=== PATIENT | male | born 1945 | race Caucasian/White ===

== ENCOUNTER 2016-07-05 01:11 | Emergency (ER) | payer MEDICARE, BC ==
[2016-07-05] MEDS ORDERED: SODIUM CHLORIDE 0.9% 1,000 ML IV STA (01:34)
[2016-07-05] MEDS ORDERED: KETOROLAC 30 MG/ML 1 ML VIAL IVP STA (01:35)
[2016-07-05] MEDS ORDERED: ORPHENADRINE 30 MG/ML 2 ML VIAL IVP STA (01:35)
[2016-07-05 02:21] LABS: Aty Lym Flag Slight; CH 31.8; CHCM 33.4; HCT 37.9 % (39.0-53.0); HDW 2.16; HGB 12.7 gm/dL (13.0-17.5); MCH 32.1 pg (25.0-35.0); MCHC 33.6 g/dL (31.0-37.0); MCV 95.5 fL (80.0-100.0); Mean Platelet Volume 6.7; RBC 3.96 m/uL (4.30-5.90); WBC 9.1 k/uL (3.8-10.6); WBC (Perox) 8.87
[2016-07-05 02:35] LABS: ALT 26 U/L (21-72); AST 32 U/L (17-59); Alkaline Phosphatase 79 U/L (38-126); Anion Gap 11 mmol/L; Blood Urea Nitrogen 12 mg/dL (9-20); Calcium 9.2 mg/dL (8.4-10.2); Carbon Dioxide 26 mmol/L (22-30); Chloride 104 mmol/L (98-107); Glucose 85 mg/dL (74-99); Non-African American GFR(MDRD) >60 (>60 ml/min/1.73 sqM); Sodium 141 mmol/L (137-145); Total Bilirubin 0.9 mg/dL (0.2-1.3); Total Protein 9.2 g/dL (6.3-8.2)
[2016-07-05 02:42] LABS: Add Differential Manual Differential
[2016-07-05 02:44] LABS: Manual Review Performed; Nucleated Red Blood Cells 0 /100 WBC (0-0); Reactive Lymphocytes Present; Total Cells Counted 100
--- NOTE | 2016-07-05 03:06 | XR ---
EXAM: XR Lumbar Spine, 3 Views. CLINICAL HISTORY: Reason: Pain TECHNIQUE: Frontal and lateral views of the lumbar spine. COMPARISON: No relevant prior studies available. FINDINGS: Vertebrae: Anterior wedging deformities of T12 and L1 which appear chronic. Mild height loss is also seen at L3. Endplate Schmorl's nodes seen at T11, T12, and L1. Flowing anterior marginal osteophytes may suggest diffuse idiopathic skeletal hyperostosis. Normal alignment. Disc spaces: Disc space narrowing is seen at T12/L1, L1/L2, L2/L3 and L5/S1. There are bulky marginal osteophytes. Degenerative facet disease is seen at all levels. Soft tissues: Unremarkable. IMPRESSION: No acute findings. Chronic height loss of T12, L1 and L3. Schmorl's nodes seen at T11, T12, and L1. Degenerative changes as described.
--- NOTE | 2016-07-05 03:10 | XR ---
EXAM: XR Chest, 2 Views. CLINICAL HISTORY: Reason: Pain TECHNIQUE: Frontal and lateral views of the chest. COMPARISON: CXR 09/19/15. FINDINGS: Lungs: Unremarkable. No consolidation. Pleural space: Unremarkable. No pneumothorax. Heart: Unremarkable. No cardiomegaly. Mediastinum: Unremarkable. Bones/joints: Old right humeral fracture deformity seen. Multilevel degenerative changes of the spine. IMPRESSION: No acute findings.
[2016-07-05 03:13] LABS: Appearance,Urine Clear (Clear); Bilirubin,Urine Negative (Negative); Glucose,Urine (UA) Negative (Negative); Ketones,Urine Negative (Negative); Leukocyte Esterase,Urine Negative (Negative); Mucus,Urine Rare /hpf; Nitrite,Urine Negative (Negative); PH, Urine 6.5 (5.0-8.0); Particle Count 792; Protein,Urine Negative (Negative); RBC,Urine >182 /hpf (0-5); Specific Gravity,Urine 1.009 (1.001-1.035); UA Billing (MACRO vs. MICRO) MICRO; Urobilinogen,Urine <2.0 mg/dL (<2.0); WBC,Urine 1 /hpf (0-5)
--- NOTE | 2016-07-05 03:13 | ED ---
General Adult HPI - General Chief complaint: Back Pain/Injury Stated complaint: Flank Pain Time Seen by Provider: 07/05/16 01:17 Source: EMS, RN notes reviewed, old records reviewed Mode of arrival: EMS Limitations: no limitations - History of Present Illness Initial comments: This is a 70 year old male with four days of right sided lower back pain, patient reports that this does not change with position. Patient reports that hte pain will radiate toward his groin, into his testicle. PAtient states he has had no trouble with urination, denies any changes with bowel movements. Denies history of kidney stones. Patient states his pain rafael 5/10. Denies fevers , chills, chest pain, shortness of breath, nausea, vomiting, abdominal pain. - Related Data Home Medications Medication Instructions Recorded Confirmed Citalopram Hydrobromide [CeleXA] 20 mg PO DAILY 06/08/14 09/19/15 Diltiazem Oral [Cardizem*] 60 mg PO AC-BID 07/23/14 09/19/15 Phenytoin Sodium Extended 200 mg PO BID 09/23/14 09/19/15 [Dilantin] Atenolol [Tenormin] 50 mg PO BID 08/16/15 09/19/15 Gabapentin [Neurontin] 300 mg PO BID 08/16/15 09/19/15 Previous Rx's Medication Instructions Recorded Aspirin EC [Ecotrin] 325 mg PO DAILY #30 tablet. 08/05/13 Ondansetron [Zofran ODT] 8 mg PO Q8HR PRN #12 tab 08/16/15 HYDROcodone/APAP 10-325MG [[place] 1 tab PO Q6H PRN #20 tab 07/05/16 10-325] Ketorolac [Toradol] 10 mg PO Q6HR #12 tab 07/05/16 Ondansetron Odt [Zofran Odt] 4 mg PO Q8HR PRN #12 tab 07/05/16 Allergies Allergy/AdvReac Type Severity Reaction Status Date / Time loratadine Allergy Unknown Verified 07/05/16 01:26 antihistamines Allergy Unknown Uncoded 07/05/16 01:26 Review of Systems ROS Statement: Those systems with pertinent positive or pertinent negative responses have been documented in the HPI. ROS Other: All systems not noted in ROS Statement are negative. Past Medical History Past Medical History: CVA/TIA, Hypertension, Seizure Disorder Additional Past Medical History / Comment(s): alcohol intoxication, alcohol withdrawal seizures, hypokalemia, hyponatremia, dehyration, metabolic encephalopathy History of Any Multi-Drug Resistant Organisms: Unobtainable Past Surgical History: No Surgical Hx Reported Past Anesthesia/Blood Transfusion Reactions: No Reported Reaction Past Psychological History: Anxiety, Depression Additional Psychological History / Comment(s): due to his depression he drinks whisky Smoking Status: Never smoker Past Alcohol Use History: Occasional Past Drug Use History: None Reported - Past Family History Father Family Medical History: No Reported History Mother Family Medical History: Coronary Artery Disease (CAD), Hypertension General Exam - General Exam Comments Initial Comments: Pleasant 70 year old male, no distress. Limitations: no limitations General appearance: alert, in no apparent distress Head exam: Present: atraumatic, normocephalic, normal inspection Eye exam: Present: normal appearance, PERRL, EOMI. Absent: scleral icterus, conjunctival injection, periorbital swelling ENT exam: Present: normal exam, mucous membranes moist Neck exam: Present: normal inspection. Absent: tenderness, meningismus, lymphadenopathy Respiratory exam: Present: normal lung sounds bilaterally. Absent: respiratory distress, wheezes, rales, rhonchi, stridor Cardiovascular Exam: Present: regular rate, normal rhythm, normal heart sounds. Absent: systolic murmur, diastolic murmur, rubs, gallop, clicks GI/Abdominal exam: Present: soft, normal bowel sounds. Absent: distended, tenderness, guarding, rebound, rigid Extremities exam: Present: normal inspection, full ROM, normal capillary refill. Absent: tenderness, pedal edema, joint swelling, calf tenderness Back exam: Present: normal inspection, CVA tenderness (R) Neurological exam: Present: alert, oriented X3, CN II-XII intact Psychiatric exam: Present: normal affect, normal mood Skin exam: Present: warm, dry, intact, normal color. Absent: rash Course Vital Signs 07/05/16 07/05/16 07/05/16 01:21 03:17 04:36 Temperature 99.7 F H 97.8 F 97.5 F L Pulse Rate 70 65 88 Respiratory 18 18 16 Rate Blood Pressure 151/93 151/72 133/75 O2 Sat by Pulse 97 96 97 Oximetry Medical Decision Making - Medical Decision Making Pleasant 70 year old male with right flank pain for four days. Patient has hematuria, kidney function is stable. Patient has 1.5cm Right renal stone. Discussed findings with patient, and patient understands he needs to see urology. Discussed we can complete pain management and that he needs to schedule a possbile lithotripsy or surgery. Patient agrees with treatment plan and will comply. Patient states that he is pain free at this time. Patient given referral for Dr. Thorpe. - Lab Data Result diagrams: 07/05/16 02:10 07/05/16 02:10 Lab Results 07/05/16 07/05/16 07/05/16 Range/Units 02:10 02:10 03:05 WBC 9.1 (3.8-10.6) k/uL RBC 3.96 L (4.30-5.90) m/uL Hgb 12.7 L (13.0-17.5) gm/dL Hct 37.9 L (39.0-53.0) % MCV 95.5 (80.0-100.0) fL MCH 32.1 (25.0-35.0) pg MCHC 33.6 (31.0-37.0) g/dL RDW 13.0 (11.5-15.5) % Plt Count 139 L (150-450) k/uL Neutrophils % (Manual) 44.0 % Lymphocytes % (Manual) 45.0 % Monocytes % (Manual) 9.0 % Eosinophils % (Manual) 2.0 % Neutrophils # (Manual) 4.0 (1.3-7.7) k/uL Lymphocytes # (Manual) 4.1 (1.0-4.8) k/uL Monocytes # (Manual) 0.8 (0-1.0) k/uL Eosinophils # (Manual) 0.2 (0-0.7) k/uL Nucleated RBCs 0 (0-0) /100 WBC Manual Slide Review Performed Reactive Lymphocytes Present Sodium 141 (137-145) mmol/L Potassium 5.0 (3.5-5.1) mmol/L Chloride 104 (98-107) mmol/L Carbon Dioxide 26 (22-30) mmol/L Anion Gap 11 mmol/L BUN 12 (9-20) mg/dL Creatinine 0.90 (0.66-1.25) mg/dL Est GFR (MDRD) Af Amer >60 (>60 ml/min/1.73 sqM) Est GFR (MDRD) Non-Af >60 (>60 ml/min/1.73 sqM) Glucose 85 (74-99) mg/dL Calcium 9.2 (8.4-10.2) mg/dL Total Bilirubin 0.9 (0.2-1.3) mg/dL AST 32 (17-59) U/L ALT 26 (21-72) U/L Alkaline Phosphatase 79 (38-126) U/L Total Protein 9.2 H (6.3-8.2) g/dL Albumin 4.0 (3.5-5.0) g/dL Urine Color Light Yellow Urine Appearance Clear (Clear) Urine pH 6.5 (5.0-8.0) Ur Specific [place] 1.009 (1.001-1.035) Urine Protein Negative (Negative) Urine Glucose (UA) Negative (Negative) Urine Ketones Negative (Negative) Urine Blood Moderate H (Negative) Urine Nitrite Negative (Negative) Urine Bilirubin Negative (Negative) Urine Urobilinogen <2.0 (<2.0) mg/dL Ur Leukocyte Esterase Negative (Negative) Urine RBC >182 H (0-5) /hpf Urine WBC 1 (0-5) /hpf Urine Mucus Rare H (None) /hpf - Radiology Data Radiology results: report reviewed Patient has a 15mm renal pelvis stone via CT report. Disposition Clinical Impression: Renal calculus, right Disposition: HOME SELF-CARE Condition: Good Instructions: Kidney Stones (ED) Additional Instructions: Patient needs to call Dr. Piedra on Wednesday for an appointment about a 15 mm right renal stone. Take pain medication and nausea medication as prescribed. Return to the emergency department if there are any alarming signs or symptoms. Prescriptions: HYDROcodone/APAP 10-325MG [[place] 10-325] 1 tab PO Q6H PRN #20 tab PRN Reason: Pain Ketorolac [Toradol] 10 mg PO Q6HR #12 tab Ondansetron Odt [Zofran Odt] 4 mg PO Q8HR PRN #12 tab PRN Reason: Nausea Referrals: Husam Wright MD [Primary Care Provider] - 1-2 days Luis A Thorpe MD [STAFF PHYSICIAN] - 1-2 days Time of Disposition: 04:19
--- NOTE | 2016-07-05 03:53 | CT ---
EXAM: CT Abdomen and Pelvis Without Intravenous Contrast. CLINICAL HISTORY: Reason: Pain TECHNIQUE: Axial computed tomography images of the abdomen and pelvis without intravenous contrast. CTDI is 19.3 mGy and DLP is 904 mGy-cm This CT exam was performed using one or more of the following dose reduction techniques: automated exposure control, adjustment of the mA and/or kV according to patient size, and/or use of iterative reconstruction technique. Coronal and sagittal reformatted images were created and reviewed. COMPARISON: Lumbar spine radiographs dated 09/19/15 and 07/05/16 FINDINGS: Lower thorax: Extensive mitral annulus calcifications. ABDOMEN: Liver: Unremarkable. Gallbladder and bile ducts: Cholelithiasis. No ductal dilation. Pancreas: Unremarkable. No ductal dilation. Spleen: Unremarkable. No splenomegaly. Adrenals: Unremarkable. No mass. Kidneys and ureters: 15 mm calculus within the right renal pelvis. Left adrenal 4.8 cm fat containing lesion which may represent a myolipoma vs. an angiomyolipoma arising from the kidney. Stomach and bowel: Unremarkable. No obstruction. No mucosal thickening. Appendix: No findings to suggest acute appendicitis. PELVIS: Bladder: Bladder wall thickening which may suggest cystitis vs. chronic outlet obstruction. Reproductive: Unremarkable as visualized. ABDOMEN and PELVIS: Intraperitoneal space: No free air. No significant fluid collection. Bones/joints: Schmorl's nodes seen at T9, T10, T11, T12, L1, and L2. The L2 Schmorl's node may possibly be acute. Diffuse osteopenia. Multilevel degenerative changes of the spine. Mild height loss is seen at L3 which appears chronic. Flowing contiguous marginal osteophytes may reflect diffuse idiopathic skeletal hyperostosis. Soft tissues: Right fat containing inguinal hernia. Vasculature: Extensive atherosclerosis. No abdominal aortic aneurysm. Lymph nodes: Unremarkable. No enlarged lymph nodes. IMPRESSION: 1. 15 mm calculus within the right renal pelvis. 2. Cholelithiasis. 3. Bladder wall thickening which may suggest cystitis vs. chronic outlet obstruction. 4. Schmorl's nodes seen at T9, T10, T11, T12, L1, and L2. The L2 Schmorl's node may possibly be acute. 5. Left adrenal 4.8 cm fat containing lesion which may represent a myolipoma vs. an angiomyolipoma arising from the kidney.
[2016-07-05 04:38] VITALS: BP 133/75; PULSE 88; RESP 16; TEMP 97.5
== END 2016-07-05 04:38 | disposition home or self-care (01) ==
LOC: EC 01:11
DX: N20.0 Calculus of kidney (principal); I10 Essential (primary) hypertension; G40.909 Epilepsy, unspecified, not intractable, without status epilepticus; F32.9 Major depressive disorder, single episode, unspecified; F41.9 Anxiety disorder, unspecified; Z79.899 Other long term (current) drug therapy; Z88.8 Allergy status to other drugs, medicaments and biological substances
CPT/HCPCS: 36415; 80053; 85025; 81001; 71020; 72100; 74176; 99285; 96374; 96375; 96361 ×3; J2360; J1885

== ENCOUNTER 2016-11-05 13:17 | Emergency (ER) | payer MEDICARE, BC ==
[2016-11-05 13:27] VITALS: RESP 18
[2016-11-05] MEDS ORDERED: LORazepam 2 MG/ML SYRINGE IV STA (13:34)
[2016-11-05] MEDS ORDERED: SODIUM CHLORIDE 0.9% 500 ML IV STA (13:34)
--- NOTE | 2016-11-05 13:40 | ED ---
General Adult HPI - General Chief complaint: Seizure Stated complaint: seizure Time Seen by Provider: 11/05/16 13:21 Source: patient, EMS, RN notes reviewed Mode of arrival: EMS Limitations: no limitations - History of Present Illness Initial comments: 71-year-old male presents to the emergency Department chief complaint of seizure. Patient has a long history of seizures. Patient had a seizure today. Patient states the patient for nausea and he feels a little foggy. Patient states that he has no other complaints. Per report there was no injury from the seizure. They state they were informed that his Dilantin level was low there concerned that he has not been taking his Dilantin swimming antiseizure they sent him here. Patient denies a loss by bladder function or biting of the tongue. Patient states that this time he has no pain he just has some mild nausea.Patient denies any recent fever, chills, shortness of breath, chest pain , back pain, abdominal pain, vomiting, numbness or tingling, dysuria or hematuria, constipation or diarrhea, headaches or visual changes, or any other current symptoms. - Related Data Home Medications Medication Instructions Recorded Confirmed Citalopram Hydrobromide [CeleXA] 20 mg PO DAILY@199906/08/14 11/05/16 Phenytoin Sodium Extended 200 mg PO BID@0809/23/14 11/05/16 [Dilantin] Atenolol [Tenormin] 50 mg PO DAILY 08/16/15 11/05/16 Cholecalciferol (Vitamin D3) 2,000 unit PO DAILY 11/05/16 11/05/16 [Vitamin D3] Diltiazem HCl [Diltiazem 24Hr ER] 120 mg PO DAILY@199911/05/16 11/05/16 HYDROcodone/APAP 10-325MG [[place] 1 tab PO Q8H PRN 11/05/16 11/05/16 10-325] Ibuprofen [Motrin] 400 - 800 mg PO Q6HR PRN 11/05/16 11/05/16 Ipratropium Line [place] 0.06%Nasal 2 spray EA NOSTRIL TID PRN 11/05/16 11/05/16 [Atrovent Nasal 0.06%] Multivitamins, Thera [Multivitamin 1 tab PO DAILY 11/05/16 11/05/16 (formulary)] [place]-3 Fatty Acids/Fish Oil [Fish 1 cap PO DAILY 11/05/16 11/05/16 Oil 1,000 mg Softgel] Ondansetron [Zofran ODT] 4 mg PO Q8HR PRN 11/05/16 11/05/16 Sennosides [Senna] 8.6 mg PO DAILY PRN 11/05/16 11/05/16 Previous Rx's Medication Instructions Recorded Aspirin EC [Ecotrin] 325 mg PO DAILY #30 tablet. 08/05/13 Allergies Allergy/AdvReac Type Severity Reaction Status Date / Time loratadine Allergy Unknown Verified 11/05/16 14:03 antihistamines Allergy Unknown Uncoded 07/05/16 01:26 Review of Systems ROS Statement: Those systems with pertinent positive or pertinent negative responses have been documented in the HPI. ROS Other: All systems not noted in ROS Statement are negative. Past Medical History Past Medical History: CVA/TIA, Hypertension, Seizure Disorder Additional Past Medical History / Comment(s): alcohol intoxication, alcohol withdrawal seizures, hypokalemia, hyponatremia, dehyration, metabolic encephalopathy History of Any Multi-Drug Resistant Organisms: Unobtainable Past Surgical History: No Surgical Hx Reported Past Anesthesia/Blood Transfusion Reactions: No Reported Reaction Past Psychological History: Anxiety, Depression Smoking Status: Never smoker Past Alcohol Use History: Occasional Past Drug Use History: None Reported - Past Family History Father Family Medical History: No Reported History Mother Family Medical History: Coronary Artery Disease (CAD), Hypertension General Exam - General Exam Comments Initial Comments: General: The patient is awake and alert, in no distress, and does not appear acutely ill. Eye: Pupils are equal, round and reactive to light, extra-ocular movements are intact; there is normal conjunctiva bilaterally. No signs of icterus. Ears, nose, mouth and throat: There are moist mucous membranes and no oral lesions. Neck: The neck is supple, there is no tenderness. Cardiovascular: There is a regular rate and rhythm. No murmur, rub or gallop is appreciated. Respiratory: Lungs are clear to auscultation, respirations are non-labored, breath sounds are equal. No wheezes, stridor, rales, or rhonchi. Gastrointestinal: Soft, non-distended, non-tender abdomen without masses or organomegaly noted. There is no rebound or guarding present. No CVA tenderness. Bowel sounds are unremarkable. Back: There is no tenderness to palpation in the midline. There is no obvious deformity. No rashes noted. Musculoskeletal: Normal ROM, no tenderness, There is no pedal edema. There is no calf tenderness or swelling. Sensation intact. Pulses equal bilaterally 2+. Neurological: CN II-XII intact, There are no obvious motor or sensory deficits. Coordination appears grossly intact. Speech is normal. Skin: Skin is warm and dry and no rashes or lesions are noted. Psychiatric: Cooperative, appropriate mood & affect, normal judgment. Limitations: no limitations Course Vital Signs 11/05/16 11/05/16 11/05/16 13:20 15:30 16:05 Temperature 98.3 F 98.2 F Pulse Rate 95 98 87 Respiratory 18 18 18 Rate Blood Pressure 138/74 138/70 137/87 O2 Sat by Pulse 96 99 98 Oximetry EKG Findings - EKG Comments: EKG Findings:: normal sinus rhythm 97 bpm, normal axis, no atopy, no S-T depressions or elevations, prolonged QT Medical Decision Making - Medical Decision Making 71-year-old male presents to the emergency Department chief complaint of seizures. Patient has long history sutures this was much like his normal seizure. There concerned that his seizure medication level may be low.at this time we will re-placed patient's Dilantin. We discussed continuing Lopressor home and close follow-up with her doctor for reevaluation. We did discuss taking his medications the patient states that he has been missing some doses. We did discuss follow-up return parameters. Patient is in agreement with plan all questions have been answered. He will be discharged home at this time. - Lab Data Result diagrams: 11/05/16 14:10 11/05/16 14:10 Lab Results 11/05/16 11/05/16 Range/Units 14:10 14:10 WBC 9.2 (3.8-10.6) k/uL RBC 4.35 (4.30-5.90) m/uL Hgb 13.8 (13.0-17.5) gm/dL Hct 40.5 (39.0-53.0) % MCV 93.0 (80.0-100.0) fL MCH 31.8 (25.0-35.0) pg MCHC 34.2 (31.0-37.0) g/dL RDW 12.6 (11.5-15.5) % Plt Count 150 (150-450) k/uL Neutrophils % 76 % Lymphocytes % 15 % Monocytes % 5 % Eosinophils % 1 % Basophils % 0 % Neutrophils # 6.9 (1.3-7.7) k/uL Lymphocytes # 1.3 (1.0-4.8) k/uL Monocytes # 0.4 (0-1.0) k/uL Eosinophils # 0.1 (0-0.7) k/uL Basophils # 0.0 (0-0.2) k/uL Sodium 145 (137-145) mmol/L Potassium 4.0 (3.5-5.1) mmol/L Chloride 109 H (98-107) mmol/L Carbon Dioxide 22 (22-30) mmol/L Anion Gap 14 mmol/L BUN 18 (9-20) mg/dL Creatinine 0.90 (0.66-1.25) mg/dL Est GFR (MDRD) Af Amer >60 (>60 ml/min/1.73 sqM) Est GFR (MDRD) Non-Af >60 (>60 ml/min/1.73 sqM) Glucose 126 H (74-99) mg/dL Calcium 9.4 (8.4-10.2) mg/dL Total Bilirubin 0.6 (0.2-1.3) mg/dL AST 31 (17-59) U/L ALT 16 L (21-72) U/L Alkaline Phosphatase 104 (38-126) U/L Total Protein 8.7 H (6.3-8.2) g/dL Albumin 4.0 (3.5-5.0) g/dL Phenytoin 3.3 ug/mL Disposition Clinical Impression: Generalized seizure, Dilantin level too low Disposition: HOME SELF-CARE Condition: Stable Instructions: Recurrent Seizures in Adults (ED) Additional Instructions: Please use medication as discussed. Please follow up with family doctor if symptoms have not improved over the next two days. Please return to the emergency room if your symptoms increase or worsen or for any other concerns. Referrals: Husam Wright MD [Primary Care Provider] - 1-2 days Time of Disposition: 16:12
[2016-11-05 14:16] LABS: Basophils % (A) 0 %; CH 31.2; CHCM 33.7; Eosinophils # (A) 0.1 k/uL (0-0.7); Eosinophils % (A) 1 %; HCT 40.5 % (39.0-53.0); HDW 2.04; HGB 13.8 gm/dL (13.0-17.5); Luc # (Auto) 0.31; Luc % (Auto) 3; Lymphocytes # (A) 1.3 k/uL (1.0-4.8); Lymphocytes % (A) 15 %; MCH 31.8 pg (25.0-35.0); MCHC 34.2 g/dL (31.0-37.0); Mean Platelet Volume 6.6; Monocytes # (A) 0.4 k/uL (0-1.0); Monocytes % (A) 5 %; Neutrophils # (A) 6.9 k/uL (1.3-7.7); Neutrophils % (A) 76 %; RBC 4.35 m/uL (4.30-5.90); RDW 12.6 % (11.5-15.5); WBC 9.2 k/uL (3.8-10.6); WBC (Perox) 9.01
[2016-11-05 14:49] LABS: ALT 16 U/L (21-72); AST 31 U/L (17-59); Alkaline Phosphatase 104 U/L (38-126); Anion Gap 14 mmol/L; Blood Urea Nitrogen 18 mg/dL (9-20); Calcium 9.4 mg/dL (8.4-10.2); Carbon Dioxide 22 mmol/L (22-30); Chloride 109 mmol/L (98-107); Glucose 126 mg/dL (74-99); Non-African American GFR(MDRD) >60 (>60 ml/min/1.73 sqM); Sodium 145 mmol/L (137-145); Total Bilirubin 0.6 mg/dL (0.2-1.3); Total Protein 8.7 g/dL (6.3-8.2)
[2016-11-05] MEDS ORDERED: PHENYTOIN SODIUM INJ 1,000 MG in SODIUM CHLORIDE 0.9% 100 ML IVPB STA (15:00)
[2016-11-05 16:06] VITALS: BP 137/87; PULSE 87; TEMP 98.2
== END 2016-11-05 16:11 | disposition home or self-care (01) ==
LOC: EC 13:17
DX: G40.409 Other generalized epilepsy and epileptic syndromes, not intractable, without status epilepticus (principal); R11.0 Nausea; F32.9 Major depressive disorder, single episode, unspecified; I10 Essential (primary) hypertension; Z79.899 Other long term (current) drug therapy; Z88.8 Allergy status to other drugs, medicaments and biological substances
CPT/HCPCS: 99284; 96365; 96375; 96361 ×2; 36415; 93005; 80053; 80185; 85025; J2060; J1165

== ENCOUNTER 2017-02-05 20:02 | Inpatient (IN) | payer MEDICARE, BC ==
[2017-02-05] MEDS ORDERED: LORazepam 2 MG/ML INJ IV STA ×2 (20:18→22:13)
--- NOTE | 2017-02-05 20:24 | ED ---
General Adult HPI - General Chief complaint: Seizure Stated complaint: post seizure check up Time Seen by Provider: 02/05/17 20:08 Source: patient, EMS, RN notes reviewed Mode of arrival: EMS Limitations: no limitations - History of Present Illness Initial comments: 71 yo male presents to the emergency department with a chief complaint of concern he may have a seizure. 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 Patient states that he does drink on occasion and he drink yesterday and then he had a seizure last night. He states it was a grand mal seizure. He states that he knows this. He states that he has scratches on his left elbow and he believes he hit his head. Patient states that now he just feels off like he may have another seizure he denies drinking today. He states he wanted his Dilantin level checked. He states that he sees the physicians that come to his home. He states that he just feels like he may have another seizure so he thought that he should be seen.Patient denies any recent fever, chills, shortness of breath, chest pain, back pain, abdominal pain , nausea vomiting, numbness or tingling, dysuria or hematuria, constipation or diarrhea, headaches or visual changes, or any other current symptoms. - Related Data Home Medications Medication Instructions Recorded Confirmed Phenytoin Sodium Extended 200 mg PO BID@0800,199909/23/14 02/05/17 [Dilantin] Cholecalciferol (Vitamin D3) 2,000 unit PO DAILY 11/05/16 02/05/17 [Vitamin D3] [place]-3 Fatty Acids/Fish Oil [Fish 1 cap PO DAILY 11/05/16 02/05/17 Oil 1,000 mg Softgel] Aspirin [Children's Aspirin] 81 mg PO DAILY 02/05/17 02/05/17 Unk. Blood Pressure Medication 1 tab PO DAILY 02/05/17 02/05/17 Allergies Allergy/AdvReac Type Severity Reaction Status Date / Time loratadine Allergy Unknown Verified 11/05/16 14:03 antihistamines Allergy Unknown Uncoded 07/05/16 01:26 Review of Systems ROS Statement: Those systems with pertinent positive or pertinent negative responses have been documented in the HPI. ROS Other: All systems not noted in ROS Statement are negative. Past Medical History Past Medical History: CVA/TIA, Hypertension, Seizure Disorder Additional Past Medical History / Comment(s): alcohol intoxication, alcohol withdrawal seizures, hypokalemia, hyponatremia, dehyration, metabolic encephalopathy History of Any Multi-Drug Resistant Organisms: Unobtainable Past Surgical History: No Surgical Hx Reported Past Anesthesia/Blood Transfusion Reactions: No Reported Reaction Past Psychological History: Anxiety, Depression Smoking Status: Never smoker Past Alcohol Use History: Occasional Past Drug Use History: None Reported - Past Family History Father Family Medical History: No Reported History Mother Family Medical History: Coronary Artery Disease (CAD), Hypertension General Exam Limitations: no limitations General appearance: alert, in no apparent distress Eye exam: Present: normal appearance, PERRL, EOMI. Absent: scleral icterus, conjunctival injection, periorbital swelling Neck exam: Present: normal inspection. Absent: tenderness, meningismus, lymphadenopathy Respiratory exam: Present: normal lung sounds bilaterally. Absent: respiratory distress, wheezes, rales, rhonchi, stridor Cardiovascular Exam: Present: regular rate, normal rhythm, normal heart sounds. Absent: systolic murmur, diastolic murmur, rubs, gallop, clicks GI/Abdominal exam: Present: soft, normal bowel sounds. Absent: distended, tenderness, guarding, rebound, rigid Extremities exam: Present: normal inspection, full ROM, normal capillary refill. Absent: tenderness, pedal edema, joint swelling, calf tenderness Back exam: Present: normal inspection Neurological exam: Present: alert, oriented X3, CN II-XII intact, normal gait, reflexes normal. Absent: motor sensory deficit Psychiatric exam: Present: normal affect, normal mood Skin exam: Present: warm, dry, intact, normal color. Absent: rash Course Vital Signs 02/05/17 20:03 Temperature 101.1 F H Pulse Rate 81 Respiratory 18 Rate Blood Pressure 182/92 O2 Sat by Pulse 97 Oximetry Medical Decision Making - Medical Decision Making 71 yo male presents emergency Department chief complaint of concern for seizure. Patient has a seizure disorder did have a seizure yesterday. At this time there is concern this could be alcohol withdrawal seizure versus his seizure disorder. At this time the fever there does not appear to be a known source associated seizure. We did give him a loading dose of Dilantin. We will admit the patient for continued observation due to alcohol withdrawal seizures. This was discussed with the patient who is in agreement this plan. All questions have been answered. - Lab Data Result diagrams: 02/05/17 20:41 02/05/17 20:41 Lab Results 02/05/17 02/05/17 02/05/17 Range/Units 20:41 20:41 20:41 WBC 12.1 H (3.8-10.6) k/uL RBC 3.95 L (4.30-5.90) m/uL Hgb 12.4 L (13.0-17.5) gm/dL Hct 37.6 L (39.0-53.0) % MCV 95.2 (80.0-100.0) fL MCH 31.5 (25.0-35.0) pg MCHC 33.1 (31.0-37.0) g/dL RDW 13.9 (11.5-15.5) % Plt Count 165 (150-450) k/uL Neutrophils % 56 % Lymphocytes % 33 % Monocytes % 6 % Eosinophils % 1 % Basophils % 0 % Neutrophils # 6.7 (1.3-7.7) k/uL Lymphocytes # 4.0 (1.0-4.8) k/uL Monocytes # 0.8 (0-1.0) k/uL Eosinophils # 0.1 (0-0.7) k/uL Basophils # 0.0 (0-0.2) k/uL PT (9.0-12.0) sec INR (<1.2) APTT (22.0-30.0) sec Sodium 139 (137-145) mmol/L Potassium 3.8 (3.5-5.1) mmol/L Chloride 105 (98-107) mmol/L Carbon Dioxide 25 (22-30) mmol/L Anion Gap 9 mmol/L BUN 16 (9-20) mg/dL Creatinine 1.10 (0.66-1.25) mg/dL Est GFR (MDRD) Af Amer >60 (>60 ml/min/1.73 sqM) Est GFR (MDRD) Non-Af >60 (>60 ml/min/1.73 sqM) Glucose 110 H (74-99) mg/dL Plasma Lactic Acid Rivera (0.7-2.0) mmol/L Calcium 9.3 (8.4-10.2) mg/dL Phosphorus 2.9 (2.5-4.5) mg/dL Magnesium 1.9 (1.6-2.3) mg/dL Total Bilirubin 0.6 (0.2-1.3) mg/dL AST 35 (17-59) U/L ALT 44 (21-72) U/L Alkaline Phosphatase 108 (38-126) U/L Total Protein 9.1 H (6.3-8.2) g/dL Albumin 3.9 (3.5-5.0) g/dL Phenytoin 8.7 ug/mL Serum Alcohol <10 mg/dL Influenza Type A RNA (Not Detectd) Influenza Type B (PCR) (Not Detectd) 02/05/17 02/05/17 02/05/17 Range/Units 20:41 20:41 20:50 WBC (3.8-10.6) k/uL RBC (4.30-5.90) m/uL Hgb (13.0-17.5) gm/dL Hct (39.0-53.0) % MCV (80.0-100.0) fL MCH (25.0-35.0) pg MCHC (31.0-37.0) g/dL RDW (11.5-15.5) % Plt Count (150-450) k/uL Neutrophils % % Lymphocytes % % Monocytes % % Eosinophils % % Basophils % % Neutrophils # (1.3-7.7) k/uL Lymphocytes # (1.0-4.8) k/uL Monocytes # (0-1.0) k/uL Eosinophils # (0-0.7) k/uL Basophils # (0-0.2) k/uL PT 11.5 (9.0-12.0) sec INR 1.1 (<1.2) APTT 25.6 (22.0-30.0) sec Sodium (137-145) mmol/L Potassium (3.5-5.1) mmol/L Chloride (98-107) mmol/L Carbon Dioxide (22-30) mmol/L Anion Gap mmol/L BUN (9-20) mg/dL Creatinine (0.66-1.25) mg/dL Est GFR (MDRD) Af Amer (>60 ml/min/1.73 sqM) Est GFR (MDRD) Non-Af (>60 ml/min/1.73 sqM) Glucose (74-99) mg/dL Plasma Lactic Acid Rivera 1.0 (0.7-2.0) mmol/L Calcium (8.4-10.2) mg/dL Phosphorus (2.5-4.5) mg/dL Magnesium (1.6-2.3) mg/dL Total Bilirubin (0.2-1.3) mg/dL AST (17-59) U/L ALT (21-72) U/L Alkaline Phosphatase (38-126) U/L Total Protein (6.3-8.2) g/dL Albumin (3.5-5.0) g/dL Phenytoin ug/mL Serum Alcohol mg/dL Influenza Type A RNA Not Detected (Not Detectd) Influenza Type B (PCR) Not Detected (Not Detectd) - Radiology Data Radiology results: report reviewed, image reviewed Disposition Clinical Impression: Alcohol withdrawal seizure, Fever Disposition: ADMITTED IP TO THIS [facility] Condition: Stable Referrals: Nonstaff,Physician [Primary Care Provider] - 1-2 days Decision Date: 02/05/17 Decision Time: 22:14
[2017-02-05] MEDS ORDERED: ONDANSETRON 4 MG/2 ML VIAL IVP STA (20:47)
[2017-02-05 20:59] LABS: Basophils % (A) 0 %; CH 30.9; CHCM 32.6; Eosinophils # (A) 0.1 k/uL (0-0.7); Eosinophils % (A) 1 %; HCT 37.6 % (39.0-53.0); HDW 1.88; HGB 12.4 gm/dL (13.0-17.5); Luc # (Auto) 0.38; Luc % (Auto) 3; Lymphocytes % (A) 33 %; MCH 31.5 pg (25.0-35.0); MCHC 33.1 g/dL (31.0-37.0); MCV 95.2 fL (80.0-100.0); Mean Platelet Volume 7.5; Monocytes # (A) 0.8 k/uL (0-1.0); Monocytes % (A) 6 %; Neutrophils # (A) 6.7 k/uL (1.3-7.7); Neutrophils % (A) 56 %; RBC 3.95 m/uL (4.30-5.90); RDW 13.9 % (11.5-15.5); WBC 12.1 k/uL (3.8-10.6); WBC (Perox) 12.09
[2017-02-05 21:11] LABS: ALT 44 U/L (21-72); AST 35 U/L (17-59); Alcohol <10 mg/dL; Alkaline Phosphatase 108 U/L (38-126); Anion Gap 9 mmol/L; Blood Urea Nitrogen 16 mg/dL (9-20); Calcium 9.3 mg/dL (8.4-10.2); Carbon Dioxide 25 mmol/L (22-30); Chloride 105 mmol/L (98-107); Glucose 110 mg/dL (74-99); INR 1.1 (<1.2); Non-African American GFR(MDRD) >60 (>60 ml/min/1.73 sqM); Partial Thromboplastin Time 25.6 sec (22.0-30.0); Potassium 3.8 mmol/L (3.5-5.1); Prothrombin Time 11.5 sec (9.0-12.0); Sodium 139 mmol/L (137-145); Total Bilirubin 0.6 mg/dL (0.2-1.3); Total Protein 9.1 g/dL (6.3-8.2)
[2017-02-05 21:12] LABS: Magnesium 1.9 mg/dL (1.6-2.3); Phosphorous 2.9 mg/dL (2.5-4.5)
--- NOTE | 2017-02-05 21:32 | CT ---
EXAMINATION TYPE: CT brain wo con DATE OF EXAM: 02/05/2017 COMPARISON: 08/16/2015 HISTORY: Seizure activity. CT DLP: 977.5 mGycm Automated exposure control for dose reduction was used. FINDINGS: There is cerebral cortical atrophy. There is an approximate 3 cm area of increased density with calci fication in the left parietal lobe convexity. There is ray-white matter involvement. There is no mas s effect. There is no evidence of adjacent cerebral edema. There is no sign of acute intracranial hem orrhage. 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 NO ACUTE INTRACRANIAL ABNORMALITY. STABL E 5 MM LACUNAR INFARCT IN THE ANTERIOR RIGHT INTERNAL CAPSULE.
[2017-02-05] MEDS ORDERED: PHENYTOIN SODIUM INJ 500 MG in SODIUM CHLORIDE 0.9% 100 ML IVPB STA (22:13)
[2017-02-05] MEDS ORDERED: ACETAMINOPHEN TAB 325 MG TAB PO PRN (22:38)
[2017-02-05 22:50] LABS: Appearance,Urine Clear (Clear); Bilirubin,Urine Negative (Negative); Glucose,Urine (UA) Negative (Negative); Ketones,Urine Negative (Negative); Leukocyte Esterase,Urine Negative (Negative); Nitrite,Urine Negative (Negative); Protein,Urine Negative (Negative); Specific Gravity,Urine 1.012 (1.001-1.035); UA Billing (MACRO vs. MICRO) CHEM; Urobilinogen,Urine <2.0 mg/dL (<2.0)
[2017-02-05] MEDS ORDERED: LISINOPRIL 20 MG TAB PO STA (22:55)
[2017-02-05] MEDS ORDERED: CITALOPRAM HYDROBROMIDE 20 MG TAB PO STA (22:58)
--- NOTE | 2017-02-05 22:58 | P.HPIM ---
History of Present Illness H&P Date: 02/05/17 Chief Complaint: Seizure 71 yo male presents to the emergency department with a chief complaint of a seizure. Patient states that he takes Dilantin for 30 years long seizures history. The seizures are frequently induced by alcohol withdrawal. He stated that if he has enough Dilantin in his system he will not have a seizure after he drinks. He drinks alcohol infrequently according to him every 2-3 months. He generally tries to stay active to avoid drinking but sometimes he cannot. 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 He had a drink yesterday and today at around 3 AM in the morning he had grand mal seizure. The seizure lasted for about 5-10 minutes. He denied tongue biting or urinary incontinence during the seizure. Throughout the day today in the evening he had another seizure although the second one wasn't as bad as the first one. He has a prodrome consisting off right facial and right arm numbness with some palpitations that alerts him that a seizure might be coming. Sometimes a seizure actually comes and sometimes it doesn't. He has otherwise denied having any recent illness, fevers, chills, cough, chest pain, nausea or vomiting , abdominal pain or shortness of breath. He does not follow with a neurologist as an outpatient with his primary care physician was going to start him on antidepressant to help with the drinking problem. Review of Systems 12 point review of system was performed, negative except for HPI Past Medical History Past Medical History: CVA/TIA, Hypertension, Seizure Disorder Additional Past Medical History / Comment(s): alcohol intoxication, alcohol withdrawal seizures, hypokalemia, hyponatremia, dehyration, metabolic encephalopathy History of Any Multi-Drug Resistant Organisms: Unobtainable Past Surgical History: No Surgical Hx Reported Past Anesthesia/Blood Transfusion Reactions: No Reported Reaction Past Psychological History: Anxiety, Depression Smoking Status: Never smoker Past Alcohol Use History: Occasional Past Drug Use History: None Reported - Past Family History Father Family Medical History: No Reported History Mother Family Medical History: Coronary Artery Disease (CAD), Hypertension Medications and Allergies Home Medications Medication Instructions Recorded Confirmed Type Phenytoin Sodium Extended 200 mg PO BID@0800,199909/23/1402/05/17 History [Dilantin] Cholecalciferol (Vitamin D3) 2,000 unit PO DAILY 11/05/16 02/05/17 History [Vitamin D3] [place]-3 Fatty Acids/Fish Oil [Fish 1 cap PO DAILY 11/05/16 02/05/17 History Oil 1,000 mg Softgel] Aspirin [Children's Aspirin] 81 mg PO DAILY 02/05/17 02/05/17 History Unk. Blood Pressure Medication 1 tab PO DAILY 02/05/17 02/05/17 History Allergies Allergy/AdvReac Type Severity Reaction Status Date / Time loratadine Allergy Unknown Verified 11/05/16 14:03 antihistamines Allergy Unknown Uncoded 07/05/16 01:26 Physical Exam Vitals: Vital Signs Temp Pulse Resp BP Pulse Ox 02/05/17 20:03 101.1 F H 81 18 182/92 97 Intake and Output 02/05/17 02/05/17 02/05/17 06:59 14:59 22:59 Other: Weight 90.265 kg Patient Weight 02/06/17 06:59 Weight 90.265 kg Constitutional: No acute distress, conversant, pleasant Eyes:Anicteric sclerae, moist conjunctiva, no lid-lag, PERRLA, ENMT: Oropharynx clear, no erythema, exudates Neck: Supple, FROM, no masses, or JVD, No carotid bruits, No thyromegaly Lungs: Clear to auscultation, Clear to percussion, Normal respiratory effort, no accessory muscle use Cardiovascular: Heart regular in rate and rhythm, No murmurs, gallops, or rubs, No peripheral edema Abdominal: Soft, Nontender, no guarding, rebound or rigidity, Normoactive bowel sounds, No hepatomegaly, No splenomegaly, No palpable mass Skin: Normal temperature, tone, texture, turgor, no induration, No subcutaneous nodules, No rash, lesions, No ulcers Extremities: No digital cyanosis, No clubbing, Pedal pulses intact and symmetrical, Radial pulses intact and symmetrical, No calf tenderness Psychiatric: Alert and oriented to person, place and time, appropriate affect, intact judgement Neuro: Muscles Strength 5/5 in all 4 extremities, Sensation to light touch grossly present throughout, Cranial nerves II-XII grossly intact, no focal sensory deficits Results CBC & Chem 7: 02/05/17 20:41 02/05/17 20:41 Labs: Abnormal Lab Results - Last 24 Hours (Table) 02/05/17 02/05/17 Range/Units 20:41 20:41 WBC 12.1 H (3.8-10.6) k/uL RBC 3.95 L (4.30-5.90) m/uL Hgb 12.4 L (13.0-17.5) gm/dL Hct 37.6 L (39.0-53.0) % Glucose 110 H (74-99) mg/dL Total Protein 9.1 H (6.3-8.2) g/dL Assessment and Plan Plan: #1 Grand mal seizure: Likely induced by alcohol withdrawal Consult neurology Dilantin level was subtherapeutic in the emergency department so he was loaded with 500 mg IV Dilantin Check Dilantin level in the morning. Check labs including electrolytes in the morning #2 Benign hypertension Blood pressure is stable Patient does not recall the name of the blood pressure medicine he takes Will given him a single dose of lisinopril 20 mg 1 until his blood pressure medicine is verified #3 Alcoholism: Induced by depression according to the patient No signs of ETOH withdrawal at this point [facility] protocol Start Celexa 20 mg daily 4# DVT prophylaxis Ambulatory
[2017-02-05] MEDS ORDERED: LORazepam 2 MG/ML INJ IV PRN (23:00)
[2017-02-05] MEDS ORDERED: LABETALOL 5 MG/ML VIAL MDV IVP PRN (23:01)
[2017-02-06 00:37] VITALS: BMI 25.0
[2017-02-06 07:59] LABS: Basophils % (A) 1 %; CH 30.8; CHCM 31.6; Eosinophils # (A) 0.1 k/uL (0-0.7); Eosinophils % (A) 1 %; HCT 36.7 % (39.0-53.0); HDW 1.88; HGB 11.5 gm/dL (13.0-17.5); Luc # (Auto) 0.35; Luc % (Auto) 4; Lymphocytes # (A) 3.6 k/uL (1.0-4.8); Lymphocytes % (A) 43 %; MCH 30.7 pg (25.0-35.0); MCHC 31.3 g/dL (31.0-37.0); MCV 98.2 fL (80.0-100.0); Mean Platelet Volume 7.4; Monocytes # (A) 0.5 k/uL (0-1.0); Monocytes % (A) 6 %; Neutrophils # (A) 3.9 k/uL (1.3-7.7); Neutrophils % (A) 46 %; RBC 3.74 m/uL (4.30-5.90); RDW 13.9 % (11.5-15.5); WBC 8.5 k/uL (3.8-10.6); WBC (Perox) 8.74
[2017-02-06] MEDS: NON-FORMULARY DRUG (Omega-3 Fatty Acids/Fish Oil [Fish Oil 1,000 Mg Softgel] 1 CAP) PO SCH (08:12)
[2017-02-06] MEDS: CHOLECALCIFEROL 1,000 UNIT TAB PO SCH (08:13)
[2017-02-06] MEDS: PHENYTOIN SODIUM EXTENDED 100 MG CAP PO SCH ×2 (08:13→20:29)
[2017-02-06] MEDS: ASPIRIN 81 MG PO SCH (08:13)
[2017-02-06 08:16] LABS: Anion Gap 6 mmol/L; Blood Urea Nitrogen 14 mg/dL (9-20); Carbon Dioxide 28 mmol/L (22-30); Chloride 103 mmol/L (98-107); Glucose 98 mg/dL (74-99); Magnesium 2.1 mg/dL (1.6-2.3); Non-African American GFR(MDRD) >60 (>60 ml/min/1.73 sqM); Phosphorous 3.4 mg/dL (2.5-4.5); Potassium 4.5 mmol/L (3.5-5.1); Sodium 137 mmol/L (137-145)
--- NOTE | 2017-02-06 13:06 | P.PN ---
Subjective Progress Note Date: 02/06/17 Principal diagnosis: Patient seen and examined in follow-up for breakthrough seizure 71-year-old male with past medical history of seizure disorder for the past 30 years. Presented due to breakthrough seizure. Patient reports that she rarely drinks alcohol probably once a month, but he has noticed that every time he drinks alcohol to have a seizure. Patient reports that this time he had an 2 half pints of whiskey the night before and then before the seizure he had an aura he felt some right-sided facial and arm numbness after which she got a seizure. He reports that he always gets aura for seizure he he denies any tongue biting loss of bowel or bladder control. Claims compliance with his home medications Dilantin however his Dilantin level in the ED was subtherapeutic patient was loaded with Dilantin in the 80 and resumed his home dosing. Await neurology input for further recommendations. Computed tomography scan of the head showed no acute process Patient seen and examined today reports no further events overnight, denies any chest pain or trouble breathing denies any focal neurologic deficits he was counseled to quit alcohol. Patient is eager to go home. He expressed depressed healing and emotions however denies any suicidal or homicidal ideations Objective - Vital Signs Vital signs: Vital Signs Temp 97.3 F L 02/06/17 07:00 Pulse 68 02/06/17 07:00 Resp 18 02/06/17 07:00 BP 127/75 02/06/17 07:00 Pulse Ox 97 02/06/17 07:00 Intake & Output 02/05/17 02/06/17 02/06/17 18:59 06:59 18:59 Intake Total 0 Balance 0 Weight 81.5 kg 81.5 kg Intake: Oral 0 Other: # Voids 0 - Exam Constitutional: vital signs stable, Not in acute distress, pleasant, conversant Lungs: Clear to auscultation bilaterally, clear to percussion, normal respiratory effort Cardiovascular: Regular rate and rhythm, no murmurs, no gallops, no rubs, no peripheral edema Gastrointestinal: Soft, no tenderness to palpation, no palpable hepatosplenomegally, bowel sounds positive, no abdominal wall hernias Extremities: No digital cyanosis or ischemia, peripheral pulses palpable and equal over bilateral radial arteries and dorsalis pedis artery, no calf muscle tenderness Psych: Alert, oriented to place, person and time Neuro: Cranial nerves II-XII grossly intact, no focal sensory deficits to touch - Labs CBC & Chem 7: 02/06/17 07:13 02/06/17 07:13 Labs: Abnormal Lab Results - Last 24 Hours (Table) 02/05/17 02/05/17 02/06/17 Range/Units 20:41 20:41 07:13 WBC 12.1 H (3.8-10.6) k/uL RBC 3.95 L 3.74 L (4.30-5.90) m/uL Hgb 12.4 L 11.5 L (13.0-17.5) gm/dL Hct 37.6 L 36.7 L (39.0-53.0) % Glucose 110 H (74-99) mg/dL Total Protein 9.1 H (6.3-8.2) g/dL Assessment and Plan Assessment: 71-year-old male with past medical history grand mal seizure disorder for the past 30 years hypertension. Presented due to breakthrough seizure. This is thought to be due to alcohol use she lowers seizure threshold. Patient was low loaded with Dilantin and resumed his home medications await further neurology input (1) Breakthrough seizure Narrative/Plan: 2/2 alcohol use which lowers seizure threshold loaded with dilantin at the ED continue with home dose seizure precautions counseled to abstain from alcohol avoid driving for 6 months await further neuro input Current Visit: Yes Status: Acute Code(s): G40.919 - EPILEPSY, UNSP, INTRACTABLE, WITHOUT STATUS EPILEPTICUS SNOMED Code(s): 992425084 (2) Hypertension Narrative/Plan: blood pressure currently controlled resume home medications with hold parameters atenolol and cardizem Current Visit: Yes Status: Acute Code(s): I10 - ESSENTIAL (PRIMARY) HYPERTENSION SNOMED Code(s): 84432570 (3) Depression Narrative/Plan: resume home dose of celexa patient denies suicidal ideation or homicidal ideation Current Visit: Yes Status: Acute Code(s): F32.9 - MAJOR DEPRESSIVE DISORDER , SINGLE EPISODE, UNSPECIFIED SNOMED Code(s): 06866899 (4) DVT prophylaxis Narrative/Plan: heparin sc Current Visit: Yes Status: Acute Code(s): ADZ6987 - SNOMED Code(s): 038144828 Plan: await neuro input possible DC in AM
[2017-02-06] MEDS: HEPARIN SODIUM,PORCINE 5,000 UNIT/ML 1 ML VIAL SQ SCH (15:28)
[2017-02-06] MEDS: DILTIAZEM CD 120 MG CAP.ER.24H PO SCH (15:28)
[2017-02-06] MEDS: ATENOLOL 50 MG TAB PO SCH (15:28)
[2017-02-06] MEDS: CITALOPRAM HYDROBROMIDE 20 MG TAB PO SCH (15:28)
[2017-02-06] MEDS ORDERED: GABAPENTIN 300 MG CAP PO SCH (21:00)
--- NOTE | 2017-02-06 23:24 | P.CNNES ---
History of Present Illness Consult date: 02/06/17 Reason for Consult: Patient with alcohol related seizures. History of Present Illness: This patient is a 71-year-old right-handed white male who was omitted to hospital with possible breakthrough seizure. Patient has a long-standing history of seizure disorder dating back about 30 years. 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 He was advised that due to the location of the AVM he was not a surgical candidate. He had multiple second opinions from several renowned institutions including [facility]. He was advised to continue with Dilantin and to monitor the AVM closely. The patient has been on Dilantin monotherapy for the past 30 years. Apparently when he drinks E does occasionally run into a question of a seizure. He had a drink yesterday and today around 3 AM had a grand mal seizure. It lasted about 5 minutes in duration. He did not have any urinary incontinence and did not bite his tongue. Patient also mentions that he has been feeling depressed due to the holiday season. This also can trigger his seizures. The patient is now resting comfortably. His Dilantin level was checked in the ER and it was therapeutic at 13.3. He is currently taking Dilantin 200 mg by mouth twice a day. The patient otherwise states that he is feeling much better today. He is wishing to go home tomorrow. We will check his Dilantin level tomorrow morning prior to any discharge. The patient's last admission to hospital was almost a year ago. Usually his admissions are always related to the use of alcohol. Patient denies any recent head trauma or head injury. He is trying to get 8 hours of sleep daily. Neurology is now been consulted for further evaluation and recommendations. Review of Systems Constitutional: Denies chills, Denies fever Eyes: denies blurred vision, denies pain Ears, nose, mouth and throat: Denies headache, Denies sore throat Cardiovascular: Denies chest pain, Denies shortness of breath Respiratory: Denies cough Gastrointestinal: Denies abdominal pain, Denies diarrhea, Denies nausea, Denies vomiting Musculoskeletal: Denies myalgias Integumentary: Denies pruritus, Denies rash Neurological: Reports change in mentation, Reports confusion, Reports convulsions, Reports headaches, Denies numbness, Denies weakness Psychiatric: Reports confusion, Reports disorientation, Denies anxiety, Denies depression Endocrine: Denies fatigue, Denies weight change Past Medical History Past Medical History: CVA/TIA, Hypertension, Seizure Disorder Additional Past Medical History / Comment(s): alcohol intoxication, alcohol withdrawal seizures, hypokalemia, hyponatremia, dehyration, metabolic encephalopathy History of Any Multi-Drug Resistant Organisms: Unobtainable Past Surgical History: No Surgical Hx Reported Past Anesthesia/Blood Transfusion Reactions: No Reported Reaction Past Psychological History: Anxiety, Depression Additional Psychological History / Comment(s): due to his depression he drinks whisky Smoking Status: Never smoker Past Alcohol Use History: Occasional Past Drug Use History: None Reported - Past Family History Father Family Medical History: No Reported History Mother Family Medical History: Coronary Artery Disease (CAD), Hypertension Medications and Allergies Home Medications Medication Instructions Recorded Confirmed Type Phenytoin Sodium Extended 200 mg PO BID@0800,199909/23/14 02/05/17 History [Dilantin] Cholecalciferol (Vitamin D3) 2,000 unit PO DAILY 11/05/16 02/05/17 History [Vitamin D3] [place]-3 Fatty Acids/Fish Oil [Fish 1 cap PO DAILY 11/05/16 02/05/17 History Oil 1,000 mg Softgel] Aspirin EC [Ecotrin] 325 mg PO DAILY 02/06/17 02/06/17 History Atenolol [Tenormin] 50 mg PO DAILY 02/06/17 02/06/17 History Citalopram Hydrobromide [CeleXA] 40 mg PO DAILY 02/06/17 02/06/17 History Diltiazem HCl [Cartia Xt] 120 mg PO DAILY 02/06/17 02/06/17 History Gabapentin [Neurontin] 300 mg PO HS 02/06/17 02/06/17 History Allergies Allergy/AdvReac Type Severity Reaction Status Date / Time loratadine Allergy Unknown Verified 11/05/16 14:03 antihistamines Allergy Unknown Uncoded 07/05/16 01:26 Physical Examination - Vital Signs Vital Signs: Vital Signs Temp Pulse Pulse Resp BP BP BP 02/06/17 07:00 97.3 F L 68 18 127/75 02/06/17 00:00 97.9 F 67 18 125/66 02/05/17 22:55 100.3 F H 88 18 115/62 02/05/17 20:03 101.1 F H 81 18 182/92 Pulse Ox 02/06/17 07:00 97 02/06/17 00:00 95 02/05/17 22:55 98 02/05/17 20:03 97 Intake and Output 02/05/17 02/06/17 02/06/17 22:59 06:59 14:59 Intake Total 0 Balance 0 Intake: Oral 0 Other: # Voids 0 Weight 90.265 kg 81.5 kg 81.5 kg Patient Weight 02/07/17 06:59 Weight 81.5 kg - Constitutional General appearance: average body habitus, cooperative - EENT EENT: PERRL, mucous membranes moist - Respiratory Respiratory: lungs clear, normal breath sounds - Cardiovascular Cardiovascular: regular rate, normal S1, normal S2 Extremities: no peripheral edema bilaterally - Gastrointestinal Gastrointestinal: normoactive bowel sounds - Integumentary Integumentary: normal - Neurologic Cranial nerve examination: PERRL, EOMI, VFF, V1/V2/V3 grossly intact, face symmetric, intact gag reflex, intact corneal reflex, normal palatal elevation Speech examination: intact Sensorimotor examination: intact Motor examination - right side: 4/5: biceps, triceps, wrist flexion, wrist extension, spring fitter helper, hip flexors, knee extensors, dorsiflexion, toe extension (EHL) , plantarflexion Motor examination - left side: 4/5: biceps, triceps, wrist flexion, wrist extension, spring fitter helper, hip flexors, knee extensors, dorsiflexion, toe extension (EHL) , plantarflexion Detailed sensory examination: intact Reflex and gait examination: intact Reflexes: 1+: ankle, bicep, knee, tricep - Musculoskeletal Musculoskeletal: no pain - Psychiatric Psychiatric: mood/affect appropriate, cooperative Results - Laboratory Findings CBC and BMP: 02/06/17 07:13 02/06/17 07:13 Abnormal Lab Findings: Abnormal Labs 02/05/17 02/05/17 02/06/17 20:41 20:41 07:13 WBC 12.1 H RBC 3.95 L 3.74 L Hgb 12.4 L 11.5 L Hct 37.6 L 36.7 L Glucose 110 H Total Protein 9.1 H Assessment and Plan (1) Alcohol withdrawal seizure Current Visit: Yes Status: Acute SNOMED Code(s): 433869147 (2) Breakthrough seizure Current Visit: Yes Status: Acute SNOMED Code(s): 573977942 (3) Acute encephalopathy Current Visit: Yes Status: Acute SNOMED Code(s): 1480118 (4) Depression Current Visit: Yes Status: Acute SNOMED Code(s): 62954420 Plan: This patient is a 71-year-old male was admitted to hospital for breakthrough seizure. 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 He has been on Dilantin monotherapy for over 30 years. Patient has infrequent admissions to the hospital but always is admitted for alcohol withdrawal seizure. Patient had some alcohol yesterday and apparently today at 3 AM had a generalized tonic- clonic seizure. This is his very common response to alcohol use. We have recommended that he may maintain on his current dose of Dilantin. His Dilantin level in the ER on admission was 13.3. This is in the therapeutic range. We have recommended that he continue on his current dose of Dilantin. We will check his Dilantin level tomorrow morning and if it is therapeutic he may be considered for discharge home. We will continue close neurological follow-up of this patient during this admission. His overall prognosis at this time remains very guarded. Patient was advised of the [place] driving law which states he cannot drive in the state of [place] for appeared to 6 months following his last seizure. Patient acknowledges this restriction. Patient otherwise seems to be doing quite well. We will await further recommendations from internal medicine tomorrow morning. So overall prognosis at this time remains guarded. Time with Patient: Greater than 30
[2017-02-07] MEDS: HEPARIN SODIUM,PORCINE 5,000 UNIT/ML 1 ML VIAL SQ SCH ×2 (00:28→08:14)
[2017-02-07] MEDS: NON-FORMULARY DRUG (Omega-3 Fatty Acids/Fish Oil [Fish Oil 1,000 Mg Softgel] 1 CAP) PO SCH (08:12)
[2017-02-07 08:13] VITALS: BP 148/74; PULSE 78; RESP 18; TEMP 98.5
[2017-02-07] MEDS: PHENYTOIN SODIUM EXTENDED 100 MG CAP PO SCH (08:13)
[2017-02-07] MEDS: CITALOPRAM HYDROBROMIDE 20 MG TAB PO SCH (08:13)
[2017-02-07] MEDS: DILTIAZEM CD 120 MG CAP.ER.24H PO SCH (08:13)
[2017-02-07] MEDS: ASPIRIN 81 MG PO SCH (08:13)
[2017-02-07] MEDS: ATENOLOL 50 MG TAB PO SCH (08:13)
[2017-02-07] MEDS: CHOLECALCIFEROL 1,000 UNIT TAB PO SCH (08:14)
--- NOTE | 2017-02-07 12:53 | P.DS ---
Providers Date of admission: 02/05/17 22:10 Expected date of discharge: 02/07/17 Attending physician: Khalida Hernandez MD Consults: 02/05/17 22:40 Consult Physician Routine Consulting Provider: Liane Robertson Consult Reason/Comments: seizure Do you want consulting provider notified?: Yes Primary care physician: Physician Nonstaff - Discharge Diagnosis(es) (1) Breakthrough seizure Current Visit: Yes Status: Acute (2) Hypertension Current Visit: Yes Status: Chronic (3) Depression Current Visit: Yes Status: Chronic (4) DVT prophylaxis Current Visit: Yes Status: Acute Hospital Course: 71-year-old male with past medical history of seizure disorder (due to brain AVM ) for the past 30 years. Presented due to breakthrough seizure. Patient reports that she rarely drinks alcohol probably once a month, but he has noticed that every time he drinks alcohol to have a seizure. Patient reports that this time he had an 2 half pints of whiskey the night before and then before the seizure he had an aura he felt some right-sided facial and arm numbness after which she got a seizure. He reports that he always gets aura for seizure he he denies any tongue biting loss of bowel or bladder control. Claims compliance with his home medications Dilantin however his Dilantin level in the ED was subtherapeutic patient was loaded with Dilantin in the ED and resumed his home dosing of dilantin. Neurology evaluted the patient , and agrees that alcohol has lowered his seizure threshold and resulting in a brakthrough seizure. Neuro recommended to continue his current dose of Dilantin. Patient seen and examined today prior to discharge, doing well, no new complaints, no further events of seizures. denies any headache, fever, chills, chest pain , or trouble brathing. Constitutional: vital signs stable, Not in acute distress, pleasant, conversant Lungs: Clear to auscultation bilaterally, clear to percussion, normal respiratory effort Cardiovascular: Regular rate and rhythm, no murmurs, no gallops, no rubs, no peripheral edema Gastrointestinal: Soft, no tenderness to palpation, no palpable hepatosplenomegally, bowel sounds positive, no abdominal wall hernias Extremities: No digital cyanosis or ischemia, peripheral pulses palpable and equal over bilateral radial arteries and dorsalis pedis artery, no calf muscle tenderness Psych: Alert, oriented to place, person and time Neuro: Cranial nerves II-XII grossly intact, no focal sensory deficits counseled to avoid driving for at least 6 months of being seizure free. this is per [facility] law. follow up OP with neurology abtain from alcohol as it lowers seizure threshold compliance with his current medications patient discharged in stable clinical condition Patient Condition at Discharge: Stable Plan - Discharge Summary New Discharge Prescriptions: Continue Phenytoin Sodium Extended [Dilantin] 200 mg PO BID@799,1999 Cholecalciferol (Vitamin D3) [Vitamin D3] 2,000 unit PO DAILY [place]-3 Fatty Acids/Fish Oil [Fish Oil 1,000 mg Softgel] 1 cap PO DAILY Gabapentin [Neurontin] 300 mg PO HS Aspirin EC [Ecotrin] 325 mg PO DAILY Diltiazem HCl [Cartia Xt] 120 mg PO DAILY Citalopram Hydrobromide [CeleXA] 40 mg PO DAILY Atenolol [Tenormin] 50 mg PO DAILY Discharge Medication List Phenytoin Sodium Extended [Dilantin] 200 mg PO BID@799,199909/23/14 [History] Cholecalciferol (Vitamin D3) [Vitamin D3] 2,000 unit PO DAILY 11/05/16 [History] [place]-3 Fatty Acids/Fish Oil [Fish Oil 1,000 mg Softgel] 1 cap PO DAILY [History] Aspirin EC [Ecotrin] 325 mg PO DAILY 02/06/17 [History] Atenolol [Tenormin] 50 mg PO DAILY 02/06/17 [History] Citalopram Hydrobromide [CeleXA] 40 mg PO DAILY 02/06/17 [History] Diltiazem HCl [Cartia Xt] 120 mg PO DAILY 02/06/17 [History] Gabapentin [Neurontin] 300 mg PO HS 02/06/17 [History] Follow up Appointment(s)/Referral(s): Nonstaff,Physician [Primary Care Provider] - 1-2 days Alvin Robertson MD [STAFF PHYSICIAN] - 1 Week Patient Instructions/Handouts: Epilepsy (GEN) Activity/Diet/Wound Care/Special Instructions: diet as tolerated activity as tolerated Per [facility] law, no driving, and do not operate any motorized machinery for at least 6 months of being seizure free since your last attack. Discharge Disposition: HOME SELF-CARE
== END 2017-02-07 13:33 | disposition home or self-care (01) | DRG 896 ==
LOC: EC 20:02 → 4MS4W 22:10 → OBSVTOIN 02-07 12:46
PROVIDERS: ADMIT Internal Medicine; ATTEND Internal Medicine
DX: F10.239 Alcohol dependence with withdrawal, unspecified (principal); G93.40 Encephalopathy, unspecified; Q28.2 Arteriovenous malformation of cerebral vessels; G40.89 Other seizures; G40.802 Other epilepsy, not intractable, without status epilepticus; D64.9 Anemia, unspecified; D72.829 Elevated white blood cell count, unspecified; F32.9 Major depressive disorder, single episode, unspecified; I10 Essential (primary) hypertension; F41.9 Anxiety disorder, unspecified; R50.9 Fever, unspecified; Z79.82 Long term (current) use of aspirin; Z79.899 Other long term (current) drug therapy; Z88.8 Allergy status to other drugs, medicaments and biological substances; Z86.73 Personal history of transient ischemic attack (TIA), and cerebral infarction without residual deficits; Z82.49 Family history of ischemic heart disease and other diseases of the circulatory system
CPT/HCPCS: 36415; 70450; 80048; 80053; 80185; 80186; 80320; 81003; 83605; 83735; 84100; 85025; 85610; 85730; 87040; 87502; 96365; 96375; 96376; 99285

== ENCOUNTER 2017-04-03 13:19 | Emergency (ER) | payer MEDICARE, BC ==
[2017-04-03 13:27] VITALS: TEMP 99.4
[2017-04-03] MEDS ORDERED: SODIUM CHLORIDE 0.9% 1,000 ML IV ONE (14:04)
--- NOTE | 2017-04-03 14:09 | ED ---
General Adult HPI - General Chief complaint: Seizure Stated complaint: Seizure Time Seen by Provider: 04/03/17 13:20 Source: patient, RN notes reviewed Mode of arrival: ambulatory Limitations: no limitations - History of Present Illness Initial comments: This is a 71-year-old male who presents emergency department with past medical history significant for depression and seizures. Patient states he has had episodes where he does some binge drinking and one of those episodes occurred last night where he drank a pint of whiskey. Patient states today he started having the right arm shaking and shook for about 10 minutes and he claims that to be a typical seizure for him. Patient states he never lost consciousness and since then he has had no more shaking. Patient states he takes Dilantin and he took it as he is supposed to today and every other day. Patient denies any headache patient denies any focal numbness or weakness. Patient denies any recent illness she denies any fever chills or cough. Patient denies any chest pain or abdominal pain. - Related Data Home Medications Medication Instructions Recorded Confirmed Cholecalciferol (Vitamin D3) 2,000 unit PO DAILY 11/05/16 04/03/17 [Vitamin D3] [place]-3 Fatty Acids/Fish Oil [Fish 1 cap PO DAILY 11/05/16 04/03/17 Oil 1,000 mg Softgel] Aspirin EC [Ecotrin] 325 mg PO DAILY 02/06/17 04/03/17 Atenolol [Tenormin] 50 mg PO DAILY 02/06/17 04/03/17 Citalopram Hydrobromide [CeleXA] 40 mg PO HS 02/06/17 04/03/17 Diltiazem HCl [Cartia Xt] 120 mg PO DAILY 02/06/17 04/03/17 Gabapentin [Neurontin] 300 mg PO HS 02/06/17 04/03/17 Phenytoin Sodium Extended 200 mg PO BID 04/03/17 04/03/17 Allergies Allergy/AdvReac Type Severity Reaction Status Date / Time loratadine Allergy Unknown Verified 04/03/17 13:20 antihistamines Allergy Unknown Uncoded 04/03/17 13:20 Review of Systems ROS Statement: Those systems with pertinent positive or pertinent negative responses have been documented in the HPI. ROS Other: All systems not noted in ROS Statement are negative. Past Medical History Past Medical History: CVA/TIA, Hypertension, Seizure Disorder Additional Past Medical History / Comment(s): alcohol intoxication, alcohol withdrawal seizures, hypokalemia, hyponatremia, dehyration, metabolic encephalopathy History of Any Multi-Drug Resistant Organisms: Unobtainable Past Surgical History: No Surgical Hx Reported Past Anesthesia/Blood Transfusion Reactions: No Reported Reaction Past Psychological History: Anxiety, Depression Smoking Status: Never smoker Past Alcohol Use History: Occasional Past Drug Use History: None Reported - Past Family History Father Family Medical History: No Reported History Mother Family Medical History: Coronary Artery Disease (CAD), Hypertension General Exam - General Exam Comments Initial Comments: GENERAL: Patient is well-developed and well-nourished. Patient is nontoxic and well- hydrated and is in no acute distress. ENT: Neck is soft and supple. No significant lymphadenopathy is noted. Oropharynx is clear. Moist mucous membranes. Neck has full range of motion without eliciting any pain. There is no thyroid enlargement and no masses were felt. EYES: The sclera were anicteric and conjunctiva were pink and moist. Extraocular movements were intact and pupils were equal round and reactive to light. Eyelids were unremarkable. PULMONARY: Unlabored respirations. Good breath sounds bilaterally. No audible rales rhonchi or wheezing was noted. CARDIOVASCULAR: There is a regular rate and rhythm without any murmurs gallops or rubs. ABDOMEN: Soft and nontender with normal bowel sounds. No palpable organomegaly was noted. There is no palpable pulsatile mass. SKIN: Skin is clear with no lesions or rashes and otherwise unremarkable. NEUROLOGIC: Patient is alert and oriented x3. Cranial nerves II through XII are grossly intact. Motor and sensory are also intact. Normal speech, volume and content. Symmetrical smile. MUSCULOSKELETAL: Normal extremities with adequate strength and full range of motion. LYMPHATICS: No significant lymphadenopathy is noted PSYCHIATRIC: Normal psychiatric evaluation. Normal interpersonal interactions appears functionally intact in deals appropriately with others. No signs of depression. No signs of anxiety. Limitations: no limitations Course Vital Signs 04/03/17 04/03/17 04/03/17 13:20 14:20 15:11 Temperature 99.4 F Pulse Rate 84 77 Respiratory 17 17 18 Rate Blood Pressure 169/88 164/82 169/79 O2 Sat by Pulse 83 L 98 98 Oximetry 04/03/17 15:58 Temperature Pulse Rate 84 Respiratory 17 Rate Blood Pressure 159/77 O2 Sat by Pulse 97 Oximetry Medical Decision Making - Medical Decision Making EKG shows normal sinus rhythm at 80 bpm CO interval is 160 QRS is 92 QT interval 426 QTC is 491 per patient's EKG shows no ST segment elevation or T wave abnormalities are noted. Patient's Dilantin level was low so I gave him a loading dose of 1000 mg of Dilantin IV. - Lab Data Result diagrams: 04/03/17 14:15 04/03/17 14:15 Lab Results 04/03/17 04/03/17 Range/Units 14:15 14:15 WBC 13.7 H (3.8-10.6) k/uL RBC 4.07 L (4.30-5.90) m/uL Hgb 12.6 L (13.0-17.5) gm/dL Hct 39.1 (39.0-53.0) % MCV 96.2 (80.0-100.0) fL MCH 31.0 (25.0-35.0) pg MCHC 32.3 (31.0-37.0) g/dL RDW 13.9 (11.5-15.5) % Plt Count 173 (150-450) k/uL Neutrophils % 61 % Lymphocytes % 30 % Monocytes % 5 % Eosinophils % 1 % Basophils % 0 % Neutrophils # 8.3 H (1.3-7.7) k/uL Lymphocytes # 4.1 (1.0-4.8) k/uL Monocytes # 0.7 (0-1.0) k/uL Eosinophils # 0.1 (0-0.7) k/uL Basophils # 0.1 (0-0.2) k/uL Sodium 142 (137-145) mmol/L Potassium 4.3 (3.5-5.1) mmol/L Chloride 104 (98-107) mmol/L Carbon Dioxide 27 (22-30) mmol/L Anion Gap 11 mmol/L BUN 18 (9-20) mg/dL Creatinine 0.90 (0.66-1.25) mg/dL Est GFR (MDRD) Af Amer >60 (>60 ml/min/1.73 sqM) Est GFR (MDRD) Non-Af >60 (>60 ml/min/1.73 sqM) Glucose 103 H (74-99) mg/dL Calcium 9.3 (8.4-10.2) mg/dL Magnesium 1.9 (1.6-2.3) mg/dL Total Bilirubin 0.4 (0.2-1.3) mg/dL AST 33 (17-59) U/L ALT 44 (21-72) U/L Alkaline Phosphatase 124 (38-126) U/L Total Protein 9.3 H (6.3-8.2) g/dL Albumin 3.9 (3.5-5.0) g/dL Phenytoin 17.2 ug/mL Serum Alcohol <10 mg/dL Disposition Clinical Impression: Noncompliance with medication regimen, Alcohol abuse Disposition: HOME SELF-CARE Condition: Good Instructions: Abuse of Alcohol (ED) Additional Instructions: Patient cannot drive until he is cleared by his neurologist. Patient stopped drinking alcohol. Patient should take his Dilantin as prescribed. Referrals: None,Stated [REFERRING] - 1-2 days Time of Disposition: 16:23
[2017-04-03 14:27] LABS: Basophils # (A) 0.1 k/uL (0-0.2); Basophils % (A) 0 %; Eosinophils # (A) 0.1 k/uL (0-0.7); Eosinophils % (A) 1 %; HCT 39.1 % (39.0-53.0); HGB 12.6 gm/dL (13.0-17.5); Lymphocytes # (A) 4.1 k/uL (1.0-4.8); Lymphocytes % (A) 30 %; MCHC 32.3 g/dL (31.0-37.0); MCV 96.2 fL (80.0-100.0); Mean Platelet Volume 6.9; Monocytes # (A) 0.7 k/uL (0-1.0); Monocytes % (A) 5 %; Neutrophils # (A) 8.3 k/uL (1.3-7.7); Neutrophils % (A) 61 %; Platelet Count 173 k/uL (150-450); RBC 4.07 m/uL (4.30-5.90); RDW 13.9 % (11.5-15.5); WBC 13.7 k/uL (3.8-10.6)
[2017-04-03 14:43] LABS: ALT 44 U/L (21-72); AST 33 U/L (17-59); Albumin 3.9 g/dL (3.5-5.0); Alcohol <10 mg/dL; Alkaline Phosphatase 124 U/L (38-126); Anion Gap 11 mmol/L; Blood Urea Nitrogen 18 mg/dL (9-20); Calcium 9.3 mg/dL (8.4-10.2); Carbon Dioxide 27 mmol/L (22-30); Chloride 104 mmol/L (98-107); Glucose 103 mg/dL (74-99); Magnesium 1.9 mg/dL (1.6-2.3); Phenytoin (Dilantin) 17.2 ug/mL; Potassium 4.3 mmol/L (3.5-5.1); Sodium 142 mmol/L (137-145); Total Bilirubin 0.4 mg/dL (0.2-1.3); Total Protein 9.3 g/dL (6.3-8.2)
--- NOTE | 2017-04-03 14:52 | XR ---
Examination: Right shoulder complete September 18, 2013 Comparison: September 03, 2011 FINDINGS: Heterotopic ossification is noted likely is sequela from previously identified fracture back in 2011. Glenohumeral joint appears relatively intact. There is extensive heterotopic ossification. No defini te acute fracture subluxation is identified. Visualized soft tissue structures are unremarkable. IMPRESSION: Sequelae of previous fracture from 2011 is noted. No definite acute abnormality is identified on this examination.
[2017-04-03] MEDS ORDERED: PHENYTOIN SODIUM INJ 1,000 MG in SODIUM CHLORIDE 0.9% 100 ML IVPB STA (15:15)
[2017-04-03 16:01] VITALS: BP 159/77; PULSE 84; RESP 17
== END 2017-04-03 16:39 | disposition home or self-care (01) ==
LOC: EEVIPCON 13:19 → EC 13:19
DX: F10.10 Alcohol abuse, uncomplicated (principal); Z91.14 Patient's other noncompliance with medication regimen; I10 Essential (primary) hypertension; G40.909 Epilepsy, unspecified, not intractable, without status epilepticus; F32.9 Major depressive disorder, single episode, unspecified; F41.9 Anxiety disorder, unspecified; Z88.8 Allergy status to other drugs, medicaments and biological substances; Z79.82 Long term (current) use of aspirin; Z79.899 Other long term (current) drug therapy
CPT/HCPCS: 36415; 93005; 80053; 80185; 83735; 85025; 80320; 73030; 99285; 96365; 96361 ×2; J1165

== ENCOUNTER 2017-06-01 12:17 | Emergency (ER) | payer MEDICARE, BC ==
[2017-06-01] MEDS ORDERED: SODIUM CHLORIDE 0.9% 1,000 ML IV STA ×2 (12:48)
--- NOTE | 2017-06-01 13:36 | ED ---
Seizure HPI - General Chief Complaint: Seizure Stated Complaint: seizure Time Seen by Provider: 06/01/17 12:19 Source: patient, EMS Mode of arrival: EMS Limitations: no limitations - History of Present Illness Initial Comments: This 71-year-old white male presents with a complaint of a seizure. He states that he felt as though he would have a seizure so he laid down on the ground. He then states that he started having some seizure like twitching activity of his right arm and his right face. He further relates that he is conscious through the entire event. He does have a long history of seizures. He currently takes Dilantin. He denies missing any doses of his Dilantin. He states that he drank a quarter pint of alcohol yesterday but states that he normally does not drink and that he is not an alcoholic. He was seen last month for similar symptoms. He apparently had a low Dilantin level at that time. This occurred after taking the alcohol for this incident as well. He is counseled regarding alcohol use versus abuse. He denies any actual injuries. He denies any headache, chest pain, shortness of breath, fevers, or chills. No other complaints or modifying factors. He is worried about his Dilantin level being low again. - Related Data Home Medications Medication Instructions Recorded Confirmed Cholecalciferol (Vitamin D3) 2,000 unit PO DAILY 11/05/16 06/01/17 [Vitamin D3] [place]-3 Fatty Acids/Fish Oil [Fish 1 cap PO DAILY 11/05/16 06/01/17 Oil 1,000 mg Softgel] Aspirin EC [Ecotrin] 325 mg PO DAILY 02/06/17 06/01/17 Atenolol [Tenormin] 50 mg PO DAILY 02/06/17 06/01/17 Citalopram Hydrobromide [CeleXA] 40 mg PO HS 02/06/17 06/01/17 Diltiazem HCl [Cartia Xt] 120 mg PO DAILY 02/06/17 06/01/17 Gabapentin [Neurontin] 300 mg PO HS 02/06/17 06/01/17 Phenytoin Sodium Extended 200 mg PO BID 04/03/17 06/01/17 Allergies Allergy/AdvReac Type Severity Reaction Status Date / Time loratadine Allergy Unknown Verified 06/01/17 14:06 antihistamines Allergy Unknown Uncoded 06/01/17 14:06 Review of Systems ROS Statement: Those systems with pertinent positive or pertinent negative responses have been documented in the HPI. ROS Other: All systems not noted in ROS Statement are negative. Past Medical History Past Medical History: CVA/TIA, Hypertension, Seizure Disorder Additional Past Medical History / Comment(s): alcohol intoxication, alcohol withdrawal seizures, hypokalemia, hyponatremia, dehyration, metabolic encephalopathy History of Any Multi-Drug Resistant Organisms: Unobtainable Past Surgical History: No Surgical Hx Reported Past Anesthesia/Blood Transfusion Reactions: No Reported Reaction Past Psychological History: Anxiety, Depression Smoking Status: Never smoker Past Alcohol Use History: Occasional Past Drug Use History: None Reported - Past Family History Father Family Medical History: No Reported History Mother Family Medical History: Coronary Artery Disease (CAD), Hypertension General Exam - General Exam Comments Initial Comments: GENERAL: The patient is well nourished and well hydrated. VITAL SIGNS: Heart rate, blood pressure, respiratory rate reviewed as recorded in nurse's notes. EYES: Pupils are round and reactive. Extraocular movements are intact. No conjunctival / lid redness or swelling. ENT: No external evidence of injury, swelling, or ecchymosis. Airway is patent. Throat is clear. NECK: Nontender. No swelling or evidence of injury. No subcutaneous emphysema. Trachea is midline. No thyroid mass. HEART: Regular rate and rhythm. Good peripheral pulses. LUNGS/CHEST: Breath sounds clear and equal bilaterally. No rales, rhonchi, or wheezes. No ecchymosis, subcutaneous emphysema, or tenderness. ABDOMEN: Abdomen soft without tenderness. No palpable masses or organomegaly. No peritoneal signs. No abdominal wall swelling or ecchymosis. EXTREMITIES: No extremity tenderness. Normal muscle tone and function. No thoracolumbar tenderness. NEUROLOGIC: Sensation is grossly intact. Cranial nerve exam reveals face is symmetrical, tongue is midline, speech is clear. SKIN: No abrasions or ecchymosis is noted. No induration or masses noted. PSYCHIATRIC: Alert and oriented. Appropriate behavior and judgment. Limitations: no limitations Course Vital Signs 06/01/17 06/01/17 12:20 14:26 Temperature 100 F H Pulse Rate 111 H 98 Respiratory 18 18 Rate Blood Pressure 142/65 132/70 O2 Sat by Pulse 98 98 Oximetry Medical Decision Making - Medical Decision Making The patient was seen and examined. All diagnostics were reviewed. He states that his mouth feels dry and he therefore is given some IV fluids. Old records are reviewed. The EKG is done and shows a sinus tachycardia at a rate of 107. There is no acute ST-T wave changes noted. The PA interval is 160, QRS duration is 92, and the QTC intervals 504. The laboratory came back all essentially within normal limits with mild anemia and mild leukocytosis. The Dilantin level was on the low end of normal at 10.9. He receives 300 mg of Dilantin orally. He states that he feels much improved at this time. It is felt as though he stable for discharge. He leaves in no distress. Return parameters are discussed. - Lab Data Result diagrams: 06/01/17 12:38 06/01/17 12:38 Lab Results 06/01/17 06/01/17 Range/Units 12:38 12:38 WBC 11.6 H (3.8-10.6) k/uL RBC 3.89 L (4.30-5.90) m/uL Hgb 12.1 L (13.0-17.5) gm/dL Hct 37.6 L (39.0-53.0) % MCV 96.6 (80.0-100.0) fL MCH 31.2 (25.0-35.0) pg MCHC 32.3 (31.0-37.0) g/dL RDW 12.9 (11.5-15.5) % Plt Count 190 (150-450) k/uL Neutrophils % 55 % Lymphocytes % 36 % Monocytes % 5 % Eosinophils % 1 % Basophils % 0 % Neutrophils # 6.4 (1.3-7.7) k/uL Lymphocytes # 4.1 (1.0-4.8) k/uL Monocytes # 0.5 (0-1.0) k/uL Eosinophils # 0.1 (0-0.7) k/uL Basophils # 0.0 (0-0.2) k/uL Sodium 144 (137-145) mmol/L Potassium 4.2 (3.5-5.1) mmol/L Chloride 105 (98-107) mmol/L Carbon Dioxide 17 L (22-30) mmol/L Anion Gap 22 mmol/L BUN 19 (9-20) mg/dL Creatinine 1.20 (0.66-1.25) mg/dL Est GFR (CKD-EPI)AfAm 71 (>60 ml/min/1.73 sqM) Est GFR (CKD-EPI)NonAf 62 (>60 ml/min/1.73 sqM) Glucose 99 (74-99) mg/dL Calcium 9.3 (8.4-10.2) mg/dL Phenytoin 10.9 ug/mL Serum Alcohol <10 mg/dL Disposition Clinical Impression: Seizure Disposition: HOME SELF-CARE Condition: Fair Instructions: Recurrent Seizures in Adults (ED) Additional Instructions: Please avoid any alcohol in the future. Referrals: Tony Mukherjee MD [Primary Care Provider] - 1-2 days Time of Disposition: 15:07
[2017-06-01 14:27] VITALS: PULSE 98
[2017-06-01 14:31] LABS: Basophils % (A) 0 %; Eosinophils # (A) 0.1 k/uL (0-0.7); Eosinophils % (A) 1 %; HCT 37.6 % (39.0-53.0); HGB 12.1 gm/dL (13.0-17.5); Lymphocytes # (A) 4.1 k/uL (1.0-4.8); Lymphocytes % (A) 36 %; MCH 31.2 pg (25.0-35.0); MCHC 32.3 g/dL (31.0-37.0); MCV 96.6 fL (80.0-100.0); Mean Platelet Volume 7.5; Monocytes # (A) 0.5 k/uL (0-1.0); Monocytes % (A) 5 %; Neutrophils # (A) 6.4 k/uL (1.3-7.7); Neutrophils % (A) 55 %; Platelet Count 190 k/uL (150-450); RBC 3.89 m/uL (4.30-5.90); RDW 12.9 % (11.5-15.5); WBC 11.6 k/uL (3.8-10.6)
[2017-06-01 14:43] LABS: Alcohol <10 mg/dL; Anion Gap 22 mmol/L; Blood Urea Nitrogen 19 mg/dL (9-20); Calcium 9.3 mg/dL (8.4-10.2); Carbon Dioxide 17 mmol/L (22-30); Chloride 105 mmol/L (98-107); Glucose 99 mg/dL (74-99); Phenytoin (Dilantin) 10.9 ug/mL; Potassium 4.2 mmol/L (3.5-5.1); Sodium 144 mmol/L (137-145)
[2017-06-01] MEDS ORDERED: PHENYTOIN SODIUM EXTENDED 100 MG CAP PO STA (14:59)
[2017-06-01 15:23] VITALS: BP 142/73; RESP 16; TEMP 99.7
== END 2017-06-01 15:30 | disposition home or self-care (01) ==
LOC: EC 12:17
DX: G40.909 Epilepsy, unspecified, not intractable, without status epilepticus (principal); R00.0 Tachycardia, unspecified; D64.9 Anemia, unspecified; D72.829 Elevated white blood cell count, unspecified; I10 Essential (primary) hypertension; F32.9 Major depressive disorder, single episode, unspecified; F41.9 Anxiety disorder, unspecified; Z86.73 Personal history of transient ischemic attack (TIA), and cerebral infarction without residual deficits; Z79.899 Other long term (current) drug therapy; Z79.82 Long term (current) use of aspirin; Z88.8 Allergy status to other drugs, medicaments and biological substances
CPT/HCPCS: 36415; 80048; 80185; 80320; 85025; 93005; 96360; 99284

== ENCOUNTER 2017-08-04 10:52 | Emergency (ER) | payer MEDICARE, BC ==
[2017-08-04 10:58] VITALS: RESP 18
[2017-08-04 11:01] LABS: Glucose,Whole Blood 95 mg/dL (75-99)
[2017-08-04] MEDS ORDERED: SODIUM CHLORIDE 0.9% 1,000 ML IV STA (11:01)
[2017-08-04] MEDS ORDERED: SODIUM CHLORIDE 0.9% 500 ML IV STA (11:01)
[2017-08-04] MEDS ORDERED: LORazepam 2 MG/ML INJ IV STA (11:01)
--- NOTE | 2017-08-04 11:13 | ED ---
General Adult HPI - General Chief complaint: Neuro Symptoms/Deficit Stated complaint: Poss Stroke Time Seen by Provider: 08/04/17 10:57 Source: patient, EMS, RN notes reviewed, old records reviewed Mode of arrival: EMS Limitations: altered mental status - History of Present Illness Initial comments: This is a 71-year-old male to the ER for evaluation. Said he presents for evaluation regards to altered mental state. Patient is unsure of events, patient was found down. Patient did have history of seizures states he did take his medication this morning. Patient is recent travel history no sick contacts. Denies any headache chest pain shortness with her bowel pain. Patient is diaphoretic admits to being diaphoretic he folic when he was walking her posterior he was given a passed out. Patient's brought in by EMS EMS states patient was found down, diaphoretic and unresponsive. He did never lose pulse. - Related Data Home Medications Medication Instructions Recorded Confirmed Cholecalciferol (Vitamin D3) 2,000 unit PO DAILY 11/05/16 08/04/17 [Vitamin D3] Atenolol [Tenormin] 50 mg PO DAILY 02/06/17 08/04/17 Aspirin EC [Ecotrin Low Dose] 81 mg PO DAILY 08/04/17 08/04/17 Ibuprofen [Motrin] 400 - 800 mg PO Q6H PRN 08/04/17 08/04/17 Ipratropium [place] 0.06%Nasal 2 spray EA NOSTRIL TID PRN 08/04/17 08/04/17 [Atrovent Nasal 0.06%] Lactulose 10 gm PO BID PRN 08/04/17 08/04/17 Naltrexone HCl [Revia] 50 mg PO BID 08/04/17 08/04/17 Ondansetron [Zofran] 4 mg PO Q12HR PRN 08/04/17 08/04/17 Sertraline [Zoloft] 100 mg PO HS 08/04/17 08/04/17 amLODIPine [Norvasc] 5 mg PO HS 08/04/17 08/04/17 levETIRAcetam [Keppra] 500 mg PO Q12HR 08/04/17 08/04/17 Allergies Allergy/AdvReac Type Severity Reaction Status Date / Time loratadine Allergy Unknown Verified 08/04/17 11:15 antihistamines Allergy Unknown Uncoded 07/11/17 15:01 Review of Systems ROS Statement: Those systems with pertinent positive or pertinent negative responses have been documented in the HPI. ROS Other: All systems not noted in ROS Statement are negative. Past Medical History Past Medical History: CVA/TIA, Hypertension, Seizure Disorder Additional Past Medical History / Comment(s): alcohol intoxication, alcohol withdrawal seizures, hypokalemia, hyponatremia, dehyration, metabolic encephalopathy History of Any Multi-Drug Resistant Organisms: Unobtainable Past Surgical History: No Surgical Hx Reported Past Anesthesia/Blood Transfusion Reactions: No Reported Reaction Past Psychological History: Anxiety, Depression Smoking Status: Never smoker Past Alcohol Use History: Occasional Past Drug Use History: None Reported - Past Family History Father Family Medical History: No Reported History Mother Family Medical History: Coronary Artery Disease (CAD), Hypertension General Exam Limitations: altered mental status General appearance: alert, in no apparent distress Head exam: Present: atraumatic, normocephalic, normal inspection Eye exam: Present: normal appearance, PERRL, EOMI. Absent: scleral icterus, conjunctival injection, periorbital swelling ENT exam: Present: normal exam, mucous membranes moist Neck exam: Present: normal inspection. Absent: tenderness, meningismus, lymphadenopathy Respiratory exam: Present: normal lung sounds bilaterally. Absent: respiratory distress, wheezes, rales, rhonchi, stridor Cardiovascular Exam: Present: regular rate, normal rhythm, normal heart sounds. Absent: systolic murmur, diastolic murmur, rubs, gallop, clicks GI/Abdominal exam: Present: soft, normal bowel sounds. Absent: distended, tenderness, guarding, rebound, rigid Extremities exam: Present: normal inspection, full ROM, normal capillary refill. Absent: tenderness, pedal edema, joint swelling, calf tenderness Back exam: Present: normal inspection Neurological exam: Present: alert, oriented X3, CN II-XII intact Psychiatric exam: Present: normal affect, normal mood Skin exam: Present: warm, dry, intact, normal color. Absent: rash Course Vital Signs 08/04/17 08/04/17 10:54 12:47 Temperature 98.7 F 98.9 F Pulse Rate 105 H 92 Respiratory 18 18 Rate Blood Pressure 198/92 157/74 O2 Sat by Pulse 98 96 Oximetry - Reevaluation(s) Reevaluation #1: 08/04/17 13:29 Patient remains asymptomatic, imperative of being discharged home. He has no complaints EKG Findings - EKG Comments: EKG Findings:: EKG shows sinus tachycardia rate of 106, DC 140, QRS 94, QTC 499 Medical Decision Making - Medical Decision Making 71 male the ER with syncopal event. Patient offered inpatient hospitalization, at this point patient refuses and patient states that he feels normal 5 wants to be discharged home. Patient is asymptomatic troponin is always at baseline, patient will be discharged home - Lab Data Result diagrams: 08/04/17 11:32 08/04/17 11:32 Lab Results 08/04/17 08/04/17 08/04/17 Range/Units 10:59 11:32 11:32 WBC (3.8-10.6) k/uL RBC (4.30-5.90) m/uL Hgb (13.0-17.5) gm/dL Hct (39.0-53.0) % MCV (80.0-100.0) fL MCH (25.0-35.0) pg MCHC (31.0-37.0) g/dL RDW (11.5-15.5) % Plt Count (150-450) k/uL Neutrophils % % Lymphocytes % % Monocytes % % Eosinophils % % Basophils % % Neutrophils # (1.3-7.7) k/uL Lymphocytes # (1.0-4.8) k/uL Monocytes # (0-1.0) k/uL Eosinophils # (0-0.7) k/uL Basophils # (0-0.2) k/uL PT (9.0-12.0) sec INR (<1.2) APTT (22.0-30.0) sec Sodium 143 (137-145) mmol/L Potassium 4.4 (3.5-5.1) mmol/L Chloride 105 (98-107) mmol/L Carbon Dioxide 24 (22-30) mmol/L Anion Gap 14 mmol/L BUN 10 (9-20) mg/dL Creatinine 0.90 (0.66-1.25) mg/dL Est GFR (CKD-EPI)AfAm >90 (>60 ml/min/1.73 sqM) Est GFR (CKD-EPI)NonAf 87 (>60 ml/min/1.73 sqM) Glucose 112 H (74-99) mg/dL POC Glucose (mg/dL) 95 (75-99) mg/dL POC Glu [employer] ID Sondra Jackson Plasma Lactic Acid Rivera (0.7-2.0) mmol/L Calcium 9.3 (8.4-10.2) mg/dL Phosphorus 3.0 (2.5-4.5) mg/dL Magnesium 1.9 (1.6-2.3) mg/dL Total Bilirubin 0.4 (0.2-1.3) mg/dL AST 22 (17-59) U/L ALT 15 L (21-72) U/L Alkaline Phosphatase 74 (38-126) U/L Total Creatine Kinase 87 (55-170) U/L CK-MB (CK-2) 1.3 (0.0-2.4) ng/mL CK-MB (CK-2) Rel Index 1.5 Troponin I 0.039 H* (0.000-0.034) ng/mL Total Protein 8.7 H (6.3-8.2) g/dL Albumin 3.9 (3.5-5.0) g/dL Phenytoin <3.0 ug/mL Serum Alcohol <10 mg/dL 08/04/17 08/04/17 08/04/17 Range/Units 11:32 11:32 11:32 WBC 9.4 (3.8-10.6) k/uL RBC 4.05 L (4.30-5.90) m/uL Hgb 12.6 L (13.0-17.5) gm/dL Hct 37.5 L (39.0-53.0) % MCV 92.8 (80.0-100.0) fL MCH 31.2 (25.0-35.0) pg MCHC 33.6 (31.0-37.0) g/dL RDW 12.7 (11.5-15.5) % Plt Count 169 (150-450) k/uL Neutrophils % 45 % Lymphocytes % 44 % Monocytes % 5 % Eosinophils % 1 % Basophils % 1 % Neutrophils # 4.2 (1.3-7.7) k/uL Lymphocytes # 4.2 (1.0-4.8) k/uL Monocytes # 0.4 (0-1.0) k/uL Eosinophils # 0.1 (0-0.7) k/uL Basophils # 0.1 (0-0.2) k/uL PT 10.5 (9.0-12.0) sec INR 1.1 (<1.2) APTT 24.6 (22.0-30.0) sec Sodium (137-145) mmol/L Potassium (3.5-5.1) mmol/L Chloride (98-107) mmol/L Carbon Dioxide (22-30) mmol/L Anion Gap mmol/L BUN (9-20) mg/dL Creatinine (0.66-1.25) mg/dL Est GFR (CKD-EPI)AfAm (>60 ml/min/1.73 sqM) Est GFR (CKD-EPI)NonAf (>60 ml/min/1.73 sqM) Glucose (74-99) mg/dL POC Glucose (mg/dL) (75-99) mg/dL POC Glu [employer] ID Plasma Lactic Acid [place] 1.3 (0.7-2.0) mmol/L Calcium (8.4-10.2) mg/dL Phosphorus (2.5-4.5) mg/dL Magnesium (1.6-2.3) mg/dL Total Bilirubin (0.2-1.3) mg/dL AST (17-59) U/L ALT (21-72) U/L Alkaline Phosphatase (38-126) U/L Total Creatine Kinase (55-170) U/L CK-MB (CK-2) (0.0-2.4) ng/mL CK-MB (CK-2) Rel Index Troponin I (0.000-0.034) ng/mL Total Protein (6.3-8.2) g/dL Albumin (3.5-5.0) g/dL Phenytoin ug/mL Serum Alcohol mg/dL - Radiology Data Radiology results: report reviewed (CT brain is negative for acute disease), image reviewed Disposition Clinical Impression: Altered mental status, Dehydration, Seizure, Syncope Disposition: HOME SELF-CARE Condition: Good Instructions: Syncope (ED) Is patient prescribed a controlled substance at d/c from ED?: No Referrals: Jose Walker MD [Primary Care Provider] - 1-2 days
[2017-08-04 11:46] LABS: Basophils # (A) 0.1 k/uL (0-0.2); Basophils % (A) 1 %; Eosinophils # (A) 0.1 k/uL (0-0.7); Eosinophils % (A) 1 %; HCT 37.5 % (39.0-53.0); HGB 12.6 gm/dL (13.0-17.5); Lymphocytes # (A) 4.2 k/uL (1.0-4.8); Lymphocytes % (A) 44 %; MCH 31.2 pg (25.0-35.0); MCHC 33.6 g/dL (31.0-37.0); MCV 92.8 fL (80.0-100.0); Mean Platelet Volume 6.7; Monocytes # (A) 0.4 k/uL (0-1.0); Monocytes % (A) 5 %; Neutrophils # (A) 4.2 k/uL (1.3-7.7); Neutrophils % (A) 45 %; Platelet Count 169 k/uL (150-450); RBC 4.05 m/uL (4.30-5.90); RDW 12.7 % (11.5-15.5); WBC 9.4 k/uL (3.8-10.6)
[2017-08-04 11:57] LABS: Albumin 3.9 g/dL (3.5-5.0); Alcohol <10 mg/dL; Anion Gap 14 mmol/L; Blood Urea Nitrogen 10 mg/dL (9-20); Calcium 9.3 mg/dL (8.4-10.2); Carbon Dioxide 24 mmol/L (22-30); Chloride 105 mmol/L (98-107); Glucose 112 mg/dL (74-99); Magnesium 1.9 mg/dL (1.6-2.3); Phenytoin (Dilantin) <3.0 ug/mL; Potassium 4.4 mmol/L (3.5-5.1); Sodium 143 mmol/L (137-145); Total Bilirubin 0.4 mg/dL (0.2-1.3); Total Protein 8.7 g/dL (6.3-8.2)
[2017-08-04 11:58] LABS: ALT 15 U/L (21-72); AST 22 U/L (17-59); Alkaline Phosphatase 74 U/L (38-126)
[2017-08-04 12:18] LABS: INR 1.1 (<1.2); Partial Thromboplastin Time 24.6 sec (22.0-30.0); Prothrombin Time 10.5 sec (9.0-12.0)
--- NOTE | 2017-08-04 12:21 | CT ---
EXAMINATION TYPE: CT brain wo con DATE OF EXAM: 08/04/2017 COMPARISON: 07/11/2017 and 08/16/2015 HISTORY: 71-year-old male Right sided head pain, weakness TECHNIQUE: Examination was done in axial plane without intravenous contrast. Coronal and sagittal r econstructions performed. CT DLP: 1098.80 mGycm Automated exposure control for dose reduction was used. FINDINGS: There is no evidence of acute intracranial hemorrhage, acute ischemic changes, mass effect, or extra -axial fluid collection. There is no effacement of cerebral sulci or basal subarachnoid cisterns. T here is no hydrocephalus. There is no midline shift. Burris-white matter distinction is preserved. Mild generalized supratentorial volume loss. Tiny old lacunar infarct right head of the caudate. Redemonstrated left anterior parietal lobe calcifications and enlarged cortical vein extending to the level of the superior sagittal sinus. There is some associated calcifications similar to 08/16/2015. Suggestion of a partially visualized right parotid mass measuring 3.5 x 3.0 cm. Further workup is adv ised. Small polyp or mucosal retention cyst floor of the left maxillary sinus. Orbits and globes are intact. IMPRESSION: 1. No acute intracranial abnormality seen. 2. Stable partially calcified vascular lesion along the anterior left parietal lobe. 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 If this has not been previously evaluated, recommend outpatient neurosurgery referral. 3. 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 Further evaluation recommended. Benign and malignant salivary gland neoplasms are in the differential.
[2017-08-04 12:29] LABS: Troponin I 0.039 ng/mL (0.000-0.034)
[2017-08-04 12:47] LABS: Creatine Kinase MB 1.3 ng/mL (0.0-2.4)
[2017-08-04 13:33] VITALS: BP 157/83; PULSE 97; TEMP 98.6
== END 2017-08-04 13:52 | disposition home or self-care (01) ==
LOC: EC 10:52
DX: E86.0 Dehydration (principal); G40.909 Epilepsy, unspecified, not intractable, without status epilepticus; R55 Syncope and collapse; R41.82 Altered mental status, unspecified; F41.9 Anxiety disorder, unspecified; I10 Essential (primary) hypertension; F32.9 Major depressive disorder, single episode, unspecified; G93.41 Metabolic encephalopathy; Z86.73 Personal history of transient ischemic attack (TIA), and cerebral infarction without residual deficits; Z79.82 Long term (current) use of aspirin; Z79.899 Other long term (current) drug therapy; Z88.8 Allergy status to other drugs, medicaments and biological substances
CPT/HCPCS: 36415; 93005; 80186; 80053; 82550; 82553; 80185; 83605; 83735; 84100; 84484; 85025; 85610; 85730; 80320; 70450; 99285; 96374; 96361; J2060

== ENCOUNTER → 2017-10-19 | Outpatient (CLI) | payer MEDICARE, BC ==
[2017-10-19 10:31] LABS: HCT 36.8 % (39.0-53.0); HGB 11.5 gm/dL (13.0-17.5); MCH 28.8 pg (25.0-35.0); MCHC 31.1 g/dL (31.0-37.0); MCV 92.4 fL (80.0-100.0); Platelet Count 139 k/uL (150-450); RBC 3.98 m/uL (4.30-5.90)
[2017-10-19 10:43] LABS: Potassium 4.2 mmol/L (3.5-5.1)
== END | disposition home or self-care (01) ==
LOC: LABWHC1 09:28
PROVIDERS: ATTEND Internal Medicine Interventional Cardiology
DX: Z01.812 Encounter for preprocedural laboratory examination (principal); I35.0 Nonrheumatic aortic (valve) stenosis; I35.1 Nonrheumatic aortic (valve) insufficiency; I10 Essential (primary) hypertension
CPT/HCPCS: 36415; 80051; 82565; 84520; 85027

== ENCOUNTER 2017-10-20 18:41 | Emergency (ER) | payer MEDICARE, BC ==
[2017-10-20 19:23] VITALS: RESP 18
[2017-10-20] MEDS ORDERED: SODIUM CHLORIDE 0.9% 1,000 ML IV STA (19:36)
[2017-10-20] MEDS ORDERED: ACETAMINOPHEN TAB 325 MG TAB PO STA (19:37)
--- NOTE | 2017-10-20 19:42 | ED ---
General Adult HPI - General Chief complaint: Recheck/Abnormal Lab/Rx Stated complaint: Nauseated, Poss Seizure Time Seen by Provider: 10/20/17 19:06 Source: patient, EMS Mode of arrival: EMS Limitations: no limitations - History of Present Illness Initial comments: 72-year-old male patient presented to the emergency department today for evaluation of what believes is a pre-seizure aura. Patient states he has been having this aura for the last 3 days. Patient states that today it seemed a little worse and he was concerned that he may go into a seizure so he called an ambulance. Patient states that he has had seizures for over 30 years and about 3-4 months ago was changed from Dilantin to a new seizure medication. Patient states that this morning he did have some diarrhea and has been feeling nauseated throughout the day. He denies any known fevers or chills. Patient denies any recent rash, shortness breath, chest pain, abdominal pain, back pain , numbness, tingling, dizziness, weakness, hematuria, dysuria, urinary urgency, urinary frequency, headache, visual changes, or any other complaints. - Related Data Home Medications Medication Instructions Recorded Confirmed Cholecalciferol (Vitamin D3) 2,000 unit PO DAILY 11/05/16 08/04/17 [Vitamin D3] Atenolol [Tenormin] 50 mg PO DAILY 02/06/17 08/04/17 Aspirin EC [Ecotrin Low Dose] 81 mg PO DAILY 08/04/17 08/04/17 Ibuprofen [Motrin] 400 - 800 mg PO Q6H PRN 08/04/17 08/04/17 Ipratropium [place] 0.06%Nasal 2 spray EA NOSTRIL TID PRN 08/04/17 08/04/17 [Atrovent Nasal 0.06%] Lactulose 10 gm PO BID PRN 08/04/17 08/04/17 Naltrexone HCl [Revia] 50 mg PO BID 08/04/17 08/04/17 Ondansetron [Zofran] 4 mg PO Q12HR PRN 08/04/17 08/04/17 Sertraline [Zoloft] 100 mg PO HS 08/04/17 08/04/17 amLODIPine [Norvasc] 5 mg PO HS 08/04/17 08/04/17 levETIRAcetam [Keppra] 500 mg PO Q12HR 08/04/17 08/04/17 Allergies Allergy/AdvReac Type Severity Reaction Status Date / Time loratadine Allergy Unknown Verified 10/20/17 19:47 antihistamines Allergy Unknown Uncoded 07/11/17 15:01 Review of Systems ROS Statement: Those systems with pertinent positive or pertinent negative responses have been documented in the HPI. ROS Other: All systems not noted in ROS Statement are negative. Past Medical History Past Medical History: CVA/TIA, Hypertension, Seizure Disorder Additional Past Medical History / Comment(s): alcohol intoxication, alcohol withdrawal seizures, hypokalemia, hyponatremia, dehyration, metabolic encephalopathy History of Any Multi-Drug Resistant Organisms: None Reported Past Surgical History: No Surgical Hx Reported Past Anesthesia/Blood Transfusion Reactions: No Reported Reaction Past Psychological History: Anxiety, Depression Smoking Status: Never smoker Past Alcohol Use History: Occasional Past Drug Use History: None Reported - Past Family History Father Family Medical History: No Reported History Mother Family Medical History: Coronary Artery Disease (CAD), Hypertension General Exam Limitations: no limitations General appearance: alert, in no apparent distress, other (This is a well- developed, well-nourished adult male patient in no acute distress. Vital signs upon presentation are temperature 100.3F, pulse 87, respirations 18, blood pressure 143/76, pulse ox 96% on room air.) Eye exam: Present: normal appearance, PERRL, EOMI. Absent: scleral icterus, conjunctival injection, periorbital swelling ENT exam: Present: normal exam, normal oropharynx, mucous membranes moist Respiratory exam: Present: normal lung sounds bilaterally. Absent: respiratory distress, wheezes, rales, rhonchi, stridor Cardiovascular Exam: Present: regular rate, normal rhythm, normal heart sounds. Absent: systolic murmur, diastolic murmur, rubs, gallop, clicks GI/Abdominal exam: Present: soft, normal bowel sounds. Absent: distended, tenderness, guarding, rebound, rigid Neurological exam: Present: alert, oriented X3, CN II-XII intact, other ( Strength in all 4 extremities are 5/5.) Psychiatric exam: Present: normal affect, normal mood Skin exam: Present: warm, dry, intact, normal color. Absent: rash Course Vital Signs 10/20/17 10/20/17 10/20/17 19:12 20:50 21:59 Temperature 100.3 F H 98.6 F Pulse Rate 87 83 75 Respiratory 18 18 18 Rate Blood Pressure 143/76 140/80 129/78 O2 Sat by Pulse 96 97 98 Oximetry 10/20/17 23:19 Temperature 98.2 F Pulse Rate 75 Respiratory 18 Rate Blood Pressure 126/82 O2 Sat by Pulse 97 Oximetry Medical Decision Making - Medical Decision Making 72-year-old male patient presented to the emergency department today for evaluation of nausea and pre-seizure aura. Patient labs reviewed and were unremarkable. Patient did have mild temperature but no findings to account for infectious process. White blood cell count is normal. Patient did receive Ativan here in the department, states he is feeling much better prior to discharge and the are ahead went away. He is instructed to follow-up with his primary care physician for recheck as well as his neurologist. Return parameters were discussed in detail. He verbalizes understanding and agreed with this plan. - Lab Data Result diagrams: 10/20/17 19:45 10/20/17 19:45 Lab Results 10/20/17 10/20/17 10/20/17 Range/Units 19:45 19:45 19:45 WBC 9.6 (3.8-10.6) k/uL RBC 4.00 L (4.30-5.90) m/uL Hgb 12.1 L (13.0-17.5) gm/dL Hct 36.9 L (39.0-53.0) % MCV 92.3 (80.0-100.0) fL MCH 30.3 (25.0-35.0) pg MCHC 32.9 (31.0-37.0) g/dL RDW 13.4 (11.5-15.5) % Plt Count 141 L (150-450) k/uL Neutrophils % 68 % Lymphocytes % 24 % Monocytes % 4 % Eosinophils % 1 % Basophils % 0 % Neutrophils # 6.5 (1.3-7.7) k/uL Lymphocytes # 2.3 (1.0-4.8) k/uL Monocytes # 0.4 (0-1.0) k/uL Eosinophils # 0.1 (0-0.7) k/uL Basophils # 0.0 (0-0.2) k/uL Sodium 139 (137-145) mmol/L Potassium 3.3 L (3.5-5.1) mmol/L Chloride 104 (98-107) mmol/L Carbon Dioxide 24 (22-30) mmol/L Anion Gap 11 mmol/L BUN 12 (9-20) mg/dL Creatinine 1.10 (0.66-1.25) mg/dL Est GFR (CKD-EPI)AfAm 78 (>60 ml/min/1.73 sqM) Est GFR (CKD-EPI)NonAf 68 (>60 ml/min/1.73 sqM) Glucose 120 H (74-99) mg/dL Plasma Lactic Acid [place] 1.3 (0.7-2.0) mmol/L Calcium 9.2 (8.4-10.2) mg/dL Total Bilirubin 0.6 (0.2-1.3) mg/dL AST 36 (17-59) U/L ALT 29 (21-72) U/L Alkaline Phosphatase 86 (38-126) U/L Total Protein 9.3 H (6.3-8.2) g/dL Albumin 4.1 (3.5-5.0) g/dL Urine Color Urine Appearance (Clear) Urine pH (5.0-8.0) Ur Specific [place] (1.001-1.035) Urine Protein (Negative) Urine Glucose (UA) (Negative) Urine Ketones (Negative) Urine Blood (Negative) Urine Nitrite (Negative) Urine Bilirubin (Negative) Urine Urobilinogen (<2.0) mg/dL Ur Leukocyte Esterase (Negative) 10/20/17 Range/Units 21:50 WBC (3.8-10.6) k/uL RBC (4.30-5.90) m/uL Hgb (13.0-17.5) gm/dL Hct (39.0-53.0) % MCV (80.0-100.0) fL MCH (25.0-35.0) pg MCHC (31.0-37.0) g/dL RDW (11.5-15.5) % Plt Count (150-450) k/uL Neutrophils % % Lymphocytes % % Monocytes % % Eosinophils % % Basophils % % Neutrophils # (1.3-7.7) k/uL Lymphocytes # (1.0-4.8) k/uL Monocytes # (0-1.0) k/uL Eosinophils # (0-0.7) k/uL Basophils # (0-0.2) k/uL Sodium (137-145) mmol/L Potassium (3.5-5.1) mmol/L Chloride (98-107) mmol/L Carbon Dioxide (22-30) mmol/L Anion Gap mmol/L BUN (9-20) mg/dL Creatinine (0.66-1.25) mg/dL Est GFR (CKD-EPI)AfAm (>60 ml/min/1.73 sqM) Est GFR (CKD-EPI)NonAf (>60 ml/min/1.73 sqM) Glucose (74-99) mg/dL Plasma Lactic Acid Rivera (0.7-2.0) mmol/L Calcium (8.4-10.2) mg/dL Total Bilirubin (0.2-1.3) mg/dL AST (17-59) U/L ALT (21-72) U/L Alkaline Phosphatase (38-126) U/L Total Protein (6.3-8.2) g/dL Albumin (3.5-5.0) g/dL Urine Color Light Yellow Urine Appearance Clear (Clear) Urine pH 6.0 (5.0-8.0) Ur Specific [place] 1.003 (1.001-1.035) Urine Protein Negative (Negative) Urine Glucose (UA) Negative (Negative) Urine Ketones Negative (Negative) Urine Blood Negative (Negative) Urine Nitrite Negative (Negative) Urine Bilirubin Negative (Negative) Urine Urobilinogen <2.0 (<2.0) mg/dL Ur Leukocyte Esterase Negative (Negative) - EKG Data -: EKG Interpreted by Me EKG Comments: EKG obtained in 1916 shows sinus rhythm with PACs, right axis deviation, some ST and T-wave abnormalities. Ventricular rate is 87, KS interval 168, QRS duration is 88, QT 410, QTC 493. I did review EKG from 08/04/2017, ST and T- wave changes appear to be consistent with previous EKGs. Disposition Clinical Impression: Seizure, Gastroenteritis Disposition: HOME SELF-CARE Condition: Good Instructions: Gastroenteritis (ED), Recurrent Seizures in Adults (ED) Additional Instructions: Increase fluids. Take medications as instructed. Follow-up with your primary care physician as well as her neurologist for further evaluation as soon as possible. Return here immediately for any new, worsening, or concerning symptoms. Is patient prescribed a controlled substance at d/c from ED?: No Referrals: Tony Mukherjee MD [Primary Care Provider] - 1-2 days Time of Disposition: 22:14
[2017-10-20 20:03] LABS: Basophils % (A) 0 %; Eosinophils # (A) 0.1 k/uL (0-0.7); Eosinophils % (A) 1 %; HCT 36.9 % (39.0-53.0); HGB 12.1 gm/dL (13.0-17.5); Lymphocytes # (A) 2.3 k/uL (1.0-4.8); Lymphocytes % (A) 24 %; MCH 30.3 pg (25.0-35.0); MCHC 32.9 g/dL (31.0-37.0); MCV 92.3 fL (80.0-100.0); Mean Platelet Volume 6.9; Monocytes # (A) 0.4 k/uL (0-1.0); Monocytes % (A) 4 %; Neutrophils # (A) 6.5 k/uL (1.3-7.7); Neutrophils % (A) 68 %; Platelet Count 141 k/uL (150-450); RDW 13.4 % (11.5-15.5); WBC 9.6 k/uL (3.8-10.6)
[2017-10-20 20:13] LABS: Albumin 4.1 g/dL (3.5-5.0); Calcium 9.2 mg/dL (8.4-10.2); Potassium 3.3 mmol/L (3.5-5.1); Total Bilirubin 0.6 mg/dL (0.2-1.3); Total Protein 9.3 g/dL (6.3-8.2)
[2017-10-20] MEDS ORDERED: LORazepam 2 MG/ML INJ IV STA (20:43)
[2017-10-20] MEDS ORDERED: POTASSIUM CHLORIDE ER 20 MEQ TAB.ER PO STA (21:31)
[2017-10-20 21:54] LABS: Appearance,Urine Clear (Clear); Bilirubin,Urine Negative (Negative); Blood,Urine Negative (Negative); Color,Urine Light Yellow; Glucose,Urine (UA) Negative (Negative); Ketones,Urine Negative (Negative); Leukocyte Esterase,Urine Negative (Negative); Nitrite,Urine Negative (Negative); Protein,Urine Negative (Negative); Specific Gravity,Urine 1.003 (1.001-1.035); Urobilinogen,Urine <2.0 mg/dL (<2.0)
[2017-10-20 22:02] VITALS: PULSE 75
[2017-10-20 23:31] VITALS: BP 126/82; TEMP 98.2
== END 2017-10-20 23:31 | disposition home or self-care (01) ==
LOC: EC 18:41
DX: R56.9 Unspecified convulsions (principal); K52.9 Noninfective gastroenteritis and colitis, unspecified; I10 Essential (primary) hypertension; F41.9 Anxiety disorder, unspecified; F32.9 Major depressive disorder, single episode, unspecified; Z86.73 Personal history of transient ischemic attack (TIA), and cerebral infarction without residual deficits; Z79.82 Long term (current) use of aspirin; Z79.899 Other long term (current) drug therapy; Z88.8 Allergy status to other drugs, medicaments and biological substances
CPT/HCPCS: 36415; 93005; 80053; 80177; 83605; 85025; 81003; 87040; 99284; 96374; 96361; J2060

== ENCOUNTER 2017-10-25 17:28 | Inpatient (IN) | payer MEDICARE, BC ==
[2017-10-25] MEDS ORDERED: levETIRAcetam IV 1,000 MG in SALINE 1 100ML.BAG IVPB STA (18:02)
[2017-10-25] MEDS ORDERED: SODIUM CHLORIDE 0.9% 1,000 ML IV STA (18:02)
--- NOTE | 2017-10-25 18:07 | ED ---
General Adult HPI - General Source: patient, EMS, RN notes reviewed Mode of arrival: EMS Limitations: no limitations <Fran Phan - Last Filed: 10/25/17 20:33> <Cristo Kovacs - Last Filed: 10/25/17 21:19> - General Chief complaint: Seizure Stated complaint: Seizures Time Seen by Provider: 10/25/17 17:42 - History of Present Illness Initial comments: 72-year-old male presents to the emergency department for a chief complaint of seizures. Patient states he was at home when he felt his aura of numbness in the right side of the body and states he had a seizure at home. Patient then came to the emergency department. While in the emergency department patient presented at a normal cognitive baseline and was talking and communicative. However patient then had altered mental status for a few minutes before being able to communicate again and returning to baseline. 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 Patient states his seizures have been controlled over the past 20 years with Dilantin. However, he states his doctors changed it to Keppra in the past few months because he was on Dilantin for too long. Patient denies any lacerations of the tongue today. Patient denies any loss of bowel or bladder function today. Patient denies any injuries from the seizure. Patient has no other complaints at this time including shortness of breath, chest pain, abdominal pain, nausea or vomiting, headache, or visual changes. (Fran Phan) - Related Data Home Medications Medication Instructions Recorded Confirmed Atenolol [Tenormin] 50 mg PO DAILY 02/06/17 10/25/17 Aspirin EC [Ecotrin Low Dose] 81 mg PO DAILY 08/04/17 10/25/17 Naltrexone HCl [Revia] 50 mg PO BID 08/04/17 10/25/17 Sertraline [Zoloft] 100 mg PO HS 08/04/17 10/25/17 amLODIPine [Norvasc] 5 mg PO HS 08/04/17 10/25/17 Furosemide [Lasix] 20 mg PO DAILY 10/25/17 10/25/17 Gabapentin [Neurontin] 400 mg PO TID 10/25/17 10/25/17 levETIRAcetam [Keppra] 250 mg PO Q12HR 10/25/17 10/25/17 Allergies Allergy/AdvReac Type Severity Reaction Status Date / Time loratadine Allergy Unknown Verified 10/25/17 17:44 antihistamines Allergy Unknown Uncoded 07/11/17 15:01 Review of Systems ROS Other: All systems not noted in ROS Statement are negative. <SylvesterFran Onofre - Last Filed: 10/25/17 20:33> ROS Other: All systems not noted in ROS Statement are negative. <Cristo Kovacs - Last Filed: 10/25/17 21:19> ROS Statement: Those systems with pertinent positive or pertinent negative responses have been documented in the HPI. Past Medical History Past Medical History: CVA/TIA, Hypertension, Seizure Disorder Additional Past Medical History / Comment(s): alcohol intoxication, alcohol withdrawal seizures, hypokalemia, hyponatremia, dehyration, metabolic encephalopathy History of Any Multi-Drug Resistant Organisms: None Reported Past Surgical History: No Surgical Hx Reported Past Anesthesia/Blood Transfusion Reactions: No Reported Reaction Past Psychological History: Anxiety, Depression Smoking Status: Never smoker Past Alcohol Use History: Occasional Past Drug Use History: None Reported - Past Family History Father Family Medical History: No Reported History Mother Family Medical History: Coronary Artery Disease (CAD), Hypertension <Fran Phan - Last Filed: 10/25/17 20:33> General Exam Limitations: no limitations General appearance: alert, in no apparent distress Head exam: Present: atraumatic, normocephalic, normal inspection Eye exam: Present: normal appearance, PERRL, EOMI. Absent: scleral icterus, conjunctival injection, nystagmus ENT exam: Present: normal exam, normal oropharynx, mucous membranes moist, TM's normal bilaterally, normal external ear exam Neck exam: Present: normal inspection, full ROM. Absent: tenderness, meningismus, lymphadenopathy Respiratory exam: Present: normal lung sounds bilaterally. Absent: respiratory distress, wheezes, rales, rhonchi, stridor Cardiovascular Exam: Present: regular rate, normal rhythm, normal heart sounds. Absent: systolic murmur, diastolic murmur, rubs, gallop, clicks Neurological exam: Present: alert, oriented X3, CN II-XII intact, other (GCS 15 , strength 5 out of 5 in upper and lower extremities bilaterally. Negative arm drift.). Absent: motor sensory deficit Psychiatric exam: Present: normal affect, normal mood <Fran Phan - Last Filed: 10/25/17 20:33> Course <Fran Phan - Last Filed: 10/25/17 20:33> <Cristo Kovacs - Last Filed: 10/25/17 21:19> Vital Signs 10/25/17 17:37 Temperature 98.6 F Pulse Rate 102 H Respiratory 18 Rate Blood Pressure 157/111 O2 Sat by Pulse 98 Oximetry - Reevaluation(s) Reevaluation #1: 10/25/17 21:19 I was asked to provide a placement in order and this patient's chart (Cristo Kovacs) Medical Decision Making - Lab Data Result diagrams: 10/25/17 17:47 10/25/17 17:47 <Fran Phan - Last Filed: 10/25/17 20:33> - Lab Data Result diagrams: 10/25/17 17:47 10/25/17 17:47 <Cristo Kovacs - Last Filed: 10/25/17 21:19> - Medical Decision Making 72-year-old male presents to the emergency determine for a chief complaint of seizure earlier today. Patient does appear to have had another seizure in the emergency department because he did have some altered mental status and was unable to answer questions. However, patient is completely responsive and back to his baseline at this time. Patient was given 1 g of Keppra. Patient states he was recently changed from Dilantin to Keppra in the past few months. On exam no focal neuro deficits. Patient alert and oriented x3. Patient's brain CT from 3 months ago shows no acute intracranial abnormality. 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 Patient also has a stable partially calcified vascular lesion along the anterior left parietal lobe. CBC/CMP unremarkable today. Hemoglobin 12.9, glucose 108. EKG normal sinus rhythm with a ventricular rate of 99. Alcohol and Keppra levels were ordered as patient does have a past history of alcohol abuse. Discussed with patient admitting him to control his seizures which he agrees with. Patient will be admitted to Dr Renee. (Fran Phan) - Lab Data Lab Results 10/25/17 10/25/17 10/25/17 Range/Units 17:47 17:47 20:22 WBC 5.7 (3.8-10.6) k/uL RBC 4.26 L (4.30-5.90) m/uL Hgb 12.9 L (13.0-17.5) gm/dL Hct 38.6 L (39.0-53.0) % MCV 90.7 (80.0-100.0) fL MCH 30.2 (25.0-35.0) pg MCHC 33.3 (31.0-37.0) g/dL RDW 13.6 (11.5-15.5) % Plt Count 131 L (150-450) k/uL Neutrophils % 61 % Lymphocytes % 28 % Monocytes % 7 % Eosinophils % 0 % Basophils % 0 % Neutrophils # 3.5 (1.3-7.7) k/uL Lymphocytes # 1.6 (1.0-4.8) k/uL Monocytes # 0.4 (0-1.0) k/uL Eosinophils # 0.0 (0-0.7) k/uL Basophils # 0.0 (0-0.2) k/uL Sodium 139 (137-145) mmol/L Potassium 3.7 (3.5-5.1) mmol/L Chloride 105 (98-107) mmol/L Carbon Dioxide 23 (22-30) mmol/L Anion Gap 11 mmol/L BUN 6 L (9-20) mg/dL Creatinine 0.80 (0.66-1.25) mg/dL Est GFR (CKD-EPI)AfAm >90 (>60 ml/min/1.73 sqM) Est GFR (CKD-EPI)NonAf >90 (>60 ml/min/1.73 sqM) Glucose 108 H (74-99) mg/dL Calcium 9.8 (8.4-10.2) mg/dL Total Bilirubin 0.7 (0.2-1.3) mg/dL AST 23 (17-59) U/L ALT 17 L (21-72) U/L Alkaline Phosphatase 87 (38-126) U/L Total Protein 9.4 H (6.3-8.2) g/dL Albumin 4.0 (3.5-5.0) g/dL Urine Color Yellow Urine Appearance Clear (Clear) Urine pH 5.5 (5.0-8.0) Ur Specific [place] 1.017 (1.001-1.035) Urine Protein Trace H (Negative) Urine Glucose (UA) Negative (Negative) Urine Ketones 1+ H (Negative) Urine Blood Moderate H (Negative) Urine Nitrite Negative (Negative) Urine Bilirubin Negative (Negative) Urine Urobilinogen <2.0 (<2.0) mg/dL Ur Leukocyte Esterase Negative (Negative) Urine RBC 5 (0-5) /hpf Ur Squamous Epith Cells <1 (0-4) /hpf Hyaline Casts 1 (0-2) /lpf Urine Mucus Many H (None) /hpf Urine Opiates Screen Not Detected (NotDetected) Ur Oxycodone Screen Not Detected (NotDetected) Urine Methadone Screen Not Detected (NotDetected) Ur Propoxyphene Screen Not Detected (NotDetected) Ur Barbiturates Screen Detected H (NotDetected) Phenytoin <3.0 ug/mL U Tricyclic Antidepress Not Detected (NotDetected) Ur Phencyclidine Scrn Not Detected (NotDetected) Ur Amphetamines Screen Not Detected (NotDetected) U Methamphetamines Scrn Not Detected (NotDetected) U Benzodiazepines Scrn Not Detected (NotDetected) Urine Cocaine Screen Not Detected (NotDetected) U Marijuana (THC) Screen Not Detected (NotDetected) Disposition Is patient prescribed a controlled substance at d/c from ED?: No Time of Disposition: 20:24 <Fran Phan - Last Filed: 10/25/17 20:33> <Cristo Kovacs - Last Filed: 10/25/17 21:19> Clinical Impression: Seizure, Thrombocytopenia Disposition: ADMITTED IP TO THIS HOSP Condition: Good
[2017-10-25 18:29] LABS: ALT 17 U/L (21-72); AST 23 U/L (17-59); Alkaline Phosphatase 87 U/L (38-126); Anion Gap 11 mmol/L; Blood Urea Nitrogen 6 mg/dL (9-20); Calcium 9.8 mg/dL (8.4-10.2); Carbon Dioxide 23 mmol/L (22-30); Chloride 105 mmol/L (98-107); Glucose 108 mg/dL (74-99); Phenytoin (Dilantin) <3.0 ug/mL; Potassium 3.7 mmol/L (3.5-5.1); Sodium 139 mmol/L (137-145); Total Bilirubin 0.7 mg/dL (0.2-1.3); Total Protein 9.4 g/dL (6.3-8.2)
[2017-10-25 18:32] LABS: Basophils % (A) 0 %; Eosinophils % (A) 0 %; HCT 38.6 % (39.0-53.0); HGB 12.9 gm/dL (13.0-17.5); Lymphocytes # (A) 1.6 k/uL (1.0-4.8); Lymphocytes % (A) 28 %; MCH 30.2 pg (25.0-35.0); MCHC 33.3 g/dL (31.0-37.0); MCV 90.7 fL (80.0-100.0); Mean Platelet Volume 6.8; Monocytes # (A) 0.4 k/uL (0-1.0); Monocytes % (A) 7 %; Neutrophils # (A) 3.5 k/uL (1.3-7.7); Neutrophils % (A) 61 %; Platelet Count 131 k/uL (150-450); RBC 4.26 m/uL (4.30-5.90); RDW 13.6 % (11.5-15.5); WBC 5.7 k/uL (3.8-10.6)
[2017-10-25] MEDS ORDERED: NALOXONE 0.4 MG/ML 1 ML VIAL IV PRN (20:24)
[2017-10-25 20:55] LABS: Amphetamine Screen,Urine Not Detected (NotDetected); Barbiturate Screen,Urine Detected (NotDetected); Benzodiazepines Screen,Urine Not Detected (NotDetected); Cocaine Screen,Urine Not Detected (NotDetected); Methadone Screen, Urine Not Detected (NotDetected); Opiate Screen,Urine Not Detected (NotDetected); Oxycodone Screen, Urine Not Detected (NotDetected); Phencyclidine Screen,Urine Not Detected (NotDetected); Tricyclic Antidepressant,Urine Not Detected (NotDetected); Urn Cannabinoid Scrn Not Detected (NotDetected)
[2017-10-25 21:00] LABS: Appearance,Urine Clear (Clear); Bilirubin,Urine Negative (Negative); Blood,Urine Moderate (Negative); Color,Urine Yellow; Glucose,Urine (UA) Negative (Negative); Hyaline Casts,Urine 1 /lpf (0-2); Ketones,Urine 1+ (Negative); Leukocyte Esterase,Urine Negative (Negative); Mucus,Urine Many /hpf; Nitrite,Urine Negative (Negative); PH, Urine 5.5 (5.0-8.0); Protein,Urine Trace (Negative); RBC,Urine 5 /hpf (0-5); Specific Gravity,Urine 1.017 (1.001-1.035); Squamous Epithelial Cell,Urine <1 /hpf (0-4); Urobilinogen,Urine <2.0 mg/dL (<2.0)
[2017-10-25] MEDS: SODIUM CHLORIDE 0.9% 1,000 ML IV SCH (22:35)
[2017-10-25] MEDS: amLODIPine 5 MG TAB PO SCH (22:36)
[2017-10-25] MEDS: GABAPENTIN 400 MG CAP PO SCH (22:36)
[2017-10-25] MEDS: SERTRALINE 100 MG TAB PO SCH (22:36)
[2017-10-26] MEDS ORDERED: LORazepam 1 MG TAB PO PRN (00:14)
[2017-10-26 00:28] LABS: Glucose,Whole Blood 88 mg/dL (75-99)
--- NOTE | 2017-10-26 01:47 | HP ---
HISTORY AND PHYSICAL DATE OF SERVICE: 10/25/2017. CHIEF COMPLAINTS: Seizures. HISTORY OF PRESENT ILLNESS: This 72-year-old gentleman the past CVA, TIA, hypertension, seizure disorder, alcohol intake and intoxication, withdrawal symptoms, hyponatremia, anxiety, depression , being followed by Dr. Mukherjee in the outpatient setting, was admitted with complaints of witnessed seizures at home, in the ER also there was another episode of seizures. The patient was admitted for further evaluation and treatment. The patient was previously admitted here and Dilantin level was adjusted. There is no history of fever, rigors. No history of headache at this time. PAST MEDICAL HISTORY: History of CVA, TIA, hypertension, seizure disorder, history of alcohol and history of anxiety. MEDICATIONS: 1. Keppra 250 mg p.o. b.i.d. 2. Norvasc 5 mg at bedtime. 3. Zoloft 100 mg at bedtime. 5. Neurontin mg p.o. t.i.d. 6. Lasix 20 mg p.o. daily. 7. Tenormin 50 mg p.o. 8. Ecotrin 81 mg daily. ALLERGIES: LORATADINE ANTIHISTAMINE. FAMILY HISTORY: No history of heart disease or strokes in the family. SOCIAL HISTORY: No history of smoking. Occasional alcohol intake. REVIEW OF SYSTEMS: ENT: No diminished hearing or vision. CARDIOVASCULAR: No angina. GI: No nausea. : No dysuria. NERVOUS SYSTEM: As mentioned. A ALLERGIES: No asthma or hayfever. MUSCULOSKELETAL As mentioned earlier. HEMATOLOGY/ONCOLOGY: No history of diabetes or hypothyroidism. CONSTITUTIONAL: As mentioned earlier. PSYCHIATRY: As mentioned earlier. PHYSICAL EXAMINATION: Alert, oriented x3. Pulse is 81, blood pressure 125/70, respirations 16, temperature 98.2, pulse ox 98% on room air. HEENT: Conjunctivae normal. Oral mucosa moist. NECK: No jugular venous distention. No lymph node enlargement. CARDIOVASCULAR: S1 and S2. No S3 or S4. LUNGS: Breath sounds diminished at the bases. No rhonchi. No crackles. ABDOMEN: Soft, nontender. No mass palpable. LEGS: No edema, no swelling. NERVOUS SYSTEM: Higher functions as mentioned, moves all 4 limbs. Mild diffuse weakness. No focal deficits. LYMPHATICS: No lymph nodes palpable in the neck or axillae. SKIN: No ulcer, rash or bleeding. LAB STUDIES: White 5.7, hemoglobin 12.9, platelets 131,000. Urinalysis noted. ASSESSMENT: 1. Seizure disorder and breakthrough seizures. 2. Hypertension. 3. History of seizure disorder. 4. History of cerebrovascular accident, transient ischemic attack. 5. History of alcohol intake, intoxication, withdrawal symptoms. 6. Hypokalemia. 7. Hyponatremia history. 8. History of metabolic encephalopathy. 9. Anxiety, depression. RECOMMENDATIONS: In this 72-year-old gentleman who presented with multiple complex medical issues , we will monitor the patient closely, continue the current medications and management. Keppra dose is increased. Neurology consultation. Neurovascular work up. Basic labs including CT scan of the brain also will be obtained. EEG also will be obtained. Prognosis guarded because of multiple complex medical issues. Further recommendations to follow. Seizure precautions. See orders for details. Keppra levels. COPY TO: Dr. Lonny CRUZ / JEMIMAN: [id number] / MTDD
--- NOTE | 2017-10-26 08:40 | CT ---
EXAMINATION TYPE: CT brain wo con DATE OF EXAM: 10/26/2017 COMPARISON: 08/04/2017 HISTORY: 72-year-old male Seizures TECHNIQUE: Examination was done in axial plane without intravenous contrast. Coronal and sagittal r econstructions performed. CT DLP: 1043.8 mGycm Automated exposure control for dose reduction was used. FINDINGS: There is no evidence of acute intracranial hemorrhage, acute ischemic changes, mass effect, or extra -axial fluid collection. There is no effacement of cerebral sulci or basal subarachnoid cisterns. T here is no hydrocephalus. There is no midline shift. Burris-white matter distinction is preserved. Stable tangle of vessels and large draining vein and associated calcifications in the left anterior p arietal lobe and Old lacunar infarct in the right caudate head. Partially empty sella and mild generalized cortical atrophy. The previously seen right parotid mass is only partially included on the current exam. Paranasal sinu ses and mastoid air cells well pneumatized. Orbits and globes are intact. IMPRESSION: 1. No acute intracranial abnormality seen. 2. Stable partially calcified vascular lesion anterior left parietal lobe, suspected cerebral AVM. 3. Remote lacunar infarct right caudate head and similar mild generalized atrophy.
[2017-10-26] MEDS ORDERED: VALPROATE SODIUM 1,000 MG in SODIUM CHLORIDE 0.9% 50 ML IVPB STA (08:46)
--- NOTE | 2017-10-26 09:01 | P.CNNES ---
History of Present Illness Consult date: 10/26/17 Reason for Consult: Patient admitted with seizure disorder. History of Present Illness: Liam Saini is a pleasant 72-year-old right-handed white male who was brought into the emergency room yesterday for evaluation of seizure disorder. Patient has a long-standing history of epilepsy dating back over 30 years. He had initially been treated for his seizure disorder with Dilantin monotherapy. He was then transitioned to the [facility] where he resided for several years. Apparently recently the [facility] closed and he was shifted to a independent apartment. He was being visited there by the visiting physician Association and was seeing Dr. Mukherjee. According to the patient he was told by the visiting physician that he had been on Dilantin for too many years and it was decided to switch him to Keppra monotherapy. He has been on Keppra since March of this year and apparently was taking 250 mg by mouth twice a day. The patient had several breakthrough seizures at his apartment and EMS was called to the home yesterday. He was brought into the emergency room at [facility] for further evaluation. He was seen in the emergency room by Dr. Kovacs. While in the ER he had another breakthrough seizure. He did quickly recover from that seizure and was admitted to hospital for further evaluation. The patient states that since starting on Keppra he has not been feeling 100% his normal self. He feels that the Keppra has not been very effective for him and causes him to be quite confused and fatigued. As mentioned he had been on Dilantin monotherapy for many years prior to the switch of his anticonvulsant Keppra. The patient also has been on low-dose Keppra with a dose of 250 mg twice a day. Keppra level was ordered in the emergency room but is still pending in the laboratory. We have recommended the patient consider alternative anticonvulsant therapy with Depakote. This would be helpful for both seizure disorder and mood stabilization. He has no previous history of any liver damage and is not been drinking alcohol in any regular basis. Running to the patient is flaccid metabolic profile revealed normal liver enzymes. We have mentioned that Depakote is only concern would be to monitor his levels and to check his liver enzymes once a year. Patient states he would like to try alternative medication to Keppra as he feels the Keppra just is not agreeing with him currently. We have recommended to load the patient with IV Depacon thousand milligrams and we'll then place him on Depakote ER 500 mg by mouth twice a day. We will obtain a Depakote level tomorrow morning for further follow-up. He is scheduled to undergo CAT scan of the brain as well as a routine EEG today which will be reviewed. Patient was advised of the [place] driving law which states he cannot drive in the [facility] for her. To 6 months following his last seizure. He is well aware of this restriction. Patient states he is looking forward to alternative treatment for his seizure disorder other than Keppra. As noted he did have breakthrough seizures on Keppra but this may be due to was subtherapeutic Keppra blood level. We have discussed all of these points in detail today with the patient. He is very much willing to try Depakote and we will make the switch for him while he is in the hospital during this admission. So overall prognosis at this time remains guarded. Review of Systems Constitutional: Denies chills, Denies fever Eyes: denies blurred vision, denies pain Ears, nose, mouth and throat: Denies headache, Denies sore throat Cardiovascular: Denies chest pain, Denies shortness of breath Respiratory: Denies cough Gastrointestinal: Denies abdominal pain, Denies diarrhea, Denies nausea, Denies vomiting Musculoskeletal: Denies myalgias Integumentary: Denies pruritus, Denies rash Neurological: Reports change in mentation, Reports confusion, Reports convulsions, Reports seizures, Denies numbness, Denies weakness Psychiatric: Denies anxiety, Denies depression Endocrine: Denies fatigue, Denies weight change Past Medical History Past Medical History: CVA/TIA, Hypertension, Seizure Disorder Additional Past Medical History / Comment(s): alcohol intoxication, alcohol withdrawal seizures, hypokalemia, hyponatremia, dehyration, metabolic encephalopathy History of Any Multi-Drug Resistant Organisms: None Reported Past Surgical History: No Surgical Hx Reported Past Anesthesia/Blood Transfusion Reactions: No Reported Reaction Past Psychological History: Anxiety, Depression Additional Psychological History / Comment(s): due to his depression he drinks whisky Smoking Status: Never smoker Past Alcohol Use History: Occasional Past Drug Use History: None Reported - Past Family History Father Family Medical History: No Reported History Mother Family Medical History: Coronary Artery Disease (CAD), Hypertension Medications and Allergies Home Medications Medication Instructions Recorded Confirmed Type Atenolol [Tenormin] 50 mg PO DAILY 02/06/17 10/25/17 History Aspirin EC [Ecotrin Low Dose] 81 mg PO DAILY 08/04/17 10/25/17 History Naltrexone HCl [Revia] 50 mg PO BID 08/04/17 10/25/17 History Sertraline [Zoloft] 100 mg PO HS 08/04/17 10/25/17 History amLODIPine [Norvasc] 5 mg PO HS 08/04/17 10/25/17 History Furosemide [Lasix] 20 mg PO DAILY 10/25/17 10/25/17 History Gabapentin [Neurontin] 400 mg PO TID 10/25/17 10/25/17 History levETIRAcetam [Keppra] 250 mg PO Q12HR 10/25/17 10/25/17 History Allergies Allergy/AdvReac Type Severity Reaction Status Date / Time loratadine Allergy Unknown Verified 10/25/17 17:44 antihistamines Allergy Unknown Uncoded 07/11/17 15:01 Physical Examination - Vital Signs Vital Signs: Vital Signs Temp Pulse Pulse Resp BP BP Pulse Ox 10/26/17 00:50 16 10/25/17 21:55 99.1 F 81 16 129/72 97 10/25/17 21:35 98.2 F 81 16 124/78 99 10/25/17 20:00 86 16 128/80 98 10/25/17 17:37 98.6 F 102 H 18 157/111 98 Intake and Output 10/25/17 10/26/17 10/26/17 22:59 06:59 14:59 Intake Total 850 1320 Output Total 100 Balance 850 1220 Intake: Intake, IV Titration 600 840 Amount Sodium Chloride 0.9% 1, 600 840 000 ml @ 120 mls/hr IV . Q8H20M [facility] Rx#:[id number] Oral 250 480 Output: Urine 100 Other: Voiding Method Urinal # Voids 2 Weight 89.811 kg - Constitutional General appearance: average body habitus, cooperative - EENT EENT: PERRL, mucous membranes moist - Respiratory Respiratory: lungs clear, normal breath sounds - Cardiovascular Cardiovascular: regular rate, normal S1, normal S2 Extremities: no peripheral edema bilaterally - Gastrointestinal Gastrointestinal: normoactive bowel sounds - Integumentary Integumentary: normal - Neurologic Cranial nerve examination: PERRL, EOMI, VFF, face symmetric, intact shoulder shrug, intact gag reflex, intact corneal reflex, normal palatal elevation Speech examination: intact Sensorimotor examination: intact Motor examination - right side: 4/5: biceps, triceps, wrist flexion, wrist extension, vender, hip flexors, knee extensors, dorsiflexion, toe extension (EHL) , plantarflexion Motor examination - left side: 4/5: biceps, triceps, wrist flexion, wrist extension, vender, hip flexors, knee extensors, dorsiflexion, toe extension (EHL) , plantarflexion Detailed sensory examination: intact Reflex and gait examination: intact Reflexes: 1+: ankle, bicep, knee, tricep - Musculoskeletal Musculoskeletal: no pain - Psychiatric Psychiatric: mood/affect appropriate, cooperative Results - Laboratory Findings CBC and BMP: 10/25/17 17:47 10/25/17 17:47 Abnormal Lab Findings: Abnormal Labs 10/25/17 10/25/17 10/25/17 17:47 17:47 20:22 RBC 4.26 L Hgb 12.9 L Hct 38.6 L Plt Count 131 L BUN 6 L Glucose 108 H ALT 17 L Total Protein 9.4 H Urine Protein Trace H Urine Ketones 1+ H Urine Blood Moderate H Urine Mucus Many H Ur Barbiturates Screen Detected H Assessment and Plan (1) Complex partial epilepsy with generalization Current Visit: Yes Status: Acute Code(s): G40.209 - LOCAL-REL SYMPTC EPI W CMPLX PRT SEIZ,NOT NTRCT,W/O STAT EPI SNOMED Code(s): 049459624 (2) Acute encephalopathy Current Visit: No Status: Acute Code(s): G93.40 - ENCEPHALOPATHY, UNSPECIFIED SNOMED Code(s): 50107529 (3) Breakthrough seizure Current Visit: No Status: Acute Code(s): G40.919 - EPILEPSY, UNSP, INTRACTABLE, WITHOUT STATUS EPILEPTICUS SNOMED Code(s): 803204573 (4) Depression Current Visit: No Status: Chronic Code(s): F32.9 - MAJOR DEPRESSIVE DISORDER , SINGLE EPISODE, UNSPECIFIED SNOMED Code(s): 33197537 Plan: This patient is a pleasant 72-year-old right-handed white male who was admitted to hospital with breakthrough seizures. Patient has a long-standing history of underlying complex partial epilepsy. He was treated for many years on Dilantin monotherapy. He has been admitted on several occasions to the hospital for alcohol related seizure disorder as well as more recently breakthrough seizures. His primary care physician Dr. Mukherjee who is a visiting physician that is seeing him in the outpatient setting recently discontinued Dilantin and placed him on Keppra. He was on subtherapeutic dosing of Keppra with a dose of 250 mg twice a day. He had some breakthrough seizures and was brought into the emergency room. He had another breakthrough seizure in the ER and was admitted to Hospital. We had a long discussion today with the patient. He feels that Keppra is just not working for him and causes many side effects. We are suggesting he be switched over to Depakote monotherapy which would not only be helpful for seizure disorder but also mood stabilization. Does have a history of depression in the past. We will load him with IV Depacon and place him on Depakote ER 500 mg by mouth twice a day. We will obtain a computed tomography scan of the brain and routine EEG today for further evaluation. Patient was advised of the [employer] driving long which states he cannot drive in the [facility] for her. To 6 months following his last seizure. He is well aware of this restriction. We will continue close neurological follow-up with the patient during this admission. Once he is therapeutic on his Depakote we will wean him off of his Keppra at that time. His overall prognosis at this time remains guarded. Time with Patient: Greater than 30
[2017-10-26] MEDS: FUROSEMIDE 20 MG TAB PO SCH (09:34)
[2017-10-26] MEDS: PANTOPRAZOLE 40 MG TABLET PO SCH (09:34)
[2017-10-26] MEDS: ASPIRIN 81 MG PO SCH (09:34)
[2017-10-26] MEDS: GABAPENTIN 400 MG CAP PO SCH ×3 (09:34→21:46)
[2017-10-26] MEDS: ATENOLOL 50 MG TAB PO SCH (09:34)
[2017-10-26] MEDS: DIVALPROEX ER 500 MG TAB.ER.24H PO SCH ×2 (09:35→21:47)
[2017-10-26] MEDS: HEPARIN SODIUM,PORCINE 5,000 UNIT/ML 1 ML VIAL SQ SCH ×2 (09:35→21:47)
[2017-10-26] MEDS: NALTREXONE HCL 50 MG TAB PO SCH ×2 (09:40→21:47)
[2017-10-26] MEDS: levETIRAcetam IV 500 MG in SODIUM CHLORIDE 0.9% 100 ML IVPB SCH ×2 (11:23→21:47)
[2017-10-26] MEDS: SODIUM CHLORIDE 0.9% 1,000 ML IV SCH ×2 (11:29→14:15)
--- NOTE | 2017-10-26 12:51 | PN ---
PROGRESS NOTE DATE OF SERVICE: 10/26/2017 This is a 72-year-old gentleman who was admitted with recurrent seizures and breakthrough seizures being closely monitored by Dr. herbert in the hospital exam alert seen the patient and recommended Depakote at this time. EEG is being underway. No chest pain. No palpitation. CT scan of the brain did not show any acute. PHYSICAL EXAM: Alert and oriented x3. Pulse blood pressure 140/27 respiration 16, temperature 98.5, pulse ox 98% on room air. HEENT is conjunctivae are normal. Oral mucosa is moist. Neck is no jugular venous distention. No lymph node enlargement. CARDIOVASCULAR SYSTEM: S1, S2, RESPIRATION: Breath sounds diminished at the bases, a few rhonchi, no crackles. ABDOMEN: Soft, nontender. LEGS: No edema, no swelling. NERVOUS SYSTEM: No focal deficits. LABS: WBC is 5, hemoglobin is 12.9. BMP noted. ASSESSMENT: 1. Seizure disorder with breakthrough seizures. 2. Hypertension. 3. History of seizure disorder. 4. History of cerebrovascular accident, transient ischemic attack. 5. History of alcohol intake, intoxication withdrawal symptoms. 6. Hypokalemia. 7. Hyponatremia, history. 8. History of metabolic encephalopathy. 9. Anxiety, depression. RECOMMENDATION: Recommend to continue current medications and monitor symptomatic treatment. Otherwise at this time, I would recommend continue with current medications. Continue with Depakote. Closely follow with Dr. Aron Robertson. Guarded prognosis, further recommendations to follow. MMODL / IJN: [id number] /
[2017-10-26] MEDS: SERTRALINE 100 MG TAB PO SCH (21:46)
[2017-10-26] MEDS: amLODIPine 5 MG TAB PO SCH (21:47)
[2017-10-27 07:43] LABS: Basophils % (A) 1 %; Eosinophils # (A) 0.1 k/uL (0-0.7); Eosinophils % (A) 1 %; HCT 33.7 % (39.0-53.0); HGB 11.1 gm/dL (13.0-17.5); Lymphocytes # (A) 3.2 k/uL (1.0-4.8); Lymphocytes % (A) 46 %; MCH 30.1 pg (25.0-35.0); MCHC 32.8 g/dL (31.0-37.0); MCV 91.9 fL (80.0-100.0); Mean Platelet Volume 6.5; Monocytes # (A) 0.5 k/uL (0-1.0); Monocytes % (A) 7 %; Neutrophils # (A) 2.8 k/uL (1.3-7.7); Neutrophils % (A) 40 %; Platelet Count 113 k/uL (150-450); RBC 3.67 m/uL (4.30-5.90); RDW 13.7 % (11.5-15.5); WBC 6.8 k/uL (3.8-10.6)
[2017-10-27 07:46] LABS: Anion Gap 8 mmol/L; Blood Urea Nitrogen 9 mg/dL (9-20); Calcium 8.5 mg/dL (8.4-10.2); Carbon Dioxide 23 mmol/L (22-30); Chloride 109 mmol/L (98-107); Glucose 82 mg/dL (74-99); Magnesium 1.7 mg/dL (1.6-2.3); Potassium 3.5 mmol/L (3.5-5.1); Sodium 140 mmol/L (137-145)
[2017-10-27 08:12] LABS: Anisocytosis (M) Present; Poikilocytosis (M) Present
--- NOTE | 2017-10-27 09:41 | P.PN ---
Subjective Progress Note Date: 10/27/17 This patient is a pleasant 72-year-old right-handed white male who was admitted to hospital with breakthrough seizure disorder. Patient has a long-standing history of seizures over the past 20 years. He has been on various anticonvulsant medications and had been taking Dilantin for many years. He was recently evaluated by his visiting physician and started on Keppra at low dose. He had breakthrough seizures and was brought into the hospital was subsequently admitted to Hospital. We did discuss his findings yesterday with the patient in detail. We've recommended that he be switched from Keppra to Depakote monotherapy for further seizure management. He had adverse response to the Keppra producing increase in fatigue and confusion. For this reason we did recommend doing change in his anticonvulsant to Depakote. He has been started on Depakote yesterday. His Depakote level is pending this morning. He was sent for a computed tomography scan of the brain yesterday which was reviewed. CAT scan revealed no acute intracranial abnormality. There was stable findings of a vascular lesion anterior left parietal lobe consistent with cerebral AVM which is been noted previously in his studies. There was also evidence of a remote lacunar infarct in the right caudate nucleus. There was some generalized atrophy. We reviewed the results of the CAT scan today with the patient. Patient will be weaned off of his Keppra once his Depakote level is therapeutic. We recommend he continue on Depakote monotherapy and may have a follow-up anticonvulsant blood level done in a week. We would be happy to follow up with him in the outpatient neurology clinic once he is discharged. Overall prognosis at this time remains guarded. Objective - Vital Signs Vital signs: Vital Signs Temp 98.3 F 10/27/17 07:36 Pulse 66 10/27/17 07:36 Resp 16 10/27/17 07:36 BP 120/74 10/27/17 07:36 Pulse Ox 96 10/27/17 07:36 Intake & Output 10/26/17 10/27/17 10/27/17 18:59 06:59 18:59 Intake Total 2920 Output Total 350 200 Balance -350 2720 Intake: Intake, IV Titration 2020 Amount Sodium Chloride 0.9% 1, 1920 000 ml @ 120 mls/hr IV . Q8H20M [facility] Rx#:[id number] levETIRAcetam IV 500 mg 100 In Sodium Chloride 0.9% 100 ml @ 400 mls/hr IVPB BID [facility] Rx#:[id number] Oral 900 Output: Urine 350 200 Other: Voiding Method Urinal # Voids 1 3 - Exam Physical examination: PHYSICAL EXAMINATION: Patient is resting comfortably in bed. VITAL SIGNS: Blood pressure is [120/74]. Heart rate is [67]. Respiration is [16] . Temperature is [98.3]. HEENT: Head is atraumatic, neck is supple, there were no carotid bruits. CHEST: Lungs are clear to auscultation and percussion. CARDIAC: S1, S2 normal rate and rhythm. There is no murmur. ABDOMEN: Soft and nontender. Bowel sounds are present. EXTREMITIES: There is no pedal edema. Peripheral pulses are present. Neurological examination: Patient has a nonfocal neurological examination today. Patient is resting comfortably in bed. He denies any new symptoms. Neurological examination remains nonfocal today. - Labs CBC & Chem 7: 10/27/17 06:26 10/27/17 06:26 Labs: Abnormal Lab Results - Last 24 Hours (Table) 10/27/17 10/27/17 Range/Units 06:26 06:26 RBC 3.67 L (4.30-5.90) m/uL Hgb 11.1 L (13.0-17.5) gm/dL Hct 33.7 L (39.0-53.0) % Plt Count 113 L (150-450) k/uL Chloride 109 H (98-107) mmol/L Assessment and Plan (1) Complex partial epilepsy with generalization Current Visit: Yes Status: Acute Code(s): G40.209 - LOCAL-REL SYMPTC EPI W CMPLX PRT SEIZ,NOT NTRCT,W/O STAT EPI SNOMED Code(s): 837567273 (2) Acute encephalopathy Current Visit: No Status: Acute Code(s): G93.40 - ENCEPHALOPATHY, UNSPECIFIED SNOMED Code(s): 65520746 (3) Breakthrough seizure Current Visit: No Status: Acute Code(s): G40.919 - EPILEPSY, UNSP, INTRACTABLE, WITHOUT STATUS EPILEPTICUS SNOMED Code(s): 328258489 (4) Depression Current Visit: No Status: Chronic Code(s): F32.9 - MAJOR DEPRESSIVE DISORDER , SINGLE EPISODE, UNSPECIFIED SNOMED Code(s): 55900434 Plan: This patient is a 72-year-old male with known history of seizure disorder. He was brought into the emergency room on 10/25/2017 with symptoms of seizures and breakthrough findings. He had recently been switched from Dilantin monotherapy for seizure management to Keppra. His Keppra dose was subtherapeutic on admission. Patient was also experiencing extreme side effects to the Keppra and for this reason we have recommended that he be switched to Depakote monotherapy for ongoing seizure prophylaxis. He was loaded with IV Depacon yesterday and will continue on oral Depakote today for long-term management of his seizure disorder. He underwent a computed tomography scan of the brain yesterday the results which are noted above. He underwent routine EEG which will be reviewed later today. We're waiting his Depakote level to return from the laboratory this morning at which time his Depakote will be adjusted as needed. Once he is therapeutic on Depakote he'll be weaned off of his Keppra. We've explained to the patient this may take another day of hospitalization but we will wait to see the results of his laboratory testing. His overall prognosis at this time remains guarded. We will continue close neurological follow-up with the patient during this admission.
[2017-10-27] MEDS: FUROSEMIDE 20 MG TAB PO SCH (10:13)
[2017-10-27] MEDS: ASPIRIN 81 MG PO SCH (10:13)
[2017-10-27] MEDS: ATENOLOL 50 MG TAB PO SCH (10:13)
[2017-10-27] MEDS: NALTREXONE HCL 50 MG TAB PO SCH ×2 (10:14→21:35)
[2017-10-27] MEDS: DIVALPROEX ER 500 MG TAB.ER.24H PO SCH ×2 (10:14→21:36)
[2017-10-27] MEDS: HEPARIN SODIUM,PORCINE 5,000 UNIT/ML 1 ML VIAL SQ SCH ×2 (10:15→21:35)
[2017-10-27] MEDS: levETIRAcetam IV 500 MG in SODIUM CHLORIDE 0.9% 100 ML IVPB SCH (10:15)
[2017-10-27] MEDS: SODIUM CHLORIDE 0.9% 1,000 ML IV SCH ×4 (10:16→21:35)
[2017-10-27] MEDS: GABAPENTIN 400 MG CAP PO SCH ×3 (10:23→21:35)
[2017-10-27] MEDS: PANTOPRAZOLE 40 MG TABLET PO SCH (10:23)
[2017-10-27 10:51] LABS: Valproic Acid (Depakene) 31.1 ug/mL
[2017-10-27] MEDS ORDERED: VALPROATE SODIUM 700 MG in SODIUM CHLORIDE 0.9% 50 ML IVPB ONE (11:43)
--- NOTE | 2017-10-27 13:01 | PN ---
PROGRESS NOTE DATE OF SERVICE: 10/27/2017 This 72-year-old gentleman who was admitted with seizure disorder also had breakthrough seizures. The patient being closely monitored. No chest pain or palpitation. No fever. The Depakote dose has been adjusted by Dr. Robertson. PHYSICAL EXAM: On exam, alert and oriented x3. Pulse 66, blood pressure 120/74, respiration 16, temp 98.2, pulse ox 98% on room air. HEENT: Conjunctivae normal. NECK: No jugular venous distention. CARDIOVASCULAR: S1 and S2 muffled. RESPIRATORY: Breath sounds diminished in the bases. No rhonchi. No crackles. ABDOMEN: Soft, nontender. LEGS: No edema, no swelling. NERVOUS SYSTEM: No focal deficits. LABS: WBC 6.8, hemoglobin 11.1. UA noted. ASSESSMENT: 1. Seizure disorder with breakthrough seizures. 2. Hypertension. 3. History of seizure disorder. 4. History of cerebrovascular accident, transient ischemic attack. 5. History of alcohol intoxication withdrawal symptoms previously. 6. Hypokalemia. 7. Hyponatremia. 8. History of metabolic encephalopathy. 9. Anxiety, depression. RECOMMENDATIONS AND DISCUSSION: Recommend to continue current medications and symptomatic treatment. Adjust the Depakote dosage. The patient has been counseled to stop alcohol intake in the outpatient setting. MMODL / IJN: [id number] /
[2017-10-27] MEDS: amLODIPine 5 MG TAB PO SCH (21:35)
[2017-10-27] MEDS: SERTRALINE 100 MG TAB PO SCH (21:35)
[2017-10-28 07:53] VITALS: BP 118/73; PULSE 67; RESP 14; TEMP 98.6
[2017-10-28] MEDS: ATENOLOL 50 MG TAB PO SCH (07:59)
[2017-10-28] MEDS: GABAPENTIN 400 MG CAP PO SCH (07:59)
[2017-10-28] MEDS: ASPIRIN 81 MG PO SCH (07:59)
[2017-10-28] MEDS: FUROSEMIDE 20 MG TAB PO SCH (07:59)
[2017-10-28] MEDS: NALTREXONE HCL 50 MG TAB PO SCH (08:00)
[2017-10-28] MEDS: DIVALPROEX ER 500 MG TAB.ER.24H PO SCH (08:00)
[2017-10-28] MEDS: HEPARIN SODIUM,PORCINE 5,000 UNIT/ML 1 ML VIAL SQ SCH (08:01)
[2017-10-28] MEDS: SODIUM CHLORIDE 0.9% 1,000 ML IV SCH (08:03)
[2017-10-28] MEDS: PANTOPRAZOLE 40 MG TABLET PO SCH (08:07)
[2017-10-28] MEDS ORDERED: levETIRAcetam IV 500 MG in SODIUM CHLORIDE 0.9% 100 ML IVPB SCH (09:00)
[2017-10-28] MEDS ORDERED: Potassium Replacement Protocol 1 EACH MISC MISCELLANE PRN ×2 (11:12→11:36)
[2017-10-28] MEDS ORDERED: Magnesium Replacement Protocol 1 EACH MISC MISCELLANE PRN ×2 (11:13→11:35)
[2017-10-28 11:26] LABS: Magnesium 1.7 mg/dL (1.6-2.3); Potassium 3.6 mmol/L (3.5-5.1)
[2017-10-28] MEDS ORDERED: POTASSIUM CHLORIDE ER 20 MEQ TAB.ER PO SCH (12:00)
[2017-10-28] MEDS: MAGNESIUM SULFATE-D5W PMX 1 GM in DEXTROSE/WATER 1 100ML.BAG IVPB SCH ×2 (12:45→13:50)
--- NOTE | 2017-10-28 14:54 | P.PN ---
Subjective Progress Note Date: 10/28/17 This patient is a pleasant 72-year-old right-handed white male who was admitted to hospital with breakthrough seizure disorder. Patient has a long-standing history of seizures over the past 20 years. He has been on various anticonvulsant medications and had been taking Dilantin for many years. He was recently evaluated by his visiting physician and started on Keppra at low dose. He had breakthrough seizures and was brought into the hospital was subsequently admitted to Hospital. We did discuss his findings yesterday with the patient in detail. We've recommended that he be switched from Keppra to Depakote monotherapy for further seizure management. He had adverse response to the Keppra producing increase in fatigue and confusion. For this reason we did recommend doing change in his anticonvulsant to Depakote. He has been started on Depakote yesterday. His Depakote level is pending this morning. He was sent for a computed tomography scan of the brain yesterday which was reviewed. CAT scan revealed no acute intracranial abnormality. There was stable findings of a vascular lesion anterior left parietal lobe consistent with cerebral AVM which is been noted previously in his studies. There was also evidence of a remote lacunar infarct in the right caudate nucleus. There was some generalized atrophy. We reviewed the results of the CAT scan today with the patient. Patient will be weaned off of his Keppra once his Depakote level is therapeutic. His Depakote level this morning came back therapeutic at 51.5. We now recommend the patient can be discontinued off of Keppra altogether starting today. He is to increase his dose of oral Depakote 2000 mg by mouth twice a day. We recommend he continue on Depakote monotherapy and may have a follow-up anticonvulsant blood level done in a week. We would be happy to follow up with him in the outpatient neurology clinic once he is discharged. Patient is being considered for discharge home today. He is to follow up in the outpatient neurology clinic in 2-3 weeks. Overall prognosis at this time remains guarded. Objective - Vital Signs Vital signs: Vital Signs Temp 98.6 F 10/28/17 07:00 Pulse 67 10/28/17 07:00 Resp 14 10/28/17 07:00 BP 118/73 10/28/17 07:00 Pulse Ox 97 10/28/17 07:00 Intake & Output 0810/28/17 10/28/17 18:59 06:59 18:59 Intake Total 960 400 Output Total 1000 Balance -40 400 Intake: Intake, IV Titration 960 Amount Sodium Chloride 0.9% 1, 960 000 ml @ 120 mls/hr IV . Q8H20M [facility] Rx#:[id number] Oral 400 Output: Urine 1000 Other: Voiding Method Urinal # Voids 2 - Exam Physical examination: PHYSICAL EXAMINATION: Patient is resting comfortably in bed. VITAL SIGNS: Blood pressure is [118/73]. Heart rate is [67]. Respiration is [14] . Temperature is [98.6]. HEENT: Head is atraumatic, neck is supple, there were no carotid bruits. CHEST: Lungs are clear to auscultation and percussion. CARDIAC: S1, S2 normal rate and rhythm. There is no murmur. ABDOMEN: Soft and nontender. Bowel sounds are present. EXTREMITIES: There is no pedal edema. Peripheral pulses are present. Neurological examination: Patient has a nonfocal neurological examination today. Patient is resting comfortably in bed. He denies any new symptoms. Neurological examination remains nonfocal today. - Labs CBC & Chem 7: 10/27/17 06:26 10/28/17 06:15 Labs: Abnormal Lab Results - Last 24 Hours (Table) 10/28/17 Range/Units 06:15 Chloride 108 H (98-107) mmol/L Assessment and Plan (1) Complex partial epilepsy with generalization Current Visit: Yes Status: Acute Code(s): G40.209 - LOCAL-REL SYMPTC EPI W CMPLX PRT SEIZ,NOT NTRCT,W/O STAT EPI SNOMED Code(s): 497670633 (2) Acute encephalopathy Current Visit: No Status: Acute Code(s): G93.40 - ENCEPHALOPATHY, UNSPECIFIED SNOMED Code(s): 01595923 (3) Breakthrough seizure Current Visit: No Status: Acute Code(s): G40.919 - EPILEPSY, UNSP, INTRACTABLE, WITHOUT STATUS EPILEPTICUS SNOMED Code(s): 138079844 (4) Depression Current Visit: No Status: Chronic Code(s): F32.9 - MAJOR DEPRESSIVE DISORDER , SINGLE EPISODE, UNSPECIFIED SNOMED Code(s): 95408366 Plan: This patient is a 72-year-old male with known history of seizure disorder. He was brought into the emergency room on 10/25/2017 with symptoms of seizures and breakthrough findings. He had recently been switched from Dilantin monotherapy for seizure management to Keppra. His Keppra dose was subtherapeutic on admission. Patient was also experiencing extreme side effects to the Keppra and for this reason we have recommended that he be switched to Depakote monotherapy for ongoing seizure prophylaxis. He was loaded with IV Depacon yesterday and will continue on oral Depakote today for long-term management of his seizure disorder. He underwent a computed tomography scan of the brain yesterday the results which are noted above. He underwent routine EEG which will be reviewed later today. We're waiting his Depakote level to return from the laboratory this morning at which time his Depakote will be adjusted as needed. Once he is therapeutic on Depakote he'll be weaned off of his Keppra. His Depakote level performed this morning came back therapeutic at 51.5. We are recommending that he continue on Depakote monotherapy at a dose of 1000 mg by mouth twice a day. He may be weaned off of Keppra today and will continue with Depakote monotherapy. His overall prognosis at this time remains guarded. We will continue close neurological follow-up with the patient during this admission. Patient is being considered for discharge home later today. He should follow-up in the outpatient neurology clinic in 2-3 weeks. We recommend he have a Depakote level done in 1 week and Center office for review. His overall prognosis at this time remains guarded.
--- NOTE | 2017-10-28 17:49 | DS ---
DISCHARGE SUMMARY DATE OF SERVICE: 10/28/2017 FINAL DIAGNOSES: 1. Seizure disorder with breakthrough seizures. 2. Hypertension. 3. History of seizure disorder. 4. History of cerebrovascular accident, transient ischemic attack. 5. History of alcohol intoxication with symptoms previously. 6. Hypokalemia. 7. Hyponatremia. 8. Metabolic encephalopathy. 9. Anxiety and depression. DISCHARGE DISPOSITION: The patient is being discharged in stable condition with guarded prognosis. HISTORY OF PRESENT ILLNESS: This 72-year-old gentleman with a past medical history of multiple medical problems was admitted with seizure disorder. The patient was treated symptomatically. Dr. Robertson saw the patient. Medication adjusted. Patient improved significantly. On exam, vitals are stable. Cardiovascular: S1, S2 Abdomen: Soft. Nervous System: No focal deficit. DISCHARGE ADVICE: 1. Diet is cardiac. 2. Activity limited until follow up. 3. Follow up with Dr. Mukherjee as mentioned earlier. 4. Follow with Dr. Aron Robertson as recommended. MEDICATIONS: 1. Norvasc 5 mg q.h.s. 2. Ecotrin 81 mg p.o. daily. 3. Tenormin 50 mg p.o. daily. 4. Lasix 20 mg p.o. daily. 5. Neurontin 400 mg p.o. t.i.d. 6. ReVia 50 mg p.o. b.i.d. 7. Zoloft 100 mg p.o. q.h.s. 8. Depakote 1000 mg p.o. b.i.d. 9. Prilosec 20 mg b.i.d. Once again, the patient will be discharged in stable condition with guarded prognosis. MMODL / IJN: [id number] / MTDD
--- NOTE | 2017-10-29 10:48 | EEG ---
ELECTROENCEPHALOGRAM REPORT DATE OF EE10/26/2017 ELECTROENCEPHALOGRAPHIC EXAMINATION REPORT: INDICATION FOR EXAMINATION: This patient is a 72-year-old male, admitted with breakthrough seizures. Patient has long-standing history of underlying seizure disorder. Patient with subtherapeutic Keppra level on admission. AGE: [age]. EEG FINDINGS: A routine 21 channel awake digital EEG recording was accomplished utilizing the 10-20 international system with bipolar and referential montages. The background activity in the most alert resting state consists of a low to medium amplitude, fairly well developed and well sustained 7-8 Hz activity over the posterior head regions. This posterior rhythm attenuates to eye opening. There is a small amount of low amplitude 18-20 Hz beta activity seen maximally over the anterior head regions. Muscle and movement artifact was observed on a few occasions during the tracing. Hyperventilation was not performed. Photic stimulation at flash frequencies of 2-30 Hz produced a good symmetrical occipital driving response. No epileptiform discharges were seen. IMPRESSION: This EEG is within normal limits for the patient's age. The EEG failed to reveal any focal, lateralized, or epileptiform abnormalities. Clinical correlation is recommended. MMODL / IJN: [id number] /
== END 2017-10-28 15:25 | disposition home health service (06) | DRG 101 ==
LOC: EC 17:28 → 3SUR 20:24
PROVIDERS: ADMIT Hospitalist; ATTEND Hospitalist
DX: G40.209 Localization-related (focal) (partial) symptomatic epilepsy and epileptic syndromes with complex partial seizures, not intractable, without status epilepticus (principal); E87.1 Hypo-osmolality and hyponatremia; D69.6 Thrombocytopenia, unspecified; E87.6 Hypokalemia; F32.9 Major depressive disorder, single episode, unspecified; F41.9 Anxiety disorder, unspecified; Z82.49 Family history of ischemic heart disease and other diseases of the circulatory system; Z86.73 Personal history of transient ischemic attack (TIA), and cerebral infarction without residual deficits; I10 Essential (primary) hypertension; Z79.899 Other long term (current) drug therapy; Z79.82 Long term (current) use of aspirin; Z88.8 Allergy status to other drugs, medicaments and biological substances
CPT/HCPCS: 36415; 70450; 80048; 80051; 80053; 80164; 80177; 80185; 80306; 81001; 83735; 85025; 93005; 95816; 96365; 99285

== ENCOUNTER 2017-11-03 16:29 | Emergency (ER) | payer MEDICARE, BC ==
[2017-11-03 16:41] VITALS: RESP 18
[2017-11-03] MEDS ORDERED: SODIUM CHLORIDE 0.9% 1,000 ML IV ONE (16:56)
[2017-11-03] MEDS ORDERED: ACETAMINOPHEN TAB 500 MG TAB PO STA (16:58)
[2017-11-03] MEDS ORDERED: SODIUM CHLORIDE 0.9% 1,000 ML IV SCH (17:00)
[2017-11-03 17:18] LABS: Basophils % (A) 0 %; Eosinophils % (A) 0 %; HCT 37.2 % (39.0-53.0); HGB 12.5 gm/dL (13.0-17.5); Lymphocytes # (A) 1.7 k/uL (1.0-4.8); Lymphocytes % (A) 34 %; MCH 30.4 pg (25.0-35.0); MCHC 33.6 g/dL (31.0-37.0); MCV 90.6 fL (80.0-100.0); Mean Platelet Volume 6.8; Monocytes # (A) 0.4 k/uL (0-1.0); Monocytes % (A) 8 %; Neutrophils # (A) 2.6 k/uL (1.3-7.7); Neutrophils % (A) 54 %; Platelet Count 119 k/uL (150-450); RBC 4.11 m/uL (4.30-5.90); RDW 13.7 % (11.5-15.5); WBC 4.8 k/uL (3.8-10.6)
[2017-11-03 17:35] LABS: ALT 11 U/L (21-72); AST 18 U/L (17-59); Albumin 3.9 g/dL (3.5-5.0); Alcohol <10 mg/dL; Alkaline Phosphatase 59 U/L (38-126); Anion Gap 11 mmol/L; Blood Urea Nitrogen 6 mg/dL (9-20); Calcium 9.4 mg/dL (8.4-10.2); Carbon Dioxide 25 mmol/L (22-30); Chloride 104 mmol/L (98-107); Glucose 116 mg/dL (74-99); Potassium 3.7 mmol/L (3.5-5.1); Sodium 140 mmol/L (137-145); Total Bilirubin 0.5 mg/dL (0.2-1.3); Total Protein 9.8 g/dL (6.3-8.2)
[2017-11-03 17:40] LABS: Valproic Acid (Depakene) 82.8 ug/mL
[2017-11-03 18:08] LABS: Amorphous Sediment,Urine Occasional /hpf; Appearance,Urine Clear (Clear); Bilirubin,Urine Negative (Negative); Blood,Urine Small (Negative); Color,Urine Yellow; Glucose,Urine (UA) Negative (Negative); Hyaline Casts,Urine 8 /lpf (0-2); Ketones,Urine Negative (Negative); Leukocyte Esterase,Urine Negative (Negative); Mucus,Urine Moderate /hpf; Nitrite,Urine Negative (Negative); PH, Urine 6.5 (5.0-8.0); Protein,Urine Trace (Negative); RBC,Urine 10 /hpf (0-5); Specific Gravity,Urine 1.016 (1.001-1.035); Squamous Epithelial Cell,Urine <1 /hpf (0-4); WBC,Urine 1 /hpf (0-5)
[2017-11-03 18:13] LABS: Amphetamine Screen,Urine Detected (NotDetected); Barbiturate Screen,Urine Not Detected (NotDetected); Benzodiazepines Screen,Urine Detected (NotDetected); Cocaine Screen,Urine Not Detected (NotDetected); Methadone Screen, Urine Not Detected (NotDetected); Opiate Screen,Urine Not Detected (NotDetected); Oxycodone Screen, Urine Not Detected (NotDetected); Phencyclidine Screen,Urine Not Detected (NotDetected); Tricyclic Antidepressant,Urine Not Detected (NotDetected); Urn Cannabinoid Scrn Not Detected (NotDetected)
[2017-11-03 18:22] VITALS: BP 120/63; PULSE 76; TEMP 98.8
[2017-11-03] MEDS ORDERED: ONDANSETRON 4 MG/2 ML VIAL IVP STA (18:23)
--- NOTE | 2017-11-03 18:24 | CT ---
EXAMINATION TYPE: CT brain wo con DATE OF EXAM: 11/03/2017 COMPARISON: 10/26/2017 HISTORY: Patient had a seizure. Patient has history of epilepsy with recent change of medication. CT DLP: 796 mGycm Automated exposure control for dose reduction was used. FINDINGS: There is cerebral cortical atrophy. There is no mass effect nor midline shift. There is no sign of in tracranial hemorrhage. There is 2.5 cm area of punctate parenchymal calcification in the left parieta l lobe. The calvarium is intact. IMPRESSION: PARENCHYMAL CALCIFICATION IN THE LEFT PARIETAL LOBE CONSISTENT WITH ARTERIAL VENOUS MALFORMATION IS U NCHANGED COMPARED TO OLD EXAM. NO ACUTE INTRACRANIAL ABNORMALITY. CEREBRAL ATROPHY.
--- NOTE | 2017-11-03 18:34 | ED ---
Seizure HPI - General Source: EMS, RN notes reviewed, old records reviewed Mode of arrival: EMS Limitations: no limitations <Carmelita Jarrett - Last Filed: 11/03/17 18:43> <Cortez Bass - Last Filed: 11/03/17 21:25> - General Chief Complaint: Seizure Stated Complaint: Seizure Time Seen by Provider: 11/03/17 16:42 - History of Present Illness Initial Comments: 9-year-old male presents emergency department today with chief complaint of seizure-like activity. He had a focal right-sided seizure lasting approximately 5 minutes. Patient reports that this happened while he was laying in his recliner. And are seizure. He is maintained on Depakote and Keppra. Patient states she's been taking his medication as prescribed. He is visited by a visiting physicians in his home. (Carmelita Jarrett) - Related Data Home Medications Medication Instructions Recorded Confirmed Aspirin EC [Ecotrin Low Dose] 81 mg PO DAILY 08/04/17 11/03/17 Sertraline [Zoloft] 100 mg PO HS 08/04/17 11/03/17 amLODIPine [Norvasc] 5 mg PO DAILY 08/04/17 11/03/17 Previous Rx's Medication Instructions Recorded Divalproex [Depakote] 1,000 mg PO BID #120 tablet. 10/28/17 Allergies Allergy/AdvReac Type Severity Reaction Status Date / Time loratadine Allergy Unknown Verified 11/03/17 17:06 antihistamines Allergy Unknown Uncoded 07/11/17 15:01 Review of Systems ROS Other: All systems not noted in ROS Statement are negative. <Carmelita Jarrett - Last Filed: 11/03/17 18:43> ROS Other: All systems not noted in ROS Statement are negative. <Cortez Bass - Last Filed: 11/03/17 21:25> ROS Statement: Those systems with pertinent positive or pertinent negative responses have been documented in the HPI. Past Medical History Past Medical History: CVA/TIA, Hypertension, Seizure Disorder Additional Past Medical History / Comment(s): alcohol intoxication, alcohol withdrawal seizures, hypokalemia, hyponatremia, dehyration, metabolic encephalopathy History of Any Multi-Drug Resistant Organisms: None Reported Past Surgical History: No Surgical Hx Reported Past Anesthesia/Blood Transfusion Reactions: No Reported Reaction Past Psychological History: Anxiety, Depression Smoking Status: Never smoker Past Alcohol Use History: Occasional Past Drug Use History: None Reported - Past Family History Father Family Medical History: No Reported History Mother Family Medical History: Coronary Artery Disease (CAD), Hypertension <Carmelita Jarrett - Last Filed: 11/03/17 18:43> General Exam Limitations: no limitations General appearance: alert, in no apparent distress Head exam: Present: atraumatic, normocephalic, normal inspection Eye exam: Present: normal appearance, PERRL, EOMI. Absent: scleral icterus, conjunctival injection, periorbital swelling ENT exam: Present: normal exam, mucous membranes moist Neck exam: Present: normal inspection. Absent: tenderness, meningismus, lymphadenopathy Respiratory exam: Present: normal lung sounds bilaterally. Absent: respiratory distress, wheezes, rales, rhonchi, stridor Cardiovascular Exam: Present: regular rate, normal rhythm, normal heart sounds. Absent: systolic murmur, diastolic murmur, rubs, gallop, clicks GI/Abdominal exam: Present: soft, normal bowel sounds. Absent: distended, tenderness, guarding, rebound, rigid Extremities exam: Present: normal inspection, full ROM, normal capillary refill. Absent: tenderness, pedal edema, joint swelling, calf tenderness Back exam: Present: normal inspection Neurological exam: Present: alert, oriented X3, CN II-XII intact Psychiatric exam: Present: normal affect, normal mood Skin exam: Present: warm, dry, intact, normal color. Absent: rash <Carmelita Jarrett - Last Filed: 11/03/17 18:43> <Cortez Bass - Last Filed: 11/03/17 21:25> - General Exam Comments Initial Comments: 72-year-old male. Alert and oriented. No acute distress. (Carmelita Jarrett) Course <Carmelita Jarrett - Last Filed: 11/03/17 18:43> <Cotrez Bass - Last Filed: 11/03/17 21:25> Vital Signs 11/03/17 11/03/17 16:37 18:21 Temperature 100.5 F H 98.8 F Pulse Rate 111 H 76 Respiratory 18 18 Rate Blood Pressure 138/84 120/63 O2 Sat by Pulse 97 98 Oximetry - Reevaluation(s) Reevaluation #1: 11/03/17 21:25 PA supervision: I personally saw the patient and examined him. I have reviewed and agree with the PAs findings including all diagnostic interpretations and treatment plans is written on as otherwise stated. (Cortez Bass) Medical Decision Making - Lab Data Result diagrams: 11/03/17 17:05 11/03/17 17:05 - Radiology Data Radiology results: report reviewed <Carmelita Jarrett - Last Filed: 11/03/17 18:43> - Lab Data Result diagrams: 11/03/17 17:05 11/03/17 17:05 <Cortez Bass - Last Filed: 11/03/17 21:25> - Medical Decision Making 72-year-old male presents after a seizure. Only on the right side. He is alert and oriented. Has no focal lateralizing neurological deficits. is maintained on Depakote and Keppra. Depakote levels within normal limits at this time. Patient was given IV fluids labwork obtained. CAT scan of his brain was negative for any acute process. At this time Patient will be discharged with close follow-up with PCP and is visiting Physician. (Carmelita Jarrett) - Lab Data Lab Results 11/03/17 11/03/17 11/03/17 Range/Units 17:05 17:05 17:50 WBC 4.8 (3.8-10.6) k/uL RBC 4.11 L (4.30-5.90) m/uL Hgb 12.5 L (13.0-17.5) gm/dL Hct 37.2 L (39.0-53.0) % MCV 90.6 (80.0-100.0) fL MCH 30.4 (25.0-35.0) pg MCHC 33.6 (31.0-37.0) g/dL RDW 13.7 (11.5-15.5) % Plt Count 119 L (150-450) k/uL Neutrophils % 54 % Lymphocytes % 34 % Monocytes % 8 % Eosinophils % 0 % Basophils % 0 % Neutrophils # 2.6 (1.3-7.7) k/uL Lymphocytes # 1.7 (1.0-4.8) k/uL Monocytes # 0.4 (0-1.0) k/uL Eosinophils # 0.0 (0-0.7) k/uL Basophils # 0.0 (0-0.2) k/uL Sodium 140 (137-145) mmol/L Potassium 3.7 (3.5-5.1) mmol/L Chloride 104 (98-107) mmol/L Carbon Dioxide 25 (22-30) mmol/L Anion Gap 11 mmol/L BUN 6 L (9-20) mg/dL Creatinine 0.80 (0.66-1.25) mg/dL Est GFR (CKD-EPI)AfAm >90 (>60 ml/min/1.73 sqM) Est GFR (CKD-EPI)NonAf >90 (>60 ml/min/1.73 sqM) Glucose 116 H (74-99) mg/dL Calcium 9.4 (8.4-10.2) mg/dL Total Bilirubin 0.5 (0.2-1.3) mg/dL AST 18 (17-59) U/L ALT 11 L (21-72) U/L Alkaline Phosphatase 59 (38-126) U/L Total Protein 9.8 H (6.3-8.2) g/dL Albumin 3.9 (3.5-5.0) g/dL Urine Color Yellow Urine Appearance Clear (Clear) Urine pH 6.5 (5.0-8.0) Ur Specific Rulo 1.016 (1.001-1.035) Urine Protein Trace H (Negative) Urine Glucose (UA) Negative (Negative) Urine Ketones Negative (Negative) Urine Blood Small H (Negative) Urine Nitrite Negative (Negative) Urine Bilirubin Negative (Negative) Urine Urobilinogen 3.0 (<2.0) mg/dL Ur Leukocyte Esterase Negative (Negative) Urine RBC 10 H (0-5) /hpf Urine WBC 1 (0-5) /hpf Ur Squamous Epith Cells <1 (0-4) /hpf Amorphous Sediment Occasional H (None) /hpf Hyaline Casts 8 H (0-2) /lpf Urine Mucus Moderate H (None) /hpf Urine Opiates Screen Not Detected (NotDetected) Ur Oxycodone Screen Not Detected (NotDetected) Urine Methadone Screen Not Detected (NotDetected) Ur Propoxyphene Screen Not Detected (NotDetected) Ur Barbiturates Screen Not Detected (NotDetected) Valproic Acid 82.8 ug/mL U Tricyclic Antidepress Not Detected (NotDetected) Ur Phencyclidine Scrn Not Detected (NotDetected) Ur Amphetamines Screen Detected H (NotDetected) U Methamphetamines Scrn Not Detected (NotDetected) U Benzodiazepines Scrn Detected H (NotDetected) Urine Cocaine Screen Not Detected (NotDetected) U Marijuana (THC) Screen Not Detected (NotDetected) Serum Alcohol <10 mg/dL 11/03/17 18:49 EKG shows sinus rhythm with PACs. Possible anterior infarct. Prolonged QT. Abnormal EKG. Ventricular rate 91 beats are minute. Intervals 144 ms. QRS duration 94 ms. QT QTc is 416/511 ms. No evidence of ST elevation or T-wave inversion. (Carmelita Jarrett) - Radiology Data Parenchymal calcification i in the left parietal lobe consistent with aAV malformation operation is unchanged. On exam. No acute intracranial normality. Cerebral atrophy noted. (Carmelita Jarrett) Disposition Is patient prescribed a controlled substance at d/c from ED?: No Time of Disposition: 18:47 <Carmelita Jarrett - Last Filed: 11/03/17 18:43> <Cortez Bass - Last Filed: 11/03/17 21:25> Clinical Impression: Focal seizure Disposition: HOME SELF-CARE Condition: Good Instructions: Recurrent Seizures in Adults (ED) Additional Instructions: Patient advised to continue the seizure medicines as prescribed. Patient is to follow-up with primary care physician. Return to the emergency department if any alarming signs or symptoms occur. Referrals: Tony Mukherjee MD [Primary Care Provider] - 1-2 days
== END 2017-11-03 19:36 | disposition home or self-care (01) ==
LOC: EC 16:29
DX: G40.909 Epilepsy, unspecified, not intractable, without status epilepticus (principal); I10 Essential (primary) hypertension; F41.9 Anxiety disorder, unspecified; F32.9 Major depressive disorder, single episode, unspecified; Z86.73 Personal history of transient ischemic attack (TIA), and cerebral infarction without residual deficits; Z79.82 Long term (current) use of aspirin; Z79.899 Other long term (current) drug therapy; Z88.8 Allergy status to other drugs, medicaments and biological substances
CPT/HCPCS: 36415; 70450; 80053; 80164; 80306; 80320; 81001; 85025; 87040; 93005; 96361; 96374; 99285

== ENCOUNTER 2017-11-22 22:09 | Emergency (ER) | payer MEDICARE, BC ==
[2017-11-22] MEDS ORDERED: ONDANSETRON 4 MG/2 ML VIAL IVP STA (22:14)
[2017-11-22] MEDS ORDERED: LORazepam 2 MG/ML INJ IV STA (22:14)
[2017-11-22] MEDS: SODIUM CHLORIDE 0.9% 1,000 ML IV STA ×2 (22:40→23:02)
[2017-11-22 22:43] LABS: Basophils % (A) 0 %; Eosinophils # (A) 0.1 k/uL (0-0.7); Eosinophils % (A) 1 %; HCT 37.7 % (39.0-53.0); HGB 12.3 gm/dL (13.0-17.5); Lymphocytes # (A) 2.6 k/uL (1.0-4.8); Lymphocytes % (A) 32 %; MCH 30.1 pg (25.0-35.0); MCHC 32.6 g/dL (31.0-37.0); MCV 92.4 fL (80.0-100.0); Monocytes # (A) 0.6 k/uL (0-1.0); Monocytes % (A) 7 %; Neutrophils # (A) 4.3 k/uL (1.3-7.7); Neutrophils % (A) 54 %; RBC 4.08 m/uL (4.30-5.90); RDW 13.9 % (11.5-15.5)
[2017-11-22 22:47] LABS: INR 1.2 (<1.2); Partial Thromboplastin Time 26.3 sec (22.0-30.0); Prothrombin Time 11.1 sec (9.0-12.0)
[2017-11-22 22:48] LABS: Appearance,Urine Clear (Clear); Bilirubin,Urine Negative (Negative); Blood,Urine Negative (Negative); Color,Urine Colorless; Glucose,Urine (UA) Negative (Negative); Ketones,Urine Negative (Negative); Leukocyte Esterase,Urine Negative (Negative); Nitrite,Urine Negative (Negative); PH, Urine 5.5 (5.0-8.0); Protein,Urine Negative (Negative); Specific Gravity,Urine 1.003 (1.001-1.035); Urobilinogen,Urine <2.0 mg/dL (<2.0)
[2017-11-22 22:49] LABS: ALT 11 U/L (21-72); AST 20 U/L (17-59); Alkaline Phosphatase 58 U/L (38-126); Anion Gap 12 mmol/L; Blood Urea Nitrogen 15 mg/dL (9-20); Calcium 9.5 mg/dL (8.4-10.2); Carbon Dioxide 23 mmol/L (22-30); Chloride 102 mmol/L (98-107); Glucose 103 mg/dL (74-99); Magnesium 1.8 mg/dL (1.6-2.3); Phenytoin (Dilantin) <3.0 ug/mL; Phosphorus 4.2 mg/dL (2.5-4.5); Potassium 4.1 mmol/L (3.5-5.1); Sodium 137 mmol/L (137-145); Total Bilirubin 0.5 mg/dL (0.2-1.3)
[2017-11-22] MEDS ORDERED: SODIUM CHLORIDE 0.9% 1,000 ML IV STA (22:50)
[2017-11-22 22:52] LABS: Valproic Acid (Depakene) <10.0 ug/mL
[2017-11-22] MEDS ORDERED: PHENYTOIN SODIUM INJ 1,000 MG in SODIUM CHLORIDE 0.9% 100 ML IVPB STA (22:53)
--- NOTE | 2017-11-22 22:55 | ED ---
General Adult HPI - General Chief complaint: Seizure Stated complaint: Seizure Time Seen by Provider: 11/22/17 22:14 Source: patient, EMS, RN notes reviewed, old records reviewed Mode of arrival: EMS Limitations: no limitations - History of Present Illness Initial comments: This is a 72-year-old male the ER for evaluation patient does say for evaluation regarding seizure. Patient has history of seizures. Current generalized seizures. Seizure secondary to call withdrawal. Patient has recently switched to Dilantin but is out of seizure medication. Patient currently denies any other complaints, denies recent drug or alcohol use - Related Data Home Medications Medication Instructions Recorded Confirmed Aspirin EC [Ecotrin Low Dose] 81 mg PO DAILY 08/04/17 11/03/17 Sertraline [Zoloft] 100 mg PO HS 08/04/17 11/03/17 amLODIPine [Norvasc] 5 mg PO DAILY 08/04/17 11/03/17 Previous Rx's Medication Instructions Recorded Divalproex [Depakote] 1,000 mg PO BID #120 tablet. 10/28/17 Phenytoin Sodium Extended 200 mg PO BID #60 capsule 11/22/17 [Dilantin] Allergies Allergy/AdvReac Type Severity Reaction Status Date / Time loratadine Allergy Unknown Verified 11/22/17 22:17 antihistamines Allergy Unknown Uncoded 11/22/17 22:17 Review of Systems ROS Statement: Those systems with pertinent positive or pertinent negative responses have been documented in the HPI. ROS Other: All systems not noted in ROS Statement are negative. Past Medical History Past Medical History: CVA/TIA, Hypertension, Seizure Disorder Additional Past Medical History / Comment(s): alcohol intoxication, alcohol withdrawal seizures, hypokalemia, hyponatremia, dehyration, metabolic encephalopathy History of Any Multi-Drug Resistant Organisms: None Reported Past Surgical History: No Surgical Hx Reported Past Anesthesia/Blood Transfusion Reactions: No Reported Reaction Past Psychological History: Anxiety, Depression Smoking Status: Never smoker Past Alcohol Use History: Occasional Past Drug Use History: None Reported - Past Family History Father Family Medical History: No Reported History Mother Family Medical History: Coronary Artery Disease (CAD), Hypertension General Exam Limitations: no limitations General appearance: alert, in no apparent distress Head exam: Present: atraumatic, normocephalic, normal inspection Eye exam: Present: normal appearance, PERRL, EOMI. Absent: scleral icterus, conjunctival injection, periorbital swelling ENT exam: Present: normal exam, mucous membranes moist Neck exam: Present: normal inspection. Absent: tenderness, meningismus, lymphadenopathy Respiratory exam: Present: normal lung sounds bilaterally. Absent: respiratory distress, wheezes, rales, rhonchi, stridor Cardiovascular Exam: Present: regular rate, normal rhythm, normal heart sounds. Absent: systolic murmur, diastolic murmur, rubs, gallop, clicks GI/Abdominal exam: Present: soft, normal bowel sounds. Absent: distended, tenderness, guarding, rebound, rigid Extremities exam: Present: normal inspection, full ROM, normal capillary refill. Absent: tenderness, pedal edema, joint swelling, calf tenderness Back exam: Present: normal inspection Neurological exam: Present: alert, oriented X3, CN II-XII intact Psychiatric exam: Present: normal affect, normal mood Skin exam: Present: warm, dry, intact, normal color. Absent: rash Course Vital Signs 11/22/17 11/22/17 22:12 23:04 Temperature 98.9 F Pulse Rate 109 H 100 Respiratory 20 20 Rate Blood Pressure 160/77 122/66 O2 Sat by Pulse 97 97 Oximetry - Reevaluation(s) Reevaluation #1: 11/22/17 23:11 Record is reviewed Reevaluation #2: 11/22/17 23:11 Patient is without seizure-like activity here in the ER EKG Findings - EKG Comments: EKG Findings:: EKG shows sinus rhythm rate of 98, VA 172, QRS 82, QTc 480 Medical Decision Making - Medical Decision Making 72 male the ER with history of seizures, coming with recurrent seizure patient given bolus of Dilantin. Patient can be discharged home - Lab Data Result diagrams: 11/22/17 22:28 11/22/17 22:28 Lab Results 11/22/17 11/22/17 11/22/17 Range/Units 22:20 22:28 22:28 WBC 8.0 (3.8-10.6) k/uL RBC 4.08 L (4.30-5.90) m/uL Hgb 12.3 L (13.0-17.5) gm/dL Hct 37.7 L (39.0-53.0) % MCV 92.4 (80.0-100.0) fL MCH 30.1 (25.0-35.0) pg MCHC 32.6 (31.0-37.0) g/dL RDW 13.9 (11.5-15.5) % Plt Count 79 L (150-450) k/uL Neutrophils % 54 % Lymphocytes % 32 % Monocytes % 7 % Eosinophils % 1 % Basophils % 0 % Neutrophils # 4.3 (1.3-7.7) k/uL Lymphocytes # 2.6 (1.0-4.8) k/uL Monocytes # 0.6 (0-1.0) k/uL Eosinophils # 0.1 (0-0.7) k/uL Basophils # 0.0 (0-0.2) k/uL Manual Slide Review Performed PT (9.0-12.0) sec INR (<1.2) APTT (22.0-30.0) sec Sodium (137-145) mmol/L Potassium (3.5-5.1) mmol/L Chloride (98-107) mmol/L Carbon Dioxide (22-30) mmol/L Anion Gap mmol/L BUN (9-20) mg/dL Creatinine (0.66-1.25) mg/dL Est GFR (CKD-EPI)AfAm (>60 ml/min/1.73 sqM) Est GFR (CKD-EPI)NonAf (>60 ml/min/1.73 sqM) Glucose (74-99) mg/dL Calcium (8.4-10.2) mg/dL Phosphorus (2.5-4.5) mg/dL Magnesium (1.6-2.3) mg/dL Total Bilirubin (0.2-1.3) mg/dL AST (17-59) U/L ALT (21-72) U/L Alkaline Phosphatase (38-126) U/L Total Creatine Kinase 57 (55-170) U/L Total Protein (6.3-8.2) g/dL Albumin (3.5-5.0) g/dL Urine Color Colorless Urine Appearance Clear (Clear) Urine pH 5.5 (5.0-8.0) Ur Specific Huggins 1.003 (1.001-1.035) Urine Protein Negative (Negative) Urine Glucose (UA) Negative (Negative) Urine Ketones Negative (Negative) Urine Blood Negative (Negative) Urine Nitrite Negative (Negative) Urine Bilirubin Negative (Negative) Urine Urobilinogen <2.0 (<2.0) mg/dL Ur Leukocyte Esterase Negative (Negative) Phenytoin ug/mL Valproic Acid ug/mL 11/22/17 11/22/17 Range/Units 22:28 22:28 WBC (3.8-10.6) k/uL RBC (4.30-5.90) m/uL Hgb (13.0-17.5) gm/dL Hct (39.0-53.0) % MCV (80.0-100.0) fL MCH (25.0-35.0) pg MCHC (31.0-37.0) g/dL RDW (11.5-15.5) % Plt Count (150-450) k/uL Neutrophils % % Lymphocytes % % Monocytes % % Eosinophils % % Basophils % % Neutrophils # (1.3-7.7) k/uL Lymphocytes # (1.0-4.8) k/uL Monocytes # (0-1.0) k/uL Eosinophils # (0-0.7) k/uL Basophils # (0-0.2) k/uL Manual Slide Review PT 11.1 (9.0-12.0) sec INR 1.2 H (<1.2) APTT 26.3 (22.0-30.0) sec Sodium 137 (137-145) mmol/L Potassium 4.1 (3.5-5.1) mmol/L Chloride 102 (98-107) mmol/L Carbon Dioxide 23 (22-30) mmol/L Anion Gap 12 mmol/L BUN 15 (9-20) mg/dL Creatinine 1.40 H (0.66-1.25) mg/dL Est GFR (CKD-EPI)AfAm 59 (>60 ml/min/1.73 sqM) Est GFR (CKD-EPI)NonAf 51 (>60 ml/min/1.73 sqM) Glucose 103 H (74-99) mg/dL Calcium 9.5 (8.4-10.2) mg/dL Phosphorus 4.2 (2.5-4.5) mg/dL Magnesium 1.8 (1.6-2.3) mg/dL Total Bilirubin 0.5 (0.2-1.3) mg/dL AST 20 (17-59) U/L ALT 11 L (21-72) U/L Alkaline Phosphatase 58 (38-126) U/L Total Creatine Kinase (55-170) U/L Total Protein 10.0 H (6.3-8.2) g/dL Albumin 4.0 (3.5-5.0) g/dL Urine Color Urine Appearance (Clear) Urine pH (5.0-8.0) Ur Specific Huggins (1.001-1.035) Urine Protein (Negative) Urine Glucose (UA) (Negative) Urine Ketones (Negative) Urine Blood (Negative) Urine Nitrite (Negative) Urine Bilirubin (Negative) Urine Urobilinogen (<2.0) mg/dL Ur Leukocyte Esterase (Negative) Phenytoin <3.0 ug/mL Valproic Acid <10.0 ug/mL Disposition Clinical Impression: Alcohol withdrawal seizure, Epileptic seizure, Generalized seizure Disposition: HOME SELF-CARE Condition: Good Instructions: Recurrent Seizures in Adults (ED) Prescriptions: Phenytoin Sodium Extended [Dilantin] 200 mg PO BID #60 capsule Is patient prescribed a controlled substance at d/c from ED?: No Referrals: Tony Mukherjee MD [Primary Care Provider] - 1-2 days
[2017-11-22 23:03] LABS: Platelet Count 79 k/uL (150-450)
[2017-11-22 23:23] LABS: Creatine Kinase MB 0.9 ng/mL (0.0-2.4)
[2017-11-22 23:33] LABS: Troponin I 0.045 ng/mL (0.000-0.034)
[2017-11-23 00:11] VITALS: BP 92/53; PULSE 77; RESP 16; TEMP 98.3
== END 2017-11-23 00:35 | disposition home or self-care (01) ==
LOC: EC 22:09
DX: G40.409 Other generalized epilepsy and epileptic syndromes, not intractable, without status epilepticus (principal); F10.239 Alcohol dependence with withdrawal, unspecified; I10 Essential (primary) hypertension; F41.9 Anxiety disorder, unspecified; F32.9 Major depressive disorder, single episode, unspecified; Z79.82 Long term (current) use of aspirin; Z79.899 Other long term (current) drug therapy; Z88.8 Allergy status to other drugs, medicaments and biological substances; Z86.73 Personal history of transient ischemic attack (TIA), and cerebral infarction without residual deficits
CPT/HCPCS: 36415; 93005; 80164; 80053; 82550; 82553; 80185; 83735; 84100; 84484; 85025; 85610; 85730; 81003; 87086; 99285; 96365; 96375; J2060; J1165

== ENCOUNTER 2017-12-28 23:31 | Inpatient (IN) | payer MEDICARE, BC ==
[2017-12-29] MEDS ORDERED: HEPARIN SODIUM,PORCINE 5,000 UNIT/ML 1 ML VIAL IV STA (00:06)
[2017-12-29] MEDS ORDERED: SODIUM CHLORIDE 0.9% 500 ML 500 ML IV STA (00:06)
[2017-12-29] MEDS ORDERED: DILTIAZEM DRIP BOLUS FROM BAG 1 MG SOLN IV ONE ×2 (00:07→06:50)
[2017-12-29] MEDS ORDERED: DILTIAZEM 50 MG in SODIUM CHLORIDE 0.9% 40 ML IV SCH (00:15)
[2017-12-29] MEDS ORDERED: HEPARIN SOD,PORK IN 0.45% NACL 25,000 UNIT in 0.45% NACL 1 500ML.BAG IV SCH (00:15)
[2017-12-29 00:19] LABS: Basophils % (A) 0 %; Eosinophils # (A) 0.1 k/uL (0-0.7); Eosinophils % (A) 1 %; HGB 9.4 gm/dL (13.0-17.5); Lymphocytes # (A) 2.5 k/uL (1.0-4.8); Lymphocytes % (A) 38 %; MCH 30.8 pg (25.0-35.0); MCHC 33.7 g/dL (31.0-37.0); MCV 91.3 fL (80.0-100.0); Mean Platelet Volume 6.9; Monocytes # (A) 0.3 k/uL (0-1.0); Monocytes % (A) 4 %; Neutrophils # (A) 3.5 k/uL (1.3-7.7); Neutrophils % (A) 53 %; Platelet Count 120 k/uL (150-450); RBC 3.07 m/uL (4.30-5.90); RDW 13.4 % (11.5-15.5); WBC 6.6 k/uL (3.8-10.6)
[2017-12-29 00:29] LABS: Albumin 3.8 g/dL (3.5-5.0); INR 1.7 (<1.2); Magnesium 1.8 mg/dL (1.6-2.3); Partial Thromboplastin Time 36.1 sec (22.0-30.0); Potassium 3.8 mmol/L (3.5-5.1); Prothrombin Time 15.9 sec (9.0-12.0); Total Bilirubin 0.5 mg/dL (0.2-1.3); Total Protein 10.5 g/dL (6.3-8.2)
[2017-12-29 00:45] LABS: Creatine Kinase MB 1.8 ng/mL (0.0-2.4)
[2017-12-29 00:52] LABS: Troponin I 0.088 ng/mL (0.000-0.034)
[2017-12-29] MEDS ORDERED: NALOXONE 0.4 MG/ML 1 ML VIAL IV PRN (00:59)
--- NOTE | 2017-12-29 01:06 | ED ---
General Adult HPI - General Chief complaint: Dizziness Stated complaint: DIZZINESS,PALPITATIONS Time Seen by Provider: 12/28/17 23:56 Source: patient, EMS Mode of arrival: EMS - History of Present Illness Initial comments: Liam is a 72-year-old gentleman with a past medical history of seizure disorder who presents to the emergency department today for evaluation of fatigue and lightheadedness. Patient reports that throughout the day he's been feeling very lightheaded and like he was given a pass out. He reports he's been trying to rest but this evening when he tried to get out of his chair he felt that he was passed out so he decided call 911. Patient reports that while at home he was experiencing some palpitations but feels that they have improved since earlier. He denies any history of atrial fibrillation, he states he is not on any cardiac medications or anticoagulation. Patient states that in the past few months he has changed primary care physicians and now has a home health care team. He reports he's been evaluated by multiple doctors, nurses and mid-level provider's. He reports that there is been multiple changes to his home medications and he seems somewhat confused about the medications. He reports that when they try to wean him off his long- term anticonvulsants he had seizures requiring hospitalization he is now back on his anticonvulsants. Patient also states that he was recently prescribed a new medication though he is not sure what for. He does have a medication with them, it is Compazine. He is uncertain why he was prescribed this medication. The patient also notes that over the past couple of weeks he's been very fatigued, had no appetite, doesn't feel that any food stays well. He reports he hasn't been eating or drinking well. He does report that he has normal bowel movement this morning. He hasn't noticed any black, tarry or bloody stools. He has been told that he appears pale and unwell by people living in the apartment complex with him. He denies any recent bleeding that he is aware of. The patient also admits to history of alcoholism, he reports that he's been sober for a long period of time but does occasionally drink. He reports that when he is feeling depressed he does drink whiskey. He reports revised the small bottles and drinks an entire bottle at once. He denies drinking today. - Related Data Home Medications Medication Instructions Recorded Confirmed Aspirin EC [Ecotrin Low Dose] 81 mg PO DAILY 08/04/17 11/03/17 Sertraline [Zoloft] 100 mg PO HS 08/04/17 11/03/17 amLODIPine [Norvasc] 5 mg PO DAILY 08/04/17 11/03/17 Previous Rx's Medication Instructions Recorded Divalproex [Depakote] 1,000 mg PO BID #120 tablet. 10/28/17 Phenytoin Sodium Extended 200 mg PO BID #60 capsule 11/22/17 [Dilantin] Allergies Allergy/AdvReac Type Severity Reaction Status Date / Time loratadine Allergy Unknown Verified 11/22/17 22:17 antihistamines Allergy Unknown Uncoded 11/22/17 22:17 Review of Systems ROS Statement: Those systems with pertinent positive or pertinent negative responses have been documented in the HPI. ROS Other: All systems not noted in ROS Statement are negative. Past Medical History Past Medical History: CVA/TIA, Hypertension, Seizure Disorder Additional Past Medical History / Comment(s): alcohol intoxication, alcohol withdrawal seizures, hypokalemia, hyponatremia, dehyration, metabolic encephalopathy History of Any Multi-Drug Resistant Organisms: None Reported Past Surgical History: No Surgical Hx Reported Past Anesthesia/Blood Transfusion Reactions: No Reported Reaction Past Psychological History: Anxiety, Depression Smoking Status: Never smoker Past Alcohol Use History: Occasional Past Drug Use History: None Reported - Past Family History Father Family Medical History: No Reported History Mother Family Medical History: Coronary Artery Disease (CAD), Hypertension General Exam - General Exam Comments Initial Comments: GENERAL: Chronically ill-appearing elderly gentleman HENT: Normocephalic, Atraumatic. Firm mass on the right side of the mandible, feels like soft tissue in nature patient reports that been there for a number of years since a traumatic injury when he was in college EYES: The sclera were anicteric and conjunctiva were pale pink and moist. Extraocular movements were intact and pupils were equal round and reactive to light. Eyelids were unremarkable. PULMONARY: Crackles bilaterally CARDIOVASCULAR: Profoundly tachycardic, irregularly irregular pulse ABDOMEN: Soft and nontender with normal bowel sounds. Rectal exam with guaiac-negative stool SKIN: Skin pale NEUROLOGIC: Patient is alert and oriented x3. Though he has a poor medical secretary. Cranial nerves II through XII are grossly intact. Motor and sensory are also intact. Normal speech, volume and content. Symmetrical smile. MUSCULOSKELETAL: Normal extremities with adequate strength and full range of motion. No lower extremity swelling or edema. No calf tenderness. LYMPHATICS: No significant lymphadenopathy is noted PSYCHIATRIC: Normal psychiatric evaluation. Limitations: no limitations Course Vital Signs 12/28/17 12/29/17 23:41 01:16 Temperature 98.0 F Pulse Rate 170 H 137 H Respiratory 16 15 Rate Blood Pressure 139/98 115/77 O2 Sat by Pulse 100 98 Oximetry EKG Findings - EKG Comments: EKG Findings:: EKG obtained upon arrival at 11:49 PM. Rate is 167 rhythm is atrial fibrillation with rapid ventricular response. There are ST depressions in the lateral leads. Medical Decision Making - Medical Decision Making The patient was seen and evaluated history was obtained from the patient and review of medical records. His is a patient complaining of palpitations and lightheadedness, he has no known history of atrial fibrillation and is on no cardiac meds and no anticoagulations. On arrival is noted to be in A. fib with RVR with heart rates ranging from the 160s to 180s. He denies any palpitations or chest pain at the time of arrival. Addition the patient appears quite pale, rectal exam reveals guaiac-negative stool. Full cardiac workup was ordered Cardizem and heparin were ordered Patient's heart rate improving with Cardizem Troponin mildly elevated but significantly less than previous. This is likely secondary to type II and STEMI due to supply demand mismatch, we'll continue to trend Hemoglobin decreased from 12-9.4. Uncertain etiology. Chronic kidney disease, baseline BNP significantly elevated Patient admitted to the selective unit for continued cardiac monitoring. New- onset A. fib with RVR. Elevated troponin. New anemia of unknown etiology. Home medications were ordered. - Lab Data Result diagrams: 12/29/17 00:05 12/29/17 00:05 Lab Results 12/29/17 12/29/17 12/29/17 Range/Units 00:05 00:05 00:05 WBC 6.6 (3.8-10.6) k/uL RBC 3.07 L (4.30-5.90) m/uL Hgb 9.4 L (13.0-17.5) gm/dL Hct 28.0 L (39.0-53.0) % MCV 91.3 (80.0-100.0) fL MCH 30.8 (25.0-35.0) pg MCHC 33.7 (31.0-37.0) g/dL RDW 13.4 (11.5-15.5) % Plt Count 120 L (150-450) k/uL Neutrophils % 53 % Lymphocytes % 38 % Monocytes % 4 % Eosinophils % 1 % Basophils % 0 % Neutrophils # 3.5 (1.3-7.7) k/uL Lymphocytes # 2.5 (1.0-4.8) k/uL Monocytes # 0.3 (0-1.0) k/uL Eosinophils # 0.1 (0-0.7) k/uL Basophils # 0.0 (0-0.2) k/uL PT (9.0-12.0) sec INR (<1.2) APTT (22.0-30.0) sec Sodium 138 (137-145) mmol/L Potassium 3.8 (3.5-5.1) mmol/L Chloride 107 (98-107) mmol/L Carbon Dioxide 16 L (22-30) mmol/L Anion Gap 15 mmol/L BUN 30 H (9-20) mg/dL Creatinine 3.20 H (0.66-1.25) mg/dL Est GFR (CKD-EPI)AfAm 22 (>60 ml/min/1.73 sqM) Est GFR (CKD-EPI)NonAf 19 (>60 ml/min/1.73 sqM) Glucose 123 H (74-99) mg/dL Calcium 10.0 (8.4-10.2) mg/dL Magnesium 1.8 (1.6-2.3) mg/dL Total Bilirubin 0.5 (0.2-1.3) mg/dL AST 15 L (17-59) U/L ALT 12 L (21-72) U/L Alkaline Phosphatase 72 (38-126) U/L Total Creatine Kinase 45 L (55-170) U/L CK-MB (CK-2) 1.8 (0.0-2.4) ng/mL CK-MB (CK-2) Rel Index 4.0 Troponin I 0.088 H* (0.000-0.034) ng/mL NT-Pro-B Natriuret Pep pg/mL Total Protein 10.5 H (6.3-8.2) g/dL Albumin 3.8 (3.5-5.0) g/dL 12/29/17 12/29/17 Range/Units 00:05 00:05 WBC (3.8-10.6) k/uL RBC (4.30-5.90) m/uL Hgb (13.0-17.5) gm/dL Hct (39.0-53.0) % MCV (80.0-100.0) fL MCH (25.0-35.0) pg MCHC (31.0-37.0) g/dL RDW (11.5-15.5) % Plt Count (150-450) k/uL Neutrophils % % Lymphocytes % % Monocytes % % Eosinophils % % Basophils % % Neutrophils # (1.3-7.7) k/uL Lymphocytes # (1.0-4.8) k/uL Monocytes # (0-1.0) k/uL Eosinophils # (0-0.7) k/uL Basophils # (0-0.2) k/uL PT 15.9 H (9.0-12.0) sec INR 1.7 H (<1.2) APTT 36.1 H (22.0-30.0) sec Sodium (137-145) mmol/L Potassium (3.5-5.1) mmol/L Chloride (98-107) mmol/L Carbon Dioxide (22-30) mmol/L Anion Gap mmol/L BUN (9-20) mg/dL Creatinine (0.66-1.25) mg/dL Est GFR (CKD-EPI)AfAm (>60 ml/min/1.73 sqM) Est GFR (CKD-EPI)NonAf (>60 ml/min/1.73 sqM) Glucose (74-99) mg/dL Calcium (8.4-10.2) mg/dL Magnesium (1.6-2.3) mg/dL Total Bilirubin (0.2-1.3) mg/dL AST (17-59) U/L ALT (21-72) U/L Alkaline Phosphatase (38-126) U/L Total Creatine Kinase (55-170) U/L CK-MB (CK-2) (0.0-2.4) ng/mL CK-MB (CK-2) Rel Index Troponin I (0.000-0.034) ng/mL NT-Pro-B Natriuret Pep 74905 pg/mL Total Protein (6.3-8.2) g/dL Albumin (3.5-5.0) g/dL Critical Care Time Critical Care Time: Yes Total Critical Care Time: 30 Critical Care Time: Critical Care Critical care time was exclusive of separately billable procedures and treating other patients and teaching time. Critical care was necessary to treat or prevent imminent or life-threatening deterioration. Critical care was time spent personally by me on the following activities: development of treatment plan with patient or surrogate, discussions with consultants, discussions with primary provider, evaluation of patient's response to treatment, examination of patient, obtaining history from patient or surrogate, ordering and performing treatments and interventions, ordering and review of laboratory studies, ordering and review of radiographic studies, pulse oximetry, re-evaluation of patient's condition and review of old charts. Disposition Clinical Impression: Atrial fibrillation with RVR, Anemia, CKD (chronic kidney disease), CHF ( congestive heart failure) Disposition: ADMITTED IP TO THIS HOSP
[2017-12-29 01:22] LABS: Appearance,Urine Clear (Clear); Bilirubin,Urine Negative (Negative); Blood,Urine Trace (Negative); Color,Urine Light Yellow; Glucose,Urine (UA) Negative (Negative); Ketones,Urine Negative (Negative); Leukocyte Esterase,Urine Negative (Negative); Mucus,Urine Rare /hpf; Nitrite,Urine Negative (Negative); Protein,Urine Trace (Negative); RBC,Urine 1 /hpf (0-5); Specific Gravity,Urine 1.007 (1.001-1.035); Squamous Epithelial Cell,Urine <1 /hpf (0-4); Urobilinogen,Urine <2.0 mg/dL (<2.0); WBC,Urine 2 /hpf (0-5)
--- NOTE | 2017-12-29 01:31 | XR ---
EXAMINATION TYPE: XR chest 2V DATE OF EXAM: 12/29/2017 COMPARISON: 07/05/2016 HISTORY: Dizziness TECHNIQUE: Frontal and lateral views of the chest are obtained. FINDINGS: There is some coarsening of lung markings in the left lower lobe. Lungs are clear of conso lidation. There is no pleural effusion. There is no heart failure. There is sclerosis in the right hu meral head could relate to old trauma. IMPRESSION: Coarse markings in left lower lobe could relate to fibrosis. No heart failure. No signif icant change compared to old exam.
[2017-12-29] MEDS: PANTOPRAZOLE 40 MG/10 ML VIAL IVP SCH ×2 (03:51→08:33)
[2017-12-29] MEDS: DILTIAZEM 50 MG in SODIUM CHLORIDE 0.9% 40 ML IV SCH ×3 (07:32→21:31)
[2017-12-29] MEDS: DIVALPROEX 500 MG TABLET.DR PO SCH ×2 (08:32→20:30)
[2017-12-29] MEDS: PHENYTOIN SODIUM EXTENDED 100 MG CAP PO SCH ×2 (08:33→20:30)
--- NOTE | 2017-12-29 10:34 | CONS ---
CONSULTATION CHIEF COMPLAINT: Dizziness and shortness of breath. Liam is a 72-year-old gentleman with history of hypertension and seizure disorder, who apparently has had significant changes is in his medications, currently lives at the [facility], is going through a divorce. He comes into hospital with symptoms of dizziness, shortness of breath, fatigue and tiredness. On his admission, he was found to be in atrial fibrillation with rapid ventricular rate that by history is new onset. He did not have any chest pain, but the troponins came back elevated. The first one was 0.8 and the second set of troponin came back at 1.8. EKG shows atrial fibrillation with rapid ventricular rate and ST-T wave changes suggestive of subendocardial ischemia. At the time of my evaluation this morning, patient appears comfortable at rest and is free of symptoms. His BUN and creatinine are elevated and he apparently has a positive stool guaiac. He is on intravenous Cardizem with somewhat of a better controlled heart rate this morning. Patient does not have any prior cardiac history. He had an echocardiogram in 2014 that showed normal LV function. There is no recent history of coronary artery disease, congestive heart failure or atrial fibrillation. PHYSICAL EXAMINATION: On exam, heart rate is 120 beats per minute, irregular. Blood pressure is 104/ 61. Respiratory rate is 18. Chest exam reveals good air entry bilaterally. Heart exam reveals first and second heart sounds, irregular rhythm and a ejection systolic murmur at the right upper sternal border Abdomen is soft. Examination of the extremities did not reveal any edema. Peripheral pulses are palpable. LABS: Labs show a hemoglobin of 9.4, platelet count is 120. Potassium is 3.8. BUN is 30, creatinine is 3.2. Troponins are elevated at 0.08 and 1.8. TSH is normal. Stool occult blood was apparently positive. ASSESSMENT: 1. Atrial fibrillation with rapid ventricular rate. 2. [id number]-[id number] elevation myocardial infarction. 3. Anemia. 4. Elevated BNP of unclear clinical significance. 5. New onset renal failure. PLAN: I will repeat a CBC. Recheck his electrolytes. Consult Nephrology for his renal failure. Continue with the IV heparin unless there is evidence of active blood loss. I will obtain a 2-D echo to assess LV function and to evaluate for aortic stenosis Use beta blockers and calcium channel blockers for rate control. If there is no evidence of active bleeding, once we know what is going on with the renal functions, we may consider angiography for evaluation of CAD. DIL / IJN: [id number] / MTDAron
[2017-12-29] MEDS ORDERED: FUROSEMIDE 10 MG/ML 4 ML VIAL ONE (14:06)
--- NOTE | 2017-12-29 14:38 | XR ---
EXAMINATION TYPE: XR chest 1V portable DATE OF EXAM: 12/29/2017 COMPARISON: 12/29/2017 HISTORY: Shortness of breath FINDINGS: There are bilateral pleural effusions with cardiomegaly and bibasilar infiltrate. There is a diffuse interstitial pattern. Arthropathy of the shoulders and diffuse osteopenia. No pneumothorax. Heart si ze stable. IMPRESSION: 1. Worsening of the chest x-ray with perihilar interstitial findings. Tiny bilateral effusions stenos is suspected. Correlate for CHF otherwise consider pneumonia.
[2017-12-29] MEDS ORDERED: HEPARIN SODIUM,PORCINE 5,000 UNIT/ML 1 ML VIAL IV ONE (14:39)
[2017-12-29] MEDS ORDERED: HEPARIN SODIUM,PORCINE 5,000 UNIT/ML 1 ML VIAL IV PRN (14:39)
[2017-12-29] MEDS ORDERED: NITROGLYCERIN OINT 1 INCH/GM PACKET TOPICAL ONE (14:40)
[2017-12-29] MEDS ORDERED: FUROSEMIDE 10 MG/ML 4 ML VIAL IV STA (14:42)
[2017-12-29] MEDS ORDERED: METOPROLOL TARTRATE 5 MG/5 ML VIAL IVP ONE (14:43)
--- NOTE | 2017-12-29 14:45 | P.HPIM ---
History of Present Illness Patient was a 72-year-old man came in to the emergency department with the complaints of fatigue lightheadedness diaphoresis without any chest pain. Patient is found to be in atrial fibrillation with rapid ventricular rate patient was subsequently admitted with Cardizem. Patient is later found to have elevated troponin of about 1 now going up to 4 patient had a chest pain earlier today which is pressure-like sensation nonradiating not associated diaphoresis not associated with the breathing not associated with eating. Patient denied any fever chills dysuria. Patient is being treated for non-ST elevation microinfarction patient was started on heparin. I'm unsure why stool occult blood the was done which was positive which doesn't mean much although patient denied any stools or blood in the stools. Patient few days ago had 1 episode of dark stools that's because of the constipation his face and he has not been eating well. Patient BNP is elevated chest x-rays now showing pulmonary edema one dose of Lasix was given. Patient baseline creatinine about couple months ago 0.8 now around 3. Ultrasound of the kidneys being obtained along with the urine random sodium urine random creatinine, urine eosinophils. Patient also does not have any elevated JVD no crackles on lung exam. Echocardiogram is being obtained. Review of Systems REVIEW OF SYSTEMS: CONSTITUTIONAL: As mentioned in HPI HEENT: No recent visual problems or hearing problems. Denied any sore throat. CARDIOVASCULAR: No orthopnea, PND, no palpitations, no syncope. PULMONARY: No shortness of breath, no cough, no hemoptysis. GASTROINTESTINAL: No diarrhea, no nausea, no vomiting, no abdominal pain. Normoactive bowel sounds. NEUROLOGICAL: No headaches, no weakness, no numbness. HEMATOLOGICAL: Denies any bleeding or petechiae. GENITOURINARY: Denies any burning micturition, frequency, or urgency. MUSCULOSKELETAL/RHEUMATOLOGICAL: Denies any joint pain, swelling, or any muscle pain. ENDOCRINE: Denies any polyuria or polydipsia. The rest of the 14-point review of systems is negative. Past Medical History Past Medical History: CVA/TIA, Hypertension, Seizure Disorder Additional Past Medical History / Comment(s): alcohol intoxication, alcohol withdrawal seizures, hypokalemia, hyponatremia, dehyration, metabolic encephalopathy History of Any Multi-Drug Resistant Organisms: None Reported Past Surgical History: No Surgical Hx Reported Past Anesthesia/Blood Transfusion Reactions: No Reported Reaction Past Psychological History: Anxiety, Depression Additional Psychological History / Comment(s): due to his depression he drinks whisky Smoking Status: Never smoker Past Alcohol Use History: Occasional Past Drug Use History: None Reported - Past Family History Father Family Medical History: No Reported History Mother Family Medical History: Coronary Artery Disease (CAD), Hypertension Medications and Allergies Home Medications Medication Instructions Recorded Confirmed Type Aspirin EC [Ecotrin Low Dose] 81 mg PO DAILY 08/04/17 12/29/17 History Sertraline [Zoloft] 100 mg PO HS 08/04/17 12/29/17 History amLODIPine [Norvasc] 5 mg PO DAILY 08/04/17 12/29/17 History Divalproex [Depakote] 1,000 mg PO BID #120 tablet. 10/28/17 12/29/17 Rx Phenytoin Sodium Extended 200 mg PO BID #60 capsule 11/22/17 12/29/17 Rx [Dilantin] Allergies Allergy/AdvReac Type Severity Reaction Status Date / Time loratadine Allergy Unknown Verified 11/22/17 22:17 antihistamines Allergy Unknown Uncoded 11/22/17 22:17 Physical Exam Vitals: Vital Signs Temp Pulse Pulse Resp BP BP Pulse Ox 12/29/17 06:43 123 H 104/61 12/29/17 04:00 100/61 12/29/17 03:00 97.1 F L 102 H 18 93/71 100 12/29/17 01:16 137 H 15 115/77 98 12/28/17 23:41 98.0 F 170 H 16 139/98 100 Intake and Output 12/28/17 12/29/17 12/29/17 22:59 06:59 14:59 Intake Total 50 Balance 50 Intake: Intake, IV Titration 50 Amount Diltiazem 50 mg In Sodium 50 Chloride 0.9% 40 ml @ 7. 5 MG/HR 7.5 mls/hr IV . Q6H40M [facility] Rx#:[id number] Other: Weight 81.9 kg 81.9 kg PHYSICAL EXAMINATION: GENERAL: The patient is alert and oriented x3, not in any acute distress. Well developed, well nourished. HEENT: Pupils are round and equally reacting to light. EOMI. No scleral icterus. No conjunctival pallor. Normocephalic, atraumatic. No pharyngeal erythema. No thyromegaly. CARDIOVASCULAR: S1 and S2 present. No murmurs, rubs, or gallops. PULMONARY: Chest is clear to auscultation, no wheezing or crackles. ABDOMEN: Soft, nontender, nondistended, normoactive bowel sounds. No palpable organomegaly. MUSCULOSKELETAL: No joint swelling or deformity. EXTREMITIES: No cyanosis, clubbing, or pedal edema. NEUROLOGICAL: Gross neurological examination did not reveal any focal deficits. SKIN: No rashes. Results CBC & Chem 7: 12/29/17 00:05 12/29/17 00:05 Labs: Abnormal Lab Results - Last 24 Hours (Table) 12/29/17 12/29/17 12/29/17 Range/Units 00:05 00:05 00:05 RBC 3.07 L (4.30-5.90) m/uL Hgb 9.4 L (13.0-17.5) gm/dL Hct 28.0 L (39.0-53.0) % Plt Count 120 L (150-450) k/uL PT (9.0-12.0) sec INR (<1.2) APTT (22.0-30.0) sec Carbon Dioxide 16 L (22-30) mmol/L BUN 30 H (9-20) mg/dL Creatinine 3.20 H (0.66-1.25) mg/dL Glucose 123 H (74-99) mg/dL AST 15 L (17-59) U/L ALT 12 L (21-72) U/L Total Creatine Kinase 45 L (55-170) U/L Troponin I 0.088 H* (0.000-0.034) ng/mL Total Protein 10.5 H (6.3-8.2) g/dL Urine Protein (Negative) Urine Blood (Negative) Urine Mucus (None) /hpf 12/29/17 12/29/17 12/29/17 Range/Units 00:05 01:00 06:59 RBC (4.30-5.90) m/uL Hgb (13.0-17.5) gm/dL Hct (39.0-53.0) % Plt Count (150-450) k/uL PT 15.9 H (9.0-12.0) sec INR 1.7 H (<1.2) APTT 36.1 H (22.0-30.0) sec Carbon Dioxide (22-30) mmol/L BUN (9-20) mg/dL Creatinine (0.66-1.25) mg/dL Glucose (74-99) mg/dL AST (17-59) U/L ALT (21-72) U/L Total Creatine Kinase (55-170) U/L Troponin I 1.880 H* (0.000-0.034) ng/mL Total Protein (6.3-8.2) g/dL Urine Protein Trace H (Negative) Urine Blood Trace H (Negative) Urine Mucus Rare H (None) /hpf 12/29/17 Range/Units 10:54 RBC (4.30-5.90) m/uL Hgb (13.0-17.5) gm/dL Hct (39.0-53.0) % Plt Count (150-450) k/uL PT (9.0-12.0) sec INR (<1.2) APTT (22.0-30.0) sec Carbon Dioxide (22-30) mmol/L BUN (9-20) mg/dL Creatinine (0.66-1.25) mg/dL Glucose (74-99) mg/dL AST (17-59) U/L ALT (21-72) U/L Total Creatine Kinase (55-170) U/L Troponin I 4.090 H* (0.000-0.034) ng/mL Total Protein (6.3-8.2) g/dL Urine Protein (Negative) Urine Blood (Negative) Urine Mucus (None) /hpf Thrombosis Risk Factor Assmnt - Choose All That Apply Other Risk Factors: Yes Each Risk Factor Represents 2 Points: Age 61-74 years Thrombosis Risk Factor Assessment Total Risk Factor Score: 2 Thrombosis Risk Factor Assessment Level: Low Risk Assessment and Plan Plan: -Non-ST elevation microinfarction patient will be resumed on heparin there is no evidence of acute GI bleed at this time. Patient may benefit from beta moody rather than diltiazem. -New-onset atrial fibrillation may be precipitated by my acute microinfarction cardiology evaluated the patient heparin is being continued and patient is presently in the has him. -Acute renal failure: Etiology is not clear further workup as mentioned above may have acute to blood necrosis from acute myocardial infarction and the may have had hypotension at home. -Seizure disorder continue his home medications no breakthrough seizures at this time -Depression patient has not been taking his antidepressants because of his generalized tiredness he is unsure if this medication is causing it.
[2017-12-29] MEDS ORDERED: ALPRAZolam 0.25 MG TAB PO PRN (15:01)
[2017-12-29] MEDS: HEPARIN SOD,PORK IN 0.45% NACL 25,000 UNIT in 0.45% NACL 1 500ML.BAG IV SCH (15:07)
[2017-12-29] MEDS: ONDANSETRON 4 MG/2 ML VIAL IVP PRN ×2 (15:57→22:25)
[2017-12-29 18:18] LABS: Calcium 9.5 mg/dL (8.4-10.2); Potassium 4.4 mmol/L (3.5-5.1)
--- NOTE | 2017-12-29 18:22 | CONS ---
CONSULTATION REASON FOR CONSULT: Renal failure. HISTORY OF PRESENT ILLNESS: The patient is a 72-year-old male who was admitted to the hospital last night with complaints of fatigue and tiredness. Patient stated that for the past 6 months his medications were changed and he has been feeling poorly. For the last couple of weeks he was weak and not able to do his usual activities. He denied any chest pains. He did have some shortness of breath. Patient denied any urinary symptoms. He denies any previous history of kidney disease. His serum creatinine was 3.2 mg/dL when he came in. Previous creatinine in November was 1.4 and in October of 2017 it was 0.8 mg/dL. Blood pressure has been low, with systolic in the 90s and 93 mmHg. At home patient was on Norvasc. He denied use of any nonsteroidal anti-inflammatory agents. Currently he has been voiding. Patient was found to be in atrial fibrillation with RVR, which is new onset. He is being seen by Cardiology. Troponin was also mildly elevated. There were ST changes noted on the EKG. PAST MEDICAL HISTORY: Significant for: 1. Hypertension. 2. CVA/TIA. 3. Patient has a brain AVM and has been asked to take Dilantin for it. He has not actually had seizures. However, upon review of the chart, it states patient previously has had alcohol withdrawal seizures. 4. Anxiety. 5. Depression. SOCIAL HISTORY: Negative for smoking, drug abuse or alcohol abuse. Patient lives with his significant other and has recently moved from [facility]. MEDICATIONS: Medications at home included: 1. Zoloft. 2. Aspirin. 3. Norvasc. 4. He had been on Depakote and Dilantin. ALLERGIES: ALLERGIES include LORATADINE AND OTHER ANTIHISTAMINICS. REVIEW OF SYSTEMS: As per HPI. Other systems negative. PHYSICAL EXAMINATION: Patient is comfortable, awake, alert and oriented x3, not in any acute distress. Blood pressure is 104/61, heart rate 123 per minute. He is afebrile. EXAMINATION OF THE HEART: S1, S2. EXAMINATION OF LUNGS: Bilateral breath sounds are heard. ABDOMEN: Soft, non-tender. Examination of lower extremities shows no significant edema. BOX STRAPPER exam is grossly intact. LABS: Sodium 138, potassium 3.8, CO2 16, BUN 30, serum creatinine 3.2, calcium 10.0, hemoglobin 9.4 g/dL. Troponin is up to 4.09. UA shows trace protein and trace blood. Stool for occult blood was positive. ASSESSMENT: 1. Acute kidney injury secondary to hypotension and hypoperfusion. Currently nonoliguric. His UA is benign, but patient has trace protein and trace blood. I will start him on gentle IV hydration. We will continue to hold off on the Norvasc and repeat labs in a.m. 2. Metabolic acidosis secondary to renal failure. Start sodium bicarb if the metabolic acidosis is not improved by tomorrow with IV hydration. 3. Anemia with positive stool for occult blood. Check iron studies as well. 4. Elevated troponin secondary to [id number] myocardial infarction, being followed by Cardiology. 5. History of hypertension. Blood pressure is currently low. 6. Atrial fibrillation with rapid ventricular response, maintained on Cardizem drip. PLAN: Start IV fluids. Discontinue Norvasc. Check ultrasound of the kidneys. Monitor urine output accurately. Repeat labs in a.m. continue to avoid nephrotoxic agents. Patient will need adjustment of his blood pressure medications prior to discharge. If his renal function is significantly improved, we may be able to proceed with cardiac catheterization this admission if indicated from cardiology standpoint. Thank you for this consultation. We will continue to follow the patient with you during his hospitalization. MMODL / IJN: [id number] /
--- NOTE | 2017-12-29 18:25 | PN ---
PROGRESS NOTE Liam is a 72-year-old gentleman who is admitted to hospital with atrial fibrillation with rapid ventricular rate and non ST-segment elevation [place]. He also had a low hemoglobin and guaiac-positive stool and new onset renal failure with a creatinine of 3.2. His renal failure is new compared to last that he had just last month. This afternoon, patient suddenly became short of breath, was in atrial fibrillation, converted to sinus rhythm but went into sudden onset pulmonary edema. He was in sinus rhythm for a short while and subsequently went back into atrial fibrillation with rapid ventricular rate. I was called by the nurse who was taking care of the patient. By the time I arrived, patient already received 40 mg of IV Lasix and had a chest x-ray. On my evaluation, the patient appeared in mild respiratory distress, but his respiratory distress was improving. His EKG in sinus rhythm showed sinus rhythm with inferolateral ST-T wave changes suggestive of ischemia. His 3rd set of troponin had come back elevated at 4. The first set was 0.08, 2nd one was 1.8. I reviewed his echocardiogram. It shows severe LV systolic dysfunction with severe aortic stenosis. The patient's INR is elevated at baseline and the exact etiology for this is unclear. AST, ALT are within normal limits. The patient states that he does not drink alcohol. EXAM: Heart rate is around 120s to 130s. Blood pressure is 110/70. Chest exam reveals bilateral crackles. Heart exam reveals first and second heart sounds and ejection systolic murmur in the aortic area. Abdomen is soft. Exam of extremities did not reveal any edema. Peripheral pulses are felt. ASSESSMENT: 1. Non ST-segment elevation myocardial infarction. 2. Atrial fibrillation with rapid ventricular rate. 3. Ischemic cardiomyopathy with severe LV dysfunction. 4. Aortic stenosis. PLAN: I am going to admit the patient to ICU. His heparin was on hold because of guaiac- positive stools. I am going to start him back on it and see if he will tolerate it without any further GI bleed. Nephrology is already on the case. We will put him on nitro paste, give him another dose of Lasix, we will give him intravenous beta blockers. Hold the IV Cardizem at this time. His prognosis is guarded. I will decide on further course of action based on how he evolves from here. MMODL / IJN: [id number] /
--- NOTE | 2017-12-29 19:37 | ECHOF ---
Referral Reason:afib MEASUREMENTS -------- HEIGHT: 180.3 cm WEIGHT: 81.6 kg BP: 104/61 RVIDd: 2.9 cm (< 3.3) IVSd: 2.0 cm (0.6 - 1.1) LVIDd: 4.1 cm (3.9 - 5.3) LVPWd: 1.9 cm (0.6 - 1.1) IVSs: 2.1 cm LVIDs: 3.6 cm LVPWs: 2.1 cm LA Diam: 4.8 cm (2.7 - 3.8) LAESV Index (A-L): 58.24 ml/m Ao Diam: 3.0 cm (2.0 - 3.7) MV EXCURSION: 13.666 mm (> 18.000) MV EF SLOPE: 67 mm/s (70 - 150) EPSS: 0.9 cm AV maxP.26 mmHg AV meanP.13 mmHg RAP: 5.00 mmHg RVSP: 57.06 mmHg FINDINGS -------- Atrial fibrillation. This was a technically adequate study. The left ventricular size is normal. There is severe concentric left ventricular hypertrophy. Ove rall left ventricular systolic function is severely impaired with, an EF between 25 - 30 %. The right ventricle is normal in size. LA is severely dilated >40 ml/m2 The right atrium is normal in size. There is severe aortic valve sclerosis. There is severe aortic stenosis present. Peak/mean gradie nt across the Aortic Valve is 83.26mmHg / 43.13mmHg. The mitral valve leaflets are moderately thickened. Severe mitral annular calcification present. Mild mitral regurgitation is present. Mild tricuspid regurgitation present. There is severe pulmonary hypertension. The right ventricul ar systolic pressure, as measured by Doppler, is 57.06mmHg. There is no pulmonic regurgitation present. The aortic root size is normal. IVC Not well visulized. There is no pericardial effusion. CONCLUSIONS -------- 1. Atrial fibrillation. 2. This was a technically adequate study. 3. The left ventricular size is normal. 4. There is severe concentric left ventricular hypertrophy. 5. Overall left ventricular systolic function is severely impaired with, an EF between 25 - 30 %. 6. The right ventricle is normal in size. 7. LA is severely dilated >40 ml/m2 8. The right atrium is normal in size. 9. There is severe aortic valve sclerosis. 10. There is severe aortic stenosis present. 11. Peak/mean gradient across the Aortic Valve is 83.26mmHg / 43.13mmHg. 12. The mitral valve leaflets are moderately thickened. 13. Severe mitral annular calcification present. 14. Mild mitral regurgitation is present. 15. Mild tricuspid regurgitation present. 16. There is severe pulmonary hypertension. 17. The right ventricular systolic pressure, as measured by Doppler, is 57.06mmHg. 18. There is no pulmonic regurgitation present. 19. The aortic root size is normal. 20. IVC Not well visulized. 21. There is no pericardial effusion. PASSENGER RELATIONS REPRESENTATIVE: Sandra Abebe RDCS
[2017-12-29] MEDS: FAMOTIDINE 20 MG TAB PO SCH (20:30)
[2017-12-29] MEDS ORDERED: SERTRALINE 100 MG TAB PO SCH (21:00)
--- NOTE | 2017-12-29 22:34 | PN ---
PROGRESS NOTE HISTORY: The patient was seen this morning at around 9:30 a.m. in consultation. At that time, he did not look volume overloaded and was considering starting IV fluids given his low blood pressure at the time of admission. It appears, however, that around 2:30 p.m. patient became significantly short of breath. He was his chest x-ray was done which showed significant CHF. The patient did receive 1 dose of Lasix and his respiratory status improved significantly. Repeat labs were ordered and the serum creatinine is still elevated at 3.2 mg/dL. The patient has been voiding though. At this time, I will hold off on IV fluids given his episode of CHF. This may very well be related to ongoing cardiac ischemia. If the patient's clinical condition deteriorates, we will have to proceed with cardiac catheterization even though he is at high risk for contrast nephropathy given his advanced acute kidney injury. Previous creatinine was 1.4 in November and 0.8 in October of 2017. At this time, I will continue to avoid any nephrotoxic agents given his low ejection fraction on the echocardiogram which was pending this morning. We might consider inotropic agents if he is stable from cardiology standpoint. MMODL / IJN: [id number] /
--- NOTE | 2017-12-30 00:35 | US ---
EXAMINATION TYPE: US kidneys/renal and bladder DATE OF EXAM: 12/29/2017 COMPARISON: NONE CLINICAL HISTORY: DANY. DANY EXAM MEASUREMENTS: Right Kidney: 10.5 x 4.6 x 5.1 cm Left Kidney: 10.0 x 5.2 x 4.6 cm Right Kidney: Cystic area upper pole 1.0 x .8 x .8cm. Left Kidney: Area seen on cat scan 06/25/2016 not seen on today's scan upper pole was limited due to ri b shadowing. Bladder: Cather in bladder There is no evidence for hydronephrosis at this point in time. No nephrolithiasis is seen. No errol s are identified. The urinary bladder is anechoic. Bilateral ureteral jets are seen. IMPRESSION: There is 10 mm cortical cyst upper pole right kidney. No hydronephrosis. No evidence of solid renal m ass. The upper pole left kidney was poorly visualized due to the ribs. 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
[2017-12-30] MEDS: DILTIAZEM 50 MG in SODIUM CHLORIDE 0.9% 40 ML IV SCH ×2 (03:43→09:14)
[2017-12-30 05:54] LABS: HCT 26.6 % (39.0-53.0); HGB 8.9 gm/dL (13.0-17.5); MCH 30.4 pg (25.0-35.0); MCHC 33.3 g/dL (31.0-37.0); MCV 91.3 fL (80.0-100.0); Mean Platelet Volume 6.9; Platelet Count 121 k/uL (150-450); RBC 2.91 m/uL (4.30-5.90); RDW 13.5 % (11.5-15.5)
[2017-12-30 06:08] LABS: Albumin 3.4 g/dL (3.5-5.0); Calcium 9.2 mg/dL (8.4-10.2); Potassium 4.4 mmol/L (3.5-5.1); Total Bilirubin 0.5 mg/dL (0.2-1.3); Total Protein 9.3 g/dL (6.3-8.2)
[2017-12-30 08:21] LABS: Neutrophils % (M) 59 %; Nucleated Red Blood Cells 0 /100 WBC (0-0); Total Cells Counted 100
[2017-12-30] MEDS: DIVALPROEX 500 MG TABLET.DR PO SCH (08:54)
[2017-12-30] MEDS: PHENYTOIN SODIUM EXTENDED 100 MG CAP PO SCH ×2 (08:55→19:42)
[2017-12-30] MEDS: FAMOTIDINE 20 MG TAB PO SCH (08:56)
--- NOTE | 2017-12-30 09:55 | XR ---
EXAMINATION TYPE: XR chest 1V DATE OF EXAM: 12/30/2017 COMPARISON: Prior chest x-ray 12/29/2017 HISTORY: Congestive heart failure TECHNIQUE: Single frontal view of the chest is obtained. FINDINGS: There is improvement in the bilateral airspace disease and interstitium. No evident pneumo thorax or pleural effusion. Heart size is stable. Marked arthropathy noted in the right shoulder, que stion posttraumatic changes. There are overlying cardiac leads. Patient is rotated. IMPRESSION: Improvement in patient's volume status, aeration within the lungs.
--- NOTE | 2017-12-30 10:12 | CDI ---
Last Revision, February 2017 Documentation Clarification Form Date: 12/30/2017 9:55:52 AM From: Carolyn Key RN, CCDS Admit Date: 12/29/2017 12:59:00 AM Patient Name: Liam Saini Visit Number: [id number] ATTENTION: The Clinical Documentation Specialists (CDI) and [facility] Coding Staff appreciate your assistance in clarifying documentation. Please respond to the clarification below the line at the bottom and electronically sign. The CDI & [facility] Coding staff will review the response and follow-up if needed. Please note: Queries are made part of the Legal Health Record. If you have any questions, please contact the author of this message via ITS. Nimco Munguia MD History/Risk Factors: CVA, HTN, Seizure disorder, metabolic encephalopathy, ETOH Clinical Indicators: VS/Pulse OX: Temp 98, HR 170, hr 16, B/P 139/98, spo2 100% 2l NC BNP: 26941 Echocardiogram Results: EF 25-30% Chest x ray: "Worsening of the chest x-ray with perihilar interstitial findings. Tiny bilateral effusions stenosis suspected. Correlate for CHF otherwise consider pneumonia." Treatment: Lasix 40 mg IVP OT IVF Bolus 500 bolus In your professional opinion, can you please clarify the acuity and type of CHF if known? Systolic Heart Failure: Acute Chronic Acute on Chronic Systolic & Diastolic Heart Failure: Acute Chronic Acute on Chronic Heart Failure Unable to Determine Other, please specify Please continue to document in your progress notes and discharge summary in order to capture severity of illness and risk of mortality. Include clinical findings that support your diagnosis. vegesna's MTDD
[2017-12-30] MEDS: METOPROLOL TARTRATE 25 MG TAB PO SCH ×2 (10:36→19:42)
[2017-12-30] MEDS: AMIODARONE 200 MG TAB PO SCH ×2 (10:37→19:41)
--- NOTE | 2017-12-30 10:47 | CDI ---
Last Revision, February 2017 Documentation Clarification Form Date: 12/30/2017 10:14:12 AM From: Carolyn Key RN, CCDS Admit Date: 12/29/2017 12:59:00 AM Patient Name: Liam Saini Visit Number: [id number] ATTENTION: The Clinical Documentation Specialists (CDI) and [facility] Coding Staff appreciate your assistance in clarifying documentation. Please respond to the clarification below the line at the bottom and electronically sign. The CDI & [facility] Coding staff will review the response and follow-up if needed. Please note: Queries are made part of the Legal Health Record. If you have any questions, please contact the author of this message via ITS. Dr. Antwon Alvarez Atrial fibrillation is documented in the H&P, Consults, and Progress Notes History/Risk Factors: CVA, HTN, Seizures, dehydration Clinical Indicators: 12/29 Cardiology: Ischemic cardiomyopathy w severe lv dysfunction EKG/telemetry: Atrial Fib Treatment: Consults: Nephrology, Cardiology Cordarone po BID 400 mg IV Cardizem bolus and drip Lopressor 5 mg IVP x 1 followed by 25 mg Po BID In your professional opinion, can you please clarify the type of atrial fibrillation, if known? Chronic/Permanent Paroxysmal Persistent Other, please specify Unable to determine Please continue to document in your progress notes and discharge summary in order to capture severity of illness and risk of mortality. Include clinical findings that support your diagnosis. __chronic MTDD
--- NOTE | 2017-12-30 15:15 | P.PN ---
Subjective Patient is admitted for non-ST elevation microinfarction, atrial fibrillation. Patient is found to be in heart failure yesterday patient had an episode of acute hypoxemia was given Lasix. Patient still has crackles on exam chest x- ray showed improvement in pulmonary edema but still hasn't gotten pulmonary edema, 60 mg of Lasix will be given if his blood pressure can tolerate right notes borderline and is in 80 systolic patient's echocardiogram showed ejection fraction of 20-25%. Patient is presently on metoprolol and amiodarone Patient is doing much better today. Constitutional: Denied any fatigue denied any fever. Cardio vascular: denied any chest pain, palpitations Gastrointestinal denied any nausea vomiting Pulmonary: Denied any shortness of breath cough Neurologic denied any new focal deficits Objective - Vital Signs Vital signs: Vital Signs Temp 98.3 F 12/30/17 11:05 Pulse 110 H 12/30/17 11:05 Resp 16 12/30/17 11:05 BP 86/57 12/30/17 11:05 Pulse Ox 96 12/30/17 11:05 Intake & Output 12/29/17 12/30/17 12/30/17 18:59 06:59 18:59 Intake Total 430 478.03 406.167 Output Total 550 875 Balance -120 -396.97 406.167 Weight 81.9 kg 80.9 kg Intake: Intake, IV Titration 50 248.03 64.167 Amount Diltiazem 50 mg In Sodium 50 100 64.167 Chloride 0.9% 40 ml @ 7. 5 MG/HR 7.5 mls/hr IV . Q6H40M [facility] Rx#:[id number] Heparin Sod,Pork in 0.45% 148.03 NaCl 25,000 unit In 0.45 % NaCl 1 500ml.bag @ 12 UNITS/KG/HR 19.65 mls/hr IV .Q24H [facility] Rx#: [id number] Oral 380 230 342 Output: Urine 550 875 Other: Voiding Method Urinal Indwelling Catheter Indwelling Catheter # Voids 0 # Bowel Movements 0 - Exam PHYSICAL EXAMINATION: GENERAL: The patient is alert and oriented x3, not in any acute distress. Well developed, well nourished. HEENT: Pupils are round and equally reacting to light. EOMI. No scleral icterus. No conjunctival pallor. Normocephalic, atraumatic. No pharyngeal erythema. No thyromegaly. CARDIOVASCULAR: S1 and S2 present. No murmurs, rubs, or gallops. PULMONARY: Crackles bibasilar on lung exam ABDOMEN: Soft, nontender, nondistended, normoactive bowel sounds. No palpable organomegaly. MUSCULOSKELETAL: No joint swelling or deformity. EXTREMITIES: No cyanosis, clubbing, or pedal edema. NEUROLOGICAL: Gross neurological examination did not reveal any focal deficits. SKIN: No rashes. - Labs CBC & Chem 7: 12/30/17 05:24 12/30/17 05:24 Labs: Abnormal Lab Results - Last 24 Hours (Table) 12/29/17 12/29/17 12/30/17 Range/Units 16:09 21:07 05:24 RBC 2.91 L (4.30-5.90) m/uL Hgb 8.9 L (13.0-17.5) gm/dL Hct 26.6 L (39.0-53.0) % Plt Count 121 L (150-450) k/uL APTT 38.5 H (22.0-30.0) sec Chloride 109 H (98-107) mmol/L Carbon Dioxide 18 L (22-30) mmol/L BUN 29 H (9-20) mg/dL Creatinine 3.22 H (0.66-1.25) mg/dL Glucose 137 H (74-99) mg/dL ALT (21-72) U/L Total Protein (6.3-8.2) g/dL Albumin (3.5-5.0) g/dL 12/30/17 12/30/17 Range/Units 05:24 05:24 RBC (4.30-5.90) m/uL Hgb (13.0-17.5) gm/dL Hct (39.0-53.0) % Plt Count (150-450) k/uL APTT 60.2 H (22.0-30.0) sec Chloride 110 H (98-107) mmol/L Carbon Dioxide 17 L (22-30) mmol/L BUN 30 H (9-20) mg/dL Creatinine 3.54 H (0.66-1.25) mg/dL Glucose (74-99) mg/dL ALT 7 L (21-72) U/L Total Protein 9.3 H (6.3-8.2) g/dL Albumin 3.4 L (3.5-5.0) g/dL Assessment and Plan Plan: -Non-ST elevation microinfarction patient will be resumed on heparin there is no evidence of acute GI bleed at this time. Patient was started on metoprolol and amiodarone -Congestive heart failure probably acute systolic dysfunction from acute myocardial infarction -New-onset atrial fibrillation may be precipitated by my acute myocardial infarction cardiology evaluated the patient heparin is being continued -Acute renal failure: Due to acute myocardial infarction and hypoperfusion. -Seizure disorder continue his home medications no breakthrough seizures at this time -Depression patient has not been taking his antidepressants because of his generalized tiredness he is unsure if this medication is causing it.
--- NOTE | 2017-12-30 15:59 | CDI ---
Last Revision, February 2017 Documentation Clarification Form Date: 12/30/2017 9:55:00 AM From: Carolyn Key RN, CCDS Admit Date: 12/29/2017 12:59:00 AM Patient Name: Liam Saini Visit Number: [id number] ATTENTION: The Clinical Documentation Specialists (CDI) and [facility] Coding Staff appreciate your assistance in clarifying documentation. Please respond to the clarification below the line at the bottom and electronically sign. The CDI & [facility] Coding staff will review the response and follow-up if needed. Please note: Queries are made part of the Legal Health Record. If you have any questions, please contact the author of this message via ITS. Dr. Flores History/Risk Factors: CVA, HTN, Seizure disorder, metabolic encephalopathy, ETOH Clinical Indicators: VS/Pulse OX: Temp 98, HR 170, hr 16, B/P 139/98, spo2 100% 2l NC BNP: 98287 Echocardiogram Results: EF 25-30% Chest X Ray: "Worsening of the chest x-ray with perihilar interstitial findings. Tiny bilateral effusions stenosis suspected. Correlate for CHF otherwise consider pneumonia." Treatment: Lasix 40 mg ivp OT IVF Bolus 500 bolus In your professional opinion, can you please clarify the acuity and type of CHF if known? Systolic Heart Failure: Acute Chronic Acute on Chronic Systolic & Diastolic Heart Failure: Acute Chronic Acute on Chronic Heart Failure Unable to Determine Other, please specify Please continue to document in your progress notes and discharge summary in order to capture severity of illness and risk of mortality. Include clinical findings that support your diagnosis. already dictated MTDD
--- NOTE | 2017-12-30 16:12 | P.PN ---
Subjective Progress Note Date: 12/30/17 This is a pleasant 9-year-old gentleman who was admitted to the hospital with atrial fibrillation with rapid ventricular response and non-ST segment elevation [place]. He had low hemoglobin and stool positive for occult blood as well as new onset renal failure. He did have an episode of sudden onset pulmonary edema yesterday at which time he received some IV Lasix. EKG did show inferolateral ST-T wave changes suggestive of ischemia. The patient's INR is elevated at baseline due to unclear etiology. Echocardiogram showed severe concentric left ventricular hypertrophy, severely impaired LV systolic function with an ejection fraction of 25-30%, severe aortic sclerosis with severe aortic stenosis and severe pulmonary hypertension. Upon examination this morning, patient is resting comfortably in bed. Denies current complaints of chest discomfort, palpitations or shortness of breath. Currently on Cardizem drip at 10 mg an hour with heart rate remaining poorly controlled. Objective - Vital Signs Vital signs: Vital Signs Temp 98.3 F 12/30/17 11:05 Pulse 110 H 12/30/17 11:05 Resp 16 12/30/17 11:05 BP 86/57 12/30/17 11:05 Pulse Ox 96 12/30/17 11:05 Intake & Output 12/29/17 12/30/17 12/30/17 18:59 06:59 18:59 Intake Total 430 478.03 406.167 Output Total 550 875 475 Balance -120 -396.97 -68.833 Weight 81.9 kg 80.9 kg Intake: Intake, IV Titration 50 248.03 64.167 Amount Diltiazem 50 mg In Sodium 50 100 64.167 Chloride 0.9% 40 ml @ 7. 5 MG/HR 7.5 mls/hr IV . Q6H40M [facility] Rx#:[id number] Heparin Sod,Pork in 0.45% 148.03 NaCl 25,000 unit In 0.45 % NaCl 1 500ml.bag @ 12 UNITS/KG/HR 19.65 mls/hr IV .Q24H [facility] Rx#: [id number] Oral 380 230 342 Output: Urine 550 875 475 Other: Voiding Method Urinal Indwelling Catheter Indwelling Catheter # Voids 0 # Bowel Movements 0 - Exam PHYSICAL EXAMINATION: HEENT: Head is atraumatic, normocephalic. Pupils equal, round. Neck is supple. There is no elevated jugular venous pressure. HEART EXAMINATION: Heart sounds irregularly irregular, S1 and S2 with a systolic ejection murmur and tachycardia. CHEST EXAMINATION: Lungs are clear to auscultation and precussion. No chest wall tenderness is noted on palpation or with deep breathing. ABDOMEN: Soft, nontender. Bowel sounds are heard. No organomegaly noted. EXTREMITIES: 2+ peripheral pulses with no evidence of peripheral edema and no calf tenderness noted. NEUROLOGIC patient is awake, alert and oriented x3. . - Labs CBC & Chem 7: 12/30/17 05:24 12/30/17 05:24 Labs: Abnormal Lab Results - Last 24 Hours (Table) 12/29/17 12/29/17 12/30/17 Range/Units 16:09 21:07 05:24 RBC 2.91 L (4.30-5.90) m/uL Hgb 8.9 L (13.0-17.5) gm/dL Hct 26.6 L (39.0-53.0) % Plt Count 121 L (150-450) k/uL APTT 38.5 H (22.0-30.0) sec Chloride 109 H (98-107) mmol/L Carbon Dioxide 18 L (22-30) mmol/L BUN 29 H (9-20) mg/dL Creatinine 3.22 H (0.66-1.25) mg/dL Glucose 137 H (74-99) mg/dL ALT (21-72) U/L Total Protein (6.3-8.2) g/dL Albumin (3.5-5.0) g/dL 12/30/17 12/30/17 Range/Units 05:24 05:24 RBC (4.30-5.90) m/uL Hgb (13.0-17.5) gm/dL Hct (39.0-53.0) % Plt Count (150-450) k/uL APTT 60.2 H (22.0-30.0) sec Chloride 110 H (98-107) mmol/L Carbon Dioxide 17 L (22-30) mmol/L BUN 30 H (9-20) mg/dL Creatinine 3.54 H (0.66-1.25) mg/dL Glucose (74-99) mg/dL ALT 7 L (21-72) U/L Total Protein 9.3 H (6.3-8.2) g/dL Albumin 3.4 L (3.5-5.0) g/dL Assessment and Plan Assessment: #1 non-ST elevation [place] #2 acute on chronic systolic congestive heart failure, ejection fraction of 25- 30% #3 persistent atrial fibrillation with rapid ventricular response #4 acute kidney failure Plan: From cardiology perspective, we will stop Cardizem drip and start the patient on amiodarone 400 mg by mouth twice a day. We'll also add metoprolol tartrate 25 mg by mouth twice a day. He to follow the patient for further recommendations accordingly. The above dictated assessment and findings were discussed with signing physician. The impression and plan of care have been directed as dictated. Callie Martinez, Nurse Practitioner, acting as scribe for signing physician.
[2017-12-30] MEDS: HEPARIN SOD,PORK IN 0.45% NACL 25,000 UNIT in 0.45% NACL 1 500ML.BAG IV SCH (16:47)
--- NOTE | 2017-12-30 20:14 | PN ---
PROGRESS NOTE Patient is seen for followup for acute kidney injury. He was admitted to the hospital with a serum creatinine of about 3.2 mg/dL. The patient's blood pressure has been running low with systolic in the 90s. Patient's previous creatinine was as low as 1.4 mg/dL on 11/22/2017 and 0.8 on November 03. Following admission yesterday afternoon, patient developed acute onset of pulmonary edema. He was given Lasix and he improved clinically. However, troponin was further elevated to 4.0. The patient is also maintained on Cardizem for atrial fibrillation with RVR. He has been voiding. However, serum creatinine remains elevated at 3.2 mg/dL. This morning, patient denies any chest pains. He denies shortness of breath, but he does feel extremely weak. EXAMINATION: This morning blood pressure was 81/56, heart rate 127 per minute. He is afebrile. Examination of the heart S1, S2. Examination of the lungs bilateral breath sounds are heard. Abdomen is soft, nontender. Examination of lower extremities shows no evidence of edema. TRA[employer]IC [employer]PERT exam is grossly intact. LABS: Revealed sodium 140, potassium 4.4, chloride 110, CO2 17, BUN 30, serum creatinine 3.54, hemoglobin 8.9 g/dL. ASSESSMENT: 1. Acute kidney injury secondary to hypotension hypoperfusion and cardiorenal syndrome. Serum creatinine is up to 3.5 mg/dL. Patient is nonoliguric. However, he remains hypotensive. I discussed inotropic agents with Cardiology. However, this may not be appropriate given his acute myocardial infarction. The patient may need to be started on Levophed if he remains hypotensive. I will check a chest x- ray. We will also hold off on IV fluids given his acute onset congestive heart failure yesterday. If there is no urgency, it would be better to wait for cardiac catheterization given his worsening renal function. 2. Status post acute non ST elevation myocardial infarction. 3. Atrial fibrillation with RVR. Currently maintained on IV Cardizem, which will be switched over to amiodarone per Cardiology. 4. Hypotension, mainly associated with cardiomyopathy and patient is also on IV Cardizem. This will be switched over to amiodarone and hopefully his blood pressure will improve. Otherwise, patient will need to be started on Levophed. He is not an ideal candidate for dobutamine given his recent acute myocardial infarction. MMODL / IJN: [id number] /
[2017-12-31] MEDS: METOPROLOL TARTRATE 25 MG TAB PO SCH ×2 (08:18→21:15)
[2017-12-31] MEDS: FAMOTIDINE 20 MG TAB PO SCH (08:18)
[2017-12-31] MEDS: PHENYTOIN SODIUM EXTENDED 100 MG CAP PO SCH ×2 (08:18→21:15)
[2017-12-31] MEDS: AMIODARONE 200 MG TAB PO SCH ×2 (08:21→21:15)
[2017-12-31 09:41] LABS: Calcium 9.2 mg/dL (8.4-10.2); Potassium 4.8 mmol/L (3.5-5.1)
--- NOTE | 2017-12-31 12:06 | PN ---
PROGRESS NOTE Patient is seen for followup for acute kidney injury. He was admitted to the hospital with weakness. He had been having low blood pressure at home. Serum creatinine was 3.2. Patient's troponin was positive. It did go up to around 4. He also had an episode of acute pulmonary edema which was treated with 1 dose of Lasix. He improved significantly. At this time, we are awaiting cardiac catheterization. However, this is on hold given his worsening renal function. The patient was also in atrial fibrillation with RVR and his systolic blood pressure was as low as 80s yesterday. The Cardizem was switched to amiodarone and his systolic blood pressure is better. Overall, patient states he is feeling better, although his serum creatinine has gone up to 3.69. He states he has good urine output with a significant increase in his urine output since yesterday. PHYSICAL EXAMINATION: Blood pressure was 102/61, heart rate 79 per minute. He is afebrile. Examination of the heart, S1, S2. Examination of the lungs, bilateral breath sounds are heard. Abdomen is soft, nontender. Exam of the lower extremities shows no evidence of edema. [employer]EM[employer]IPE exam is grossly intact. LABS: Sodium 138, potassium 4.8, chloride 107, CO2 is 16, BUN 40, serum creatinine 3.69, hemoglobin 8.9 g/dL. ASSESSMENT: 1. Acute kidney injury secondary to hypotension, hypoperfusion and cardiorenal syndrome. Currently, serum creatinine is slightly higher than yesterday; however, systolic blood pressure was significantly low yesterday with atrial fibrillation with RVR. Clinically, heart rate is better controlled. Systolic blood pressure is around 100 mmHg. Patient's urine output is improved. Therefore, I believe his serum creatinine will also come down over the next day or so. At this time, if there is no urgency to proceed with cardiac catheterization, we can wait over the weekend. 2. Acute non ST-elevation myocardial infarction. 3. Acute congestive heart failure secondary to cardiac ischemia, currently improved. 4. Cardiomyopathy. Ejection fraction on echocardiogram done 2 days ago was about 25%- 30%.. 5. Severely dilated left atrium. 6. Metabolic acidosis. Will start patient on oral sodium bicarb. PLAN: Start oral sodium bicarb. Will try to hold off on cardiac cath over the weekend and expect improvement in renal function. Patient is not a good candidate for dobutamine given his recent acute [place] and A. fib with RVR. ANTHONY / JEMIMAN: [id number] /
[2017-12-31] MEDS: HEPARIN SOD,PORK IN 0.45% NACL 25,000 UNIT in 0.45% NACL 1 500ML.BAG IV SCH (12:09)
[2017-12-31] MEDS: ONDANSETRON 4 MG/2 ML VIAL IVP PRN (14:13)
--- NOTE | 2017-12-31 14:55 | P.PN ---
Subjective Patient is admitted for non-ST elevation microinfarction, atrial fibrillation. Patient is found to be in heart failure yesterday patient had an episode of acute hypoxemia was given Lasix. Patient still has crackles on exam chest x- ray showed improvement in pulmonary edema but still hasn't gotten pulmonary edema, 60 mg of Lasix will be given if his blood pressure can tolerate right notes borderline and is in 80 systolic patient's echocardiogram showed ejection fraction of 20-25%. Patient is presently on metoprolol and amiodarone 12/31/2017 Patient is feeling better today denied any shortness of breath patient's creatinine is elevated but stable patient was switched to oral amiodarone. Patient can use to be on IV heparin at this time. We'll obtain a Dilantin level today. Constitutional: Denied any fatigue denied any fever. Cardio vascular: denied any chest pain, palpitations Gastrointestinal denied any nausea vomiting Pulmonary: Denied any shortness of breath cough Neurologic denied any new focal deficits Objective - Vital Signs Vital signs: Vital Signs Temp 98.2 F 12/31/17 00:00 Pulse 99 12/31/17 08:00 Resp 16 12/31/17 11:06 BP 97/63 12/31/17 08:00 Pulse Ox 93 L 12/31/17 08:00 Intake & Output 12/30/17 12/31/17 12/31/17 18:59 06:59 18:59 Intake Total 758.137 80 715.839 Output Total 575 100 400 Balance 183.137 -20 315.839 Weight 81.7 kg Intake: IV 80 .9 80 Intake, IV Titration 416.137 475.839 Amount Diltiazem 50 mg In Sodium 64.167 Chloride 0.9% 40 ml @ 7. 5 MG/HR 7.5 mls/hr IV . Q6H40M [facility] Rx#:[id number] Heparin Sod,Pork in 0.45% 351.97 475.839 NaCl 25,000 unit In 0.45 % NaCl 1 500ml.bag @ 12 UNITS/KG/HR 19.65 mls/hr IV .Q24H [facility] Rx#: [id number] Oral 342 240 Output: Urine 575 100 400 Uretheral (Carballo) 100 Other: Voiding Method Indwelling Catheter Toilet Toilet Urinal Urinal # Voids 0 # Bowel Movements 0 - Exam PHYSICAL EXAMINATION: GENERAL: The patient is alert and oriented x3, not in any acute distress. Well developed, well nourished. HEENT: Pupils are round and equally reacting to light. EOMI. No scleral icterus. No conjunctival pallor. Normocephalic, atraumatic. No pharyngeal erythema. No thyromegaly. CARDIOVASCULAR: S1 and S2 present. No murmurs, rubs, or gallops. PULMONARY: Good air entry into bilateral lung hoang no wheezing on exam no crackles on exam ABDOMEN: Soft, nontender, nondistended, normoactive bowel sounds. No palpable organomegaly. MUSCULOSKELETAL: No joint swelling or deformity. EXTREMITIES: No cyanosis, clubbing, or pedal edema. NEUROLOGICAL: Gross neurological examination did not reveal any focal deficits. SKIN: No rashes. - Labs CBC & Chem 7: 12/30/17 05:24 12/31/17 08:52 Labs: Abnormal Lab Results - Last 24 Hours (Table) 12/31/17 12/31/17 Range/Units 07:04 08:52 APTT 53.9 H (22.0-30.0) sec Carbon Dioxide 16 L (22-30) mmol/L BUN 40 H (9-20) mg/dL Creatinine 3.69 H (0.66-1.25) mg/dL Assessment and Plan Plan: -Non-ST elevation myocardial patient will be resumed on heparin there is no evidence of acute GI bleed at this time. Patient was started on metoprolol and amiodarone -Congestive heart failure probably acute systolic dysfunction from acute myocardial infarction -New-onset atrial fibrillation may be precipitated by my acute myocardial infarction cardiology evaluated the patient heparin is being continued -Acute renal failure: Due to acute myocardial infarction and hypoperfusion. -Seizure disorder continue his home medications no breakthrough seizures at this time -Depression patient has not been taking his antidepressants because of his generalized tiredness he is unsure if this medication is causing it.
--- NOTE | 2017-12-31 17:10 | P.PN ---
Subjective Progress Note Date: 12/31/17 This is a pleasant 72-year-old gentleman who was admitted to the hospital with atrial fibrillation with rapid ventricular response and non-ST segment elevation [place]. He had low hemoglobin and stool positive for occult blood as well as new onset renal failure. He did have an episode of sudden onset pulmonary edema yesterday at which time he received some IV Lasix. EKG did show inferolateral ST-T wave changes suggestive of ischemia. The patient's INR is elevated at baseline due to unclear etiology. Echocardiogram showed severe concentric left ventricular hypertrophy, severely impaired LV systolic function with an ejection fraction of 25-30%, severe aortic sclerosis with severe aortic stenosis and severe pulmonary hypertension. Patient is anemic with a hemoglobin of 8.9 and is currently in acute renal failure with BUNs of 40 and creatinine of 3.69. Cardizem drip was discontinued yesterday and patient was started on amiodarone and beta blockers. Upon examination today, patient is resting completely in bed. He appears to be feeling fairly well. He denies complaints of palpitations, chest discomfort, shortness of breath. Objective - Vital Signs Vital signs: Vital Signs Temp 98.2 F 12/31/17 00:00 Pulse 125 H 12/31/17 16:00 Resp 16 12/31/17 16:00 BP 97/58 12/31/17 16:00 Pulse Ox 99 12/31/17 16:00 Intake & Output 12/30/17 12/31/17 12/31/17 18:59 06:59 18:59 Intake Total 758.137 80 715.839 Output Total 575 100 400 Balance 183.137 -20 315.839 Weight 81.7 kg Intake: IV 80 .9 80 Intake, IV Titration 416.137 475.839 Amount Diltiazem 50 mg In Sodium 64.167 Chloride 0.9% 40 ml @ 7. 5 MG/HR 7.5 mls/hr IV . Q6H40M [facility] Rx#:[id number] Heparin Sod,Pork in 0.45% 351.97 475.839 NaCl 25,000 unit In 0.45 % NaCl 1 500ml.bag @ 12 UNITS/KG/HR 19.65 mls/hr IV .Q24H [facility] Rx#: [id number] Oral 342 240 Output: Urine 575 100 400 Uretheral (Carballo) 100 Other: Voiding Method Indwelling Catheter Toilet Toilet Urinal Urinal # Voids 0 # Bowel Movements 0 - Exam PHYSICAL EXAMINATION: HEENT: Head is atraumatic, normocephalic. Pupils equal, round. Neck is supple. There is no elevated jugular venous pressure. HEART EXAMINATION: Heart sounds irregularly irregular, S1 and S2 with a systolic ejection murmur. CHEST EXAMINATION: Lungs are clear to auscultation and precussion. No chest wall tenderness is noted on palpation or with deep breathing. ABDOMEN: Soft, nontender. Bowel sounds are heard. No organomegaly noted. EXTREMITIES: 2+ peripheral pulses with no evidence of peripheral edema and no calf tenderness noted. NEUROLOGIC patient is awake, alert and oriented x3. . - Labs CBC & Chem 7: 12/30/17 05:24 12/31/17 08:52 Labs: Abnormal Lab Results - Last 24 Hours (Table) 12/31/17 12/31/17 Range/Units 07:04 08:52 APTT 53.9 H (22.0-30.0) sec Carbon Dioxide 16 L (22-30) mmol/L BUN 40 H (9-20) mg/dL Creatinine 3.69 H (0.66-1.25) mg/dL Assessment and Plan Assessment: #1 non-ST elevation [place] #2 acute on chronic systolic congestive heart failure, ejection fraction of 25- 30% #3 persistent atrial fibrillation with rapid ventricular response #4 acute kidney failure #5 severe aortic stenosis Plan: From cardiology perspective, medications were reviewed with continue the same. Continue to follow renal function. Hopefully patient will have improving renal functions soon we can work patient up further for underlying CAD and aortic stenosis. We will continue to follow the patient and provide further recommendations accordingly. INTERVENTIONAL NURSE note has been reviewed, I agree with a documented findings and plan of care. Patient was seen and examined.
[2017-12-31 18:01] LABS: Iron Saturation 26.4 (15.00-50.00)
[2018-01-01 06:49] LABS: Potassium 4.8 mmol/L (3.5-5.1)
[2018-01-01] MEDS: AMIODARONE 200 MG TAB PO SCH ×2 (08:16→21:47)
[2018-01-01] MEDS: PHENYTOIN SODIUM EXTENDED 100 MG CAP PO SCH ×2 (08:17→21:48)
[2018-01-01] MEDS: METOPROLOL TARTRATE 25 MG TAB PO SCH ×2 (08:17→21:47)
[2018-01-01] MEDS: FAMOTIDINE 20 MG TAB PO SCH (08:17)
[2018-01-01] MEDS: HEPARIN SOD,PORK IN 0.45% NACL 25,000 UNIT in 0.45% NACL 1 500ML.BAG IV SCH (08:20)
--- NOTE | 2018-01-01 09:30 | P.PN ---
Subjective Progress Note Date: 01/01/18 Mr. Saini continues not feeling well and continues to feel weak and tired. No chest pain or chest discomfort and no shortness of breath. He continues to be in sinus rhythm and the pressure continues to be marginally low. Unfortunately the creatinine is worse today. The echocardiogram revealed severe cardiomyopathy and severe aortic stenosis. The prognosis overall is very poor. He does not seems to be in any overt congestive heart failure at this point. Objective - Vital Signs Vital signs: Vital Signs Temp 96.9 F L 01/01/18 08:00 Pulse 71 01/01/18 08:00 Resp 16 01/01/18 08:00 BP 98/56 01/01/18 08:00 Pulse Ox 99 01/01/18 08:00 Intake & Output 12/31/17 01/01/18 01/01/18 18:59 06:59 18:59 Intake Total 955.839 735.904 Output Total 400 100 Balance 555.839 -100 735.904 Weight 82.8 kg Intake: Intake, IV Titration 475.839 495.904 Amount Heparin Sod,Pork in 0.45% 475.839 495.904 NaCl 25,000 unit In 0.45 % NaCl 1 500ml.bag @ 12 UNITS/KG/HR 19.65 mls/hr IV .Q24H [facility] Rx#: [id number] Oral 480 240 Output: Urine 400 100 Other: Voiding Method Toilet Urinal Urinal # Voids 1 - Constitutional General appearance: Present: no acute distress - Respiratory Respiratory: bilateral: CTA - Cardiovascular Rhythm: regular Heart sounds: normal: S1, S2 Abnormal Heart Sounds: Present: systolic murmur - Labs CBC & Chem 7: 12/30/17 05:24 01/01/18 06:06 Labs: Abnormal Lab Results - Last 24 Hours (Table) 12/31/17 12/31/17 01/01/18 Range/Units 08:52 08:52 06:06 APTT (22.0-30.0) sec Carbon Dioxide 16 L 14 L (22-30) mmol/L BUN 40 H 52 H (9-20) mg/dL Creatinine 3.69 H 4.00 H (0.66-1.25) mg/dL Iron 52 L (65-175) ug/dL TIBC 197 L (228-460) ug/dL 01/01/18 Range/Units 06:06 APTT 49.7 H (22.0-30.0) sec Carbon Dioxide (22-30) mmol/L BUN (9-20) mg/dL Creatinine (0.66-1.25) mg/dL Iron (65-175) ug/dL TIBC (228-460) ug/dL Assessment and Plan Assessment: Assessment #1 severe cardiomyopathy and known if is ischemic or nonischemic #2 severe aortic stenosis #3 advanced renal failure #4 paroxysmal atrial fibrillation Plan #1 the patient seems to be hemodynamically stable beside margin a low blood pressure #2 he continues to be in normal sinus mechanism. #3 continue the current medical regimen #4 nephrology on the case regarding the renal failure
[2018-01-01] MEDS ORDERED: PHENYTOIN SODIUM EXTENDED 100 MG CAP PO STA (11:21)
--- NOTE | 2018-01-01 13:47 | P.PN ---
Subjective Progress Note Date: 01/01/18 Principal diagnosis: This 72-year-old male is seen because of acute kidney injury which is progressively worsening. He had severe cardiomyopathy and aortic stenosis, paroxysmal atrial fibrillation. He was admitted with generalized weakness increased troponins and congestive heart failure. History with Lasix. Is complaining of loose stools about 2 or 3 today and at yesterday as well. Has poor appetite otherwise denies any fever chills cough shortness of breath dizziness. His blood pressure though is low and 20 years up he does feel dizzy for a few seconds. Blood pressures are in the 90s to 101 range Objective - Vital Signs Vital signs: Vital Signs Temp 96.9 F L 01/01/18 08:00 Pulse 70 01/01/18 12:00 Resp 16 01/01/18 12:00 BP 101/56 01/01/18 12:00 Pulse Ox 98 01/01/18 12:00 Intake & Output 12/31/17 01/01/18 01/01/18 18:59 06:59 18:59 Intake Total 955.839 975.904 Output Total 400 100 Balance 555.839 -100 975.904 Weight 82.8 kg Intake: Intake, IV Titration 475.839 495.904 Amount Heparin Sod,Pork in 0.45% 475.839 495.904 NaCl 25,000 unit In 0.45 % NaCl 1 500ml.bag @ 12 UNITS/KG/HR 19.65 mls/hr IV .Q24H [facility] Rx#: [id number] Oral 480 480 Output: Urine 400 100 Other: Voiding Method Toilet Urinal Urinal Urinal # Voids 1 On examination is awake alert oriented comfortable. He is on room air. HEENT exam no JVP neck is supple no facial asymmetry Lungs are clear to auscultation with an occasional fine crackle at the right base not clear but cough. Heart sounds are unremarkable for any murmur rub gallop is known with his severe aortic stenosis Abdomen is soft nontender Extremity exam was no edema Neurologically awake alert oriented comfortable warm to touch. - Labs CBC & Chem 7: 12/30/17 05:24 01/01/18 06:06 Labs: Abnormal Lab Results - Last 24 Hours (Table) 12/31/17 01/01/18 01/01/18 Range/Units 08:52 06:06 06:06 APTT 49.7 H (22.0-30.0) sec Carbon Dioxide 14 L (22-30) mmol/L BUN 52 H (9-20) mg/dL Creatinine 4.00 H (0.66-1.25) mg/dL Iron 52 L (65-175) ug/dL TIBC 197 L (228-460) ug/dL Assessment and Plan Assessment: Impression 1. Acute kidney injury secondary to prerenal from low blood pressure creatinine going up from 3.2 on admission to 4. Etiology is hypotension 2. His renal function was normal with creatinine of 0.8 on 11/04/2007. 3. Acute NE with troponin 4, 4. Severe aortic stenosis and cardiomyopathy. 5 seizure metabolic acidosis from acute kidney injury as well as from diarrhea Recommendation 1. Will gently hydrate him with normal saline at 60 an hour. 2. Check postvoid residual. 3 check orthostatic changes. 4. Hold off cardiac cath until creatinine improves. 5. Start sodium bicarb 650 4 times a day Discussed with Dr. Lacey and he agrees with the abov plan
--- NOTE | 2018-01-01 15:10 | P.PN ---
Subjective Patient is admitted for non-ST elevation microinfarction, atrial fibrillation. Patient is found to be in heart failure yesterday patient had an episode of acute hypoxemia was given Lasix. Patient still has crackles on exam chest x- ray showed improvement in pulmonary edema but still hasn't gotten pulmonary edema, 60 mg of Lasix will be given if his blood pressure can tolerate right notes borderline and is in 80 systolic patient's echocardiogram showed ejection fraction of 20-25%. Patient is presently on metoprolol and amiodarone 12/31/2017 Patient is feeling better today denied any shortness of breath patient's creatinine is elevated but stable patient was switched to oral amiodarone. Patient can use to be on IV heparin at this time. We'll obtain a Dilantin level today. 01/01/2018 Patient's Dilantin levels are low patient Dilantin dose will be increased to give additional dose of Dilantin. Patient creatinine continues to worsen which is believed secondary to hypotension and nonoliguric acute tubular necrosis. Plan is to hydrate the patient as per nephrology gentle hydration and close clinical monitoring Constitutional: Denied any fatigue denied any fever. Cardio vascular: denied any chest pain, palpitations Gastrointestinal denied any nausea vomiting Pulmonary: Denied any shortness of breath cough Neurologic denied any new focal deficits Objective - Vital Signs Vital signs: Vital Signs Temp 96.9 F L 01/01/18 08:00 Pulse 70 01/01/18 12:00 Resp 16 01/01/18 14:58 BP 101/56 01/01/18 12:00 Pulse Ox 98 01/01/18 12:00 Intake & Output 12/31/17 01/01/18 01/01/18 18:59 06:59 18:59 Intake Total 955.839 975.904 Output Total 400 100 Balance 555.839 -100 975.904 Weight 82.8 kg Intake: Intake, IV Titration 475.839 495.904 Amount Heparin Sod,Pork in 0.45% 475.839 495.904 NaCl 25,000 unit In 0.45 % NaCl 1 500ml.bag @ 12 UNITS/KG/HR 19.65 mls/hr IV .Q24H [facility] Rx#: [id number] Oral 480 480 Output: Urine 400 100 Other: Voiding Method Toilet Urinal Urinal Urinal # Voids 1 - Exam PHYSICAL EXAMINATION: GENERAL: The patient is alert and oriented x3, not in any acute distress. Well developed, well nourished. HEENT: Pupils are round and equally reacting to light. EOMI. No scleral icterus. No conjunctival pallor. Normocephalic, atraumatic. No pharyngeal erythema. No thyromegaly. CARDIOVASCULAR: S1 and S2 present. No murmurs, rubs, or gallops. PULMONARY: Good air entry into bilateral lung hoang no wheezing on exam no crackles on exam ABDOMEN: Soft, nontender, nondistended, normoactive bowel sounds. No palpable organomegaly. MUSCULOSKELETAL: No joint swelling or deformity. EXTREMITIES: No cyanosis, clubbing, or pedal edema. NEUROLOGICAL: Gross neurological examination did not reveal any focal deficits. SKIN: No rashes. - Labs CBC & Chem 7: 12/30/17 05:24 01/01/18 06:06 Labs: Abnormal Lab Results - Last 24 Hours (Table) 12/31/17 01/01/18 01/01/18 Range/Units 08:52 06:06 06:06 APTT 49.7 H (22.0-30.0) sec Carbon Dioxide 14 L (22-30) mmol/L BUN 52 H (9-20) mg/dL Creatinine 4.00 H (0.66-1.25) mg/dL Iron 52 L (65-175) ug/dL TIBC 197 L (228-460) ug/dL Assessment and Plan Plan: -Non-ST elevation myocardial , Cardizem and IV heparin. Patient is on metoprolol and amiodarone -Congestive heart failure probably acute systolic dysfunction from acute myocardial infarction -New-onset atrial fibrillation may be precipitated by my acute myocardial infarction cardiology evaluated the patient heparin is being continued -Acute renal failure: Due to acute myocardial infarction and hypoperfusion. Patient is receiving IV fluids today and will recheck the basic volley profile tomorrow -Seizure disorder continue his home medications no breakthrough seizures at this time -Depression patient has not been taking his antidepressants because of his generalized tiredness he is unsure if this medication is causing it.
[2018-01-01] MEDS: SODIUM CHLORIDE 0.9% 1,000 ML IV SCH (16:59)
[2018-01-01] MEDS: SODIUM BICARBONATE TAB 650 MG TAB PO SCH (17:01)
[2018-01-02] MEDS: SODIUM CHLORIDE 0.9% 1,000 ML IV SCH ×2 (01:45→21:45)
[2018-01-02] MEDS: HEPARIN SOD,PORK IN 0.45% NACL 25,000 UNIT in 0.45% NACL 1 500ML.BAG IV SCH (03:45)
--- NOTE | 2018-01-02 07:11 | P.PN ---
Subjective Progress Note Date: 01/02/18 Mr. Saini continues not feeling well and continues to feel weak and tired. No chest pain or chest discomfort and no shortness of breath. He continues to be in sinus rhythm and the pressure continues to be marginally low. Unfortunately the creatinine is worse today. The echocardiogram revealed severe cardiomyopathy and severe aortic stenosis. The prognosis overall is very poor. He does not seems to be in any overt congestive heart failure at this point. On follow-up with him today, he is feeling slightly better. No chest pain or discomfort. The shortness of breath has improved. Objective - Vital Signs Vital signs: Vital Signs Temp 98.7 F 01/02/18 03:09 Pulse 68 01/02/18 03:09 Resp 17 01/02/18 03:09 BP 97/64 01/02/18 03:09 Pulse Ox 96 01/02/18 03:09 Intake & Output 01/01/18 01/02/18 01/02/18 18:59 06:59 18:59 Intake Total 1415.904 477.068 Output Total 1028 350 Balance 387.904 127.068 Weight 82.4 kg Intake: Intake, IV Titration 695.904 477.068 Amount Heparin Sod,Pork in 0.45% 695.904 477.068 NaCl 25,000 unit In 0.45 % NaCl 1 500ml.bag @ 12 UNITS/KG/HR 19.65 mls/hr IV .Q24H [facility] Rx#: [id number] Oral 720 Output: Urine 850 350 Post Void Residual 178 Other: Voiding Method Urinal Urinal - Constitutional General appearance: Present: no acute distress - Respiratory Respiratory: bilateral: diminished - Cardiovascular Rhythm: irregularly irregular Heart sounds: normal: S1, S2 Abnormal Heart Sounds: Present: systolic murmur - Labs CBC & Chem 7: 12/30/17 05:24 01/01/18 06:06 Labs: Abnormal Lab Results - Last 24 Hours (Table) 01/02/18 Range/Units 04:30 APTT 48.6 H (22.0-30.0) sec Assessment and Plan Assessment: Assessment #1 severe cardiomyopathy and known if is ischemic or nonischemic #2 severe aortic stenosis #3 advanced renal failure #4 paroxysmal atrial fibrillation Plan #1 the patient seems to be hemodynamically stable beside margin a low blood pressure #2 he continues to be in normal sinus mechanism. #3 continue the current medical regimen #4 nephrology on the case regarding the renal failure
[2018-01-02] MEDS: FAMOTIDINE 20 MG TAB PO SCH (08:06)
[2018-01-02] MEDS: AMIODARONE 200 MG TAB PO SCH ×2 (08:06→21:47)
[2018-01-02] MEDS: METOPROLOL TARTRATE 25 MG TAB PO SCH ×2 (08:06→21:46)
[2018-01-02] MEDS: SODIUM BICARBONATE TAB 650 MG TAB PO SCH ×4 (08:06→21:46)
[2018-01-02] MEDS: PHENYTOIN SODIUM EXTENDED 100 MG CAP PO SCH ×2 (08:06→21:47)
--- NOTE | 2018-01-02 10:32 | P.PN ---
Subjective Progress Note Date: 01/02/18 Principal diagnosis: This 72-year-old male is seen because of acute kidney injury which is progressively worsening. He had severe cardiomyopathy and aortic stenosis, paroxysmal atrial fibrillation. He was admitted with generalized weakness increased troponins and congestive heart failure. Yesterday started him on IV saline 75 per hour, to improve his renal perfusion and see if his worsening renal function could be stabilized. This morning he claims urine output is more than usual, has shortness of breath unchanged. Additionally complains of numbness on his feet. No nausea vomiting but has poor appetite. Blood pressure remains low. His urine output is 13 78 mL in, prior to that was in 500 mL and 675 mL. Creatinine though continues to go up from 3.69 to 4 Objective - Vital Signs Vital signs: Vital Signs Temp 98.5 F 01/02/18 08:00 Pulse 73 01/02/18 08:00 Resp 16 01/02/18 08:00 BP 98/62 01/02/18 08:00 Pulse Ox 98 01/02/18 08:00 Intake & Output 01/01/18 01/02/18 01/02/18 18:59 06:59 18:59 Intake Total 1415.904 477.068 240 Output Total 1028 350 Balance 387.904 127.068 240 Weight 82.4 kg Intake: Intake, IV Titration 695.904 477.068 Amount Heparin Sod,Pork in 0.45% 695.904 477.068 NaCl 25,000 unit In 0.45 % NaCl 1 500ml.bag @ 12 UNITS/KG/HR 19.65 mls/hr IV .Q24H [facility] Rx#: [id number] Oral 720 240 Output: Urine 850 350 Post Void Residual 178 Other: Voiding Method Urinal Urinal On examination is awake alert oriented seems to be comfortable. HEENT exam no JVP neck is supple no facial asymmetry Lungs are clear to auscultation good air entry bilaterally no crackles or his. Heart sounds are unremarkable although he has severe aortic stenosis Abdomen soft nontender non-protuberant Extremity exam reveals no edema Neurologically awake alert oriented comfortable. No asterixis. - Labs CBC & Chem 7: 12/30/17 05:24 01/01/18 06:06 Labs: Abnormal Lab Results - Last 24 Hours (Table) 01/02/18 Range/Units 04:30 APTT 48.6 H (22.0-30.0) sec Assessment and Plan Assessment: Impression 1. Acute kidney injury secondary to prerenal from low blood pressure creatinine going up from 3.2 on admission to 4. Etiology is hypotension. Today 's labs are not available 2. His renal function was normal with creatinine of 0.8 on 11/03/2017. 3. Acute [place] with troponin 4, 4. Severe aortic stenosis and cardiomyopathy. 5. Metabolic acidosis from acute kidney injury as well as from diarrhea. 6. 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 Will continue to hydrate him with normal saline at 60 an hour. 2. check orthostatic changes. 4. Hold off cardiac cath until creatinine improves. 5. Continue sodium bicarb 650 4 times a day. 6. He will need to have the renal mass assessed as well as kidney size assessed with the CT without contrast. 7. We may have to go ahead and get an ultrasound kidney as well if the computed tomography scan is unable to give us kidney size Discussed with Dr. Lacey and he agrees with the above plan, also discussed possibility of requiring dialysis with the patient and with Dr. Lacey. Patient is aware that he may not be able to tolerated dialysis because of blood pressure problems and that he needs to have his aortic stenosis addressed and managed intervention if necessary per cardiology recommendations
[2018-01-02 10:55] LABS: Calcium 8.9 mg/dL (8.4-10.2); Potassium 4.3 mmol/L (3.5-5.1)
[2018-01-02] MEDS: IOPAMIDOL-300 CONTRAST 30 ML VIAL (ORAL USE) PO PRN ×2 (11:17→11:56)
--- NOTE | 2018-01-02 13:06 | CT ---
EXAMINATION TYPE: CT abdomen pelvis wo con DATE OF EXAM: 01/02/2018 COMPARISON: Previous study dated 07/05/2016. HISTORY: mass left kidney and for size of kidneys CT DLP: 599.1 mGycm Automated exposure control for dose reduction was used. FINDINGS: There has developed moderate bilateral effusions, greater on the right than the left. This is associated with relaxation atelectasis. The heart is upper limits of normal in size. There is calc ification of the mitral annulus. There is no pericardial effusion. There is a large fatty mass splaying the limbs of the left adrenal gland. This was present previously at which time it measured 4.9 cm. Today it measures 4.8 cm. The right adrenal gland is normal. There are gallstones within the gallbladder. Liver and spleen are normal. Limited views of the pancreas are normal. There is extensive vascular calcification present. There is no significant retroperitoneal, iliac or inguinal adenopathy. There is thickening of the bladder wall. This was also present previously. There is thickening of the rectosigmoid junction with surrounding inflammatory change. There is fairl y widespread stranding in the retroperitoneal fat extending to just above the aortic bifurcation. The re is also some thickening of the hepatic flexure. There is a scant amount of free fluid. I do not se e evidence of free air. There is hypertrophic spondylosis and facet arthropathy within the spine. There are bridging osteophy jaime at T11-12. There are prominent Schmorl's nodes in the superior endplate of L1, L2 and L3. There i s a vacuum phenomena present at the L3-4 disc level. There is an indirect inguinal hernia on the right containing fat only. There is a stable, 1.6 cm calculus in the right renal pelvis. There is no evidence of hydronephrosis. IMPRESSION: 1. FAIRLY DIFFUSE RETROPERITONEAL INFLAMMATORY CHANGE WHICH MAY BE ON THE BASIS OF COLITIS. OTHER INF ECTIOUS ETIOLOGIES ARE NOT ENTIRELY EXCLUDED. IT DOES PARALLEL THE COURSE OF THE COMMON ILIAC AND LEF T INTERNAL ILIAC ARTERIES. INFECTIVE ARTERITIS WOULD ALSO NEED TO BE CONSIDERED. 2. INTERVAL DEVELOPMENT OF BILATERAL EFFUSIONS, GREATER ON THE RIGHT THAN THE LEFT. 3. 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 4. CHOLELITHIASIS. 5. CHRONIC THICKENING OF THE BLADDER WALL. THIS MAY REPRESENT BLADDER OUTLET OBSTRUCTION OR CYSTITIS. PLEASE CORRELATE CLINICALLY. 6. DEGENERATIVE CHANGES WITHIN THE SPINE.
[2018-01-03] MEDS: HEPARIN SOD,PORK IN 0.45% NACL 25,000 UNIT in 0.45% NACL 1 500ML.BAG IV SCH (00:09)
[2018-01-03] MEDS: SODIUM CHLORIDE 0.9% 1,000 ML IV SCH ×2 (06:31→12:33)
[2018-01-03] MEDS: FAMOTIDINE 20 MG TAB PO SCH (08:11)
[2018-01-03] MEDS: AMIODARONE 200 MG TAB PO SCH ×2 (08:11→20:05)
[2018-01-03] MEDS: METOPROLOL TARTRATE 25 MG TAB PO SCH ×2 (08:11→20:04)
[2018-01-03] MEDS: SODIUM BICARBONATE TAB 650 MG TAB PO SCH ×4 (08:11→20:04)
[2018-01-03] MEDS: PHENYTOIN SODIUM EXTENDED 100 MG CAP PO SCH ×2 (08:11→20:04)
[2018-01-03 09:01] LABS: HCT 25.2 % (39.0-53.0); HGB 8.3 gm/dL (13.0-17.5); MCH 30.7 pg (25.0-35.0); MCHC 33.1 g/dL (31.0-37.0); MCV 92.8 fL (80.0-100.0); Mean Platelet Volume 7.7; Platelet Count 138 k/uL (150-450); RBC 2.71 m/uL (4.30-5.90); WBC 7.6 k/uL (3.8-10.6)
[2018-01-03 09:09] LABS: Calcium 8.4 mg/dL (8.4-10.2); Potassium 4.4 mmol/L (3.5-5.1)
--- NOTE | 2018-01-03 11:27 | P.PN ---
Subjective Progress Note Date: 01/03/18 This is a pleasant 72-year-old gentleman who was admitted to the hospital with atrial fibrillation with rapid ventricular response and non-ST segment elevation PA. He had low hemoglobin and stool positive for occult blood as well as new onset renal failure. He did have an episode of sudden onset pulmonary edema at which time he received some IV Lasix. EKG did show inferolateral ST-T wave changes suggestive of ischemia. The patient's INR is elevated at baseline due to unclear etiology. Echocardiogram showed severe concentric left ventricular hypertrophy, severely impaired LV systolic function with an ejection fraction of 25-30%, severe aortic sclerosis with severe aortic stenosis and severe pulmonary hypertension. Patient is anemic with a hemoglobin of 8.3 and is currently in acute renal failure with BUNs of 45 and creatinine of 3.12, just somewhat improved. Overall, patient isn't feeling much better. Denies any discomfort, palpitations, dizziness, lightheadedness or syncope. He does complain of dyspnea on exertion but no orthopnea or PND. Objective - Vital Signs Vital signs: Vital Signs Temp 97.1 F L 01/03/18 04:00 Pulse 73 01/03/18 08:00 Resp 16 01/03/18 08:00 BP 106/63 01/03/18 08:00 Pulse Ox 98 01/03/18 08:00 Intake & Output 01/02/18 01/03/18 01/03/18 18:59 06:59 18:59 Intake Total 480 1355 222 Output Total 1300 300 500 Balance -820 1055 -278 Weight 84.3 kg Intake: IV 375 .9 375 Intake, IV Titration 500 Amount Heparin Sod,Pork in 0.45% 500 NaCl 25,000 unit In 0.45 % NaCl 1 500ml.bag @ 12 UNITS/KG/HR 19.65 mls/hr IV .Q24H [facility] Rx#: [id number] Oral 480 480 222 Output: Urine 1300 300 500 Other: Voiding Method Urinal Urinal # Voids 2 # Bowel Movements 1 - Exam PHYSICAL EXAMINATION: HEENT: Head is atraumatic, normocephalic. Pupils equal, round. Neck is supple. There is no elevated jugular venous pressure. HEART EXAMINATION: Heart sounds regular, S1 and S2 with a systolic ejection murmur. CHEST EXAMINATION: Lungs are clear to auscultation and precussion faint crackles bilateral bases. No chest wall tenderness is noted on palpation or with deep breathing. ABDOMEN: Soft, nontender. Bowel sounds are heard. No organomegaly noted. EXTREMITIES: 2+ peripheral pulses with no evidence of peripheral edema and no calf tenderness noted. NEUROLOGIC patient is awake, alert and oriented x2-3, memory loss noted. . - Labs CBC & Chem 7: 01/03/18 08:11 01/03/18 08:11 Labs: Abnormal Lab Results - Last 24 Hours (Table) 01/03/18 01/03/18 01/03/18 Range/Units 08:11 08:11 08:11 RBC 2.71 L (4.30-5.90) m/uL Hgb 8.3 L (13.0-17.5) gm/dL Hct 25.2 L (39.0-53.0) % Plt Count 138 L (150-450) k/uL APTT 45.3 H (22.0-30.0) sec Chloride 110 H (98-107) mmol/L Carbon Dioxide 16 L (22-30) mmol/L BUN 45 H (9-20) mg/dL Creatinine 3.12 H (0.66-1.25) mg/dL Glucose 106 H (74-99) mg/dL Assessment and Plan Assessment: #1 non-ST elevation PA #2 acute on chronic systolic congestive heart failure, ejection fraction of 25- 30% #3 paroxysmal atrial fibrillation with rapid ventricular response #4 acute kidney failure #5 severe aortic stenosis #6 severe cardiomyopathy and known whether it is ischemic or nonischemic Plan: From cardiology perspective, medications were reviewed with continue the same. Continue to follow renal function. Hopefully patient will have improving renal functions soon we can work patient up further for underlying CAD and aortic stenosis. Patient is maintaining sinus rhythm We will continue to follow the patient and provide further recommendations accordingly. Unfortunately patient' s prognosis is very poor. LEARNING PROGRAM MANAGER note has been reviewed, I agree with a documented findings and plan of care. Patient was seen and examined.
[2018-01-03 14:28] VITALS: BMI 25.9
--- NOTE | 2018-01-03 16:48 | PN ---
PROGRESS NOTE Patient is seen for followup for acute kidney injury secondary to cardiorenal syndrome and hypotension, hypoperfusion. Renal function has improved somewhat, with creatinine down to 3.12 from 4 mg/dL two days ago. Patient states he is voiding well. He has been started on IV fluids. On examination, blood pressure is 117/71, heart rate 68 per minute. Patient is afebrile. EXAMINATION OF THE HEART: S1, S2. EXAMINATION OF LUNGS: Bilateral breath sounds are heard. ABDOMEN: Soft, non-tender. Examination of lower extremities shows no evidence of edema. SAMPLE DRILLER exam is grossly intact. Labs show sodium 140, potassium 4.4, chloride 110, CO2 16, BUN 45, serum creatinine 3.12, hemoglobin 8.3 g/dL. ASSESSMENT: 1. Acute kidney injury secondary to cardiorenal syndrome and initial hypotension, hypoperfusion; currently seems to be improving. Patient is maintained on IV fluids and he does not appear to be volume-overloaded. I will continue with the IV fluids for now. He is also encouraged to increase his oral intake, particularly fluids. 2. Status post acute myocardial infarction; cardiac catheterization being held secondary to kidney failure secondary to acute kidney injury. 3. Episode of congestive heart failure, likely schematic in nature; responded well to one dose of IV Lasix. 4. Metabolic acidosis secondary to renal failure, maintained on oral sodium bicarb. 5. Cardiomyopathy; ejection fraction about 25% to 30%. 6. Atrial fibrillation with rapid ventricular response initially, currently with controlled ventricular response, maintained on Lopressor. PLAN: Continue with oral sodium bicarb. Continue IV fluids. Repeat labs in a.m. MMODL / IJN: [id number] /
--- NOTE | 2018-01-03 18:43 | P.PN ---
Subjective Progress Note Date: 01/03/18 Progress note being dictated for Dr. Flores. Interval history:Patient is admitted for non-ST elevation microinfarction, atrial fibrillation. Patient is found to be in heart failure yesterday patient had an episode of acute hypoxemia was given Lasix. Patient still has crackles on exam chest x-ray showed improvement in pulmonary edema but still hasn't gotten pulmonary edema, 60 mg of Lasix will be given if his blood pressure can tolerate right notes borderline and is in 80 systolic patient's echocardiogram showed ejection fraction of 20-25%. Patient is presently on metoprolol and amiodarone 12/31/2017 Patient is feeling better today denied any shortness of breath patient's creatinine is elevated but stable patient was switched to oral amiodarone. Patient can use to be on IV heparin at this time. We'll obtain a Dilantin level today. 01/01/2018 Patient's Dilantin levels are low patient Dilantin dose will be increased to give additional dose of Dilantin. Patient creatinine continues to worsen which is believed secondary to hypotension and nonoliguric acute tubular necrosis. Plan is to hydrate the patient as per nephrology gentle hydration and close clinical monitoring Constitutional: Denied any fatigue denied any fever. Cardio vascular: denied any chest pain, palpitations Gastrointestinal denied any nausea vomiting Pulmonary: Denied any shortness of breath cough Neurologic denied any new focal deficits 01/03/2018 maintained on gentle IV fluid hydration ,renal function slowly improving. Hemoglobin 8.3. Denies chest pain, palpitations or increased shortness of breath. Denies lightheadedness dizziness or focal deficits. Objective - Vital Signs Vital signs: Vital Signs Temp 97.1 F L 01/03/18 04:00 Pulse 68 01/03/18 12:00 Resp 16 01/03/18 16:00 BP 117/71 01/03/18 12:00 Pulse Ox 98 01/03/18 12:00 Intake & Output 01/02/18 01/03/18 01/03/18 18:59 06:59 18:59 Intake Total 480 1355 462 Output Total 6380 136 6302 Balance -820 1055 -1038 Weight 84.3 kg 84.3 kg Intake: IV 375 .9 375 Intake, IV Titration 500 Amount Heparin Sod,Pork in 0.45% 500 NaCl 25,000 unit In 0.45 % NaCl 1 500ml.bag @ 12 UNITS/KG/HR 19.65 mls/hr IV .Q24H [facility] Rx#: [id number] Oral 480 480 462 Output: Urine 3574 175 2174 Other: Voiding Method Urinal Urinal Urinal # Voids 2 # Bowel Movements 1 - Exam GENERAL: The patient is alert and oriented x3, not in any acute distress. Well developed, well nourished. HEENT: Pupils are round and equally reacting to light. EOMI. No scleral icterus. No conjunctival pallor. Normocephalic, atraumatic. CARDIOVASCULAR: S1 and S2 present. Systolic murmurs, rubs, or gallops. PULMONARY: Good air entry into bilateral lung hoang no wheezing , occasional fine bibasilar crackles on exam ABDOMEN: Soft, nontender, nondistended, normoactive bowel sounds. No palpable organomegaly. MUSCULOSKELETAL: No joint swelling or deformity. EXTREMITIES: No cyanosis, clubbing, or pedal edema. NEUROLOGICAL: Gross neurological examination did not reveal any focal deficits. SKIN: No rashes. - Labs CBC & Chem 7: 01/03/18 08:11 01/03/18 08:11 Labs: Abnormal Lab Results - Last 24 Hours (Table) 01/03/18 01/03/18 01/03/18 Range/Units 08:11 08:11 08:11 RBC 2.71 L (4.30-5.90) m/uL Hgb 8.3 L (13.0-17.5) gm/dL Hct 25.2 L (39.0-53.0) % Plt Count 138 L (150-450) k/uL APTT 45.3 H (22.0-30.0) sec Chloride 110 H (98-107) mmol/L Carbon Dioxide 16 L (22-30) mmol/L BUN 45 H (9-20) mg/dL Creatinine 3.12 H (0.66-1.25) mg/dL Glucose 106 H (74-99) mg/dL Assessment and Plan Assessment: -Non-ST elevation myocardial , Cardizem and IV heparin. Patient is on metoprolol and amiodarone -Acute on chronic Congestive heart failure systolic dysfunction, EF 25-30% from acute myocardial infarction. Severe cardiomyopathy-suspect ischemic. -New-onset paroxysmal atrial fibrillation may be precipitated by acute myocardial infarction -Severe aortic stenosis -Acute renal failure secondary to cardiorenal syndrome, and hypoperfusion, improving -Seizure disorder continue his home medications no breakthrough seizures at this time -Depression patient has not been taking his antidepressants because of his generalized tiredness he is unsure if this medication is causing it. -Metabolic acidosis secondary to renal failure Plan: Continue on current medication regime , sodium bicarb ,monitoring and symptomatic treatment. Gentle IV fluid hydration as per nephrology. Renal function slowly improving, Cardiology pending further workup/cardiac catheterization eventually once renal function improved. Close monitoring of renal function and lites with repeat labs ordered for a.m. Prognosis guarded given multiple medical issues. The impression and plan of care has been dictated as directed. : I performed a history and examination of this patient, discussed the same with the dictator. I agree with the dictator's note ,documented as a scribe. Any additional findings or plans will be noted.
[2018-01-04] MEDS: HEPARIN SOD,PORK IN 0.45% NACL 25,000 UNIT in 0.45% NACL 1 500ML.BAG IV SCH (04:30)
[2018-01-04] MEDS: FAMOTIDINE 20 MG TAB PO SCH (09:31)
[2018-01-04] MEDS: PHENYTOIN SODIUM EXTENDED 100 MG CAP PO SCH ×2 (09:31→21:41)
[2018-01-04] MEDS: SODIUM BICARBONATE TAB 650 MG TAB PO SCH ×4 (09:31→21:43)
[2018-01-04] MEDS: METOPROLOL TARTRATE 25 MG TAB PO SCH ×2 (09:32→21:41)
[2018-01-04] MEDS: AMIODARONE 200 MG TAB PO SCH ×2 (09:32→21:36)
[2018-01-04] MEDS: SODIUM CHLORIDE 0.9% 1,000 ML IV SCH (09:32)
--- NOTE | 2018-01-04 11:18 | P.PN ---
Subjective Patient is seen in follow-up for acute kidney injury. Creatinine was down to 3.12 as of yesterday. Currently maintained on normal saline at 75 mL an hour. Patient has severe aortic stenosis and pulmonary hypertension. Ejection fraction is 25-30%. Admits to good urine output. No vomiting or diarrhea. Denies chest pain or shortness of breath. Vital signs are stable. General: The patient appeared well nourished and normally developed. HEENT: Head exam is unremarkable. Neck is without jugular venous distension. LUNGS: Lungs are clear to auscultation and percussion. Breath sounds decreased. HEART: Rate and Rhythm are regular. First and second heart sounds normal. Systolic ejection murmur noted. ABDOMEN: Abdominal exam reveals normal bowel sounds. Non-tender and non- distended. No evidence of peritonitis. EXTREMITITES: No clubbing, cyanosis, or edema. Objective - Vital Signs Vital signs: Vital Signs Temp 99.0 F 01/04/18 08:00 Pulse 72 01/04/18 08:00 Resp 15 01/04/18 03:55 BP 107/61 01/04/18 08:00 Pulse Ox 96 01/04/18 08:00 Intake & Output 01/03/18 01/04/18 01/04/18 18:59 06:59 18:59 Intake Total 462 500 180 Output Total 1500 300 Balance -1038 200 180 Weight 84.3 kg 41.1 kg Intake: Intake, IV Titration 500 Amount Heparin Sod,Pork in 0.45% 500 NaCl 25,000 unit In 0.45 % NaCl 1 500ml.bag @ 12 UNITS/KG/HR 19.65 mls/hr IV .Q24H [facility] Rx#: [id number] Oral 462 180 Output: Urine 1500 300 Other: Voiding Method Urinal Urinal # Voids 2 # Bowel Movements 1 1 - Labs CBC & Chem 7: 01/03/18 08:11 01/03/18 08:11 Labs: Abnormal Lab Results - Last 24 Hours (Table) 01/03/18 01/04/18 Range/Units 20:15 03:51 APTT 44.3 H 46.6 H (22.0-30.0) sec Assessment and Plan Plan: Assessment: 1. Nonoliguric acute kidney injury mostly prerenal secondary to hypotension. Renal function has been improving with creatinine down to 3.12 as of yesterday. 2. Systolic CHF with ejection fraction of 25-30% with severe aortic stenosis and pulmonary hypertension. 3. Metabolic acidosis secondary to acute kidney injury maintained on oral sodium bicarbonate. 4. Atrial fibrillation. Currently rate controlled. Plan: I will decrease rate of normal saline to 50 mL an hour. Avoid nephrotoxins. Encouraged oral intake. Repeat electrolytes in the morning.
[2018-01-04 12:43] LABS: Basophils % (A) 0 %; Eosinophils % (A) 0 %; HCT 25.2 % (39.0-53.0); HGB 8.1 gm/dL (13.0-17.5); Lymphocytes # (A) 2.1 k/uL (1.0-4.8); Lymphocytes % (A) 28 %; MCH 30.8 pg (25.0-35.0); MCHC 32.1 g/dL (31.0-37.0); Mean Platelet Volume 7.7; Monocytes # (A) 0.4 k/uL (0-1.0); Monocytes % (A) 6 %; Neutrophils # (A) 4.8 k/uL (1.3-7.7); Neutrophils % (A) 63 %; Platelet Count 133 k/uL (150-450); RBC 2.63 m/uL (4.30-5.90); RDW 15.7 % (11.5-15.5); WBC 7.6 k/uL (3.8-10.6)
--- NOTE | 2018-01-04 12:53 | P.PN ---
Subjective Progress Note Date: 01/04/18 This is a pleasant 72-year-old gentleman who was admitted to the hospital with atrial fibrillation with rapid ventricular response and non-ST segment elevation [place]. He had low hemoglobin and stool positive for occult blood as well as new onset renal failure. He did have an episode of sudden onset pulmonary edema at which time he received some IV Lasix. EKG did show inferolateral ST-T wave changes suggestive of ischemia. The patient's INR is elevated at baseline due to unclear etiology. Echocardiogram showed severe concentric left ventricular hypertrophy, severely impaired LV systolic function with an ejection fraction of 25-30%, severe aortic sclerosis with severe aortic stenosis and severe pulmonary hypertension. Patient is anemic with a hemoglobin of 8.3 and is currently in acute renal failure with BUN of 45 and creatinine of 3.12 as of yesterday, this morning labs are pending. Patient is currently maintaining sinus rhythm. Overall he says he's feeling well. He would like to go home. Patient also does not recall ever being followed in our office for which she was just seen a month ago. Denies ever being told about his aortic stenosis was discussed at his last office visit. Objective - Vital Signs Vital signs: Vital Signs Temp 99.0 F 01/04/18 08:00 Pulse 72 01/04/18 08:00 Resp 15 01/04/18 03:55 BP 107/61 01/04/18 08:00 Pulse Ox 96 01/04/18 08:00 Intake & Output 01/03/18 01/04/18 01/04/18 18:59 06:59 18:59 Intake Total 462 500 180 Output Total 1500 300 Balance -1038 200 180 Weight 84.3 kg 41.1 kg Intake: Intake, IV Titration 500 Amount Heparin Sod,Pork in 0.45% 500 NaCl 25,000 unit In 0.45 % NaCl 1 500ml.bag @ 12 UNITS/KG/HR 19.65 mls/hr IV .Q24H [facility] Rx#: [id number] Oral 462 180 Output: Urine 1500 300 Other: Voiding Method Urinal Urinal # Voids 2 # Bowel Movements 1 1 - Exam PHYSICAL EXAMINATION: HEENT: Head is atraumatic, normocephalic. Pupils equal, round. Neck is supple. There is no elevated jugular venous pressure. HEART EXAMINATION: Heart sounds regular, S1 and S2 with a systolic ejection murmur. CHEST EXAMINATION: Lungs faint crackles bilateral bases. No chest wall tenderness is noted on palpation or with deep breathing. ABDOMEN: Soft, nontender. Bowel sounds are heard. No organomegaly noted. EXTREMITIES: 2+ peripheral pulses with no evidence of peripheral edema and no calf tenderness noted. NEUROLOGIC patient is awake, alert and oriented x3, some confusion and memory loss noted. . - Labs CBC & Chem 7: 01/04/18 12:05 01/03/18 08:11 Labs: Abnormal Lab Results - Last 24 Hours (Table) 01/03/18 01/04/18 01/04/18 Range/Units 20:15 03:51 12:05 RBC 2.63 L (4.30-5.90) m/uL Hgb 8.1 L (13.0-17.5) gm/dL Hct 25.2 L (39.0-53.0) % RDW 15.7 H (11.5-15.5) % Plt Count 133 L (150-450) k/uL APTT 44.3 H 46.6 H (22.0-30.0) sec Assessment and Plan Assessment: #1 non-ST elevation AK #2 acute on chronic systolic congestive heart failure, ejection fraction of 25- 30% #3 paroxysmal atrial fibrillation with rapid ventricular response currently maintaining sinus rhythm #4 acute kidney failure #5 severe aortic stenosis #6 severe cardiomyopathy unknown whether it is ischemic or nonischemic Plan: From cardiology perspective, medications were reviewed with continue the same. Continue to follow renal function, awaiting labs drawn this morning. Hopefully patient will have improving renal functions soon we can work patient up further for underlying CAD and aortic stenosis. Patient is maintaining sinus rhythm We will continue to follow the patient and provide further recommendations accordingly. Unfortunately patient's prognosis is poor. [facility] note has been reviewed, I agree with a documented findings and plan of care. Patient was seen and examined.
[2018-01-04 12:54] LABS: Calcium 8.2 mg/dL (8.4-10.2)
[2018-01-04 12:59] LABS: Potassium 4.3 mmol/L (3.5-5.1)
[2018-01-05] MEDS: SODIUM CHLORIDE 0.9% 1,000 ML IV SCH ×2 (02:30→06:34)
[2018-01-05] MEDS: HEPARIN SOD,PORK IN 0.45% NACL 25,000 UNIT in 0.45% NACL 1 500ML.BAG IV SCH (06:30)
[2018-01-05] MEDS: FAMOTIDINE 20 MG TAB PO SCH (09:59)
[2018-01-05] MEDS: AMIODARONE 200 MG TAB PO SCH ×2 (09:59→20:30)
[2018-01-05] MEDS: PHENYTOIN SODIUM EXTENDED 100 MG CAP PO SCH ×2 (09:59→20:34)
[2018-01-05] MEDS: METOPROLOL TARTRATE 25 MG TAB PO SCH ×2 (09:59→20:33)
[2018-01-05] MEDS: SODIUM BICARBONATE TAB 650 MG TAB PO SCH ×2 (09:59→20:36)
[2018-01-05 10:19] LABS: Calcium 8.4 mg/dL (8.4-10.2); Potassium 4.1 mmol/L (3.5-5.1)
[2018-01-05] MEDS ORDERED: SODIUM BICARB 8.4% 50 ML SYR (1 MEQ/ML) IV ONE (11:40)
[2018-01-05] MEDS ORDERED: SODIUM BICARBONATE TAB 650 MG TAB PO ONE (11:45)
--- NOTE | 2018-01-05 11:54 | P.PN ---
Subjective Patient is seen in follow-up for acute kidney injury. Creatinine was down to 2.52 today. Currently maintained on normal saline at 50 mL an hour. Patient has severe aortic stenosis and pulmonary hypertension. Ejection fraction is 25- 30%. Admits to good urine output. No vomiting or diarrhea. Denies chest pain or shortness of breath. Vital signs are stable. General: The patient appeared well nourished and normally developed. HEENT: Head exam is unremarkable. Neck is without jugular venous distension. LUNGS: Lungs are clear to auscultation and percussion. Breath sounds decreased. HEART: Rate and Rhythm are regular. First and second heart sounds normal. Systolic ejection murmur noted. ABDOMEN: Abdominal exam reveals normal bowel sounds. Non-tender and non- distended. No evidence of peritonitis. EXTREMITITES: No clubbing, cyanosis, or edema. Objective - Vital Signs Vital signs: Vital Signs Temp 96.9 F L 01/05/18 08:00 Pulse 72 01/05/18 08:00 Resp 17 01/05/18 04:00 BP 117/62 01/05/18 08:00 Pulse Ox 97 01/05/18 08:00 Intake & Output 01/04/18 01/05/18 01/05/18 18:59 06:59 18:59 Intake Total 660 1290 360 Output Total 700 890 Balance -40 400 360 Weight 87.3 kg Intake: Intake, IV Titration 1050 Amount Heparin Sod,Pork in 0.45% 500 NaCl 25,000 unit In 0.45 % NaCl 1 500ml.bag @ 12 UNITS/KG/HR 19.65 mls/hr IV .Q24H [facility] Rx#: [id number] Sodium Chloride 0.9% 1, 550 000 ml @ 50 mls/hr IV . Q20H [facility] Rx#:[id number] Oral 660 240 360 Output: Urine 700 890 Other: Voiding Method Urinal - Labs CBC & Chem 7: 01/04/18 12:05 01/05/18 07:14 Labs: Abnormal Lab Results - Last 24 Hours (Table) 01/04/18 01/04/18 01/04/18 Range/Units 12:05 12:05 12:05 RBC 2.63 L (4.30-5.90) m/uL Hgb 8.1 L (13.0-17.5) gm/dL Hct 25.2 L (39.0-53.0) % RDW 15.7 H (11.5-15.5) % Plt Count 133 L (150-450) k/uL APTT 68.1 H (22.0-30.0) sec Chloride 113 H (98-107) mmol/L Carbon Dioxide 15 L (22-30) mmol/L BUN 36 H (9-20) mg/dL Creatinine 2.66 H (0.66-1.25) mg/dL Glucose 106 H (74-99) mg/dL Calcium 8.2 L (8.4-10.2) mg/dL 01/05/18 01/05/18 Range/Units 07:14 07:14 RBC (4.30-5.90) m/uL Hgb (13.0-17.5) gm/dL Hct (39.0-53.0) % RDW (11.5-15.5) % Plt Count (150-450) k/uL APTT 67.9 H (22.0-30.0) sec Chloride 112 H (98-107) mmol/L Carbon Dioxide 14 L (22-30) mmol/L BUN 29 H (9-20) mg/dL Creatinine 2.52 H (0.66-1.25) mg/dL Glucose (74-99) mg/dL Calcium (8.4-10.2) mg/dL Assessment and Plan Plan: Assessment: 1. Nonoliguric acute kidney injury mostly prerenal secondary to hypotension. Renal function has been improving with creatinine down to 2.52 today. 2. Systolic CHF with ejection fraction of 25-30% with severe aortic stenosis and pulmonary hypertension. 3. Metabolic acidosis secondary to acute kidney injury maintained on oral sodium bicarbonate. 4. Atrial fibrillation. Currently rate controlled. Plan: Maintain normal saline at 50 mL an hour. I will change oral bicarb 1300 mg twice daily. 1 amp of bicarb IV push today. Follow-up chest x-ray. Avoid nephrotoxins. Encouraged oral intake. Repeat electrolytes in the morning.
--- NOTE | 2018-01-05 13:36 | XR ---
EXAMINATION TYPE: XR chest 1V DATE OF EXAM: 01/05/2018 COMPARISON: Prior chest x-ray 12/30/2017 HISTORY: Congestive heart failure TECHNIQUE: Single frontal view of the chest is obtained. FINDINGS: Patient is rotated. Heart size is stable. Perihilar vascular indistinctness shows a simila r appearance. No evident pneumothorax or sizable pleural effusion. Patchy basilar density is present. Exam is expiratory. Marked distortion of the right shoulder is stable. IMPRESSION: There may be some basilar atelectasis versus edema, pneumonia not excluded. Rotated expi ratory exam, follow-up suggested. Heart size may be accentuated by technique.
--- NOTE | 2018-01-05 14:49 | P.PN ---
Subjective Progress Note Date: 01/05/18 This is a pleasant 72-year-old gentleman who was admitted to the hospital with atrial fibrillation with rapid ventricular response and non-ST segment elevation [place]. He had low hemoglobin and stool positive for occult blood as well as new onset renal failure. He did have an episode of sudden onset pulmonary edema at which time he received some IV Lasix. EKG did show inferolateral ST-T wave changes suggestive of ischemia. Echocardiogram showed severe concentric left ventricular hypertrophy, severely impaired LV systolic function with an ejection fraction of 25-30%, severe aortic sclerosis with severe aortic stenosis and severe pulmonary hypertension. Patient is currently maintaining sinus rhythm. Overall he says he's feeling well. He continues at this time to be on IV heparin which we will discontinue today. He is not a candidate for anticoagulation at this time because of the low hemoglobin. MR perspective we will monitor the patient for another 24 hours, possible discharge home in the morning. BUN today 29 and creatinine 2.5. DAVID and cardiac catheterization as an outpatient, possible TAVR down the road. Objective - Vital Signs Vital signs: Vital Signs Temp 96.9 F L 01/05/18 08:00 Pulse 63 01/05/18 12:00 Resp 17 01/05/18 04:00 BP 102/63 01/05/18 12:00 Pulse Ox 99 01/05/18 12:00 Intake & Output 01/04/18 01/05/18 01/05/18 18:59 06:59 18:59 Intake Total 660 1290 582 Output Total 700 890 600 Balance -40 400 -18 Weight 87.3 kg Intake: Intake, IV Titration 1050 Amount Heparin Sod,Pork in 0.45% 500 NaCl 25,000 unit In 0.45 % NaCl 1 500ml.bag @ 12 UNITS/KG/HR 19.65 mls/hr IV .Q24H [facility] Rx#: [id number] Sodium Chloride 0.9% 1, 550 000 ml @ 50 mls/hr IV . Q20H [facility] Rx#:[id number] Oral 660 240 582 Output: Urine 700 890 600 Other: Voiding Method Urinal # Bowel Movements 1 - Exam PHYSICAL EXAMINATION: HEENT: Head is atraumatic, normocephalic. Pupils equal, round. Neck is supple. There is no elevated jugular venous pressure. HEART EXAMINATION: Heart sounds regular, S1 and S2 with a systolic ejection murmur. CHEST EXAMINATION: Lungs faint crackles bilateral bases. No chest wall tenderness is noted on palpation or with deep breathing. ABDOMEN: Soft, nontender. Bowel sounds are heard. No organomegaly noted. EXTREMITIES: 2+ peripheral pulses with no evidence of peripheral edema and no calf tenderness noted. NEUROLOGIC patient is awake, alert and oriented x3, some confusion and memory loss noted. - Labs CBC & Chem 7: 01/04/18 12:05 01/05/18 07:14 Labs: Abnormal Lab Results - Last 24 Hours (Table) 01/05/18 01/05/18 Range/Units 07:14 07:14 APTT 67.9 H (22.0-30.0) sec Chloride 112 H (98-107) mmol/L Carbon Dioxide 14 L (22-30) mmol/L BUN 29 H (9-20) mg/dL Creatinine 2.52 H (0.66-1.25) mg/dL Assessment and Plan Plan: Assessment and plan: #1 non-ST elevation [place], medical therapy at this time #2 acute on chronic systolic congestive heart failure, ejection fraction of 25- 30% #3 paroxysmal atrial fibrillation with rapid ventricular response currently maintaining sinus rhythm #4 acute kidney failure #5 severe aortic stenosis #6 severe cardiomyopathy unknown whether it is ischemic or nonischemic Plan Today we will discontinue the IV heparin, continue the rest patient's medications. Monitor for another 24 hours. Patient's not felt at this time to be a candidate for anticoagulation because of low hemoglobin. Plan for possible discharge home in the morning. DAVID and cardiac catheterization as an outpatient, possible TAVR down the road. DNP note has been reviewed, I agree with a documented findings and plan of care. Patient was seen and examined.
[2018-01-06 07:35] LABS: Calcium 8.5 mg/dL (8.4-10.2); Potassium 3.7 mmol/L (3.5-5.1)
[2018-01-06] MEDS: AMIODARONE 200 MG TAB PO SCH (09:20)
[2018-01-06] MEDS: PHENYTOIN SODIUM EXTENDED 100 MG CAP PO SCH (09:20)
[2018-01-06] MEDS: FAMOTIDINE 20 MG TAB PO SCH (09:20)
[2018-01-06] MEDS: METOPROLOL TARTRATE 25 MG TAB PO SCH (09:20)
[2018-01-06] MEDS: SODIUM BICARBONATE TAB 650 MG TAB PO SCH (09:20)
--- NOTE | 2018-01-06 11:27 | P.PN ---
Subjective Patient is seen in follow-up for acute kidney injury. Creatinine was down to 2.30 today. Currently maintained on normal saline at 50 mL an hour. Patient has severe aortic stenosis and pulmonary hypertension. Ejection fraction is 25- 30%. Admits to good urine output. No vomiting or diarrhea. Denies chest pain or shortness of breath. Vital signs are stable. General: The patient appeared well nourished and normally developed. HEENT: Head exam is unremarkable. Neck is without jugular venous distension. LUNGS: Lungs are clear to auscultation and percussion. Breath sounds decreased. HEART: Rate and Rhythm are regular. First and second heart sounds normal. Systolic ejection murmur noted. ABDOMEN: Abdominal exam reveals normal bowel sounds. Non-tender and non- distended. No evidence of peritonitis. EXTREMITITES: No clubbing, cyanosis, or edema. Objective - Vital Signs Vital signs: Vital Signs Temp 98.9 F 01/06/18 08:00 Pulse 77 01/06/18 08:00 Resp 21 01/06/18 04:00 BP 114/70 01/06/18 08:00 Pulse Ox 95 01/06/18 08:00 Intake & Output 01/05/18 01/06/18 01/06/18 18:59 06:59 18:59 Intake Total 822 1500 Output Total 825 425 Balance -3 1075 Weight 87.6 kg Intake: IV 420 .9 400 Invasive Line 6 20 Oral 822 1080 Output: Urine 825 425 Other: Voiding Method Urinal # Voids 2 # Bowel Movements 1 - Labs CBC & Chem 7: 01/04/18 12:05 01/06/18 06:20 Labs: Abnormal Lab Results - Last 24 Hours (Table) 01/06/18 Range/Units 06:20 Chloride 112 H (98-107) mmol/L Carbon Dioxide 19 L (22-30) mmol/L BUN 25 H (9-20) mg/dL Creatinine 2.30 H (0.66-1.25) mg/dL Glucose 115 H (74-99) mg/dL Assessment and Plan Plan: Assessment: 1. Nonoliguric acute kidney injury mostly prerenal secondary to hypotension. Renal function has been improving with creatinine down to 2.3 today. 2. Systolic CHF with ejection fraction of 25-30% with severe aortic stenosis and pulmonary hypertension. 3. Metabolic acidosis secondary to acute kidney injury maintained on oral sodium bicarbonate. Better. 4. Atrial fibrillation. Currently rate controlled. Plan: Hep-Lock IV fluids. Maintain oral bicarb 1300 mg twice daily. Avoid nephrotoxins. Encouraged oral intake. Repeat electrolytes in the morning.
--- NOTE | 2018-01-06 14:28 | P.PN ---
Subjective Progress Note Date: 01/06/18 This is a pleasant 72-year-old gentleman who was admitted to the hospital with atrial fibrillation with rapid ventricular response and non-ST segment elevation IN. He had low hemoglobin and stool positive for occult blood as well as new onset renal failure. He did have an episode of sudden onset pulmonary edema at which time he received some IV Lasix. EKG did show inferolateral ST-T wave changes suggestive of ischemia. Echocardiogram showed severe concentric left ventricular hypertrophy, severely impaired LV systolic function with an ejection fraction of 25-30%, severe aortic sclerosis with severe aortic stenosis and severe pulmonary hypertension. Patient is currently maintaining sinus rhythm. Overall he says he's feeling well. He continues at this time to be on IV heparin which we will discontinue today. He is not a candidate for anticoagulation at this time because of the low hemoglobin. MR perspective we will monitor the patient for another 24 hours, possible discharge home in the morning. BUN today 29 and creatinine 2.5. DAVID and cardiac catheterization as an outpatient, possible TAVR down the road. 01 06 2018 patient was seen and examined this morning,denies any chest pain or difficulty in breathing. Creatinine improving 2.3 today.blood pressure 119/70 with a heart rate in the 60s, 98% on room air. Objective - Vital Signs Vital signs: Vital Signs Temp 98.9 F 01/06/18 08:00 Pulse 69 01/06/18 12:00 Resp 21 01/06/18 04:00 BP 119/74 01/06/18 12:00 Pulse Ox 98 01/06/18 12:00 Intake & Output 01/05/18 01/06/18 01/06/18 18:59 06:59 18:59 Intake Total 822 1500 100 Output Total 825 425 Balance -3 1075 100 Weight 87.6 kg Intake: IV 420 .9 400 Invasive Line 6 20 Oral 822 1080 100 Output: Urine 825 425 Other: Voiding Method Urinal # Voids 2 # Bowel Movements 1 - Exam PHYSICAL EXAMINATION: HEENT: Head is atraumatic, normocephalic. Pupils equal, round. Neck is supple. There is no elevated jugular venous pressure. HEART EXAMINATION: Heart sounds regular, S1 and S2 with a systolic ejection murmur. CHEST EXAMINATION: Lungs faint crackles bilateral bases. No chest wall tenderness is noted on palpation or with deep breathing. ABDOMEN: Soft, nontender. Bowel sounds are heard. No organomegaly noted. EXTREMITIES: 2+ peripheral pulses with no evidence of peripheral edema and no calf tenderness noted. NEUROLOGIC patient is awake, alert and oriented x3, some confusion and memory loss noted. - Labs CBC & Chem 7: 01/04/18 12:05 01/06/18 06:20 Labs: Abnormal Lab Results - Last 24 Hours (Table) 01/06/18 Range/Units 06:20 Chloride 112 H (98-107) mmol/L Carbon Dioxide 19 L (22-30) mmol/L BUN 25 H (9-20) mg/dL Creatinine 2.30 H (0.66-1.25) mg/dL Glucose 115 H (74-99) mg/dL Assessment and Plan Plan: Assessment and plan: #1 non-ST elevation IN, medical therapy at this time #2 acute on chronic systolic congestive heart failure, ejection fraction of 25- 30% #3 paroxysmal atrial fibrillation with rapid ventricular response currently maintaining sinus rhythm #4 acute kidney failure #5 severe aortic stenosis #6 severe cardiomyopathy unknown whether it is ischemic or nonischemic Plan cardiology's perspective, we will continue the patient's medications. Monitor for another 24 hours. Patient's not felt at this time to be a candidate for anticoagulation because of low hemoglobin. Plan for possible discharge home in the morning. DAVID and cardiac catheterization as an outpatient, possible TAVR down the road. DNP note has been reviewed, I agree with a documented findings and plan of care. Patient was seen and examined.
[2018-01-06 16:10] VITALS: BP 115/66; PULSE 68; RESP 16; TEMP 97.8
[2018-01-06] MEDS ORDERED: AMIODARONE 200 MG TAB PO SCH (21:00)
== END 2018-01-06 17:52 | disposition home or self-care (01) | DRG 280 ==
LOC: EC 23:31 → 6SEL 12-29 00:59 → 3SCARD 01-02 10:41 → 6SEL 01-02 10:41 → 3SCARD 01-03 16:09
PROVIDERS: ADMIT Hospitalist; ATTEND Hospitalist
DX: I21.4 Non-ST elevation (NSTEMI) myocardial infarction (principal); I50.23 Acute on chronic systolic (congestive) heart failure; N17.0 Acute kidney failure with tubular necrosis; Q28.2 Arteriovenous malformation of cerebral vessels; E87.2 Acidosis; I13.0 Hypertensive heart and chronic kidney disease with heart failure and stage 1 through stage 4 chronic kidney disease, or unspecified chronic kidney disease; I48.1 Persistent atrial fibrillation; D64.9 Anemia, unspecified; E27.9 Disorder of adrenal gland, unspecified; F32.9 Major depressive disorder, single episode, unspecified; F41.9 Anxiety disorder, unspecified; G40.909 Epilepsy, unspecified, not intractable, without status epilepticus; T43.206A Underdosing of unspecified antidepressants, initial encounter; Z91.128 Patient's intentional underdosing of medication regimen for other reason; I25.5 Ischemic cardiomyopathy; I27.20 Pulmonary hypertension, unspecified; I35.0 Nonrheumatic aortic (valve) stenosis; I48.0 Paroxysmal atrial fibrillation; I70.0 Atherosclerosis of aorta; N18.9 Chronic kidney disease, unspecified; N20.0 Calculus of kidney; R09.02 Hypoxemia; R79.1 Abnormal coagulation profile; Z82.49 Family history of ischemic heart disease and other diseases of the circulatory system; Z86.73 Personal history of transient ischemic attack (TIA), and cerebral infarction without residual deficits; Z79.82 Long term (current) use of aspirin; Z79.899 Other long term (current) drug therapy; Z88.8 Allergy status to other drugs, medicaments and biological substances; R19.5 Other fecal abnormalities
CPT/HCPCS: 36415; 71045; 71046; 74176; 76770; 80048; 80053; 80185; 81001; 82272; 82550; 82553; 82570; 83540; 83550; 83735; 83880; 84300; 84443; 84484; 85025; 85027; 85610; 85730; 86850; 86900; 86901; 87205; 93306; 94760; 96365; 96366; 96375; 96376; 99291

== ENCOUNTER 2018-01-10 10:16 | Inpatient (IN) | payer MEDICARE, BC ==
[2018-01-10] MEDS ORDERED: DILTIAZEM DRIP BOLUS FROM BAG 1 MG SOLN IV ONE ×2 (10:37→11:42)
[2018-01-10] MEDS ORDERED: DILTIAZEM 50 MG in SODIUM CHLORIDE 0.9% 40 ML IV SCH ×2 (10:45→11:45)
--- NOTE | 2018-01-10 10:45 | ED ---
General Adult HPI - General Chief complaint: Shortness of Breath Stated complaint: SOB Time Seen by Provider: 01/10/18 10:20 Source: patient, EMS, RN notes reviewed Mode of arrival: EMS Limitations: no limitations - History of Present Illness Initial comments: This is a 72-year-old male who presents emergency Department with a recently diagnosed atrial fibrillation history. Patient states intermittently over the last couple of days he has been getting more more short of breath and feelings of his heart is racing. Patient denies any chest pain or pressure. Patient denies any fever or cough. Patient states he just becomes very short of breath when he exerts himself at all. Patient denies any abdominal pain patient denies nausea vomiting diarrhea. Patient states he is on some new medications but is not sure what they are. Patient had no near syncopal episodes or lightheadedness. Patient denies any swelling to legs or calf tenderness. - Related Data Home Medications Medication Instructions Recorded Confirmed Sertraline [Zoloft] 100 mg PO HS 08/04/17 01/10/18 Potassium Chloride [Klor-Con 8] 8 meq PO DAILY 12/30/17 01/10/18 Previous Rx's Medication Instructions Recorded Amiodarone [Cordarone] 200 mg PO BID #60 tab 01/06/18 Metoprolol Tartrate [Lopressor] 25 mg PO BID #60 tab 01/06/18 Phenytoin Sodium Extended 300 mg PO BID #180 cap 01/06/18 [Dilantin] Sodium Bicarbonate Tab 1,300 mg PO BID #120 tab 01/06/18 Allergies Allergy/AdvReac Type Severity Reaction Status Date / Time loratadine Allergy Unknown Verified 01/10/18 10:59 antihistamines Allergy Unknown Uncoded 11/22/17 22:17 Review of Systems ROS Statement: Those systems with pertinent positive or pertinent negative responses have been documented in the HPI. ROS Other: All systems not noted in ROS Statement are negative. Past Medical History Past Medical History: Atrial Fibrillation, CVA/TIA, Hypertension, Seizure Disorder Additional Past Medical History / Comment(s): alcohol intoxication, alcohol withdrawal seizures, hypokalemia, hyponatremia, dehyration, metabolic encephalopathy History of Any Multi-Drug Resistant Organisms: None Reported Past Surgical History: No Surgical Hx Reported Past Anesthesia/Blood Transfusion Reactions: No Reported Reaction Past Psychological History: Anxiety, Depression Smoking Status: Never smoker Past Alcohol Use History: Occasional Past Drug Use History: None Reported - Past Family History Father Family Medical History: No Reported History Mother Family Medical History: Coronary Artery Disease (CAD), Hypertension General Exam - General Exam Comments Initial Comments: GENERAL: Patient is well-developed and well-nourished. Patient is nontoxic and well- hydrated and is in mild distress. ENT: Neck is soft and supple. No significant lymphadenopathy is noted. Oropharynx is clear. Moist mucous membranes. Neck has full range of motion without eliciting any pain. EYES: The sclera were anicteric and conjunctiva were pink and moist. Extraocular movements were intact and pupils were equal round and reactive to light. Eyelids were unremarkable. PULMONARY: Unlabored respirations. Good breath sounds bilaterally. No audible rales rhonchi or wheezing was noted. CARDIOVASCULAR: Patient is tachycardic at about 140 beats minute it does appear to be irregular. ABDOMEN: Soft and nontender with normal bowel sounds. No palpable organomegaly was noted. There is no palpable pulsatile mass. SKIN: Skin is clear with no lesions or rashes and otherwise unremarkable. NEUROLOGIC: Patient is alert and oriented x3. Cranial nerves II through XII are grossly intact. Motor and sensory are also intact. Normal speech, volume and content. Symmetrical smile. MUSCULOSKELETAL: Normal extremities with adequate strength and full range of motion. LYMPHATICS: No significant lymphadenopathy is noted PSYCHIATRIC: Normal psychiatric evaluation. Limitations: no limitations Course Vital Signs 01/10/18 01/10/18 01/10/18 10:30 11:00 11:49 Temperature 98.8 F Pulse Rate 138 H 134 H 142 H Respiratory 17 19 18 Rate Blood Pressure 127/98 125/106 135/72 O2 Sat by Pulse 99 99 100 Oximetry 01/10/18 12:00 Temperature Pulse Rate 131 H Respiratory 16 Rate Blood Pressure 135/72 O2 Sat by Pulse 97 Oximetry Medical Decision Making - Medical Decision Making EKG shows atrial fibrillation with rapid ventricular response at 141 bpm QRS is 116 QT interval 340 QTC is 520. Patient's EKG shows no ST segment elevation or depression or T wave abnormalities are noted. Show signs of some acute pulmonary edema. Patient was started on Cardizem drip after he got a Cardizem bolus slowed his heart rate. I spoke with because he agreed to admit admitted the patient I wrote admitting orders and consult cardiology I continued Cardizem drip on the floor. - Lab Data Result diagrams: 01/10/18 11:37 01/10/18 11:37 Lab Results 01/10/18 01/10/18 01/10/18 Range/Units 11:37 11:37 11:37 WBC 8.8 (3.8-10.6) k/uL RBC 3.15 L (4.30-5.90) m/uL Hgb 9.8 L D (13.0-17.5) gm/dL Hct 30.8 L (39.0-53.0) % MCV 97.7 (80.0-100.0) fL MCH 31.2 (25.0-35.0) pg MCHC 32.0 (31.0-37.0) g/dL RDW 16.8 H (11.5-15.5) % Plt Count 241 (150-450) k/uL Neutrophils % 76 % Lymphocytes % 16 % Monocytes % 6 % Eosinophils % 1 % Basophils % 0 % Neutrophils # 6.7 (1.3-7.7) k/uL Lymphocytes # 1.4 (1.0-4.8) k/uL Monocytes # 0.5 (0-1.0) k/uL Eosinophils # 0.1 (0-0.7) k/uL Basophils # 0.0 (0-0.2) k/uL Hypochromasia Slight Anisocytosis Slight Macrocytosis Slight PT (9.0-12.0) sec INR (<1.2) APTT (22.0-30.0) sec Sodium 142 (137-145) mmol/L Potassium 3.7 (3.5-5.1) mmol/L Chloride 111 H (98-107) mmol/L Carbon Dioxide 21 L (22-30) mmol/L Anion Gap 10 mmol/L BUN 11 (9-20) mg/dL Creatinine 1.98 H (0.66-1.25) mg/dL Est GFR (CKD-EPI)AfAm 38 (>60 ml/min/1.73 sqM) Est GFR (CKD-EPI)NonAf 33 (>60 ml/min/1.73 sqM) Glucose 121 H (74-99) mg/dL Calcium 9.0 (8.4-10.2) mg/dL Magnesium 1.5 L (1.6-2.3) mg/dL Total Bilirubin 0.7 (0.2-1.3) mg/dL AST 20 (17-59) U/L ALT 67 (21-72) U/L Alkaline Phosphatase 68 (38-126) U/L Total Creatine Kinase 70 (55-170) U/L Total Protein 9.8 H (6.3-8.2) g/dL Albumin 3.4 L (3.5-5.0) g/dL 01/10/18 Range/Units 11:37 WBC (3.8-10.6) k/uL RBC (4.30-5.90) m/uL Hgb (13.0-17.5) gm/dL Hct (39.0-53.0) % MCV (80.0-100.0) fL MCH (25.0-35.0) pg MCHC (31.0-37.0) g/dL RDW (11.5-15.5) % Plt Count (150-450) k/uL Neutrophils % % Lymphocytes % % Monocytes % % Eosinophils % % Basophils % % Neutrophils # (1.3-7.7) k/uL Lymphocytes # (1.0-4.8) k/uL Monocytes # (0-1.0) k/uL Eosinophils # (0-0.7) k/uL Basophils # (0-0.2) k/uL Hypochromasia Anisocytosis Macrocytosis PT 13.5 H (9.0-12.0) sec INR 1.4 H (<1.2) APTT 28.3 (22.0-30.0) sec Sodium (137-145) mmol/L Potassium (3.5-5.1) mmol/L Chloride (98-107) mmol/L Carbon Dioxide (22-30) mmol/L Anion Gap mmol/L BUN (9-20) mg/dL Creatinine (0.66-1.25) mg/dL Est GFR (CKD-EPI)AfAm (>60 ml/min/1.73 sqM) Est GFR (CKD-EPI)NonAf (>60 ml/min/1.73 sqM) Glucose (74-99) mg/dL Calcium (8.4-10.2) mg/dL Magnesium (1.6-2.3) mg/dL Total Bilirubin (0.2-1.3) mg/dL AST (17-59) U/L ALT (21-72) U/L Alkaline Phosphatase (38-126) U/L Total Creatine Kinase (55-170) U/L Total Protein (6.3-8.2) g/dL Albumin (3.5-5.0) g/dL Critical Care Time Critical Care Time: Yes Total Critical Care Time: 35 Disposition Clinical Impression: Atrial fibrillation with rapid ventricular response, Pulmonary edema Disposition: ADMITTED IP TO THIS HOSP Referrals: Tony Mukherjee MD [Primary Care Provider] - 1-2 days Time of Disposition: 13:18
[2018-01-10 11:54] LABS: Anisocytosis Slight; Basophils % (A) 0 %; Eosinophils # (A) 0.1 k/uL (0-0.7); Eosinophils % (A) 1 %; HCT 30.8 % (39.0-53.0); Hypochromasia Slight; Lymphocytes # (A) 1.4 k/uL (1.0-4.8); Lymphocytes % (A) 16 %; MCH 31.2 pg (25.0-35.0); MCV 97.7 fL (80.0-100.0); Macrocytosis Slight; Mean Platelet Volume 6.7; Monocytes # (A) 0.5 k/uL (0-1.0); Monocytes % (A) 6 %; Neutrophils # (A) 6.7 k/uL (1.3-7.7); Neutrophils % (A) 76 %; Platelet Count 241 k/uL (150-450); RBC 3.15 m/uL (4.30-5.90); RDW 16.8 % (11.5-15.5); WBC 8.8 k/uL (3.8-10.6)
[2018-01-10 11:58] LABS: HGB 9.8 gm/dL (13.0-17.5)
[2018-01-10 12:03] LABS: Albumin 3.4 g/dL (3.5-5.0); Magnesium 1.5 mg/dL (1.6-2.3); Potassium 3.7 mmol/L (3.5-5.1); Total Bilirubin 0.7 mg/dL (0.2-1.3); Total Protein 9.8 g/dL (6.3-8.2)
[2018-01-10 12:08] LABS: INR 1.4 (<1.2); Partial Thromboplastin Time 28.3 sec (22.0-30.0); Prothrombin Time 13.5 sec (9.0-12.0)
--- NOTE | 2018-01-10 12:21 | XR ---
EXAMINATION TYPE: XR chest 2V DATE OF EXAM: 01/10/2018 COMPARISON: 01/05/2018 TECHNIQUE: PA and lateral views submitted. HISTORY: Difficulty breathing FINDINGS: Bilateral consolidation and small effusion. No pneumothorax. Arthropathy of the shoulders. Atheroscle rotic change aorta. Aorta is stable. IMPRESSION: 1. Bilateral consolidation and small effusion. Correlate for pneumonia versus underlying CHF.
[2018-01-10 12:27] LABS: Creatine Kinase MB 3.6 ng/mL (0.0-2.4)
[2018-01-10] MEDS ORDERED: NITROGLYCERIN SL TABS 0.4 MG TAB SUBLINGUAL PRN (13:19)
[2018-01-10 13:20] LABS: Troponin I 0.344 ng/mL (0.000-0.034)
[2018-01-10] MEDS ORDERED: METOPROLOL TARTRATE 50 MG TAB PO SCH (14:00)
[2018-01-10] MEDS ORDERED: DEXTROSE 5% IN WATER 100 ML with AMIODARONE 150 MG IV ONE (14:30)
[2018-01-10] MEDS ORDERED: HEPARIN SODIUM,PORCINE 5,000 UNIT/ML 1 ML VIAL IV PRN (14:34)
--- NOTE | 2018-01-10 14:38 | P.HPIM ---
History of Present Illness 72-year-old male came in images department with the complaints of generalized fatigue and able to sleep, does have some cushion will proximal nocturnal dyspnea and orthopnea. Patient denied any fever chills. Patient is found to be in atrial fibrillation on her will to ER. Patient does have a highly elevated BNP along with bilateral pleural effusions currently in a and B lines consistent with congestive heart failure. Patient is a known patient to me from his last hospitalization. At that time patient was admitted for acute non- ST elevation myocardial infarction leading to acute systolic dysfunction acute heart failure with ejection fraction of 25%. Patient has extremely poor kidney function with creatinine of around 3.5 because of which cardiac catheterization was not done during his last hospitalization. Plan was made that patient be discharged and follow-up as an outpatient for a cardiac catheterization by the time hopefully his creatinine and kidney function improves. Patient creatinine presently is 1.98. Patient is saturating 97% and 2 L because of which I'm not starting him on a Lasix. Patient was initially started on Cardizem which will be discontinued. Patient blood pressure is borderline because of which I cannot give metoprolol either. Patient will be started on amiodarone bolus followed by IV amiodarone drip. Does have minimally elevated troponin again now to 0.3. Patient also has severe aortic stenosis. He denied any chest pain at this time. Review of Systems REVIEW OF SYSTEMS: CONSTITUTIONAL: No fever, HEENT: No recent visual problems or hearing problems. Denied any sore throat. CARDIOVASCULAR: No chest pain, no palpitations, no syncope. PULMONARY: No shortness of breath, no cough, no hemoptysis. GASTROINTESTINAL: No diarrhea, no nausea, no vomiting, no abdominal pain. Normoactive bowel sounds. NEUROLOGICAL: No headaches, no weakness, no numbness. HEMATOLOGICAL: Denies any bleeding or petechiae. GENITOURINARY: Denies any burning micturition, frequency, or urgency. MUSCULOSKELETAL/RHEUMATOLOGICAL: Denies any joint pain, swelling, or any muscle pain. ENDOCRINE: Denies any polyuria or polydipsia. The rest of the 14-point review of systems is negative. Past Medical History Past Medical History: Atrial Fibrillation, CVA/TIA, Hypertension, Seizure Disorder Additional Past Medical History / Comment(s): alcohol intoxication, alcohol withdrawal seizures, hypokalemia, hyponatremia, dehyration, metabolic encephalopathy History of Any Multi-Drug Resistant Organisms: None Reported Past Surgical History: No Surgical Hx Reported Past Anesthesia/Blood Transfusion Reactions: No Reported Reaction Past Psychological History: Anxiety, Depression Smoking Status: Never smoker Past Alcohol Use History: Occasional Past Drug Use History: None Reported - Past Family History Father Family Medical History: No Reported History Mother Family Medical History: Coronary Artery Disease (CAD), Hypertension Medications and Allergies Home Medications Medication Instructions Recorded Confirmed Type Sertraline [Zoloft] 100 mg PO HS 08/04/17 01/10/18 History Potassium Chloride [Klor-Con 8] 8 meq PO DAILY 12/30/17 01/10/18 History Amiodarone [Cordarone] 200 mg PO BID #60 tab 01/06/18 01/10/18 Rx Metoprolol Tartrate [Lopressor] 25 mg PO BID #60 tab 01/06/18 01/10/18 Rx Phenytoin Sodium Extended 300 mg PO BID #180 cap 01/06/18 01/10/18 Rx [Dilantin] Sodium Bicarbonate Tab 1,300 mg PO BID #120 tab 01/06/18 01/10/18 Rx Allergies Allergy/AdvReac Type Severity Reaction Status Date / Time loratadine Allergy Unknown Verified 01/10/18 10:59 antihistamines Allergy Unknown Uncoded 11/22/17 22:17 Physical Exam Vitals: Vital Signs Temp Pulse Resp BP Pulse Ox 01/10/18 14:00 129 H 18 93/76 99 01/10/18 13:30 122 H 20 106/93 100 01/10/18 12:00 131 H 16 135/72 97 01/10/18 11:49 142 H 18 135/72 100 01/10/18 11:00 134 H 19 125/106 99 01/10/18 10:30 98.8 F 138 H 17 127/98 99 Intake and Output 01/09/18 01/10/18 01/10/18 22:59 06:59 14:59 Other: Weight 83.915 kg PHYSICAL EXAMINATION: GENERAL: The patient is alert and oriented x3, not in any acute distress. Well developed, well nourished. HEENT: Pupils are round and equally reacting to light. EOMI. No scleral icterus. No conjunctival pallor. Normocephalic, atraumatic. No pharyngeal erythema. No thyromegaly. CARDIOVASCULAR: S1 and S2 present. No murmurs, rubs, or gallops. Patient has a systolic murmur and diuretic area irregularly irregular rhythm minimally elevated JVD at around 70 angle PULMONARY: Chest is clear to auscultation, no wheezing or crackles. ABDOMEN: Soft, nontender, nondistended, normoactive bowel sounds. No palpable organomegaly. MUSCULOSKELETAL: No joint swelling or deformity. EXTREMITIES: No cyanosis, clubbing, or pedal edema. NEUROLOGICAL: Gross neurological examination did not reveal any focal deficits. SKIN: No rashes. Results CBC & Chem 7: 01/10/18 11:37 01/10/18 11:37 Labs: Abnormal Lab Results - Last 24 Hours (Table) 01/10/18 01/10/18 01/10/18 Range/Units 11:37 11:37 11:37 RBC 3.15 L (4.30-5.90) m/uL Hgb 9.8 L D (13.0-17.5) gm/dL Hct 30.8 L (39.0-53.0) % RDW 16.8 H (11.5-15.5) % PT (9.0-12.0) sec INR (<1.2) Chloride 111 H (98-107) mmol/L Carbon Dioxide 21 L (22-30) mmol/L Creatinine 1.98 H (0.66-1.25) mg/dL Glucose 121 H (74-99) mg/dL Magnesium 1.5 L (1.6-2.3) mg/dL CK-MB (CK-2) 3.6 H (0.0-2.4) ng/mL Troponin I 0.344 H* (0.000-0.034) ng/mL Total Protein 9.8 H (6.3-8.2) g/dL Albumin 3.4 L (3.5-5.0) g/dL 01/10/18 Range/Units 11:37 RBC (4.30-5.90) m/uL Hgb (13.0-17.5) gm/dL Hct (39.0-53.0) % RDW (11.5-15.5) % PT 13.5 H (9.0-12.0) sec INR 1.4 H (<1.2) Chloride (98-107) mmol/L Carbon Dioxide (22-30) mmol/L Creatinine (0.66-1.25) mg/dL Glucose (74-99) mg/dL Magnesium (1.6-2.3) mg/dL CK-MB (CK-2) (0.0-2.4) ng/mL Troponin I (0.000-0.034) ng/mL Total Protein (6.3-8.2) g/dL Albumin (3.5-5.0) g/dL Assessment and Plan Plan: -Atrial fibrillation with rapid and regular rate: IV Cardizem will be dyspnea patient was started on amiodarone and the IV heparin drip -Non-ST elevation myocardial infarction: Heparin as mentioned above his blood pressure cannot tolerate metoprolol at this time. Patient received aspirin any of -Congestive heart failure chronic systolic dysfunction with mild acute exacerbation although Lasix is being held because of the low blood pressure and the during his last admission Lasix worsen his kidney function patient is potential cardiac cath because of which not starting him on Lasix, cardiology and nephrology will evaluated the patient -Acute kidney injury: Secondary to cardiorenal and heart failure. Improving creatinine now. As patient respiratory status is okay patient will not be started on any Lasix until he is evaluated by cardiology and nephrology. -Severe aortic stenosis -Seizure disorder -Depression
[2018-01-10] MEDS ORDERED: AMIODARONE 450 MG in DEXTROSE 5% IN WATER 250 ML IV ONE ×2 (15:00)
[2018-01-10] MEDS: HEPARIN SOD,PORK IN 0.45% NACL 25,000 UNIT in 0.45% NACL 1 500ML.BAG IV SCH (15:16)
[2018-01-10] MEDS ORDERED: Potassium Replacement Protocol 1 EACH MISC MISCELLANE PRN (15:49)
--- NOTE | 2018-01-10 16:04 | P.CRDCN ---
History of Present Illness Consult date: 01/10/18 Requesting physician: Inge Flores Consult reason: atrial fibrillation Chief complaint: shortness of breath History of present illness: this is a pleasant 72-year-old gentleman who was recently in the hospital with atrial fibrillation with rapid ventricular response and non-ST elevation WI. Patient had a low hemoglobin on that admission and stool which came back positive for occult blood, as well as new onset renal failure. He had some pulmonary edema and received IV Lasix during that admission as well. Echocardiogram with Doppler study performed showed severe concentric LVH, severely impaired left ventricular systolic function with an ejection fraction of 25-30%. Severe aortic stenosis, and severe pulmonary hypertension. Patient came back to the hospital on this occasion with generally not feeling well. He states he was very short of breath, and states that it was much more severe than his recent admission here.EKG on arrival here showed atrial fibrillation with a rapid ventricular response.chest x-ray showed bilateral consolidation and small effusion. Correlate for pneumonia versus CHF. Blood pressure 115/80 with a heart rate of 118.100% on 2 L of oxygen.White blood cell count 8.8, hemoglobin 9.8, platelet count 241. Sodium 142, potassium 3.7, BUN 11 and creatinine 1.9.BNP level 42, 500, troponin 0.344.Patient is currently on IV amiodarone drip along with IV heparin. Aspirin 325 mg daily which we will decrease to 81 mg.we'll also start the patient on some IV Lasix. Past Medical History Past Medical History: Atrial Fibrillation, Heart Failure, CVA/TIA, Hypertension , Seizure Disorder Additional Past Medical History / Comment(s): alcohol intoxication, alcohol withdrawal seizures, hypokalemia, hyponatremia, dehyration, metabolic , ntemiencephalopathy History of Any Multi-Drug Resistant Organisms: None Reported Past Surgical History: No Surgical Hx Reported Past Anesthesia/Blood Transfusion Reactions: Motion Sickness Additional Past Anesthesia/Blood Transfusion Reaction / Comment(s): clausterphobia Smoking Status: Never smoker - Past Family History Father Family Medical History: Dementia Mother Family Medical History: Coronary Artery Disease (CAD), Hypertension Medications and Allergies Home Medications Medication Instructions Recorded Confirmed Type Sertraline [Zoloft] 100 mg PO HS 08/04/17 01/10/18 History Potassium Chloride [Klor-Con 8] 8 meq PO DAILY 12/30/17 01/10/18 History Amiodarone [Cordarone] 200 mg PO BID #60 tab 01/06/18 01/10/18 Rx Metoprolol Tartrate [Lopressor] 25 mg PO BID #60 tab 01/06/18 01/10/18 Rx Phenytoin Sodium Extended 300 mg PO BID #180 cap 01/06/18 01/10/18 Rx [Dilantin] Sodium Bicarbonate Tab 1,300 mg PO BID #120 tab 01/06/18 01/10/18 Rx Allergies Allergy/AdvReac Type Severity Reaction Status Date / Time loratadine Allergy Unknown Verified 01/10/18 10:59 antihistamines Allergy Unknown Uncoded 11/22/17 22:17 Physical Exam Vitals: Vital Signs Temp Pulse Pulse Resp BP BP Pulse Ox 01/10/18 15:43 97.9 F 117 H 20 115/84 100 01/10/18 14:30 134 H 19 119/105 100 01/10/18 14:00 129 H 18 93/76 99 01/10/18 13:30 122 H 20 106/93 100 01/10/18 12:00 131 H 16 135/72 97 01/10/18 11:49 142 H 18 135/72 100 01/10/18 11:00 134 H 19 125/106 99 01/10/18 10:30 98.8 F 138 H 17 127/98 99 Intake and Output 01/10/18 01/10/18 01/10/18 06:59 14:59 22:59 Other: Weight 83.915 kg PHYSICAL EXAMINATION: 72-year-old gentleman in no acute distress at the time of my examination HEENT: Head is atraumatic, normocephalic. Pupils equal, round. Neck is supple. There is elevated jugular venous pressure. HEART EXAMINATION: Heart sounds regular, S1 and S2 with a systolic ejection murmur. CHEST EXAMINATION: Lungs diminished air entry to bilateral bases with rales noted at the bases. AbDOMEN: Soft, nontender. Bowel sounds are heard. No organomegaly noted. EXTREMITIES: 2+ peripheral pulses with no evidence of peripheral edema and no calf tenderness noted. NEUROLOGIC patient is awake, alert and oriented x3, some confusion and memory loss noted. Results 01/10/18 11:37 01/10/18 11:37 Cardiac Enzymes 01/10/18 01/10/18 Range/Units 11:37 11:37 AST 20 (17-59) U/L CK-MB (CK-2) 3.6 H (0.0-2.4) ng/mL Troponin I 0.344 H* (0.000-0.034) ng/mL Coagulation 01/10/18 Range/Units 11:37 PT 13.5 H (9.0-12.0) sec APTT 28.3 (22.0-30.0) sec CBC 01/10/18 Range/Units 11:37 WBC 8.8 (3.8-10.6) k/uL RBC 3.15 L (4.30-5.90) m/uL Hgb 9.8 L D (13.0-17.5) gm/dL Hct 30.8 L (39.0-53.0) % Plt Count 241 (150-450) k/uL Comprehensive Metabolic Panel 01/10/18 Range/Units 11:37 Sodium 142 (137-145) mmol/L Potassium 3.7 (3.5-5.1) mmol/L Chloride 111 H (98-107) mmol/L Carbon Dioxide 21 L (22-30) mmol/L BUN 11 (9-20) mg/dL Creatinine 1.98 H (0.66-1.25) mg/dL Glucose 121 H (74-99) mg/dL Calcium 9.0 (8.4-10.2) mg/dL AST 20 (17-59) U/L ALT 67 (21-72) U/L Alkaline Phosphatase 68 (38-126) U/L Total Protein 9.8 H (6.3-8.2) g/dL Albumin 3.4 L (3.5-5.0) g/dL Current Medications Generic Name Dose Route Start Last Admin Trade Name Freq PRN Reason Stop Dose Admin Aspirin 325 mg 01/11/18 09:00 Aspirin PO DAILY LOYD Heparin Sodium (Porcine) 0 unit 01/10/18 14:34 01/10/18 15:18 Heparin IV 5,000 unit PER PROTOCOL PRN Administration Low PTT Protocol Amiodarone HCl 450 mg/ 259 mls @ 34.53 mls/hr 01/10/18 15:00 01/10/18 14:57 Dextrose/Water IV 01/10/18 22:30 1 mg/min .Q7H31M ONE 34.53 mls/hr Administration Protocol 1 MG/MIN Heparin Sodium/Sodium Chloride 500 mls @ 20.13 mls/hr 01/10/18 14:45 15:16 25,000 unit/ Sodium Chloride IV 12 units/kg/hr .Q24H LOYD 20.13 mls/hr Administration Protocol 12 UNITS/KG/HR Magnesium Sulfate/Dextrose 1 100 mls @ 100 mls/hr 01/10/18 16:00 gm/ IV Solution IVPB 01/10/18 17:59 Q1H LOYD Miscellaneous Information 1 each 01/10/18 15:49 Potassium Per Protocol MISCELLANE DAILY PRN Per Protocol Protocol Nitroglycerin 0.4 mg 01/10/18 13:19 Nitrostat SUBLINGUAL Q5M PRN Chest Pain Phenytoin Sodium 300 mg 01/10/18 21:00 Dilantin PO BID LOYD Potassium Chloride 20 meq 01/10/18 16:00 K-Dur 20 PO 01/10/18 16:01 Q1HR LOYD Protocol Sertraline HCl 100 mg 01/10/18 21:00 Zoloft PO HS LOYD Sodium Bicarbonate 1,300 mg 01/10/18 21:00 Sodium Bicarbonate Tab PO BID LOYD Intake and Output 01/10/18 01/10/18 01/10/18 06:59 14:59 22:59 Other: Weight 83.915 kg Patient Weight 01/11/18 06:59 Weight 83.915 kg 01/10/18 11:37 01/10/18 11:37 EKG Interpretations (text) EKG shows atrial fibrillation with rapid ventricular response Assessment and Plan Plan: Aassessment and plan #1acute on chronic systolic congestive heart failure, ejection fraction of 25-30 % #2 paroxysmal atrial fibrillation with rapid ventricular response #3 acute kidney failure #4 severe aortic stenosis #5 severe cardiomyopathy unknown whether it is ischemic or nonischemic Plan From cardiology's perspective we will continue IV amiodarone at this time. We will also start the patient on IV push Lasix. Monitor intake and output along with daily weights, daily lytes BUN and creatinine.continue IV heparin and decrease aspirin to 81 mg daily. DNP note has been reviewed, I agree with a documented findings and plan of care. Patient was seen and examined.
[2018-01-10] MEDS: FUROSEMIDE 10 MG/ML 4 ML VIAL IV SCH (16:59)
[2018-01-10] MEDS ORDERED: POTASSIUM CHLORIDE ER 20 MEQ TAB.ER PO SCH (17:00)
[2018-01-10] MEDS: MAGNESIUM SULFATE-D5W PMX 1 GM in DEXTROSE/WATER 1 100ML.BAG IVPB SCH ×2 (17:34→18:41)
[2018-01-10 18:11] LABS: Creatine Kinase MB 3.7 ng/mL (0.0-2.4)
[2018-01-10 18:21] LABS: Troponin I 0.333 ng/mL (0.000-0.034)
[2018-01-10] MEDS: SODIUM BICARBONATE TAB 650 MG TAB PO SCH (20:51)
[2018-01-10] MEDS: PHENYTOIN SODIUM EXTENDED 100 MG CAP PO SCH (20:51)
[2018-01-10] MEDS: SERTRALINE 100 MG TAB PO SCH (20:51)
[2018-01-10] MEDS ORDERED: AMIODARONE 200 MG TAB PO SCH (21:00)
[2018-01-10] MEDS ORDERED: FUROSEMIDE 10 MG/ML 2 ML VIAL IV STA (21:35)
[2018-01-10] MEDS ORDERED: IPRATROPIUM-ALBUTEROL 3 ML NEB INHALATION PRN (21:37)
[2018-01-10] MEDS: IPRATROPIUM-ALBUTEROL 3 ML NEB INHALATION SCH (21:51)
[2018-01-10] MEDS: ALPRAZolam 0.25 MG TAB PO PRN (21:58)
[2018-01-11 00:33] LABS: Creatine Kinase MB 3.3 ng/mL (0.0-2.4)
[2018-01-11 00:36] LABS: Troponin I 0.383 ng/mL (0.000-0.034)
[2018-01-11] MEDS: FUROSEMIDE 10 MG/ML 4 ML VIAL IV SCH ×2 (01:04→08:49)
[2018-01-11 03:23] LABS: Anisocytosis Slight; Basophils % (A) 0 %; Eosinophils % (A) 0 %; HGB 9.8 gm/dL (13.0-17.5); Hypochromasia Moderate; Lymphocytes # (A) 2.7 k/uL (1.0-4.8); Lymphocytes % (A) 24 %; MCH 30.4 pg (25.0-35.0); MCHC 30.5 g/dL (31.0-37.0); MCV 99.9 fL (80.0-100.0); Macrocytosis Slight; Mean Platelet Volume 7.3; Monocytes # (A) 0.8 k/uL (0-1.0); Monocytes % (A) 7 %; Neutrophils # (A) 7.2 k/uL (1.3-7.7); Neutrophils % (A) 66 %; Platelet Count 217 k/uL (150-450); RDW 16.5 % (11.5-15.5)
[2018-01-11 03:32] LABS: Albumin 3.4 g/dL (3.5-5.0); Magnesium 1.9 mg/dL (1.6-2.3); Potassium 3.5 mmol/L (3.5-5.1); Total Bilirubin 0.7 mg/dL (0.2-1.3); Total Protein 9.6 g/dL (6.3-8.2)
[2018-01-11] MEDS: IPRATROPIUM-ALBUTEROL 3 ML NEB INHALATION SCH ×3 (08:03→20:20)
[2018-01-11] MEDS: PHENYTOIN SODIUM EXTENDED 100 MG CAP PO SCH ×2 (08:49→20:09)
[2018-01-11] MEDS: SODIUM BICARBONATE TAB 650 MG TAB PO SCH ×2 (08:49→20:09)
[2018-01-11] MEDS: ASPIRIN 325 MG TAB PO SCH (08:49)
--- NOTE | 2018-01-11 09:25 | P.PN ---
Subjective Progress Note Date: 01/11/18 Principal diagnosis: Severe aortic stenosis/severe cardiomyopathy This is a 72-year-old gentleman with known severe aortic stenosis, severe cardiomyopathy, as well as chronic kidney disease, was admitted to the hospital yesterday with progressive dyspnea and he was diagnosed with congestive heart failure exacerbation secondary to systolic dysfunction as well as he was in atrial fibrillation with RVR. On follow-up with the patient today, January [id number], the patient is feeling better indeterminable shortness of breath. No chest pain or chest discomfort. No dizziness or lightheadedness. He has been maintaining normal sinus mechanism with a resting heart rate in the 90s. Hemodynamically beside that he seems to be stable and the blood pressure around 120 mmHg systolic. He is on heparin IV for anticoagulation. The creatinine is a slightly worse today. I will decrease the dose of Lasix to 40 mg IV twice a day, start him on metoprolol at 25 mg by mouth twice a day and also start him on amiodarone by mouth to keep him in normal sinus mechanism. We'll continue monitor the kidney function and electrolytes and continue monitor the hemoglobin. Objective - Vital Signs Vital signs: Vital Signs Temp 98.1 F 01/11/18 08:00 Pulse 86 01/11/18 08:15 Resp 18 01/11/18 08:00 BP 120/70 01/11/18 08:00 Pulse Ox 96 01/11/18 08:05 Intake & Output 01/10/18 01/11/18 01/11/18 18:59 06:59 18:59 Intake Total 240 1022.977 383.649 Output Total 800 200 Balance 240 222.977 183.649 Weight 83.915 kg 85.1 kg Intake: Intake, IV Titration 322.977 203.649 Amount Amiodarone 450 mg In 208.907 Dextrose 5% in Water 250 ml @ 1 MG/MIN 34.53 mls/ hr IV .Q7H31M ONE Rx#: [id number] Heparin Sod,Pork in 0.45% 114.07 203.649 NaCl 25,000 unit In 0.45 % NaCl 1 500ml.bag @ 12 UNITS/KG/HR 20.13 mls/hr IV .Q24H [facility] Rx#: [id number] Oral 240 700 180 Output: Urine 800 200 Other: Voiding Method Diaper Urinal Diaper # Voids 1 - Constitutional General appearance: Present: no acute distress - Respiratory Respiratory: bilateral: rales - Cardiovascular Rhythm: regular Heart sounds: normal: S1, S2 Abnormal Heart Sounds: Present: systolic murmur - Labs CBC & Chem 7: 01/11/18 02:51 01/11/18 02:51 Labs: Abnormal Lab Results - Last 24 Hours (Table) 01/10/18 01/10/18 01/10/18 Range/Units 11:37 11:37 11:37 WBC (3.8-10.6) k/uL RBC 3.15 L (4.30-5.90) m/uL Hgb 9.8 L D (13.0-17.5) gm/dL Hct 30.8 L (39.0-53.0) % MCHC (31.0-37.0) g/dL RDW 16.8 H (11.5-15.5) % PT (9.0-12.0) sec INR (<1.2) APTT (22.0-30.0) sec Chloride 111 H (98-107) mmol/L Carbon Dioxide 21 L (22-30) mmol/L Creatinine 1.98 H (0.66-1.25) mg/dL Glucose 121 H (74-99) mg/dL Magnesium 1.5 L (1.6-2.3) mg/dL CK-MB (CK-2) 3.6 H (0.0-2.4) ng/mL Troponin I 0.344 H* (0.000-0.034) ng/mL Total Protein 9.8 H (6.3-8.2) g/dL Albumin 3.4 L (3.5-5.0) g/dL HDL Cholesterol (40-60) mg/dL 01/10/18 01/10/18 01/10/18 Range/Units 11:37 17:15 20:34 WBC (3.8-10.6) k/uL RBC (4.30-5.90) m/uL Hgb (13.0-17.5) gm/dL Hct (39.0-53.0) % MCHC (31.0-37.0) g/dL RDW (11.5-15.5) % PT 13.5 H (9.0-12.0) sec INR 1.4 H (<1.2) APTT 68.3 H (22.0-30.0) sec Chloride (98-107) mmol/L Carbon Dioxide (22-30) mmol/L Creatinine (0.66-1.25) mg/dL Glucose (74-99) mg/dL Magnesium (1.6-2.3) mg/dL CK-MB (CK-2) 3.7 H (0.0-2.4) ng/mL Troponin I 0.333 H* (0.000-0.034) ng/mL Total Protein (6.3-8.2) g/dL Albumin (3.5-5.0) g/dL HDL Cholesterol (40-60) mg/dL 01/10/18 01/11/18 01/11/18 Range/Units 23:38 02:51 02:51 WBC 11.0 H (3.8-10.6) k/uL RBC 3.20 L (4.30-5.90) m/uL Hgb 9.8 L (13.0-17.5) gm/dL Hct 32.0 L (39.0-53.0) % MCHC 30.5 L (31.0-37.0) g/dL RDW 16.5 H (11.5-15.5) % PT (9.0-12.0) sec INR (<1.2) APTT (22.0-30.0) sec Chloride 108 H (98-107) mmol/L Carbon Dioxide (22-30) mmol/L Creatinine 2.08 H (0.66-1.25) mg/dL Glucose 119 H (74-99) mg/dL Magnesium (1.6-2.3) mg/dL CK-MB (CK-2) 3.3 H (0.0-2.4) ng/mL Troponin I 0.383 H* (0.000-0.034) ng/mL Total Protein 9.6 H (6.3-8.2) g/dL Albumin 3.4 L (3.5-5.0) g/dL HDL Cholesterol 21 L (40-60) mg/dL 01/11/18 Range/Units 05:53 WBC (3.8-10.6) k/uL RBC (4.30-5.90) m/uL Hgb (13.0-17.5) gm/dL Hct (39.0-53.0) % MCHC (31.0-37.0) g/dL RDW (11.5-15.5) % PT (9.0-12.0) sec INR (<1.2) APTT 53.1 H (22.0-30.0) sec Chloride (98-107) mmol/L Carbon Dioxide (22-30) mmol/L Creatinine (0.66-1.25) mg/dL Glucose (74-99) mg/dL Magnesium (1.6-2.3) mg/dL CK-MB (CK-2) (0.0-2.4) ng/mL Troponin I (0.000-0.034) ng/mL Total Protein (6.3-8.2) g/dL Albumin (3.5-5.0) g/dL HDL Cholesterol (40-60) mg/dL Assessment and Plan Assessment: Assessment #1 atrial fibrillation with rapid ventricular response. Currently the patient is in normal sinus mechanism #2 known paroxysmal atrial fibrillation #3 congestive heart failure exacerbation secondary to systolic dysfunction #4 known severe cardiomyopathy unknown if it's due to systolic or diastole dysfunction #5 known severe aortic stenosis #7 chronic kidney disease #8 anemia Plan #1 continue heparin IV for anticoagulation #2 continue monitoring the hemoglobin #3 decrease the dose of Lasix to 40 mg IV twice a day #4 continue monitor the kidney function and electrolytes #5 restart the patient on metoprolol as well as amiodarone by mouth #6 follow-up with the patient.
[2018-01-11] MEDS ORDERED: POTASSIUM CHLORIDE ER 20 MEQ TAB.ER PO STA (11:36)
--- NOTE | 2018-01-11 11:37 | P.NPCON ---
History of Present Illness - Reason for Consult acute renal failure - History of Present Illness Reason for consultation: Acute kidney injury History of present illness: Patient is a 72-year-old male seen in consultation for acute kidney injury. Creatinine was 1.98 on admission and is 2.08 today. Patient was recently admitted here and developed acute kidney injury with creatinine up to 4 due to hypotension. He received IV fluids adrenal function improved. This time he presented to the hospital with heart racing and was noted to be in A. fib with RVR. Heart rate is better controlled. Oral intake is good. Denies chest pain or shortness of breath. Does feel weak. States he gets dyspneic even with minimal exertion. No vomiting or diarrhea. He is noted to have ejection fraction of 25-30% with severe aortic stenosis and pulmonary hypertension. He is currently maintained on Lasix 40 mg IV twice daily. Admits to good urine output. No hematuria or dysuria. Vital signs are stable. General: The patient appeared well nourished and normally developed. HEENT: Head exam is unremarkable. Neck is without jugular venous distension. LUNGS: Lungs are clear to auscultation and percussion. Breath sounds decreased. HEART: Rate and Rhythm are regular. First and second heart sounds normal. No murmurs, rubs or gallops. ABDOMEN: Abdominal exam reveals normal bowel sounds. Non-tender and non- distended. No evidence of peritonitis. EXTREMITITES: No clubbing, cyanosis, or edema. Past Medical History Past Medical History: Atrial Fibrillation, Heart Failure, CVA/TIA, Hypertension , Seizure Disorder Additional Past Medical History / Comment(s): alcohol intoxication, alcohol withdrawal seizures, hypokalemia, hyponatremia, dehyration, metabolic , ntemiencephalopathy History of Any Multi-Drug Resistant Organisms: None Reported Past Surgical History: No Surgical Hx Reported Past Anesthesia/Blood Transfusion Reactions: Motion Sickness Additional Past Anesthesia/Blood Transfusion Reaction / Comment(s): clausterphobia Smoking Status: Never smoker - Past Family History Father Family Medical History: Dementia Mother Family Medical History: Coronary Artery Disease (CAD), Hypertension Medications and Allergies Home Medications Medication Instructions Recorded Confirmed Type Sertraline [Zoloft] 100 mg PO HS 08/04/17 01/10/18 History Potassium Chloride [Klor-Con 8] 8 meq PO DAILY 12/30/17 01/10/18 History Amiodarone [Cordarone] 200 mg PO BID #60 tab 01/06/18 01/10/18 Rx Metoprolol Tartrate [Lopressor] 25 mg PO BID #60 tab 01/06/18 01/10/18 Rx Phenytoin Sodium Extended 300 mg PO BID #180 cap 01/06/18 01/10/18 Rx [Dilantin] Sodium Bicarbonate Tab 1,300 mg PO BID #120 tab 01/06/18 01/10/18 Rx Allergies Allergy/AdvReac Type Severity Reaction Status Date / Time loratadine Allergy Unknown Verified 01/10/18 10:59 antihistamines Allergy Unknown Uncoded 11/22/17 22:17 Physical Exam Vitals: Vital Signs Temp Pulse Pulse Resp BP BP Pulse Ox 01/11/18 08:15 86 01/11/18 08:05 92 96 01/11/18 08:00 98.1 F 97 18 120/70 93 L 01/11/18 04:00 97.2 F L 94 20 141/78 97 01/11/18 03:52 88 01/11/18 03:43 86 01/11/18 00:00 86 19 127/76 100 01/10/18 21:57 88 01/10/18 21:53 87 01/10/18 20:00 97.7 F 86 20 114/73 100 01/10/18 15:43 97.9 F 117 H 20 115/84 100 01/10/18 14:30 134 H 19 119/105 100 01/10/18 14:00 129 H 18 93/76 99 01/10/18 13:30 122 H 20 106/93 100 01/10/18 12:00 131 H 16 135/72 97 01/10/18 11:49 142 H 18 135/72 100 Intake and Output 01/10/18 01/11/18 01/11/18 22:59 06:59 14:59 Intake Total 712.977 550 383.649 Output Total 200 600 400 Balance 512.977 -50 -16.351 Intake: Intake, IV Titration 322.977 203.649 Amount Amiodarone 450 mg In 208.907 Dextrose 5% in Water 250 ml @ 1 MG/MIN 34.53 mls/ hr IV .Q7H31M ONE Rx#: [id number] Heparin Sod,Pork in 0.45% 114.07 203.649 NaCl 25,000 unit In 0.45 % NaCl 1 500ml.bag @ 12 UNITS/KG/HR 20.13 mls/hr IV .Q24H [facility] Rx#: [id number] Oral 390 550 180 Output: Urine 200 600 400 Other: Voiding Method Urinal Urinal Diaper Diaper # Voids 1 Weight 85.1 kg Results - Lab Results Most recent lab results Calcium 9.0 mg/dL (8.4-10.2) 01/11/18 02:51 Magnesium 1.9 mg/dL (1.6-2.3) 01/11/18 02:51 01/11/18 02:51 01/11/18 02:51 Assessment and Plan Plan: Assessment: 1. Acute kidney injury mostly prerenal secondary to diuresis and hemodynamic instability. Creatinine 2.0 today. 2. A. fib with RVR. Now rate controlled. 3. Systolic CHF with ejection fraction of 25-30% with severe pulmonary hypertension. 4. Severe aortic stenosis. 5. Volume overload. Improved. 6. Hypokalemia secondary to diuresis. Plan: Decrease Lasix to 40 mg IV once daily. Replace potassium. 40 mEq today. Check magnesium level. Avoid nephrotoxins. Patient wishes to proceed with TAVR. Thank you for the consultation. I will continue to follow the patient with you during his hospital stay.
--- NOTE | 2018-01-11 13:11 | P.PN ---
Subjective 72-year-old gentleman admitted with the atrial fibrillation with rapid and regular rate. Patient was recently discharged from the hospital last drink he was treated for non-ST ration microinfarction, acute systolic dysfunction pulmonary edema. Patient was started on Lasix dose of which is being decreased today patient was in significant heart failure. Patient's creatinine has gone up from 1.9-2, nephrology evaluated the patient and cardiology evaluated the patient. Patient has severe stenosis IV amiodarone drip was discontinued metoprolol was started back. Had extensive discussion with the patient regarding options. One option is cardiac catheterization although there is an associated risk of worsening kidney function from this followed by evaluation for aortic valve replacement. The other option is conservative management without any intervention which can lead to multiple hospitalization and because of his severe right external says, congestive heart failure and probable severe coronary artery disease prognosis is extremely poor and comfort care is an option at that time. Patient will discuss with his guardian. Constitutional: Denied any fatigue denied any fever. Cardio vascular: denied any chest pain, palpitations Gastrointestinal denied any nausea vomiting Pulmonary: Denied any shortness of breath cough Neurologic denied any new focal deficits Objective - Vital Signs Vital signs: Vital Signs Temp 98.1 F 01/11/18 08:00 Pulse 86 01/11/18 08:15 Resp 18 01/11/18 08:00 BP 120/70 01/11/18 08:00 Pulse Ox 96 01/11/18 08:05 Intake & Output 01/10/18 01/11/18 01/11/18 18:59 06:59 18:59 Intake Total 240 1022.977 383.649 Output Total 800 400 Balance 240 222.977 -16.351 Weight 83.915 kg 85.1 kg Intake: Intake, IV Titration 322.977 203.649 Amount Amiodarone 450 mg In 208.907 Dextrose 5% in Water 250 ml @ 1 MG/MIN 34.53 mls/ hr IV .Q7H31M ONE Rx#: [id number] Heparin Sod,Pork in 0.45% 114.07 203.649 NaCl 25,000 unit In 0.45 % NaCl 1 500ml.bag @ 12 UNITS/KG/HR 20.13 mls/hr IV .Q24H [facility] Rx#: [id number] Oral 240 700 180 Output: Urine 800 400 Other: Voiding Method Diaper Urinal Diaper # Voids 1 - Exam GENERAL: The patient is alert and oriented x3, not in any acute distress. Well developed, well nourished. HEENT: Pupils are round and equally reacting to light. EOMI. No scleral icterus. No conjunctival pallor. Normocephalic, atraumatic. No pharyngeal erythema. No thyromegaly. CARDIOVASCULAR: S1 and S2 present. No murmurs, rubs, or gallops. Patient has a systolic murmur and diuretic area irregularly irregular rhythm minimally elevated JVD at around 70 angle PULMONARY: Chest is clear to auscultation, no wheezing or crackles. ABDOMEN: Soft, nontender, nondistended, normoactive bowel sounds. No palpable organomegaly. MUSCULOSKELETAL: No joint swelling or deformity. EXTREMITIES: No cyanosis, clubbing, or pedal edema. NEUROLOGICAL: Gross neurological examination did not reveal any focal deficits. SKIN: No rashes. - Labs CBC & Chem 7: 01/11/18 02:51 01/11/18 02:51 Labs: Abnormal Lab Results - Last 24 Hours (Table) 01/10/18 01/10/18 01/10/18 Range/Units 11:37 17:15 20:34 WBC (3.8-10.6) k/uL RBC (4.30-5.90) m/uL Hgb (13.0-17.5) gm/dL Hct (39.0-53.0) % MCHC (31.0-37.0) g/dL RDW (11.5-15.5) % APTT 68.3 H (22.0-30.0) sec Chloride (98-107) mmol/L Creatinine (0.66-1.25) mg/dL Glucose (74-99) mg/dL CK-MB (CK-2) 3.6 H 3.7 H (0.0-2.4) ng/mL Troponin I 0.344 H* 0.333 H* (0.000-0.034) ng/mL Total Protein (6.3-8.2) g/dL Albumin (3.5-5.0) g/dL HDL Cholesterol (40-60) mg/dL 01/10/18 01/11/18 01/11/18 Range/Units 23:38 02:51 02:51 WBC 11.0 H (3.8-10.6) k/uL RBC 3.20 L (4.30-5.90) m/uL Hgb 9.8 L (13.0-17.5) gm/dL Hct 32.0 L (39.0-53.0) % MCHC 30.5 L (31.0-37.0) g/dL RDW 16.5 H (11.5-15.5) % APTT (22.0-30.0) sec Chloride 108 H (98-107) mmol/L Creatinine 2.08 H (0.66-1.25) mg/dL Glucose 119 H (74-99) mg/dL CK-MB (CK-2) 3.3 H (0.0-2.4) ng/mL Troponin I 0.383 H* (0.000-0.034) ng/mL Total Protein 9.6 H (6.3-8.2) g/dL Albumin 3.4 L (3.5-5.0) g/dL HDL Cholesterol 21 L (40-60) mg/dL 01/11/18 Range/Units 05:53 WBC (3.8-10.6) k/uL RBC (4.30-5.90) m/uL Hgb (13.0-17.5) gm/dL Hct (39.0-53.0) % MCHC (31.0-37.0) g/dL RDW (11.5-15.5) % APTT 53.1 H (22.0-30.0) sec Chloride (98-107) mmol/L Creatinine (0.66-1.25) mg/dL Glucose (74-99) mg/dL CK-MB (CK-2) (0.0-2.4) ng/mL Troponin I (0.000-0.034) ng/mL Total Protein (6.3-8.2) g/dL Albumin (3.5-5.0) g/dL HDL Cholesterol (40-60) mg/dL Assessment and Plan Plan: -Atrial fibrillation with rapid and regular rate: Patient is presently on oral metoprolol and oral amiodarone. -Non-ST elevation myocardial infarction: Heparin as mentioned above his blood pressure cannot tolerate metoprolol at this time. Patient received aspirin any of -Congestive heart failure chronic systolic dysfunction with mild acute exacerbation patient's Lasix was switched to oral. -Acute kidney injury: Secondary to cardiorenal and heart failure. Creatinine fairly stable. -Severe aortic stenosis: Will need valve replacement -Seizure disorder -Depression
[2018-01-11] MEDS: HEPARIN SOD,PORK IN 0.45% NACL 25,000 UNIT in 0.45% NACL 1 500ML.BAG IV SCH (15:53)
[2018-01-11] MEDS: ALPRAZolam 0.25 MG TAB PO PRN (15:53)
[2018-01-11] MEDS: METOPROLOL TARTRATE 25 MG TAB PO SCH (20:09)
[2018-01-11] MEDS: AMIODARONE 200 MG TAB PO SCH (20:09)
[2018-01-11] MEDS: SERTRALINE 100 MG TAB PO SCH (20:09)
[2018-01-11] MEDS ORDERED: FUROSEMIDE 10 MG/ML 4 ML VIAL IV SCH (21:00)
[2018-01-12] MEDS: ALPRAZolam 0.25 MG TAB PO PRN (00:50)
[2018-01-12 06:56] LABS: Anisocytosis Slight; Basophils % (A) 0 %; Eosinophils % (A) 0 %; HCT 28.9 % (39.0-53.0); Hypochromasia Moderate; Lymphocytes # (A) 2.5 k/uL (1.0-4.8); Lymphocytes % (A) 27 %; MCH 31.1 pg (25.0-35.0); MCHC 31.2 g/dL (31.0-37.0); MCV 99.6 fL (80.0-100.0); Macrocytosis Slight; Mean Platelet Volume 6.8; Monocytes # (A) 0.6 k/uL (0-1.0); Monocytes % (A) 6 %; Neutrophils # (A) 5.8 k/uL (1.3-7.7); Neutrophils % (A) 63 %; Platelet Count 162 k/uL (150-450); RDW 16.1 % (11.5-15.5); WBC 9.1 k/uL (3.8-10.6)
[2018-01-12 07:12] LABS: Calcium 8.4 mg/dL (8.4-10.2); Magnesium 1.5 mg/dL (1.6-2.3); Potassium 3.7 mmol/L (3.5-5.1)
[2018-01-12] MEDS: IPRATROPIUM-ALBUTEROL 3 ML NEB INHALATION SCH ×3 (07:21→20:14)
[2018-01-12] MEDS: METOPROLOL TARTRATE 25 MG TAB PO SCH ×2 (08:25→21:38)
[2018-01-12] MEDS: AMIODARONE 200 MG TAB PO SCH ×2 (08:25→21:38)
[2018-01-12] MEDS: FUROSEMIDE 10 MG/ML 4 ML VIAL IV SCH (08:25)
[2018-01-12] MEDS: ASPIRIN 325 MG TAB PO SCH (08:25)
[2018-01-12] MEDS: SODIUM BICARBONATE TAB 650 MG TAB PO SCH ×2 (08:25→21:39)
[2018-01-12] MEDS: PHENYTOIN SODIUM EXTENDED 100 MG CAP PO SCH ×2 (08:25→21:38)
--- NOTE | 2018-01-12 12:42 | P.PN ---
Subjective Patient is seen in follow-up for acute kidney injury. Renal function stable with creatinine at 2.02 today. Oral intake is fair. No vomiting or diarrhea. Denies any active chest pain or shortness of breath. Currently maintained on Lasix 40 mg IV once daily. Admits to good urine output. Vital signs are stable. General: The patient appeared well nourished and normally developed. HEENT: Head exam is unremarkable. Neck is without jugular venous distension. LUNGS: Lungs are clear to auscultation and percussion. Breath sounds decreased. HEART: Rate and Rhythm are regular. First and second heart sounds normal. No murmurs, rubs or gallops. ABDOMEN: Abdominal exam reveals normal bowel sounds. Non-tender and non- distended. No evidence of peritonitis. EXTREMITITES: No clubbing, cyanosis, or edema. Objective - Vital Signs Vital signs: Vital Signs Temp 97.5 F L 01/12/18 07:51 Pulse 72 01/12/18 12:28 Resp 18 01/12/18 07:51 BP 120/72 01/12/18 07:51 Pulse Ox 96 01/12/18 07:51 Intake & Output 01/11/18 01/12/18 01/12/18 18:59 06:59 18:59 Intake Total 783.464 600 305.64 Output Total 1400 150 800 Balance -616.536 450 -494.36 Weight 85.1 kg 83.8 kg Intake: Intake, IV Titration 381.464 305.64 Amount Heparin Sod,Pork in 0.45% 381.464 305.64 NaCl 25,000 unit In 0.45 % NaCl 1 500ml.bag @ 12 UNITS/KG/HR 20.13 mls/hr IV .Q24H [facility] Rx#: [id number] Oral 402 600 Output: Urine 1400 150 800 Other: Voiding Method Urinal Diaper # Voids 300 - Labs CBC & Chem 7: 01/12/18 06:17 01/12/18 06:17 Labs: Abnormal Lab Results - Last 24 Hours (Table) 01/12/18 01/12/18 01/12/18 Range/Units 06:17 06:17 06:17 RBC 2.90 L (4.30-5.90) m/uL Hgb 9.0 L (13.0-17.5) gm/dL Hct 28.9 L (39.0-53.0) % RDW 16.1 H (11.5-15.5) % APTT 51.1 H (22.0-30.0) sec Creatinine 2.02 H (0.66-1.25) mg/dL Glucose 107 H (74-99) mg/dL Magnesium 1.5 L (1.6-2.3) mg/dL Assessment and Plan Plan: Assessment: 1. Acute kidney injury mostly prerenal secondary to diuresis and hemodynamic instability. Creatinine stable at 2.0 to today. 2. A. fib with RVR. Now rate controlled. 3. Systolic CHF with ejection fraction of 25-30% with severe pulmonary hypertension. 4. Severe aortic stenosis. 5. Volume overload. Improved. 6. Hypokalemia secondary to diuresis. Improved post replacement. 7. Hypomagnesemia secondary to diuresis. Plan: Maintain Lasix 40 mg IV once daily. Replace magnesium. 2 g IV today. Avoid nephrotoxins. Patient wishes to proceed with TAVR. Potential cardiac today. Avoid IV fluids as patient is hypervolemic.
[2018-01-12] MEDS: MAGNESIUM SULFATE-D5W PMX 1 GM in DEXTROSE/WATER 1 100ML.BAG IVPB SCH ×2 (13:01→15:57)
[2018-01-12] MEDS ORDERED: SODIUM CHLORIDE 0.9% 1,000 ML in EMPTY BAG 1 BAG IV ONE (15:24)
[2018-01-12] MEDS ORDERED: ALPRAZolam 0.25 MG TAB PO PRN (15:24)
[2018-01-12] MEDS ORDERED: NITROGLYCERIN SL TABS 0.4 MG TAB SUBLINGUAL PRN (15:24)
--- NOTE | 2018-01-12 15:28 | P.PN ---
Subjective Progress Note Date: 01/12/18 This is a pleasant 72-year-old gentleman who was recently in the hospital with atrial fibrillation with rapid ventricular response and non-ST elevation VA. Patient had a low hemoglobin on that admission and stool which came back positive for occult blood, as well as new onset renal failure. He had some pulmonary edema and received IV Lasix during that admission as well. Echocardiogram with Doppler study performed showed severe concentric LVH, severely impaired left ventricular systolic function with an ejection fraction of 25-30%. Severe aortic stenosis, and severe pulmonary hypertension. Patient came back to the hospital on this occasion with generally not feeling well. He states he was very short of breath, and states that it was much more severe than his recent admission here.EKG on arrival here showed atrial fibrillation with a rapid ventricular response.chest x-ray showed bilateral consolidation and small effusion. Correlate for pneumonia versus CHF. Blood pressure 115/80 with a heart rate of 118.100% on 2 L of oxygen.White blood cell count 8.8, hemoglobin 9.8, platelet count 241. Sodium 142, potassium 3.7, BUN 11 and creatinine 1.9.BNP level 42, 500, troponin 0.344.Patient is currently on IV amiodarone drip along with IV heparin. Aspirin 325 mg daily which we will decrease to 81 mg.we'll also start the patient on some IV Lasix. 01/12/2018 Patient was seen and examined this morning, denied any chest pain or difficulty in breathing. Blood pressure 120/70 with a heart rate in the 70s, 96% on room air. Calcium 3.7, BUN 16, creatinine 2.0. There is a variant today, the patient to proceed with cardiac catheterization and transesophageal echocardiographic study. This will be scheduled tomorrow with Dr. Lacey. Objective - Vital Signs Vital signs: Vital Signs Temp 97.5 F L 01/12/18 07:51 Pulse 76 01/12/18 12:43 Resp 18 01/12/18 07:51 BP 120/72 01/12/18 07:51 Pulse Ox 96 01/12/18 07:51 Intake & Output 01/11/18 01/12/18 01/12/18 18:59 06:59 18:59 Intake Total 783.464 600 305.64 Output Total 1400 150 800 Balance -616.536 450 -494.36 Weight 85.1 kg 83.8 kg Intake: Intake, IV Titration 381.464 305.64 Amount Heparin Sod,Pork in 0.45% 381.464 305.64 NaCl 25,000 unit In 0.45 % NaCl 1 500ml.bag @ 12 UNITS/KG/HR 20.13 mls/hr IV .Q24H [facility] Rx#: [id number] Oral 402 600 Output: Urine 1400 150 800 Other: Voiding Method Urinal Diaper # Voids 300 - Exam PHYSICAL EXAMINATION: 72-year-old gentleman in no acute distress at the time of my examination HEENT: Head is atraumatic, normocephalic. Pupils equal, round. Neck is supple. There is elevated jugular venous pressure. HEART EXAMINATION: Heart sounds regular, S1 and S2 with a systolic ejection murmur. CHEST EXAMINATION: Lungs diminished air entry to bilateral bases with rales noted at the bases. AbDOMEN: Soft, nontender. Bowel sounds are heard. No organomegaly noted. EXTREMITIES: 2+ peripheral pulses with no evidence of peripheral edema and no calf tenderness noted. NEUROLOGIC patient is awake, alert and oriented x3, some confusion and memory loss noted. - Labs CBC & Chem 7: 01/12/18 06:17 01/12/18 06:17 Labs: Abnormal Lab Results - Last 24 Hours (Table) 01/12/18 01/12/18 01/12/18 Range/Units 06:17 06:17 06:17 RBC 2.90 L (4.30-5.90) m/uL Hgb 9.0 L (13.0-17.5) gm/dL Hct 28.9 L (39.0-53.0) % RDW 16.1 H (11.5-15.5) % APTT 51.1 H (22.0-30.0) sec Creatinine 2.02 H (0.66-1.25) mg/dL Glucose 107 H (74-99) mg/dL Magnesium 1.5 L (1.6-2.3) mg/dL Assessment and Plan Plan: Aassessment and plan #1acute on chronic systolic congestive heart failure, ejection fraction of 25-30 % #2 paroxysmal atrial fibrillation with rapid ventricular response #3 acute kidney failure #4 severe aortic stenosis #5 severe cardiomyopathy unknown whether it is ischemic or nonischemic Plan From cardiology's perspective continue the patient on his current medications. He will be scheduled tomorrow to undergo transesophageal echocardiographic study and cardiac catheterization, the risks and the benefits have been explained to the patient and his power of workers compensation attorney in detail. DNP note has been reviewed, I agree with a documented findings and plan of care. Patient was seen and examined.
[2018-01-12] MEDS: ALPRAZolam 0.5 MG TAB PO PRN (17:26)
[2018-01-12] MEDS: SODIUM CHLORIDE 0.9% 1,000 ML IV SCH (17:29)
[2018-01-12] MEDS: SERTRALINE 100 MG TAB PO SCH (21:38)
[2018-01-13] MEDS: ALPRAZolam 0.5 MG TAB PO PRN ×2 (02:18→19:16)
[2018-01-13] MEDS: HEPARIN SOD,PORK IN 0.45% NACL 25,000 UNIT in 0.45% NACL 1 500ML.BAG IV SCH ×2 (02:19→15:25)
[2018-01-13 06:03] LABS: Anisocytosis Slight; Basophils % (A) 0 %; Eosinophils # (A) 0.1 k/uL (0-0.7); Eosinophils % (A) 1 %; HCT 29.3 % (39.0-53.0); HGB 9.1 gm/dL (13.0-17.5); Hypochromasia Slight; Lymphocytes # (A) 2.7 k/uL (1.0-4.8); Lymphocytes % (A) 30 %; MCH 30.5 pg (25.0-35.0); MCHC 31.2 g/dL (31.0-37.0); MCV 97.8 fL (80.0-100.0); Macrocytosis Slight; Monocytes # (A) 0.5 k/uL (0-1.0); Monocytes % (A) 6 %; Neutrophils # (A) 5.5 k/uL (1.3-7.7); Neutrophils % (A) 61 %; Platelet Count 194 k/uL (150-450); RBC 2.99 m/uL (4.30-5.90); RDW 16.1 % (11.5-15.5)
[2018-01-13 06:19] LABS: Calcium 8.4 mg/dL (8.4-10.2); Magnesium 1.9 mg/dL (1.6-2.3); Potassium 3.4 mmol/L (3.5-5.1)
[2018-01-13] MEDS: IPRATROPIUM-ALBUTEROL 3 ML NEB INHALATION SCH ×3 (07:21→19:49)
[2018-01-13] MEDS ORDERED: fentaNYL (PF) 50 MCG/ML 2 ML AMP ONE (08:07)
[2018-01-13] MEDS ORDERED: MIDAZOLAM 2 MG/2 ML VIAL ONE ×2 (08:07)
[2018-01-13] MEDS ORDERED: SODIUM CHLORIDE 0.9% 500 ML 500 ML IV ONE (08:37)
[2018-01-13] MEDS ORDERED: BENZOCAINE SPRAY 1 CAN MUCOUS MEM ONE (08:45)
[2018-01-13] MEDS ORDERED: fentaNYL (PF) 50 MCG/ML 2 ML AMP IV ONE (08:56)
[2018-01-13] MEDS ORDERED: MIDAZOLAM 2 MG/2 ML VIAL IV ONE ×2 (08:56)
[2018-01-13] MEDS ORDERED: ATORVASTATIN 80 MG TAB PO ONE (09:00)
[2018-01-13] MEDS ORDERED: ASPIRIN 325 MG TAB PO ONE (09:00)
[2018-01-13] MEDS ORDERED: IV FLUID CONTINUATION 1,000 ML IV ONE (09:26)
[2018-01-13] MEDS ORDERED: LIDOCAINE 1% INJ 10MG/ML (20 ML MDV) SQ ONE (09:53)
[2018-01-13] MEDS ORDERED: IOPAMIDOL-370 125ML BTL INJ ONE (10:03)
[2018-01-13] MEDS ORDERED: RX INFO: IV CONTRAST WAS GIVEN 1 EACH MISC MISCELLANE PRN (10:11)
[2018-01-13] MEDS ORDERED: SODIUM CHLORIDE 0.9% 1,000 ML IV SCH (10:15)
--- NOTE | 2018-01-13 10:54 | ECHOT ---
TRANSESOPHAGEAL ECHOCARDIOGRAM DATE OF SERVICE: 01/13/2018 PERFORMING PHYSICIAN: Danny Adams MD. PROCEDURE PERFORMED: Transesophageal echocardiogram. INDICATION: This is a pleasant 72-year-old gentleman who was diagnosed recently with severe aortic stenosis as well as severe cardiomyopathy. He agreed about the need for aortic valve replacement either surgically or percutaneously. The transesophageal echocardiogram is for further evaluation of the aortic valve. COMPLICATION: None. LEVEL OF SEDATION: Moderate with sedation length of 14 minutes. PROCEDURE DESCRIPTION: After obtaining an informed consent, explaining the procedure, benefits, risks, complications and alternatives, the patient was brought to the transesophageal echocardiogram suite. A pulse oximetry and heart rate monitors were attached to the patient prior to the procedure. The patient's throat was sprayed using lidocaine locally. Following that, the patient was turned into left lateral position. A bite guard was placed and the patient was then sedated with the above doses of Versed and fentanyl in divided doses. Following that, the transesophageal echocardiogram probe was advanced through the bite guard into the mid esophagus where 2-D echocardiogram images as well as color Doppler images of various cardiac structures were obtained. We evaluated the interatrial septum using 2-D echocardiogram, color Doppler, and contrast study. The procedure was completed. There were no complications. FINDINGS: The left ventricular systolic function appeared to be impaired with an ejection fraction of 30%-35% with a global hypokinesia. The right ventricle appeared to be of normal size and function. The left atrium is severely dilated. The aortic valve was heavily calcified and heavily sclerotic and I was unable to tell if the valve is bicuspid or tricuspid. I could not get aortic valve area by planimetry, but I was able to get transgastric gradient, which was 106 mmHg as a peak gradient and 63 mmHg as a mean gradient, which is consistent with severe/critical aortic stenosis. The mitral valve was also thickened and calcified with evidence of moderate mitral regurgitation with vena contracta of 0.5 cm. There was mild tricuspid regurgitation and mild pulmonic insufficiency seen. The interatrial septum appeared to be intact without any evidence of shunt. The aortic root appeared to be normal. CONCLUSION: 1. Severely impaired left ventricular function with an ejection fraction around 25%- 30% with global hypokinesia. 2. Severely dilated left atrium. 3. Normal left atrial appendage without any evidence of thrombus. 4. Intact interatrial septum without any evidence of shunt. 5. Aortic sclerosis with severe/critical aortic stenosis with a peak gradient of 106 and mean gradient of 63 mmHg. I was unable to tell if the valve is bicuspid or tricuspid. 6. Thickened mitral valve leaflets with moderate mitral regurgitation. I measured the vena contracta which was 0.5 cm. 7. Mild tricuspid regurgitation. 8. Mild aortic insufficiency. 9. Normal aortic root dimension. 10.No evidence of pericardial effusion. MMODL / IJN: [id number] /
--- NOTE | 2018-01-13 10:54 | CC ---
CARDIAC CATHETERIZATION REPORT DATE OF SERVICE: January 13, 2018 PERFORMING PHYSICIAN: Danny Adams MD. PROCEDURE PERFORMED: Selective right and left coronary angiogram. INDICATION: This is a pleasant 72-year-old gentleman who was diagnosed recently with severe aortic stenosis, which confirmed by transesophageal echocardiogram. He was brought today to undergo a heart catheterization to check his coronaries. APPROACH: Right common femoral artery. COMPLICATION: None. LEVEL OF SEDATION: Moderate with sedation length of 11 minutes. PROCEDURE DESCRIPTION: After obtaining informed consent, the patient was brought to the cardiac blood and plasma laboratory assistant. The right common femoral artery was cannulated using micropuncture technique, the micropuncture wire passed easily then I placed a 6-Tajik sheath in the right common femoral artery. After that, I did selective right and left coronary angiogram using JR4 and JL4 catheters. The procedure was completed without any complication. SELECTIVE CORONARY ANGIOGRAM: 1. The RCA is a large caliber vessel and it is a dominant vessel. The RCA has mild disease in the midportion. It distally bifurcates into PDA and PLV branches both are angiographically normal. 2. The left main is angiographically normal. It bifurcates into left circumflex and left anterior descending artery. 3. The left circumflex is a large caliber vessel. It is a codominant vessel. The proximal circumflex is normal. The mid circumflex is normal and gives rise into the first and second OM branches both are angiographically normal. The circumflex distally is normal and bifurcates into PDA and PLV branches both are angiographically normal. 4. The LAD: The proximal LAD appeared to be angiographically normal. The mid LAD is normal and gives rise into the first and second diagonal branches both are angiographically normal and the LAD distally appeared to be angiographically normal as well. CONCLUSION: 1. Mild disease involving the mid right coronary artery. 2. Normal left main coronary artery. 3. Normal left circumflex coronary artery. 4. Normal left anterior descending artery. POSTPROCEDURE MANAGEMENT: Proceeding with aortic either percutaneously or surgically. MMODL / IJN: [id number] /
--- NOTE | 2018-01-13 11:08 | P.PN ---
Subjective Progress Note Date: 01/12/18 Progress note being dictated for Dr. Flores. Interval history:72-year-old gentleman admitted with the atrial fibrillation with rapid and regular rate. Patient was recently discharged from the hospital last drink he was treated for non-ST ration microinfarction, acute systolic dysfunction pulmonary edema. Patient was started on Lasix dose of which is being decreased today patient was in significant heart failure. Patient's creatinine has gone up from 1.9-2, nephrology evaluated the patient and cardiology evaluated the patient. Patient has severe stenosis IV amiodarone drip was discontinued metoprolol was started back. Had extensive discussion with the patient regarding options. One option is cardiac catheterization although there is an associated risk of worsening kidney function from this followed by evaluation for aortic valve replacement. The other option is conservative management without any intervention which can lead to multiple hospitalization and because of his severe right external says, congestive heart failure and probable severe coronary artery disease prognosis is extremely poor and comfort care is an option at that time. Patient will discuss with his guardian. Constitutional: Denied any fatigue denied any fever. Cardio vascular: denied any chest pain, palpitations Gastrointestinal denied any nausea vomiting Pulmonary: Denied any shortness of breath cough Neurologic denied any new focal deficits 01/12/2018 telemetry reporting sinus rhythm, proximal atrial fibrillation with controlled ventricular rate. Hypomagnesemia receiving supplements. Diuresing well on Lasix IV push with 24-hour I&O reflecting a negative fluid balance. Creatinine stable, currently 2. Good diet intake with no nausea or vomiting. Denies abdominal pain. Denies chest pain, palpitations or increased shortness of breath. Scheduled for cardiac catheterization tomorrow. Objective - Vital Signs Vital signs: Vital Signs Temp 97.5 F L 01/12/18 07:51 Pulse 76 01/12/18 12:43 Resp 18 01/12/18 07:51 BP 120/72 01/12/18 07:51 Pulse Ox 96 01/12/18 07:51 Intake & Output 01/11/18 01/12/18 01/12/18 18:59 06:59 18:59 Intake Total 783.464 600 305.64 Output Total 1400 150 800 Balance -616.536 450 -494.36 Weight 85.1 kg 83.8 kg Intake: Intake, IV Titration 381.464 305.64 Amount Heparin Sod,Pork in 0.45% 381.464 305.64 NaCl 25,000 unit In 0.45 % NaCl 1 500ml.bag @ 12 UNITS/KG/HR 20.13 mls/hr IV .Q24H [facility] Rx#: [id number] Oral 402 600 Output: Urine 1400 150 800 Other: Voiding Method Urinal Diaper # Voids 300 - Exam GENERAL: Sitting up in bed, alert and oriented x3, not in any acute distress. HEENT: Pupils are round and equally reacting to light. EOMI. No scleral icterus. No conjunctival pallor. Normocephalic, atraumatic. Positive JVD CARDIOVASCULAR: S1 and S2 present. No murmurs, rubs, or gallops. Positive systolic murmur, irregular at times. PULMONARY: Chest is clear to auscultation, bilateral diminished bases, no wheezing, occasional fine bibasilar crackles. ABDOMEN: Soft, nontender, nondistended, normoactive bowel sounds. No palpable organomegaly. MUSCULOSKELETAL: No joint swelling or deformity. EXTREMITIES: No cyanosis, clubbing, or pedal edema. NEUROLOGICAL: Gross neurological examination did not reveal any focal deficits. SKIN: No rashes. - Labs CBC & Chem 7: 01/13/18 05:35 01/13/18 05:35 Labs: Abnormal Lab Results - Last 24 Hours (Table) 01/12/18 01/12/18 01/12/18 Range/Units 06:17 06:17 06:17 RBC 2.90 L (4.30-5.90) m/uL Hgb 9.0 L (13.0-17.5) gm/dL Hct 28.9 L (39.0-53.0) % RDW 16.1 H (11.5-15.5) % APTT 51.1 H (22.0-30.0) sec Creatinine 2.02 H (0.66-1.25) mg/dL Glucose 107 H (74-99) mg/dL Magnesium 1.5 L (1.6-2.3) mg/dL Assessment and Plan Assessment: -Atrial fibrillation with RVR, paroxysmal, currently rate controlled. -Non-ST elevation myocardial infarction -Congestive heart failure chronic systolic dysfunction with mild acute exacerbation, EF 25-30% -Severe cardiomyopathy, unclear if ischemic or nonischemic. -Severe pulmonary hypertension -Acute renal failure, mostly prerenal ,secondary to cardiorenal, chf, diuresing. -Severe aortic stenosis: Will need valve replacement -Seizure disorder -Depression -Hypomagnesemia Plan: Continue on current medication regime ,monitoring and symptomatic treatment. Diuretics therapy as per nephrology. Magnesium supplements. Proceeding with cardiac catheterization tomorrow. TAVR being discussed. The impression and plan of care has been dictated as directed. : I performed a history and examination of this patient, discussed the same with the dictator. I agree with the dictator's note ,documented as a scribe. Any additional findings or plans will be noted.
[2018-01-13] MEDS: FUROSEMIDE 10 MG/ML 4 ML VIAL IV SCH (11:52)
[2018-01-13] MEDS: SODIUM BICARBONATE TAB 650 MG TAB PO SCH ×2 (11:53→20:45)
[2018-01-13] MEDS: METOPROLOL TARTRATE 25 MG TAB PO SCH ×2 (11:53→20:45)
[2018-01-13] MEDS: PHENYTOIN SODIUM EXTENDED 100 MG CAP PO SCH ×2 (11:53→20:45)
[2018-01-13] MEDS: MAGNESIUM OXIDE 400 MG TAB PO SCH (11:53)
[2018-01-13] MEDS: AMIODARONE 200 MG TAB PO SCH ×2 (11:53→20:45)
[2018-01-13] MEDS: POTASSIUM CHLORIDE ER 20 MEQ TAB.ER PO SCH ×2 (11:54→13:46)
[2018-01-13] MEDS ORDERED: POTASSIUM CHLORIDE ER 20 MEQ TAB.ER PO STA (13:11)
--- NOTE | 2018-01-13 13:28 | P.PN ---
Subjective Patient is seen in follow-up for acute kidney injury. Renal function better with creatinine at 1.89 today. Oral intake is fair. No vomiting or diarrhea. Denies any active chest pain or shortness of breath. Currently maintained on Lasix 40 mg IV once daily. Admits to good urine output. Patient underwent cardiac catheterization this morning. Currently maintained on normal saline at 75 mL an hour. Vital signs are stable. General: The patient appeared well nourished and normally developed. HEENT: Head exam is unremarkable. Neck is without jugular venous distension. LUNGS: Lungs are clear to auscultation and percussion. Breath sounds decreased. HEART: Rate and Rhythm are regular. First and second heart sounds normal. No murmurs, rubs or gallops. ABDOMEN: Abdominal exam reveals normal bowel sounds. Non-tender and non- distended. No evidence of peritonitis. EXTREMITITES: No clubbing, cyanosis, or edema. Objective - Vital Signs Vital signs: Vital Signs Temp 98.4 F 01/13/18 04:00 Pulse 76 01/13/18 13:19 Resp 16 01/13/18 11:10 BP 101/66 01/13/18 11:40 Pulse Ox 96 01/13/18 11:10 Intake & Output 01/12/18 01/13/18 01/13/18 18:59 06:59 18:59 Intake Total 620.00 680 460.444 Output Total 1100 250 200 Balance -480.00 430 260.444 Weight 82.7 kg Intake: IV 100 Intake, IV Titration 500.00 480 120.444 Amount Heparin Sod,Pork in 0.45% 500.00 120.444 NaCl 25,000 unit In 0.45 % NaCl 1 500ml.bag @ 12 UNITS/KG/HR 20.13 mls/hr IV .Q24H [facility] Rx#: [id number] Magnesium Sulfate-D5w Pmx 240 1 gm In Dextrose/Water 1 100ml.bag @ 100 mls/hr IVPB Q1H [facility] Rx#: [id number] Sodium Chloride 0.9% 1, 240 000 ml @ 20 mls/hr IV . Q24H [facility] Rx#:[id number] Oral 120 200 240 Output: Urine 1100 250 200 Other: Voiding Method Urinal Urinal Diaper Diaper # Voids 2 # Bowel Movements 0 - Labs CBC & Chem 7: 01/13/18 05:35 01/13/18 05:35 Labs: Abnormal Lab Results - Last 24 Hours (Table) 01/13/18 01/13/18 01/13/18 Range/Units 05:35 05:35 05:35 RBC 2.99 L (4.30-5.90) m/uL Hgb 9.1 L (13.0-17.5) gm/dL Hct 29.3 L (39.0-53.0) % RDW 16.1 H (11.5-15.5) % APTT 48.7 H (22.0-30.0) sec Potassium 3.4 L (3.5-5.1) mmol/L Creatinine 1.89 H (0.66-1.25) mg/dL Glucose 101 H (74-99) mg/dL Assessment and Plan Plan: Assessment: 1. Acute kidney injury mostly prerenal secondary to diuresis and hemodynamic instability. Creatinine better - 1.89 today. 2. A. fib with RVR. Now rate controlled. 3. Systolic CHF with ejection fraction of 25-30% with severe pulmonary hypertension. 4. Severe aortic stenosis. Status post cardiac catheterization this morning. 5. Volume overload. Improved. 6. Hypokalemia secondary to diuresis. 7. Hypomagnesemia secondary to diuresis. Improved post replacement. Plan: Maintain Lasix 40 mg IV once daily. Hep-Lock IV fluids in 2 hours. Avoid nephrotoxins. Patient wishes to proceed with TAVR. Replace potassium. 40 mEq today.
[2018-01-13] MEDS: SERTRALINE 100 MG TAB PO SCH (20:45)
[2018-01-13] MEDS: SODIUM CHLORIDE 0.9% 1,000 ML IV SCH (20:46)
--- NOTE | 2018-01-13 23:49 | P.PN ---
Subjective Progress Note Date: 01/13/18 Principal diagnosis: A. fib with RVR Acute kidney injury Interval history:72-year-old gentleman admitted with the atrial fibrillation with rapid and regular rate. Patient was recently discharged from the hospital last drink he was treated for non-ST ration microinfarction, acute systolic dysfunction pulmonary edema. Patient was started on Lasix dose of which is being decreased today patient was in significant heart failure. Patient's creatinine has gone up from 1.9-2, nephrology evaluated the patient and cardiology evaluated the patient. Patient has severe stenosis IV amiodarone drip was discontinued metoprolol was started back. Had extensive discussion with the patient regarding options. One option is cardiac catheterization although there is an associated risk of worsening kidney function from this followed by evaluation for aortic valve replacement. The other option is conservative management without any intervention which can lead to multiple hospitalization and because of his severe right external says, congestive heart failure and probable severe coronary artery disease prognosis is extremely poor and comfort care is an option at that time. Patient will discuss with his guardian. Constitutional: Denied any fatigue denied any fever. Cardio vascular: denied any chest pain, palpitations Gastrointestinal denied any nausea vomiting Pulmonary: Denied any shortness of breath cough Neurologic denied any new focal deficits 01/12/2018 telemetry reporting sinus rhythm, proximal atrial fibrillation with controlled ventricular rate. Hypomagnesemia receiving supplements. Diuresing well on Lasix IV push with 24-hour I&O reflecting a negative fluid balance. Creatinine stable, currently 2. Good diet intake with no nausea or vomiting. Denies abdominal pain. Denies chest pain, palpitations or increased shortness of breath. Scheduled for cardiac catheterization tomorrow. 01/13/2018 Patient denied any complaints of chest pain or shortness breath. Patient underwent cardiac catheterization today. Heart rate is better controlled now. Patient is being continued on IV Lasix. Nephrology and cardiology is following. Creatinine 1.89 trending down. Current medications reviewed Objective - Vital Signs Vital signs: Vital Signs Temp 98.4 F 01/13/18 04:00 Pulse 82 01/13/18 11:40 Resp 16 01/13/18 11:10 BP 101/66 01/13/18 11:40 Pulse Ox 96 01/13/18 11:10 Intake & Output 01/12/18 01/13/18 01/13/18 18:59 06:59 18:59 Intake Total 620.00 680 220.444 Output Total 1100 250 Balance -480.00 430 220.444 Weight 82.7 kg Intake: IV 100 Intake, IV Titration 500.00 480 120.444 Amount Heparin Sod,Pork in 0.45% 500.00 120.444 NaCl 25,000 unit In 0.45 % NaCl 1 500ml.bag @ 12 UNITS/KG/HR 20.13 mls/hr IV .Q24H [facility] Rx#: [id number] Magnesium Sulfate-D5w Pmx 240 1 gm In Dextrose/Water 1 100ml.bag @ 100 mls/hr IVPB Q1H [facility] Rx#: [id number] Sodium Chloride 0.9% 1, 240 000 ml @ 20 mls/hr IV . Q24H [facility] Rx#:[id number] Oral 120 200 Output: Urine 1100 250 Other: Voiding Method Urinal Urinal Diaper Diaper # Voids 2 # Bowel Movements 0 - Exam - Exam GENERAL: Sitting up in bed, alert and oriented x3, not in any acute distress. HEENT: Pupils are round and equally reacting to light. EOMI. No scleral icterus. No conjunctival pallor. Normocephalic, atraumatic. Positive JVD CARDIOVASCULAR: S1 and S2 present. No murmurs, rubs, or gallops. Positive systolic murmur, irregular at times. PULMONARY: Chest is clear to auscultation, bilateral diminished bases, no wheezing, occasional fine bibasilar crackles. ABDOMEN: Soft, nontender, nondistended, normoactive bowel sounds. No palpable organomegaly. MUSCULOSKELETAL: No joint swelling or deformity. EXTREMITIES: No cyanosis, clubbing, or pedal edema. NEUROLOGICAL: Gross neurological examination did not reveal any focal deficits. SKIN: No rashes. - Labs CBC & Chem 7: 01/13/18 05:35 01/13/18 05:35 Labs: Abnormal Lab Results - Last 24 Hours (Table) 01/13/18 01/13/18 01/13/18 Range/Units 05:35 05:35 05:35 RBC 2.99 L (4.30-5.90) m/uL Hgb 9.1 L (13.0-17.5) gm/dL Hct 29.3 L (39.0-53.0) % RDW 16.1 H (11.5-15.5) % APTT 48.7 H (22.0-30.0) sec Potassium 3.4 L (3.5-5.1) mmol/L Creatinine 1.89 H (0.66-1.25) mg/dL Glucose 101 H (74-99) mg/dL Assessment and Plan Assessment: Assessment: -Atrial fibrillation with RVR, paroxysmal, currently rate controlled. -Non-ST elevation myocardial infarction -Congestive heart failure chronic systolic dysfunction with mild acute exacerbation, EF 25-30% -Severe cardiomyopathy, unclear if ischemic or nonischemic. -Severe pulmonary hypertension -Acute renal failure, mostly prerenal ,secondary to cardiorenal, chf, diuresing. -Severe aortic stenosis: Will need valve replacement -Seizure disorder -Depression -Hypomagnesemia and hypokalemia Plan: Continue on current medication regime ,monitoring and symptomatic treatment. Continue with Lasix 40 mg IV daily. Magnesium supplements. Patient underwent cardiac catheterization today. TAVR being discussed. Nephrology and cardiology is following. Time with Patient: Greater than 30
[2018-01-14] MEDS: ALPRAZolam 0.5 MG TAB PO PRN ×2 (06:07→15:26)
[2018-01-14 07:15] LABS: Basophils % (A) 0 %; Eosinophils # (A) 0.1 k/uL (0-0.7); Eosinophils % (A) 1 %; HCT 29.4 % (39.0-53.0); HGB 9.4 gm/dL (13.0-17.5); Hypochromasia Slight; Lymphocytes # (A) 1.5 k/uL (1.0-4.8); Lymphocytes % (A) 19 %; MCH 30.8 pg (25.0-35.0); MCHC 31.9 g/dL (31.0-37.0); MCV 96.7 fL (80.0-100.0); Macrocytosis Slight; Mean Platelet Volume 6.7; Monocytes # (A) 0.5 k/uL (0-1.0); Monocytes % (A) 7 %; Neutrophils # (A) 5.9 k/uL (1.3-7.7); Neutrophils % (A) 72 %; Platelet Count 196 k/uL (150-450); RBC 3.04 m/uL (4.30-5.90); RDW 15.8 % (11.5-15.5); WBC 8.2 k/uL (3.8-10.6)
[2018-01-14 07:35] LABS: Calcium 8.7 mg/dL (8.4-10.2); Magnesium 1.7 mg/dL (1.6-2.3); Potassium 3.5 mmol/L (3.5-5.1)
[2018-01-14] MEDS: METOPROLOL TARTRATE 25 MG TAB PO SCH (09:40)
[2018-01-14] MEDS: ASPIRIN 325 MG TAB PO SCH (09:41)
[2018-01-14] MEDS: MAGNESIUM OXIDE 400 MG TAB PO SCH (09:41)
[2018-01-14] MEDS: AMIODARONE 200 MG TAB PO SCH ×2 (09:41→20:28)
[2018-01-14] MEDS: SODIUM BICARBONATE TAB 650 MG TAB PO SCH ×2 (09:41→20:27)
[2018-01-14] MEDS: PHENYTOIN SODIUM EXTENDED 100 MG CAP PO SCH ×2 (09:41→20:28)
[2018-01-14] MEDS: FUROSEMIDE 10 MG/ML 4 ML VIAL IV SCH (09:41)
[2018-01-14] MEDS: IPRATROPIUM-ALBUTEROL 3 ML NEB INHALATION SCH ×3 (09:53→19:28)
--- NOTE | 2018-01-14 12:04 | P.PN ---
Subjective Progress Note Date: 01/14/18 Principal diagnosis: Severe aortic stenosis/severe cardiomyopathy This is a 72-year-old gentleman with known severe aortic stenosis, severe cardiomyopathy, as well as chronic kidney disease, was admitted to the hospital yesterday with progressive dyspnea and he was diagnosed with congestive heart failure exacerbation secondary to systolic dysfunction as well as he was in atrial fibrillation with RVR. On follow-up with him today, January 142017, he is feeling better in terms of shortness of breath. The blood pressure has been marginally low and I would lower the dose of metoprolol to 12.5 mg by mouth twice a day. He did undergo a DAVID yesterday and that revealed severe aortic stenosis. The heart catheterization was done yesterday as well as and showed mild non-obstructive coronary artery disease. I'm going to consult a surgeon for the evaluation off aortic valve replacement either surgically or percutaneously. Objective - Vital Signs Vital signs: Vital Signs Temp 97.1 F L 01/14/18 11:26 Pulse 80 01/14/18 11:26 Resp 20 01/14/18 11:26 BP 99/59 01/14/18 11:26 Pulse Ox 91 L 01/14/18 11:26 Intake & Output 01/13/18 01/14/18 01/14/18 18:59 06:59 18:59 Intake Total 578.444 260 Output Total 600 403 Balance -21.556 -403 260 Weight 82.4 kg Intake: IV 100 Intake, IV Titration 120.444 20 Amount Heparin Sod,Pork in 0.45% 120.444 NaCl 25,000 unit In 0.45 % NaCl 1 500ml.bag @ 12 UNITS/KG/HR 20.13 mls/hr IV .Q24H [facility] Rx#: [id number] Sodium Chloride 0.9% 1, 20 000 ml @ 75 mls/hr IV . [id number] [facility] Rx#:[id number] Oral 358 240 Output: Urine 600 402 Stool 1 Other: Voiding Method Urinal Urinal Urinal - Constitutional General appearance: Present: no acute distress - Respiratory Respiratory: bilateral: rales - Cardiovascular Rhythm: regular Heart sounds: normal: S1 Abnormal Heart Sounds: Present: systolic murmur - Labs CBC & Chem 7: 01/14/18 06:56 01/14/18 06:56 Labs: Abnormal Lab Results - Last 24 Hours (Table) 01/14/18 01/14/18 Range/Units 06:56 06:56 RBC 3.04 L (4.30-5.90) m/uL Hgb 9.4 L (13.0-17.5) gm/dL Hct 29.4 L (39.0-53.0) % RDW 15.8 H (11.5-15.5) % Creatinine 1.98 H (0.66-1.25) mg/dL Glucose 108 H (74-99) mg/dL Assessment and Plan Assessment: Assessment #1 atrial fibrillation with rapid ventricular response. Currently the patient is in normal sinus mechanism #2 known paroxysmal atrial fibrillation #3 congestive heart failure exacerbation secondary to systolic dysfunction #4 known severe cardiomyopathy unknown if it's due to systolic or diastole dysfunction #5 known severe aortic stenosis #7 chronic kidney disease #8 anemia Plan #1 decrease the dose of metoprolol #2 surgical consult for the evaluation of aVR.
--- NOTE | 2018-01-14 12:55 | P.PN ---
Subjective Patient is seen in follow-up for acute kidney injury. Renal function mildly worse with creatinine of 1.98 today. Oral intake is fair. No vomiting or diarrhea. Denies any active chest pain or shortness of breath. Currently maintained on Lasix 40 mg IV once daily. Admits to good urine output. Patient underwent cardiac catheterization on January 13. Patient has severe aortic stenosis. Vital signs are stable. General: The patient appeared well nourished and normally developed. HEENT: Head exam is unremarkable. Neck is without jugular venous distension. LUNGS: Lungs are clear to auscultation and percussion. Breath sounds decreased. HEART: Rate and Rhythm are regular. First and second heart sounds normal. No murmurs, rubs or gallops. ABDOMEN: Abdominal exam reveals normal bowel sounds. Non-tender and non- distended. No evidence of peritonitis. EXTREMITITES: No clubbing, cyanosis, or edema. Objective - Vital Signs Vital signs: Vital Signs Temp 97.1 F L 01/14/18 11:26 Pulse 72 01/14/18 12:36 Resp 20 01/14/18 11:26 BP 99/59 01/14/18 11:26 Pulse Ox 91 L 01/14/18 11:26 Intake & Output 01/13/18 01/14/18 01/14/18 18:59 06:59 18:59 Intake Total 578.444 260 Output Total 600 403 400 Balance -21.556 -403 -140 Weight 82.4 kg Intake: IV 100 Intake, IV Titration 120.444 20 Amount Heparin Sod,Pork in 0.45% 120.444 NaCl 25,000 unit In 0.45 % NaCl 1 500ml.bag @ 12 UNITS/KG/HR 20.13 mls/hr IV .Q24H [facility] Rx#: [id number] Sodium Chloride 0.9% 1, 20 000 ml @ 75 mls/hr IV . [id number] [facility] Rx#:[id number] Oral 358 240 Output: Urine 600 402 400 Stool 1 Other: Voiding Method Urinal Urinal Urinal - Labs CBC & Chem 7: 01/14/18 06:56 01/14/18 06:56 Labs: Abnormal Lab Results - Last 24 Hours (Table) 01/14/18 01/14/18 Range/Units 06:56 06:56 RBC 3.04 L (4.30-5.90) m/uL Hgb 9.4 L (13.0-17.5) gm/dL Hct 29.4 L (39.0-53.0) % RDW 15.8 H (11.5-15.5) % Creatinine 1.98 H (0.66-1.25) mg/dL Glucose 108 H (74-99) mg/dL Assessment and Plan Plan: Assessment: 1. Acute kidney injury mostly prerenal secondary to diuresis and hemodynamic instability. Creatinine mildly worse at 1.98 today. 2. A. fib with RVR. Now rate controlled. 3. Systolic CHF with ejection fraction of 25-30% with severe pulmonary hypertension. 4. Severe aortic stenosis. Status post cardiac catheterization on January 13. 5. Volume overload. Improved. 6. Hypokalemia secondary to diuresis. 7. Hypomagnesemia secondary to diuresis. Plan: I will change Lasix to 40 mg orally once daily. Avoid nephrotoxins. Patient wishes to proceed with TAVR - cardiothoracic surgery eval pending. Replace potassium. 40 mEq today. Replace magnesium. 1 g IV today.
[2018-01-14] MEDS ORDERED: POTASSIUM CHLORIDE ER 20 MEQ TAB.ER PO STA (12:56)
[2018-01-14] MEDS ORDERED: MAGNESIUM SULFATE-D5W PMX 1 GM in DEXTROSE/WATER 1 100ML.BAG IVPB ONE (12:56)
[2018-01-14] MEDS: HEPARIN SOD,PORK IN 0.45% NACL 25,000 UNIT in 0.45% NACL 1 500ML.BAG IV SCH (15:10)
[2018-01-14] MEDS: SERTRALINE 100 MG TAB PO SCH (20:27)
[2018-01-14] MEDS: METOPROLOL TARTRATE 12.5 MG TAB PO SCH (20:28)
[2018-01-14] MEDS: SODIUM CHLORIDE 0.9% 1,000 ML IV SCH (23:33)
[2018-01-15 07:27] LABS: Anisocytosis Slight; HCT 29.9 % (39.0-53.0); HGB 9.6 gm/dL (13.0-17.5); Hypochromasia Slight; MCH 31.1 pg (25.0-35.0); MCHC 32.2 g/dL (31.0-37.0); MCV 96.6 fL (80.0-100.0); Macrocytosis Slight; Mean Platelet Volume 7.2; Platelet Count 210 k/uL (150-450); RDW 16.1 % (11.5-15.5); WBC 10.3 k/uL (3.8-10.6)
[2018-01-15 07:46] LABS: Calcium 8.8 mg/dL (8.4-10.2); Magnesium 1.8 mg/dL (1.6-2.3); Potassium 3.9 mmol/L (3.5-5.1)
[2018-01-15] MEDS: AMIODARONE 200 MG TAB PO SCH ×2 (07:59→20:35)
[2018-01-15] MEDS: PHENYTOIN SODIUM EXTENDED 100 MG CAP PO SCH ×2 (07:59→20:35)
[2018-01-15] MEDS: METOPROLOL TARTRATE 12.5 MG TAB PO SCH ×2 (08:00→20:35)
[2018-01-15] MEDS: FUROSEMIDE 40 MG TAB PO SCH (08:00)
[2018-01-15] MEDS: SODIUM BICARBONATE TAB 650 MG TAB PO SCH ×2 (08:00→20:35)
[2018-01-15] MEDS: MAGNESIUM OXIDE 400 MG TAB PO SCH (08:00)
[2018-01-15] MEDS: ASPIRIN 325 MG TAB PO SCH (08:00)
[2018-01-15] MEDS: ONDANSETRON 4 MG/2 ML VIAL IVP PRN (08:07)
[2018-01-15] MEDS: IPRATROPIUM-ALBUTEROL 3 ML NEB INHALATION SCH ×3 (08:35→19:26)
--- NOTE | 2018-01-15 10:40 | P.GSCN ---
History of Present Illness Consult date: 01/15/18 Reason for Consult: Severe aortic stenosis, TAVR recommendations Requesting physician: Danny Adams History of present illness: This is a 72-year-old gentleman with a previous medical history of recent non- STEMI, recent diagnosis of atrial fibrillation with rapid ventricular response, CVA, hypertension, seizure disorder, brain AVM, anxiety, depression, and family history of coronary artery disease. He presented to [facility] with complaints of significant shortness of breath, and feeling like his heart is racing. He was found to be in A. fib RVR, with acute pulmonary edema. He was admitted for evaluation and treatment. The patient had been here in the hospital a couple of weeks ago with similar symptoms as well as elevation in troponins when he was ruled in for non-STEMI. At that time he had a significant increase in his creatinine level and cardiac catheterization was deferred. He also had an echocardiogram with that admission demonstrating severe aortic stenosis and impaired systolic function with an EF 25-30%. He was treated and released to follow up with cardiology for plans for heart catheterization. He was readmitted January 10 with the same complaints. When asked, the patient denies ever having any chest pain, but has had increased shortness of breath for approximately the last month as well as an episode of pre-syncope. He was taken for cardiac catheterization this admission demonstrating normal coronary arteries. He also had a transesophageal echocardiogram confirming severe aortic stenosis with a peak/mean gradient 106 mmHg/63 mmHg, severely impaired systolic function with an EF 25-30%, moderate mitral regurgitation, mild tricuspid regurgitation, mild aortic insufficiency, and normal aortic root. Due to his multiple comorbidities and significant risk factors Dr. Donald from cardiothoracic surgery was consulted for consideration for TAVR. Review of Systems Review of systems was completed and was negative except as noted. - Cardiovascular Reports as per HPI, Reports decreased exercise tolerance, Reports dyspnea on exertion, Reports lightheadedness, Reports rapid heart beat, Reports shortness of breath - Respiratory Reports cough Past Medical History Past Medical History: Atrial Fibrillation, Heart Failure, CVA/TIA, Hypertension , Seizure Disorder Additional Past Medical History / Comment(s): alcohol intoxication, alcohol withdrawal seizures, hypokalemia, hyponatremia, dehyration, metabolic , ntemiencephalopathy, brain AVM diagnosed 30 years ago History of Any Multi-Drug Resistant Organisms: None Reported Past Surgical History: Heart Catheterization Past Anesthesia/Blood Transfusion Reactions: No Reported Reaction Additional Past Anesthesia/Blood Transfusion Reaction / Comm: clausterphobia Past Psychological History: Anxiety, Depression Smoking Status: Never smoker Past Alcohol Use History: Rare Past Drug Use History: None Reported - Past Family History Father Family Medical History: Dementia Mother Family Medical History: Coronary Artery Disease (CAD), Hypertension Medications and Allergies Home Medications Medication Instructions Recorded Confirmed Type Sertraline [Zoloft] 100 mg PO HS 08/04/17 01/10/18 History Potassium Chloride [Klor-Con 8] 8 meq PO DAILY 12/30/17 01/10/18 History Amiodarone [Cordarone] 200 mg PO BID #60 tab 01/06/18 01/10/18 Rx Metoprolol Tartrate [Lopressor] 25 mg PO BID #60 tab 01/06/18 01/10/18 Rx Phenytoin Sodium Extended 300 mg PO BID #180 cap 01/06/18 01/10/18 Rx [Dilantin] Sodium Bicarbonate Tab 1,300 mg PO BID #120 tab 01/06/18 01/10/18 Rx Allergies Allergy/AdvReac Type Severity Reaction Status Date / Time loratadine Allergy Unknown Verified 01/10/18 10:59 antihistamines Allergy Unknown Uncoded 11/22/17 22:17 Surgical - Exam Vital Signs Temp Pulse Resp BP Pulse Ox 98.8 F 138 H 17 127/98 99 01/10/18 10:30 01/10/18 10:30 01/10/18 10:30 01/10/18 10:30 01/10/18 10:30 - General well developed, well nourished, no distress, no pain, chronically ill - Eyes PERRL, normal ocular movement - ENT no hearing loss, poor fci - Neck no masses, no bruits, trachea midline - Respiratory Lungs sounds diminished, coarse in the bases. Respirations even, nonlabored. Currently on room air with oxygen saturation 94%. Strong cough. - Cardiovascular S1, S2 present, positive systolic murmur. Regular rate and rhythm, sinus rhythm on telemetry. Palpable peripheral pulses bilaterally. No edema present. No calf pain or tenderness noted. - Abdomen Abdomen: soft, non tender, bowel sounds - Genitourinary Deferred - Rectum Deferred - Integumentary no rash, no growths, no abnormal pigmentation - Neurologic normal coordination, normal sensation - Psychiatric oriented to time, oriented to person, oriented to place, speech is normal Results - Labs 01/15/18 06:16 01/15/18 06:16 Abnormal Lab Results - Last 24 Hours (Table) 01/15/18 01/15/18 Range/Units 06:16 06:16 RBC 3.10 L (4.30-5.90) m/uL Hgb 9.6 L (13.0-17.5) gm/dL Hct 29.9 L (39.0-53.0) % RDW 16.1 H (11.5-15.5) % Creatinine 2.02 H (0.66-1.25) mg/dL Glucose 105 H (74-99) mg/dL Diabetes panel 01/15/18 Range/Units 06:16 Sodium 141 (137-145) mmol/L Potassium 3.9 (3.5-5.1) mmol/L Chloride 100 (98-107) mmol/L Carbon Dioxide 30 (22-30) mmol/L BUN 16 (9-20) mg/dL Creatinine 2.02 H (0.66-1.25) mg/dL Glucose 105 H (74-99) mg/dL Calcium 8.8 (8.4-10.2) mg/dL Calcium panel 01/15/18 Range/Units 06:16 Calcium 8.8 (8.4-10.2) mg/dL Pituitary panel 01/15/18 Range/Units 06:16 Sodium 141 (137-145) mmol/L Potassium 3.9 (3.5-5.1) mmol/L Chloride 100 (98-107) mmol/L Carbon Dioxide 30 (22-30) mmol/L BUN 16 (9-20) mg/dL Creatinine 2.02 H (0.66-1.25) mg/dL Glucose 105 H (74-99) mg/dL Calcium 8.8 (8.4-10.2) mg/dL Adrenal panel 01/15/18 Range/Units 06:16 Sodium 141 (137-145) mmol/L Potassium 3.9 (3.5-5.1) mmol/L Chloride 100 (98-107) mmol/L Carbon Dioxide 30 (22-30) mmol/L BUN 16 (9-20) mg/dL Creatinine 2.02 H (0.66-1.25) mg/dL Glucose 105 H (74-99) mg/dL Calcium 8.8 (8.4-10.2) mg/dL - Imaging Chest x-ray: report reviewed, image reviewed EKG: image reviewed Assessment and Plan (1) Severe aortic stenosis Current Visit: Yes Status: Chronic Code(s): I35.0 - NONRHEUMATIC AORTIC ( VALVE) STENOSIS SNOMED Code(s): 47910528 (2) Atrial fibrillation with RVR Current Visit: Yes Status: Acute Code(s): I48.91 - UNSPECIFIED ATRIAL FIBRILLATION SNOMED Code(s): 271212223684280 (3) Pulmonary edema Current Visit: Yes Status: Acute Code(s): J81.1 - CHRONIC PULMONARY EDEMA SNOMED Code(s): 29640149 (4) CHF (congestive heart failure) Current Visit: Yes Status: Chronic Code(s): I50.9 - HEART FAILURE, UNSPECIFIED SNOMED Code(s): 68630990 (5) CKD (chronic kidney disease) Current Visit: Yes Status: Chronic Code(s): N18.9 - CHRONIC KIDNEY DISEASE, UNSPECIFIED SNOMED Code(s): 184917304 Plan: The patient was seen and examined at the bedside. Chart/diagnostics were reviewed. The case was discussed between Dr. Adams and Dr. Donald. At this time we recommend maximizing medical management and resolving his current acute medical issues. The patient will be referred to the TAVR clinic to determine if he is an appropriate candidate. Patient stated he does not want to go down to [place] so he will be referred to the TAVR clinic in [place]. Their TAVR coordinator will contact the patient to set up an appointment for evaluation, we will make copies of patient's heart catheterization and echocardiogram films to be sent to the TAVR clinic. This was discussed with the patient. Continue medical management per primary, cardiology, nephrology. Thank you Dr. Adams for this consult. We look forward to working with you in the care of your patient. Time with Patient: Greater than 30
[2018-01-15] MEDS: SODIUM CHLORIDE 0.9% 1,000 ML IV SCH (11:14)
--- NOTE | 2018-01-15 12:29 | P.PN ---
Subjective Progress Note Date: 01/15/18 (Nephrology) Principal diagnosis: Acute kidney injury/chronic kidney disease Seen and examined for the follow-up of acute kidney injury. Severe aortic stenosis. Making good amount of urine. No nausea vomiting or diarrhea. Objective - Vital Signs Vital signs: Vital Signs Temp 98.7 F 01/15/18 11:15 Pulse 77 01/15/18 11:15 Resp 18 01/15/18 11:15 BP 106/67 01/15/18 11:15 Pulse Ox 91 L 01/15/18 11:15 Intake & Output 01/14/18 01/15/18 01/15/18 18:59 06:59 18:59 Intake Total 260 Output Total 400 475 Balance -140 -475 Weight 89.5 kg Intake: Intake, IV Titration 20 Amount Sodium Chloride 0.9% 1, 20 000 ml @ 75 mls/hr IV . [id number] [facility] Rx#:[id number] Oral 240 Output: Urine 400 475 Other: Voiding Method Urinal Urinal # Voids 1 - Exam Lying in bed no acute distress s1 S2 heard Lungs clear Trace edema - Labs CBC & Chem 7: 01/15/18 06:16 01/15/18 06:16 Labs: Abnormal Lab Results - Last 24 Hours (Table) 01/15/18 01/15/18 Range/Units 06:16 06:16 RBC 3.10 L (4.30-5.90) m/uL Hgb 9.6 L (13.0-17.5) gm/dL Hct 29.9 L (39.0-53.0) % RDW 16.1 H (11.5-15.5) % Creatinine 2.02 H (0.66-1.25) mg/dL Glucose 105 H (74-99) mg/dL Assessment and Plan Assessment: #1 acute kidney injury secondary to hemodynamic instability. #2 CHF with systolic dysfunction #3 severe aortic stenosis. #4 anemia with chronic kidney disease #5 metabolic alkalosis Plan: #1 renal function stable compared to yesterday. Monitor closely if creeping hold onto Lasix. #2 avoid hypotensive episodes and nephrotoxic agents #3 replace electrolytes
--- NOTE | 2018-01-15 13:49 | P.PN ---
Subjective Progress Note Date: 01/15/18 This is a pleasant 72-year-old gentleman who was recently in the hospital with atrial fibrillation with rapid ventricular response and non-ST elevation [place]. Patient had a low hemoglobin on that admission and stool which came back positive for occult blood, as well as new onset renal failure. He had some pulmonary edema and received IV Lasix during that admission as well. Echocardiogram with Doppler study performed showed severe concentric LVH, severely impaired left ventricular systolic function with an ejection fraction of 25-30%. Severe aortic stenosis, and severe pulmonary hypertension. Patient came back to the hospital on this occasion with generally not feeling well. He states he was very short of breath, and states that it was much more severe than his recent admission here.EKG on arrival here showed atrial fibrillation with a rapid ventricular response.chest x-ray showed bilateral consolidation and small effusion. Correlate for pneumonia versus CHF. Blood pressure 115/80 with a heart rate of 118.100% on 2 L of oxygen.White blood cell count 8.8, hemoglobin 9.8, platelet count 241. Sodium 142, potassium 3.7, BUN 11 and creatinine 1.9.BNP level 42, 500, troponin 0.344.Patient is currently on IV amiodarone drip along with IV heparin. Aspirin 325 mg daily which we will decrease to 81 mg.we'll also start the patient on some IV Lasix. 01/12/2018 Patient was seen and examined this morning, denied any chest pain or difficulty in breathing. Blood pressure 120/70 with a heart rate in the 70s, 96% on room air. Calcium 3.7, BUN 16, creatinine 2.0. There is a variant today, the patient to proceed with cardiac catheterization and transesophageal echocardiographic study. This will be scheduled tomorrow with Dr. Lacey. 01/15/2018 Patient underwent a cardiac catheterization which revealed mild disease involving the mid right coronary artery, normal left main coronary artery, normal circumflex artery and normal LAD. Subsequent to that patient also underwent a transesophageal echocardiographic study which revealed a severely impaired left ventricular systolic function with an ejection fraction of 25-30% . Severely dilated left atrium, normal left atrial appendage, severe critical aortic stenosis with a peak gradient of 106 and a mean gradient of 63 mg of mercury. Thickened mitral valve leaflets with moderate mitral regurgitation. Consultation was requested with cardiothoracic surgery for possible aortic valve surgery or TAVR procedure. Overall patient feels well this morning, he does get some shortness of breath when he is up ambulating. Hemodynamically he is stable. Objective - Vital Signs Vital signs: Vital Signs Temp 98.7 F 01/15/18 11:15 Pulse 77 01/15/18 11:15 Resp 18 01/15/18 11:15 BP 106/67 01/15/18 11:15 Pulse Ox 91 L 01/15/18 11:15 Intake & Output 01/14/18 01/15/18 01/15/18 18:59 06:59 18:59 Intake Total 260 Output Total 400 475 Balance -140 -475 Weight 89.5 kg Intake: Intake, IV Titration 20 Amount Sodium Chloride 0.9% 1, 20 000 ml @ 75 mls/hr IV . [id number] Rx#:[id number] Oral 240 Output: Urine 400 475 Other: Voiding Method Urinal Urinal # Voids 1 - Exam PHYSICAL EXAMINATION: 72-year-old gentleman in no acute distress at the time of my examination HEENT: Head is atraumatic, normocephalic. Pupils equal, round. Neck is supple. There is elevated jugular venous pressure. HEART EXAMINATION: Heart sounds regular, S1 and S2 with a systolic ejection murmur. CHEST EXAMINATION: Lungs diminished air entry to bilateral bases with rales noted at the bases. AbDOMEN: Soft, nontender. Bowel sounds are heard. No organomegaly noted. EXTREMITIES: 2+ peripheral pulses with no evidence of peripheral edema and no calf tenderness noted. Right groin soft, no evidence of any hematoma. NEUROLOGIC patient is awake, alert and oriented x3, some confusion and memory loss noted. - Labs CBC & Chem 7: 01/15/18 06:16 01/15/18 06:16 Labs: Abnormal Lab Results - Last 24 Hours (Table) 01/15/18 01/15/18 Range/Units 06:16 06:16 RBC 3.10 L (4.30-5.90) m/uL Hgb 9.6 L (13.0-17.5) gm/dL Hct 29.9 L (39.0-53.0) % RDW 16.1 H (11.5-15.5) % Creatinine 2.02 H (0.66-1.25) mg/dL Glucose 105 H (74-99) mg/dL Assessment and Plan Plan: Aassessment and plan #1acute on chronic systolic congestive heart failure, ejection fraction of 25-30 % #2 paroxysmal atrial fibrillation with rapid ventricular response #3 acute kidney failure #4 severe aortic stenosis #5 severe cardiomyopathy unknown whether it is ischemic or nonischemic #6 No significant obstructive coronary artery disease by cardiac catheterization. Plan From cardiology's perspective continue the patient on his current medications. Await recommendations from cardiothoracic surgery. DNP note has been reviewed, I agree with a documented findings and plan of care. Patient was seen and examined.
[2018-01-15] MEDS: SERTRALINE 100 MG TAB PO SCH (20:35)
[2018-01-15] MEDS: ALPRAZolam 0.5 MG TAB PO PRN (22:40)
[2018-01-16] MEDS: MAGNESIUM OXIDE 400 MG TAB PO SCH (07:32)
[2018-01-16] MEDS: ASPIRIN 325 MG TAB PO SCH (07:32)
[2018-01-16] MEDS: SODIUM BICARBONATE TAB 650 MG TAB PO SCH ×2 (07:32→19:59)
[2018-01-16] MEDS: PHENYTOIN SODIUM EXTENDED 100 MG CAP PO SCH ×2 (07:32→19:59)
[2018-01-16] MEDS: METOPROLOL TARTRATE 12.5 MG TAB PO SCH ×2 (07:33→19:59)
[2018-01-16] MEDS: FUROSEMIDE 40 MG TAB PO SCH (07:33)
[2018-01-16] MEDS: AMIODARONE 200 MG TAB PO SCH ×2 (07:33→19:59)
[2018-01-16] MEDS: ONDANSETRON 4 MG/2 ML VIAL IVP PRN ×2 (07:35→19:59)
[2018-01-16] MEDS: IPRATROPIUM-ALBUTEROL 3 ML NEB INHALATION SCH ×3 (08:21→19:37)
--- NOTE | 2018-01-16 10:39 | P.PN ---
Subjective Progress Note Date: 01/16/18 Principal diagnosis: Acute kidney injury/chronic kidney disease Seen and examined for the follow-up of acute kidney injury. Severe aortic stenosis. Making good amount of urine. No nausea vomiting or diarrhea. Objective - Vital Signs Vital signs: Vital Signs Temp 98 F 01/16/18 07:31 Pulse 96 01/16/18 08:35 Resp 16 01/16/18 07:31 BP 120/70 01/16/18 07:31 Pulse Ox 96 01/16/18 08:23 Intake & Output 01/15/18 01/16/18 01/16/18 18:59 06:59 18:59 Intake Total 0 Output Total 450 675 Balance -450 -675 Weight 83 kg Intake: Oral 0 Output: Urine 450 675 Other: Voiding Method Urinal Urinal # Voids 1 - Exam Lying in bed no acute distress s1 S2 heard Lungs clear Trace edema - Labs CBC & Chem 7: 01/15/18 06:16 01/15/18 06:16 Assessment and Plan Assessment: #1 acute kidney injury secondary to hemodynamic instability. #2 CHF with systolic dysfunction #3 severe aortic stenosis. #4 anemia with chronic kidney disease #5 metabolic alkalosis Plan: #1 renal function stable compared to yesterday. Creeping creatinine hold Lasix. #2 avoid hypotensive episodes and nephrotoxic agents #3 replace electrolytes and labs in the morning
[2018-01-16] MEDS: SODIUM CHLORIDE 0.9% 1,000 ML IV SCH (11:12)
--- NOTE | 2018-01-16 13:42 | P.PN ---
Subjective Mr. Saini is seen and examined sitting up in the chair. He continues to feel short of breath with exertion walking from bed to the bathroom. He has been seen in consultation by CT surgery and their recommendation is to undergo TAVR procedure in [place]. He denies chest pain, dizziness or palpitations. Blood pressure 116/58 heart rate 74 afebrile maintaining oxygen saturation on nasal cannula. No laboratory data from today. Currently maintained on amiodarone 200 mg twice a day, Lopressor 12.5 mg twice a day and aspirin 325 mg daily. GENERAL: Well-appearing, well-nourished and in no acute distress. NECK: Supple without JVD or thyromegaly. LUNGS: Breath sounds clear to auscultation bilaterally. Respiration equal and unlabored. No wheezes, rales or rhonchi. HEART: Regular rate and rhythm with systolic ejection murmur at the base, no rubs or gallops. S1 and S2 heard. EXTREMITIES: Normal range of motion, no edema. No clubbing or cyanosis. Peripheral pulses intact. ASSESSMENT Acute on chronic systolic heart failure, ejection fraction 25-30%. Improved since admission Paroxysmal atrial fibrillation with rapid ventricular response done on long- term anticoagulation secondary to GI bleed in the past. Currently maintaining sinus mechanism. Severe aortic stenosis, has been recommended for Her procedure in [place]. Acute kidney injury Nonischemic cardiomyopathy PLAN Stable from a cardiac perspective. Lengthy discussion has been had with the patient regarding the recommendations of cardiothoracic surgery. Continue current medical regimen. Follow-up with Dr. Adams upon discharge. Nurse Practitioner note has been reviewed, I agree with a documented findings and plan of care. Patient was seen and examined. Objective - Vital Signs Vital signs: Vital Signs Temp 97.4 F L 01/16/18 11:23 Pulse 92 01/16/18 12:41 Resp 18 01/16/18 11:23 BP 116/58 01/16/18 11:23 Pulse Ox 97 01/16/18 11:23 Intake & Output 01/15/18 01/16/18 01/16/18 18:59 06:59 18:59 Intake Total 0 Output Total 450 675 Balance -450 -675 Weight 83 kg Intake: Oral 0 Output: Urine 450 675 Other: Voiding Method Urinal Urinal # Voids 1 - Labs CBC & Chem 7: 01/15/18 06:16 01/15/18 06:16
[2018-01-16] MEDS: SERTRALINE 100 MG TAB PO SCH (19:59)
[2018-01-16] MEDS: ALPRAZolam 0.5 MG TAB PO PRN (19:59)
--- NOTE | 2018-01-16 23:01 | P.PN ---
Subjective Progress Note Date: 01/16/18 Principal diagnosis: A. fib with RVR Acute kidney injury Interval history:72-year-old gentleman admitted with the atrial fibrillation with rapid and regular rate. Patient was recently discharged from the hospital last drink he was treated for non-ST ration microinfarction, acute systolic dysfunction pulmonary edema. Patient was started on Lasix dose of which is being decreased today patient was in significant heart failure. Patient's creatinine has gone up from 1.9-2, nephrology evaluated the patient and cardiology evaluated the patient. Patient has severe stenosis IV amiodarone drip was discontinued metoprolol was started back. Had extensive discussion with the patient regarding options. One option is cardiac catheterization although there is an associated risk of worsening kidney function from this followed by evaluation for aortic valve replacement. The other option is conservative management without any intervention which can lead to multiple hospitalization and because of his severe right external says, congestive heart failure and probable severe coronary artery disease prognosis is extremely poor and comfort care is an option at that time. Patient will discuss with his guardian. Constitutional: Denied any fatigue denied any fever. Cardio vascular: denied any chest pain, palpitations Gastrointestinal denied any nausea vomiting Pulmonary: Denied any shortness of breath cough Neurologic denied any new focal deficits 01/12/2018 telemetry reporting sinus rhythm, proximal atrial fibrillation with controlled ventricular rate. Hypomagnesemia receiving supplements. Diuresing well on Lasix IV push with 24-hour I&O reflecting a negative fluid balance. Creatinine stable, currently 2. Good diet intake with no nausea or vomiting. Denies abdominal pain. Denies chest pain, palpitations or increased shortness of breath. Scheduled for cardiac catheterization tomorrow. 01/13/2018 Patient denied any complaints of chest pain or shortness breath. Patient underwent cardiac catheterization today. Heart rate is better controlled now. Patient is being continued on IV Lasix. Nephrology and cardiology is following. Creatinine 1.89 trending down. 01/16/2018 Patient denied any compressive chest pain or shortness of breath. Patient was seen by cardiac surgery and recommended to undergo TAVR procedure in [place]. Patient was discharged in next 24 hours. No other acute overnight issues. Creatinine 2.02 Current medications reviewed Objective - Vital Signs Vital signs: Vital Signs Temp 97.4 F L 01/16/18 11:23 Pulse 92 01/16/18 12:41 Resp 18 01/16/18 11:23 BP 116/58 01/16/18 11:23 Pulse Ox 97 01/16/18 11:23 Intake & Output 01/15/18 01/16/18 01/16/18 18:59 06:59 18:59 Intake Total 0 Output Total 450 675 Balance -450 -675 Weight 83 kg Intake: Oral 0 Output: Urine 450 675 Other: Voiding Method Urinal Urinal # Voids 1 - Exam - Exam GENERAL: Sitting up in bed, alert and oriented x3, not in any acute distress. HEENT: Pupils are round and equally reacting to light. EOMI. No scleral icterus. No conjunctival pallor. Normocephalic, atraumatic. Positive JVD CARDIOVASCULAR: S1 and S2 present. No murmurs, rubs, or gallops. Positive systolic murmur, irregular at times. PULMONARY: Chest is clear to auscultation, bilateral diminished bases, no wheezing, occasional fine bibasilar crackles. ABDOMEN: Soft, nontender, nondistended, normoactive bowel sounds. No palpable organomegaly. MUSCULOSKELETAL: No joint swelling or deformity. EXTREMITIES: No cyanosis, clubbing, or pedal edema. NEUROLOGICAL: Gross neurological examination did not reveal any focal deficits. SKIN: No rashes. - Labs CBC & Chem 7: 01/15/18 06:16 01/15/18 06:16 Assessment and Plan Assessment: Assessment: -Atrial fibrillation with RVR, paroxysmal, currently rate controlled. -Non-ST elevation myocardial infarction -Congestive heart failure chronic systolic dysfunction with mild acute exacerbation, EF 25-30% -Severe cardiomyopathy, unclear if ischemic or nonischemic. -Severe pulmonary hypertension -Acute renal failure, mostly prerenal ,secondary to cardiorenal, chf, diuresing. -Severe aortic stenosis: Will need valve replacement -Seizure disorder -Depression -Hypomagnesemia and hypokalemia Plan: Continue on current medication regime ,monitoring and symptomatic treatment. Patient was on Lasix 40 mg IV daily. Symptomatically much improved. Continue with amiodarone and low-dose metoprolol. Magnesium supplements. Patient underwent cardiac catheterization. Follow-up with cardiac surgery at [place] for TAVR. Nephrology and cardiology is following. Time with Patient: Greater than 30
[2018-01-17] MEDS: SODIUM CHLORIDE 0.9% 1,000 ML IV SCH (08:37)
[2018-01-17] MEDS ORDERED: ASPIRIN 81 MG PO SCH (09:00)
[2018-01-17] MEDS: AMIODARONE 200 MG TAB PO SCH (09:07)
[2018-01-17] MEDS: METOPROLOL TARTRATE 12.5 MG TAB PO SCH (09:08)
[2018-01-17] MEDS: PHENYTOIN SODIUM EXTENDED 100 MG CAP PO SCH (09:08)
[2018-01-17] MEDS: SODIUM BICARBONATE TAB 650 MG TAB PO SCH (09:08)
[2018-01-17] MEDS: MAGNESIUM OXIDE 400 MG TAB PO SCH (09:08)
[2018-01-17 09:48] VITALS: RESP 18
[2018-01-17] MEDS: IPRATROPIUM-ALBUTEROL 3 ML NEB INHALATION SCH ×2 (09:50→13:41)
--- NOTE | 2018-01-17 10:00 | P.PN ---
Subjective Patient is seen in follow-up for acute kidney injury. Creatinine 2.0 to as of January 15. Oral intake is fair. No vomiting or diarrhea. Denies any active chest pain or shortness of breath. Admits to good urine output. Lasix was held yesterday due to worsening renal function. Patient underwent cardiac catheterization on January 13. Patient has severe aortic stenosis. Vital signs are stable. General: The patient appeared well nourished and normally developed. HEENT: Head exam is unremarkable. Neck is without jugular venous distension. LUNGS: Lungs are clear to auscultation and percussion. Breath sounds decreased. HEART: Rate and Rhythm are regular. First and second heart sounds normal. No murmurs, rubs or gallops. ABDOMEN: Abdominal exam reveals normal bowel sounds. Non-tender and non- distended. No evidence of peritonitis. EXTREMITITES: No clubbing, cyanosis, or edema. Objective - Vital Signs Vital signs: Vital Signs Temp 98.5 F 01/17/18 09:07 Pulse 88 01/17/18 09:50 Resp 18 01/17/18 09:07 BP 114/74 01/17/18 09:07 Pulse Ox 99 01/17/18 09:07 Intake & Output 01/16/18 01/17/18 01/17/18 18:59 06:59 18:59 Intake Total 120 Output Total 252 1 Balance -252 119 Weight 80.5 kg Intake: Oral 120 Output: Urine 250 Stool 2 1 Other: Voiding Method Urinal Urinal Urinal # Voids 1 - Labs CBC & Chem 7: 01/15/18 06:16 01/15/18 06:16 Assessment and Plan Plan: Assessment: 1. Acute kidney injury mostly prerenal secondary to diuresis and hemodynamic instability. Creatinine 2.02 on January 15. 2. A. fib with RVR. Now rate controlled. 3. Systolic CHF with ejection fraction of 25-30% with severe pulmonary hypertension. 4. Severe aortic stenosis. Status post cardiac catheterization on January 13. Cardiothoracic surgery following. Patient will be referred to TAVR clinic. 5. Volume overload. Improved. 6. Hypokalemia secondary to diuresis. Improved post replacement. 7. Hypomagnesemia secondary to diuresis. Improved post replacement. Plan: Resume Lasix 40 mg orally once daily.
[2018-01-17] MEDS: ONDANSETRON 4 MG/2 ML VIAL IVP PRN (13:47)
[2018-01-17 13:49] VITALS: BMI 24.7
[2018-01-17] MEDS: ALPRAZolam 0.5 MG TAB PO PRN (15:29)
--- NOTE | 2018-01-17 15:37 | P.PN ---
Subjective Progress Note Date: 01/17/18 This is a pleasant 72-year-old gentleman who was recently in the hospital with atrial fibrillation with rapid ventricular response and non-ST elevation [place]. Patient had a low hemoglobin on that admission and stool which came back positive for occult blood, as well as new onset renal failure. He had some pulmonary edema and received IV Lasix during that admission as well. Echocardiogram with Doppler study performed showed severe concentric LVH, severely impaired left ventricular systolic function with an ejection fraction of 25-30%. Severe aortic stenosis, and severe pulmonary hypertension. Patient came back to the hospital on this occasion with generally not feeling well. He states he was very short of breath, and states that it was much more severe than his recent admission here.EKG on arrival here showed atrial fibrillation with a rapid ventricular response.chest x-ray showed bilateral consolidation and small effusion. Correlate for pneumonia versus CHF. Blood pressure 115/80 with a heart rate of 118.100% on 2 L of oxygen.White blood cell count 8.8, hemoglobin 9.8, platelet count 241. Sodium 142, potassium 3.7, BUN 11 and creatinine 1.9.BNP level 42, 500, troponin 0.344.Patient is currently on IV amiodarone drip along with IV heparin. Aspirin 325 mg daily which we will decrease to 81 mg.we'll also start the patient on some IV Lasix. 01/12/2018 Patient was seen and examined this morning, denied any chest pain or difficulty in breathing. Blood pressure 120/70 with a heart rate in the 70s, 96% on room air. Calcium 3.7, BUN 16, creatinine 2.0. There is a variant today, the patient to proceed with cardiac catheterization and transesophageal echocardiographic study. This will be scheduled tomorrow with Dr. Lacey. 01/15/2018 Patient underwent a cardiac catheterization which revealed mild disease involving the mid right coronary artery, normal left main coronary artery, normal circumflex artery and normal LAD. Subsequent to that patient also underwent a transesophageal echocardiographic study which revealed a severely impaired left ventricular systolic function with an ejection fraction of 25-30% . Severely dilated left atrium, normal left atrial appendage, severe critical aortic stenosis with a peak gradient of 106 and a mean gradient of 63 mg of mercury. Thickened mitral valve leaflets with moderate mitral regurgitation. Consultation was requested with cardiothoracic surgery for possible aortic valve surgery or TAVR procedure. Overall patient feels well this morning, he does get some shortness of breath when he is up ambulating. Hemodynamically he is stable. 01/17/2018 Patient was seen and examined this morning, overall feels well, denies any shortness of breath. He should be able to be discharged home today. Arrangements have been made for the patient to go to his appointment for his to have her evaluation, he does not need to be concerned about transportation, apparently this is all been arranged by his guardian. He is hemodynamically stable Objective - Vital Signs Vital signs: Vital Signs Temp 97.8 F 01/17/18 12:37 Pulse 88 01/17/18 13:41 Resp 18 01/17/18 12:37 BP 112/66 01/17/18 12:37 Pulse Ox 92 L 01/17/18 12:37 Intake & Output 01/16/18 01/17/18 01/17/18 18:59 06:59 18:59 Intake Total 240 Output Total 252 1 Balance -252 239 Weight 80.5 kg 80.5 kg Intake: Oral 240 Output: Urine 250 Stool 2 1 Other: Voiding Method Urinal Urinal Urinal # Voids 1 - Exam PHYSICAL EXAMINATION: 72-year-old gentleman in no acute distress at the time of my examination HEENT: Head is atraumatic, normocephalic. Pupils equal, round. Neck is supple. There is elevated jugular venous pressure. HEART EXAMINATION: Heart sounds regular, S1 and S2 with a systolic ejection murmur. CHEST EXAMINATION: Lungs diminished air entry to bilateral bases with rales noted at the bases. AbDOMEN: Soft, nontender. Bowel sounds are heard. No organomegaly noted. EXTREMITIES: 2+ peripheral pulses with no evidence of peripheral edema and no calf tenderness noted. Right groin soft, no evidence of any hematoma. NEUROLOGIC patient is awake, alert and oriented x3, some confusion and memory loss noted. - Labs CBC & Chem 7: 01/15/18 06:16 01/15/18 06:16 Assessment and Plan Plan: Aassessment and plan #1acute on chronic systolic congestive heart failure, ejection fraction of 25-30 % #2 paroxysmal atrial fibrillation with rapid ventricular response #3 acute kidney failure #4 severe aortic stenosis #5 severe cardiomyopathy unknown whether it is ischemic or nonischemic #6 No significant obstructive coronary artery disease by cardiac catheterization. Plan From cardiology's perspective continue the patient on his current medications. He may be able to be discharged home today, a follow-up appointment with with the TAVR team at [facility]. DNP note has been reviewed, I agree with a documented findings and plan of care. Patient was seen and examined.
[2018-01-17 16:20] VITALS: BP 114/71; PULSE 84; TEMP 98.3
--- NOTE | 2018-01-17 23:51 | P.DS ---
Providers Date of admission: 01/10/18 13:20 Expected date of discharge: 01/17/18 Attending physician: Inge Flores Consults: 01/10/18 13:20 Consult Physician Urgent Consulting Provider: [facility] Consult Reason/Comments: A. fib with rapid ventricular response Do you want consulting provider notified?: Yes 01/10/18 13:48 Consult Physician Routine Consulting Provider: Ray Cueto Consult Reason/Comments: DANY Do you want consulting provider notified?: Yes 01/14/18 12:16 Consult Physician Urgent Consulting Provider: Atul Donald Consult Reason/Comments: Severe Aortic Stenosis Do you want consulting provider notified?: Yes Primary care physician: Tony Mukherjee MD Hospital Course: Discharge diagnosis -Atrial fibrillation with RVR, paroxysmal, currently rate controlled. -Non-ST elevation myocardial infarction -Congestive heart failure chronic systolic dysfunction with mild acute exacerbation, EF 25-30% -Severe cardiomyopathy, unclear if ischemic or nonischemic. -Severe pulmonary hypertension -Acute renal failure, mostly prerenal ,secondary to cardiorenal, chf, diuresing. -Severe aortic stenosis: Will need valve replacement. Follow-up appointment with TAVR clinic -Seizure disorder -Depression -Hypomagnesemia and hypokalemia Hospital course 72-year-old gentleman admitted with the atrial fibrillation with rapid and regular rate. Patient was recently discharged from the hospital last drink he was treated for non-ST ration microinfarction, acute systolic dysfunction pulmonary edema. Patient was started on Lasix dose of which is being decreased today patient was in significant heart failure. Patient's creatinine has gone up from 1.9-2, nephrology evaluated the patient and cardiology evaluated the patient. Patient has severe stenosis IV amiodarone drip was discontinued metoprolol was started back. Had extensive discussion with the patient regarding options. One option is cardiac catheterization although there is an associated risk of worsening kidney function from this followed by evaluation for aortic valve replacement. The other option is conservative management without any intervention which can lead to multiple hospitalization and because of his severe right external says, congestive heart failure and probable severe coronary artery disease prognosis is extremely poor and comfort care is an option at that time. Patient will discuss with his guardian. Constitutional: Denied any fatigue denied any fever. Cardio vascular: denied any chest pain, palpitations Gastrointestinal denied any nausea vomiting Pulmonary: Denied any shortness of breath cough Neurologic denied any new focal deficits 01/12/2018 telemetry reporting sinus rhythm, proximal atrial fibrillation with controlled ventricular rate. Hypomagnesemia receiving supplements. Diuresing well on Lasix IV push with 24-hour I&O reflecting a negative fluid balance. Creatinine stable, currently 2. Good diet intake with no nausea or vomiting. Denies abdominal pain. Denies chest pain, palpitations or increased shortness of breath. Scheduled for cardiac catheterization tomorrow. 01/13/2018 Patient denied any complaints of chest pain or shortness breath. Patient underwent cardiac catheterization today. Heart rate is better controlled now. Patient is being continued on IV Lasix. Nephrology and cardiology is following. Creatinine 1.89 trending down. 01/16/2018 Patient denied any compressive chest pain or shortness of breath. Patient was seen by cardiac surgery and recommended to undergo TAVR procedure in [place]. Patient was discharged in next 24 hours. No other acute overnight issues. Creatinine 2.02 01/17/2018 Patient denied any new complaints today. Patient was advised to follow-up with [facility] for TAVR . Patient will be called with appointment to the clinic as per CT surgery recommendations. Otherwise patient is stable to be discharged home and follow-up as an outpatient. Treatment plan discussed with his caregiver PHYSICAL EXAMINATION: Patient is lying in the bed comfortably, no acute distress, awake alert and oriented.. HEENT: Normocephalic. Neck is supple. Pupils reactive. Nostrils clear. Oral cavity is moist. Ears reveal no drainage. Neck reveals no JVD, carotid bruits, or thyromegaly. CHEST EXAMINATION: Trachea is central. Symmetrical expansion. Lung hoang clear to auscultation and percussion. CARDIAC: Normal S1, S2 with no gallops. Systolic murmur ABDOMEN: Soft. Bowel sounds normal. No organomegaly. No abdominal bruits. Extremities: reveal no edema. No clubbing or cyanosis Neurologically awake, alert, oriented x3 with well-coordinated movements. No focal deficits noted Skin: No rash or skin lesions. Psychiatric: Coperative. Nonsuicidal Musculoskeletal: No joint swelling or deformity. Normal range of motion. Vital Signs - 8 hr 01/17/18 16:19 Temperature 98.3 F Pulse Rate [ 84 Pulse Oximetery ] Respiratory 18 Rate Blood Pressure 114/71 [Right Arm] O2 Sat by Pulse 99 Oximetry Total time taken greater than 35 minutes including 18 minutes for counseling and coordination of care. Patient Condition at Discharge: Serious Plan - Discharge Summary Discharge Rx Participant: Yes New Discharge Prescriptions: New Aspirin 81 mg PO DAILY #30 chew Furosemide [Lasix] 40 mg PO DAILY #30 tab Metoprolol Tartrate [Lopressor] 12.5 mg PO BID #60 tab Continue Sertraline [Zoloft] 100 mg PO HS Potassium Chloride [Klor-Con 8] 8 meq PO DAILY Amiodarone [Cordarone] 200 mg PO BID #60 tab Phenytoin Sodium Extended [Dilantin] 300 mg PO BID #180 cap Sodium Bicarbonate Tab 1,300 mg PO BID #120 tab Discontinued Metoprolol Tartrate [Lopressor] 25 mg PO BID #60 tab Discharge Medication List Sertraline [Zoloft] 100 mg PO HS 08/04/17 [History] Potassium Chloride [Klor-Con 8] 8 meq PO DAILY 12/30/17 [History] Amiodarone [Cordarone] 200 mg PO BID #60 tab 01/06/18 [Rx] Phenytoin Sodium Extended [Dilantin] 300 mg PO BID #180 cap 01/06/18 [Rx] Sodium Bicarbonate Tab 1,300 mg PO BID #120 tab 01/06/18 [Rx] Aspirin 81 mg PO DAILY #30 chew 01/17/18 [Rx] Furosemide [Lasix] 40 mg PO DAILY #30 tab 01/17/18 [Rx] Metoprolol Tartrate [Lopressor] 12.5 mg PO BID #60 tab 01/17/18 [Rx] Follow up Appointment(s)/Referral(s): [facility] [Provider Group] - 1 Week (follow up with Reji Quezada as advised) Tony Mukherjee MD [Primary Care Provider] - 01/19/18 (Doctor will visit on Wednesday01/19/18) Patient Instructions/Handouts: Heart Failure (DC), A-fib (Atrial Fibrillation) (DC), Heart Healthy Diet (DC), Transcatheter Aortic Valve Replacement (DC), Transcatheter Aortic Valve Replacement (GEN) Activity/Diet/Wound Care/Special Instructions: At discharge contact legal guardian, Mark Gilbert [phone] or Candy to go over discharge instructions and for a ride home TAVR clinic in [facility] will call patient to set up appointment for evaluation once they have received all CDs of heart catheterization, transesophageal echocardiogram. [facility] - [phone] Discharge Disposition: HOME WITH HOME HEALTH SERVICES
[2018-01-18] MEDS ORDERED: FUROSEMIDE 40 MG TAB PO SCH (09:00)
== END 2018-01-17 16:48 | disposition home health service (06) | DRG 280 ==
LOC: EC 10:16 → 3SCARD 13:20
PROVIDERS: ADMIT Internal Medicine; ATTEND Internal Medicine
PROC: B2111ZZ Fluoroscopy of Multiple Coronary Arteries using Low Osmolar Contrast (ICD-10-PCS; 2018-01-13)
PROC: B24BZZ4 Ultrasonography of Heart with Aorta, Transesophageal (ICD-10-PCS; 2018-01-13)
PROC: B2161ZZ Fluoroscopy of Right and Left Heart using Low Osmolar Contrast (ICD-10-PCS; principal; 2018-01-13 08:30)
DX: I13.0 Hypertensive heart and chronic kidney disease with heart failure and stage 1 through stage 4 chronic kidney disease, or unspecified chronic kidney disease (principal); I21.4 Non-ST elevation (NSTEMI) myocardial infarction; I50.23 Acute on chronic systolic (congestive) heart failure; Q28.2 Arteriovenous malformation of cerebral vessels; N17.9 Acute kidney failure, unspecified; E87.3 Alkalosis; I42.9 Cardiomyopathy, unspecified; I48.0 Paroxysmal atrial fibrillation; I27.20 Pulmonary hypertension, unspecified; G40.909 Epilepsy, unspecified, not intractable, without status epilepticus; F32.9 Major depressive disorder, single episode, unspecified; I25.10 Atherosclerotic heart disease of native coronary artery without angina pectoris; E83.42 Hypomagnesemia; E87.6 Hypokalemia; T50.2X5A Adverse effect of carbonic-anhydrase inhibitors, benzothiadiazides and other diuretics, initial encounter; F41.9 Anxiety disorder, unspecified; D63.1 Anemia in chronic kidney disease; I08.3 Combined rheumatic disorders of mitral, aortic and tricuspid valves; N18.9 Chronic kidney disease, unspecified; Z79.899 Other long term (current) drug therapy; Z88.8 Allergy status to other drugs, medicaments and biological substances; Z79.82 Long term (current) use of aspirin; Z86.73 Personal history of transient ischemic attack (TIA), and cerebral infarction without residual deficits; Z82.49 Family history of ischemic heart disease and other diseases of the circulatory system
CPT/HCPCS: 36415; 71046; 80048; 80053; 80061; 82550; 82553; 83735; 83880; 84484; 85025; 85027; 85610; 85730; 93005; 93312; 93320; 93325; 93454; 94640; 94760; 96365; 96366; 96367; 96374; 96376; 99291

== ENCOUNTER 2018-01-21 07:37 | Inpatient (IN) | payer MEDICARE, BC ==
[2018-01-21] MEDS ORDERED: ONDANSETRON 4 MG/2 ML VIAL IVP STA (07:48)
[2018-01-21] MEDS ORDERED: SODIUM CHLORIDE 0.9% 1,000 ML IV STA ×2 (07:48→09:05)
[2018-01-21 08:29] LABS: Basophils % (A) 0 %; Eosinophils # (A) 0.1 k/uL (0-0.7); Eosinophils % (A) 1 %; HCT 32.6 % (39.0-53.0); HGB 10.5 gm/dL (13.0-17.5); Lymphocytes # (A) 2.1 k/uL (1.0-4.8); Lymphocytes % (A) 22 %; MCH 30.9 pg (25.0-35.0); MCHC 32.2 g/dL (31.0-37.0); MCV 96.1 fL (80.0-100.0); Mean Platelet Volume 7.4; Monocytes # (A) 0.6 k/uL (0-1.0); Monocytes % (A) 6 %; Neutrophils # (A) 6.8 k/uL (1.3-7.7); Neutrophils % (A) 70 %; Platelet Count 190 k/uL (150-450); RBC 3.39 m/uL (4.30-5.90); RDW 15.7 % (11.5-15.5); WBC 9.8 k/uL (3.8-10.6)
[2018-01-21 08:34] LABS: INR 1.4 (<1.2); Prothrombin Time 12.9 sec (9.0-12.0)
[2018-01-21 08:41] LABS: Albumin 3.2 g/dL (3.5-5.0); Calcium 8.6 mg/dL (8.4-10.2); Magnesium 1.5 mg/dL (1.6-2.3); Phosphorus 3.6 mg/dL (2.5-4.5); Total Bilirubin 0.7 mg/dL (0.2-1.3); Total Protein 9.6 g/dL (6.3-8.2)
[2018-01-21 08:42] LABS: Potassium 3.3 mmol/L (3.5-5.1)
--- NOTE | 2018-01-21 08:47 | ED ---
Dizziness HPI - General Chief Complaint: Dizziness Stated Complaint: nausea/dizziness Time Seen by Provider: 01/21/18 07:49 Source: patient, RN notes reviewed, old records reviewed Mode of arrival: EMS Limitations: no limitations - History of Present Illness Initial Comments: This is a 72-year-old male to the ER for evaluation. Patient complains today of dizziness weakness not feeling well. Feels lightheaded, not feeling himself. Denies specific chest pain or shortness of breath. Patient states he' s been nauseous, vomiting, he does have history of heart disease MD Complaint: dizziness, lightheadedness -: days(s) Timing: waxing/waning Description: lightheadedness, off-balance, nausea History of Same: Yes History of Trauma: No Severity: mild Improves With: remaining still, sleep Worsens With: nothing Associated Symptoms: denies other symptoms - Related Data Home Medications Medication Instructions Recorded Confirmed Sertraline [Zoloft] 100 mg PO HS 08/04/17 01/21/18 Potassium Chloride [Klor-Con 8] 8 meq PO DAILY 12/30/17 01/21/18 Previous Rx's Medication Instructions Recorded Amiodarone [Cordarone] 200 mg PO BID #60 tab 01/06/18 Phenytoin Sodium Extended 300 mg PO BID #180 cap 01/06/18 [Dilantin] Sodium Bicarbonate Tab 1,300 mg PO BID #120 tab 01/06/18 Aspirin 81 mg PO DAILY #30 chew 01/17/18 Furosemide [Lasix] 40 mg PO DAILY #30 tab 01/17/18 Metoprolol Tartrate [Lopressor] 12.5 mg PO BID #60 tab 01/17/18 Allergies Allergy/AdvReac Type Severity Reaction Status Date / Time loratadine Allergy Unknown Verified 01/21/18 07:57 antihistamines Allergy Unknown Uncoded 01/21/18 07:57 Review of Systems ROS Statement: Those systems with pertinent positive or pertinent negative responses have been documented in the HPI. ROS Other: All systems not noted in ROS Statement are negative. Past Medical History Past Medical History: Atrial Fibrillation, Heart Failure, CVA/TIA, Hypertension , Seizure Disorder Additional Past Medical History / Comment(s): alcohol intoxication, alcohol withdrawal seizures, hypokalemia, hyponatremia, dehyration, metabolic , ntemiencephalopathy, brain AVM diagnosed 30 years ago History of Any Multi-Drug Resistant Organisms: None Reported Past Surgical History: Heart Catheterization Past Anesthesia/Blood Transfusion Reactions: No Reported Reaction Additional Past Anesthesia/Blood Transfusion Reaction / Comment(s): clausterphobia Past Psychological History: Anxiety, Depression Smoking Status: Never smoker Past Alcohol Use History: Rare Past Drug Use History: None Reported - Past Family History Father Family Medical History: Dementia Mother Family Medical History: Coronary Artery Disease (CAD), Hypertension Sister(s) Family Medical History: Osteoarthritis (OA) Additional Family Medical History / Comment(s): Sister has arhtritis with bilateral total hip replacements. General Exam Limitations: no limitations General appearance: alert, in no apparent distress Head exam: Present: atraumatic, normocephalic, normal inspection Eye exam: Present: normal appearance, PERRL, EOMI. Absent: scleral icterus, conjunctival injection, periorbital swelling ENT exam: Present: normal exam, mucous membranes moist Neck exam: Present: normal inspection. Absent: tenderness, meningismus, lymphadenopathy Respiratory exam: Present: normal lung sounds bilaterally. Absent: respiratory distress, wheezes, rales, rhonchi, stridor Cardiovascular Exam: Present: regular rate, normal rhythm, normal heart sounds. Absent: systolic murmur, diastolic murmur, rubs, gallop, clicks GI/Abdominal exam: Present: soft, normal bowel sounds. Absent: distended, tenderness, guarding, rebound, rigid Extremities exam: Present: normal inspection, full ROM, normal capillary refill. Absent: tenderness, pedal edema, joint swelling, calf tenderness Back exam: Present: normal inspection Neurological exam: Present: alert, oriented X3, CN II-XII intact Psychiatric exam: Present: normal affect, normal mood Skin exam: Present: warm, dry, intact, normal color. Absent: rash Course Vital Signs 01/21/18 01/21/18 01/21/18 07:51 07:54 08:00 Temperature 98.4 F Pulse Rate 68 67 Respiratory 16 16 Rate Blood Pressure 105/71 105/71 105/71 O2 Sat by Pulse 100 99 100 Oximetry 01/21/18 01/21/18 01/21/18 08:30 09:00 09:30 Temperature Pulse Rate 64 64 Respiratory 16 16 Rate Blood Pressure 103/57 103/57 101/60 O2 Sat by Pulse 100 100 Oximetry 01/21/18 01/21/18 01/21/18 10:30 11:08 11:18 Temperature Pulse Rate 68 61 62 Respiratory 16 16 16 Rate Blood Pressure 105/62 O2 Sat by Pulse 99 Oximetry 01/21/18 01/21/18 01/21/18 11:30 12:37 13:54 Temperature 97.8 F 97.8 F Pulse Rate 65 66 68 Respiratory 16 16 16 Rate Blood Pressure 99/60 94/60 92/63 O2 Sat by Pulse 100 100 100 Oximetry - Reevaluation(s) Reevaluation #1: 01/21/18 08:47 Medical record is reviewed Reevaluation #2: 01/21/18 08:47 Patient denies chest pain EKG Findings - EKG Comments: EKG Findings:: EKG shows sinus rhythm rate of 67, MA 190, QRS 126, QTc 665 Medical Decision Making - Medical Decision Making 72 male the ER for evaluation. Patient does say for evaluation regarding dizziness, elevated troponin she will trend, otherwise tests are within normal limits. Patient will place an occult precautions admitted for evaluation - Lab Data Result diagrams: 01/21/18 08:07 01/21/18 08:07 Lab Results 01/21/18 01/21/18 01/21/18 Range/Units 08:07 08:07 08:07 WBC 9.8 (3.8-10.6) k/uL RBC 3.39 L (4.30-5.90) m/uL Hgb 10.5 L (13.0-17.5) gm/dL Hct 32.6 L (39.0-53.0) % MCV 96.1 (80.0-100.0) fL MCH 30.9 (25.0-35.0) pg MCHC 32.2 (31.0-37.0) g/dL RDW 15.7 H (11.5-15.5) % Plt Count 190 (150-450) k/uL Neutrophils % 70 % Lymphocytes % 22 % Monocytes % 6 % Eosinophils % 1 % Basophils % 0 % Neutrophils # 6.8 (1.3-7.7) k/uL Lymphocytes # 2.1 (1.0-4.8) k/uL Monocytes # 0.6 (0-1.0) k/uL Eosinophils # 0.1 (0-0.7) k/uL Basophils # 0.0 (0-0.2) k/uL PT (9.0-12.0) sec INR (<1.2) APTT (22.0-30.0) sec Sodium 137 (137-145) mmol/L Potassium 3.3 L (3.5-5.1) mmol/L Chloride 98 (98-107) mmol/L Carbon Dioxide 31 H (22-30) mmol/L Anion Gap 8 mmol/L BUN 15 (9-20) mg/dL Creatinine 1.66 H (0.66-1.25) mg/dL Est GFR (CKD-EPI)AfAm 48 (>60 ml/min/1.73 sqM) Est GFR (CKD-EPI)NonAf 41 (>60 ml/min/1.73 sqM) Glucose 132 H (74-99) mg/dL Calcium 8.6 (8.4-10.2) mg/dL Phosphorus 3.6 (2.5-4.5) mg/dL Magnesium 1.5 L (1.6-2.3) mg/dL Total Bilirubin 0.7 (0.2-1.3) mg/dL AST 36 (17-59) U/L ALT 22 (21-72) U/L Alkaline Phosphatase 58 (38-126) U/L Total Creatine Kinase 74 (55-170) U/L CK-MB (CK-2) 2.9 H (0.0-2.4) ng/mL CK-MB (CK-2) Rel Index 3.9 Troponin I 0.164 H* (0.000-0.034) ng/mL Total Protein 9.6 H (6.3-8.2) g/dL Albumin 3.2 L (3.5-5.0) g/dL Phenytoin ug/mL 01/21/18 01/21/18 Range/Units 08:07 08:07 WBC (3.8-10.6) k/uL RBC (4.30-5.90) m/uL Hgb (13.0-17.5) gm/dL Hct (39.0-53.0) % MCV (80.0-100.0) fL MCH (25.0-35.0) pg MCHC (31.0-37.0) g/dL RDW (11.5-15.5) % Plt Count (150-450) k/uL Neutrophils % % Lymphocytes % % Monocytes % % Eosinophils % % Basophils % % Neutrophils # (1.3-7.7) k/uL Lymphocytes # (1.0-4.8) k/uL Monocytes # (0-1.0) k/uL Eosinophils # (0-0.7) k/uL Basophils # (0-0.2) k/uL PT 12.9 H (9.0-12.0) sec INR 1.4 H (<1.2) APTT 27.0 (22.0-30.0) sec Sodium (137-145) mmol/L Potassium (3.5-5.1) mmol/L Chloride (98-107) mmol/L Carbon Dioxide (22-30) mmol/L Anion Gap mmol/L BUN (9-20) mg/dL Creatinine (0.66-1.25) mg/dL Est GFR (CKD-EPI)AfAm (>60 ml/min/1.73 sqM) Est GFR (CKD-EPI)NonAf (>60 ml/min/1.73 sqM) Glucose (74-99) mg/dL Calcium (8.4-10.2) mg/dL Phosphorus (2.5-4.5) mg/dL Magnesium (1.6-2.3) mg/dL Total Bilirubin (0.2-1.3) mg/dL AST (17-59) U/L ALT (21-72) U/L Alkaline Phosphatase (38-126) U/L Total Creatine Kinase (55-170) U/L CK-MB (CK-2) (0.0-2.4) ng/mL CK-MB (CK-2) Rel Index Troponin I (0.000-0.034) ng/mL Total Protein (6.3-8.2) g/dL Albumin (3.5-5.0) g/dL Phenytoin 9.8 ug/mL - Radiology Data Radiology results: report reviewed (Get chest x-ray is negative for acute disease), image reviewed Disposition Clinical Impression: Altered mental status, Pneumonia involving left lung, Dehydration, Elevated troponin Disposition: ADMITTED IP TO THIS [facility] Condition: Serious Is patient prescribed a controlled substance at d/c from ED?: No
[2018-01-21 08:57] LABS: Creatine Kinase MB 2.9 ng/mL (0.0-2.4)
[2018-01-21 08:58] LABS: Troponin I 0.164 ng/mL (0.000-0.034)
[2018-01-21] MEDS ORDERED: SODIUM CHLORIDE 0.9% 500 ML 500 ML IV STA (09:05)
[2018-01-21] MEDS ORDERED: MAGNESIUM OXIDE 400 MG TAB PO STA (09:06)
[2018-01-21] MEDS ORDERED: POTASSIUM BICARBONATE/CIT AC 20 MEQ TABLET.EFF PO ONE (09:06)
[2018-01-21] MEDS: MAGNESIUM SULFATE-D5W PMX 1 GM in DEXTROSE/WATER 1 100ML.BAG IVPB SCH ×4 (09:55→17:50)
--- NOTE | 2018-01-21 10:27 | CT ---
EXAMINATION TYPE: CT brain wo con DATE OF EXAM: 01/21/2018 COMPARISON: 11/03/2017 HISTORY: Head pain CT DLP: 1121.4 mGycm Automated exposure control for dose reduction was used. FINDINGS: Similar-appearing serpiginous dystrophic calcifications are seen within the left frontal lobe again s uggesting underlying arteriovenous malformation. Symmetric prominence of the ventricular system and p eripheral sulci predominating in the frontal distribution are again related to underlying cerebral at rophy. On image 18 there is a CSF attenuated old lacunar injury of the right caudate head. No acute i ntracranial hemorrhage, midline shift or mass effect. No suspicious acute extra-axial fluid collectio n. Prominent extra-axial serpiginous probable veins are seen. Calvarium is intact. Visualized paranas al sinuses and mastoid air cells are well aerated. IMPRESSION: CHRONIC FINDINGS SEEN ON THE PRIOR OF 11/03/2017 WITH NO ACUTE INTRACRANIAL PROCESS.
--- NOTE | 2018-01-21 10:33 | XR ---
EXAMINATION TYPE: XR abdomen acute w cxr DATE OF EXAM: 01/21/2018 COMPARISON: 01/10/2018 HISTORY: Abdominal pain and nausea TECHNIQUE: Single view the chest as well as 2 views of the abdomen were performed. FINDINGS: Lungs are hypoventilatory with small layering left pleural effusion and bibasilar airspace disease. C ardiomediastinal silhouette is partially obscured but stable from the prior and mildly enlarged. [employer] zulma right shoulder deformity is unchanged. No pneumothorax. Air is seen within the nondilated large and small bowel. Large bowel measures up to 6.0 cm. Dense tisha ral annular calcifications are seen overlapping the left upper lobe. No pneumoperitoneum is noted. At herosclerosis is seen of the common iliac arteries and their branches. Extensive degenerative changes of the spine are noted. IMPRESSION: 1. Small left pleural effusion and bibasilar airspace disease that could relate to pneumonia in the a ppropriate clinical setting or atelectasis. 2. Nonobstructive bowel gas pattern.
[2018-01-21] MEDS ORDERED: HEPARIN SODIUM,PORCINE 5,000 UNIT/ML 1 ML VIAL IV PRN (10:50)
[2018-01-21] MEDS ORDERED: NITROGLYCERIN SL TABS 0.4 MG TAB SUBLINGUAL PRN (10:50)
[2018-01-21] MEDS ORDERED: HEPARIN SODIUM,PORCINE 5,000 UNIT/ML 1 ML VIAL IV ONE (10:50)
[2018-01-21] MEDS ORDERED: ASPIRIN 81 MG PO STA (10:50)
[2018-01-21] MEDS ORDERED: IPRATROPIUM-ALBUTEROL 3 ML NEB INHALATION STA (10:52)
[2018-01-21] MEDS ORDERED: LEVOFLOXACIN 750MG-D5W PMX 750 MG in DEXTROSE/WATER 1 150ML.BAG IVPB STA (10:52)
[2018-01-21] MEDS ORDERED: LORazepam 2 MG/ML INJ IV PRN ×3 (10:53)
[2018-01-21] MEDS ORDERED: THIAMINE 100 MG/ML 2 ML VIAL IM STA (10:53)
[2018-01-21] MEDS ORDERED: SODIUM CHLORIDE 0.9% 1,000 ML IV SCH (11:00)
[2018-01-21] MEDS ORDERED: HEPARIN SOD,PORK IN 0.45% NACL 25,000 UNIT in 0.45% NACL 1 500ML.BAG IV SCH (11:00)
[2018-01-21] MEDS ORDERED: POTASSIUM CHLORIDE ER 20 MEQ TAB.ER PO STA (15:44)
--- NOTE | 2018-01-21 15:44 | P.HPIM ---
History of Present Illness 72-year-old male came in with complaints of dizziness and shortness of breath without any significant orthopnea proximal nocturnal dyspnea, generalized weakness. Patient is well-known to me from his previous 2 hospitalizations. Patient presented with non-ST elevation myocardial infarction in the past with elevated troponin which is actually a downward trend now with 0.16, last troponin was 0.3. Patient underwent the angiogram which did not show any significant stentable atherosclerotic coronary vascular disease is. Patient has severe aortic stenosis which will need wall replacement. Patient is not a good candidate for open heart surgery because of his poor ejection fraction with 20-25%. Patient was referred to [facility] during his last discharge for TAVR. Patient denied any nausea vomiting abdominal pain cough. Patient was admitted for possible pneumonia although clinically patient does not appear to have any pneumonia. Patient does have some pleural effusion on the abdominal x-ray which is secondary to heart failure. IV fluids will be discontinued, antibiotics will be discontinued TSH will be obtained. Will obtain PT and OT consultation social work consultation Review of Systems REVIEW OF SYSTEMS: CONSTITUTIONAL: No fever, HEENT: No recent visual problems or hearing problems. Denied any sore throat. CARDIOVASCULAR: No chest pain, orthopnea, PND, no palpitations, no syncope. PULMONARY: no cough, no hemoptysis. GASTROINTESTINAL: No diarrhea, no nausea, no vomiting, no abdominal pain. Normoactive bowel sounds. NEUROLOGICAL: No headaches, no weakness, no numbness. HEMATOLOGICAL: Denies any bleeding or petechiae. GENITOURINARY: Denies any burning micturition, frequency, or urgency. MUSCULOSKELETAL/RHEUMATOLOGICAL: Denies any joint pain, swelling, or any muscle pain. ENDOCRINE: Denies any polyuria or polydipsia. The rest of the 14-point review of systems is negative. Past Medical History Past Medical History: Atrial Fibrillation, Heart Failure, CVA/TIA, Hypertension , Renal Disease, Seizure Disorder Additional Past Medical History / Comment(s): Pt recently admitted to [facility] on with afib RVR, NStemi, CHF, EF 25-30%/severe cardiomyopathy, severe pulmonary HTN, acute renal failure, severe aortic stenosis and pt states he is being scheduled for TAVR at [facility]. Other hx: Pt denies ETOH abuse, states he has not had any alcohol is almost a year and was never a heavy drinker, past medical records document ETOH with ETOH withdrawal seizures , seizure disorder with last seizure 11/2017, hypokalemia, hypomagnesium, hyponatremia, CKD per past medical record but pt states he is unaware of kidney problem, anemia, pulmonary edema, brain AVM diagnosed 30 yrs ago. History of Any Multi-Drug Resistant Organisms: None Reported Past Surgical History: Heart Catheterization Additional Past Surgical History / Comment(s): 11/2017 DAVID-severe aortic stenosis and cardiac cath-mild disease, colonoscopy. Past Anesthesia/Blood Transfusion Reactions: No Reported Reaction Additional Past Anesthesia/Blood Transfusion Reaction / Comment(s): clausterphobia Smoking Status: Never smoker - Past Family History Sister(s) Family Medical History: Osteoarthritis (OA) Additional Family Medical History / Comment(s): Sister has arhtritis with bilateral total hip replacements. Father Family Medical History: Dementia Mother Family Medical History: Coronary Artery Disease (CAD), Hypertension Medications and Allergies Home Medications Medication Instructions Recorded Confirmed Type Sertraline [Zoloft] 100 mg PO HS 08/04/17 01/21/18 History Potassium Chloride [Klor-Con 8] 8 meq PO DAILY 12/30/17 01/21/18 History Amiodarone [Cordarone] 200 mg PO BID #60 tab 01/06/18 01/21/18 Rx Phenytoin Sodium Extended 300 mg PO BID #180 cap 01/06/18 01/21/18 Rx [Dilantin] Sodium Bicarbonate Tab 1,300 mg PO BID #120 tab 01/06/18 01/21/18 Rx Aspirin 81 mg PO DAILY #30 chew 01/17/18 01/21/18 Rx Furosemide [Lasix] 40 mg PO DAILY #30 tab 01/17/18 01/21/18 Rx Metoprolol Tartrate [Lopressor] 12.5 mg PO BID #60 tab 01/17/18 01/21/18 Rx Allergies Allergy/AdvReac Type Severity Reaction Status Date / Time loratadine Allergy Unknown Verified 01/21/18 07:57 antihistamines Allergy Unknown Uncoded 01/21/18 07:57 Physical Exam Vitals: Vital Signs Temp Pulse Pulse Resp BP BP Pulse Ox 01/21/18 14:55 97.5 F L 66 16 99/61 100 01/21/18 13:54 97.8 F 68 16 92/63 100 01/21/18 12:37 66 16 94/60 100 01/21/18 11:30 97.8 F 65 16 99/60 100 01/21/18 11:18 62 16 01/21/18 11:08 61 16 01/21/18 10:30 68 16 105/62 99 01/21/18 09:30 101/60 01/21/18 09:00 64 16 103/57 100 01/21/18 08:30 64 16 103/57 100 01/21/18 08:00 67 16 105/71 100 01/21/18 07:54 98.4 F 68 16 105/71 99 01/21/18 07:51 105/71 100 Intake and Output 01/21/18 01/21/18 01/21/18 06:59 14:59 22:59 Other: Weight 86.183 kg PHYSICAL EXAMINATION: GENERAL: The patient is alert and oriented x3, not in any acute distress. Well developed, well nourished. HEENT: Pupils are round and equally reacting to light. EOMI. No scleral icterus. No conjunctival pallor. Normocephalic, atraumatic. No pharyngeal erythema. No thyromegaly. CARDIOVASCULAR: S1 and S2 present. No murmurs, rubs, or gallops. PULMONARY: Chest is clear to auscultation, no wheezing or crackles. ABDOMEN: Soft, nontender, nondistended, normoactive bowel sounds. No palpable organomegaly. MUSCULOSKELETAL: No joint swelling or deformity. EXTREMITIES: No cyanosis, clubbing, or pedal edema. NEUROLOGICAL: Gross neurological examination did not reveal any focal deficits. SKIN: No rashes. Results CBC & Chem 7: 01/21/18 08:07 01/21/18 08:07 Labs: Abnormal Lab Results - Last 24 Hours (Table) 01/21/18 01/21/18 01/21/18 Range/Units 08:07 08:07 08:07 RBC 3.39 L (4.30-5.90) m/uL Hgb 10.5 L (13.0-17.5) gm/dL Hct 32.6 L (39.0-53.0) % RDW 15.7 H (11.5-15.5) % PT (9.0-12.0) sec INR (<1.2) Potassium 3.3 L (3.5-5.1) mmol/L Carbon Dioxide 31 H (22-30) mmol/L Creatinine 1.66 H (0.66-1.25) mg/dL Glucose 132 H (74-99) mg/dL Magnesium 1.5 L (1.6-2.3) mg/dL CK-MB (CK-2) 2.9 H (0.0-2.4) ng/mL Troponin I 0.164 H* (0.000-0.034) ng/mL Total Protein 9.6 H (6.3-8.2) g/dL Albumin 3.2 L (3.5-5.0) g/dL 01/21/18 Range/Units 08:07 RBC (4.30-5.90) m/uL Hgb (13.0-17.5) gm/dL Hct (39.0-53.0) % RDW (11.5-15.5) % PT 12.9 H (9.0-12.0) sec INR 1.4 H (<1.2) Potassium (3.5-5.1) mmol/L Carbon Dioxide (22-30) mmol/L Creatinine (0.66-1.25) mg/dL Glucose (74-99) mg/dL Magnesium (1.6-2.3) mg/dL CK-MB (CK-2) (0.0-2.4) ng/mL Troponin I (0.000-0.034) ng/mL Total Protein (6.3-8.2) g/dL Albumin (3.5-5.0) g/dL Thrombosis Risk Factor Assmnt - Choose All That Apply Any of the Below Risk Factors Present?: Yes Each Factor Represents 1 point: Obesity (BMI >25), Serious lung disease incl. pneumonia (< 1month) Other Risk Factors: Yes Each Risk Factor Represents 2 Points: Age 61-74 years Other congenital or acquired thrombophilia - If yes, enter type in comment: No Thrombosis Risk Factor Assessment Total Risk Factor Score: 4 Thrombosis Risk Factor Assessment Level: Moderate Risk Assessment and Plan Plan: -Generalized fatigue shortness of breath and lightheadedness: Patient blood pressure is definitely low but he is only on metoprolol for his heart rate. Metoprolol can contribute to these symptoms but his symptoms are most probably from aortic stenosis. Get a chest x-ray and a BNP clinically patient is not in note heart failure. Patient will need a more urgent follow-up appointment in [facility] clinic for TAVR evaluation. -Congestive heart failure chronic systolic dysfunction without any acute exacerbation. Patient's ejection fraction is 20-25% -Rule out pneumonia -Mildly elevated troponins: Patient's troponins and actually trended down from his previous hospitalizations. Part of troponin elevation can be from his chronic kidney disease -Chronic kidney disease unable to stage at this time may have stage III chronic kidney disease. -Severe aortic stenosis -Seizure disorder -Atrial fibrillation presently rate controlled, patient is not on any anticoagulation at this time will discuss with cardiology regarding this. -Hypokalemia and hypomagnesemia is will be replaced.
--- NOTE | 2018-01-21 15:46 | CONS ---
CONSULTATION Mr. Saini is a 72-year-old male who was just discharged from [facility] with history of severe aortic stenosis, cardiomyopathy, paroxysmal atrial fibrillation, who has been evaluated to undergo transaortic valve replacement at [facility]. He presented because he felt weak. He has dyspnea on exertion, but he is at his baseline. He has no chest pain. He has no peripheral edema. He has no dizziness or palpitation or syncope. He has no clear PND or orthopnea. He is quite limited in his physical activity, but that does not appear to be different than his baseline when he left the hospital. He does not believe that he is breathing any differently. He has mild cough but no fever. MEDICATIONS: His medications at the time of admission included: 1. Zoloft. 2. Potassium. 3. Dilantin. 4. Metoprolol tartrate 12.5 mg twice a day. 5. Furosemide 40 mg daily. 6. Aspirin once a day. 7. Amiodarone 200 mg twice a day. REVIEW OF SYSTEMS: RESPIRATORY SYSTEM: He had dyspnea on exertion, occasional cough. No wheezing. GI SYSTEM: No recent GI bleed. No peptic ulcer disease. SYSTEM: No dysuria or hematuria. NERVOUS SYSTEM: No history of recent stroke. Past workup included cardiac catheterization performed a few weeks ago that revealed minimal coronary artery disease with severe aortic stenosis. His left ventricular systolic function is severely impaired with severe aortic stenosis. PHYSICAL EXAMINATION: He is a 72-year-old male, alert, oriented, in no apparent distress. Blood pressure running in the low 100s, high 90s, with a heart rate in the 60s. HEAD: Normocephalic. Eyes: Sclerae anicteric. NECK: No bruit with transmitted murmur. LUNGS: Clear to auscultation. HEART: Regular rate and rhythm. S1, S2. No S3, with systolic ejection murmur 3/6, late peaking. No diastolic murmur. No rub. ABDOMEN: Soft, nontender. Positive bowel sounds. No organomegaly. EXTREMITIES: No edema. Intact distal pulses. LAB DATA: BUN and creatinine of 15 and 1.66. Potassium 3.3. Troponin 0.164. Hemoglobin of 10.5. EKG revealed a sinus mechanism with normal axis and nonspecific ST-T wave changes in the anterolateral leads that was noted in the past. He had a brain CT that revealed no evidence of bleeding. He had an acute abdominal series that showed a small bilateral pleural effusion that was noted in the past. Otherwise no acute changes. IMPRESSION: 1. Symptoms of fatigue; appears to be chronic, most likely related to cardiomyopathy and the severe aortic stenosis. 2. Paroxysmal fibrillation; remains in normal sinus rhythm. 3. Mild elevation of troponin; on the way down, not related to obstructive coronary artery disease. Patient had cardiac catheterization recently related to his aortic stenosis and cardiomyopathy. 4. Renal function abnormalities that were noted in the past, improving. RECOMMENDATIONS: From the cardiac standpoint , I do not see a need for IV heparin. I will resume the amiodarone in his regimen. I will cut down the dose to once a day. He will be started on antibiotics and that will be further assessed by his primary care physician to see if it is needed. I am not convinced that he has any signs of pneumonia. The patient has been scheduled to be evaluated at [facility] for transaortic valve replacement. Thank you for this consult. Will follow with you. MMODL / IJN: [id number] /
[2018-01-21] MEDS: THIAMINE 100 MG TAB PO SCH (16:21)
[2018-01-21 16:32] LABS: Creatine Kinase MB 2.9 ng/mL (0.0-2.4); Troponin I 0.164 ng/mL (0.000-0.034)
[2018-01-21 18:36] LABS: T4, Free (Free Thyroxine) 1.8 ng/dL (0.78-2.19)
--- NOTE | 2018-01-21 19:57 | XR ---
EXAMINATION TYPE: XR chest 2V DATE OF EXAM: 01/21/2018 COMPARISON: Today HISTORY: Heart failure short of breath TECHNIQUE: Frontal and lateral views of the chest are obtained. FINDINGS: Heart appears enlarged. There is blunting of the costophrenic angles. There is fluid in th e major fissures. There are chest leads. There is significant arthritic change in the right shoulder joint. IMPRESSION: Mild congestive heart failure with pleural effusions. Congestion is improved slightly co mpared to exam this morning.
[2018-01-21] MEDS: IPRATROPIUM-ALBUTEROL 3 ML NEB INHALATION PRN (20:05)
[2018-01-21] MEDS: SERTRALINE 100 MG TAB PO SCH (20:42)
[2018-01-21] MEDS: PHENYTOIN SODIUM EXTENDED 100 MG CAP PO SCH (20:42)
[2018-01-21] MEDS: METOPROLOL TARTRATE 12.5 MG TAB PO SCH (20:42)
[2018-01-21] MEDS ORDERED: METOPROLOL TARTRATE 25 MG TAB PO SCH (21:00)
[2018-01-21] MEDS ORDERED: METOPROLOL TARTRATE 12.5 MG TAB PO SCH (21:00)
[2018-01-21] MEDS ORDERED: AMIODARONE 200 MG TAB PO SCH (21:00)
[2018-01-21 21:01] LABS: Creatine Kinase MB 2.5 ng/mL (0.0-2.4)
[2018-01-21 21:14] LABS: Troponin I 0.145 ng/mL (0.000-0.034)
[2018-01-22 03:57] VITALS: RESP 17
[2018-01-22 07:07] LABS: Basophils % (A) 0 %; Eosinophils # (A) 0.1 k/uL (0-0.7); Eosinophils % (A) 1 %; HCT 31.7 % (39.0-53.0); HGB 9.9 gm/dL (13.0-17.5); Lymphocytes # (A) 2.7 k/uL (1.0-4.8); Lymphocytes % (A) 33 %; MCH 30.5 pg (25.0-35.0); MCHC 31.4 g/dL (31.0-37.0); MCV 97.2 fL (80.0-100.0); Macrocytosis Slight; Mean Platelet Volume 7.1; Monocytes # (A) 0.4 k/uL (0-1.0); Monocytes % (A) 5 %; Neutrophils # (A) 4.9 k/uL (1.3-7.7); Neutrophils % (A) 59 %; Platelet Count 159 k/uL (150-450); RBC 3.26 m/uL (4.30-5.90); RDW 15.5 % (11.5-15.5); WBC 8.3 k/uL (3.8-10.6)
[2018-01-22 07:36] LABS: Calcium 8.6 mg/dL (8.4-10.2); Magnesium 1.9 mg/dL (1.6-2.3); Potassium 3.8 mmol/L (3.5-5.1)
[2018-01-22] MEDS: FUROSEMIDE 40 MG TAB PO SCH (08:22)
[2018-01-22] MEDS: PHENYTOIN SODIUM EXTENDED 100 MG CAP PO SCH ×2 (08:22→20:30)
[2018-01-22] MEDS: THIAMINE 100 MG TAB PO SCH ×2 (08:22→17:26)
[2018-01-22] MEDS: METOPROLOL TARTRATE 12.5 MG TAB PO SCH ×2 (08:22→20:31)
[2018-01-22] MEDS: AMIODARONE 200 MG TAB PO SCH (08:22)
[2018-01-22] MEDS: ASPIRIN 81 MG PO SCH (08:23)
[2018-01-22] MEDS: MULTIVITAMINS, THERA 1 EACH TAB PO SCH (08:23)
[2018-01-22] MEDS ORDERED: ASPIRIN 81 MG PO SCH (09:00)
[2018-01-22] MEDS ORDERED: ASPIRIN 325 MG TAB PO SCH (09:00)
[2018-01-22] MEDS: IPRATROPIUM-ALBUTEROL 3 ML NEB INHALATION PRN ×2 (09:44→21:07)
[2018-01-22] MEDS ORDERED: LEVOFLOXACIN 750MG-D5W PMX 750 MG in DEXTROSE/WATER 1 150ML.BAG IVPB SCH (11:00)
--- NOTE | 2018-01-22 11:56 | P.PN ---
Subjective Progress Note Date: 01/22/18 This is a 72-year-old gentleman who was just recently discharged from the hospital here he has severe aortic stenosis, nonischemic cardiomyopathy, paroxysmal atrial fibrillation. He presented back to the hospital because he felt weak, he was having some mild shortness of breath on exertion. Patient does have a guardian who makes most of his medical decisions. The plan once the patient was discharged from here most recently, was for him to go to [facility] for evaluation for TAVR, we had also made arrangements that the patient would have transportation to and from there. This morning patient feels overall well, his main concern is going to [facility] is still requesting to potentially be transferred there. His blood pressure is 110/70 with a heart rate in the 70s, 92% on room air. Hemoglobin 9.9, platelet count 159. Sodium 139, potassium 3.8, BUN 11, creatinine 1.8 up from 1.6 yesterday. Objective - Vital Signs Vital signs: Vital Signs Temp 97.7 F 01/22/18 08:25 Pulse 82 01/22/18 09:56 Resp 17 01/22/18 08:25 BP 110/72 01/22/18 08:25 Pulse Ox 92 L 01/22/18 09:47 Intake & Output 01/21/18 01/22/18 01/22/18 18:59 06:59 18:59 Intake Total 750 0 Output Total 800 Balance -50 0 Weight 86.183 kg 94.7 kg Intake: Oral 750 0 Output: Urine 800 Other: Voiding Method Urinal Urinal # Voids 0 - Exam PHYSICAL EXAMINATION: GENERAL: 72-year-old gentleman in no acute distress at the time of my examination HEENT: Head is atraumatic, normocephalic. Pupils equal, round. Sclera anicteric. Conjunctiva are clear. Mucous membranes of the mouth are moist. Neck is supple. There is no elevated jugular venous pressure. No carotid bruit is heard. HEART EXAMINATION: Heart S1 S2 1 systolic ejection murmur is heard. CHEST EXAMINATION: Lungs are clear to auscultation and precussion. No chest wall tenderness is noted on palpation or with deep breathing. ABDOMEN: Soft, nontender. Bowel sounds are heard. No organomegaly noted. EXTREMITIES: 2+ peripheral pulses with no evidence of peripheral edema and no calf tenderness noted. NEUROLOGIC patient is awake, alert and oriented 3 . . - Labs CBC & Chem 7: 01/22/18 06:07 01/22/18 06:07 Labs: Abnormal Lab Results - Last 24 Hours (Table) 01/21/18 01/21/18 01/21/18 Range/Units 15:17 16:37 16:37 RBC (4.30-5.90) m/uL Hgb (13.0-17.5) gm/dL Hct (39.0-53.0) % APTT 54.8 H (22.0-30.0) sec Carbon Dioxide (22-30) mmol/L Creatinine (0.66-1.25) mg/dL CK-MB (CK-2) 2.9 H (0.0-2.4) ng/mL Troponin I 0.164 H* (0.000-0.034) ng/mL HDL Cholesterol (40-60) mg/dL TSH 6.490 H (0.465-4.680) mIU/L 01/21/18 01/22/18 01/22/18 Range/Units 20:07 06:07 06:07 RBC 3.26 L (4.30-5.90) m/uL Hgb 9.9 L (13.0-17.5) gm/dL Hct 31.7 L (39.0-53.0) % APTT (22.0-30.0) sec Carbon Dioxide 31 H (22-30) mmol/L Creatinine 1.85 H (0.66-1.25) mg/dL CK-MB (CK-2) 2.5 H (0.0-2.4) ng/mL Troponin I 0.145 H* (0.000-0.034) ng/mL HDL Cholesterol 21 L (40-60) mg/dL TSH (0.465-4.680) mIU/L Assessment and Plan Plan: Assessment and plan #1 symptoms of fatigue, appeared to be chronic, most likely related to cardiomyopathy and severe aortic stenosis #2 paroxysmal atrial fibrillation, remaining in normal sinus rhythm #3 acute on chronic renal failure Plan From cardiology's perspective, we'll continue the patient on his current medication. He may be able to be discharged with a similar plans to follow-up at [facility] per recommendations from his recent discharge. DNP note has been reviewed, I agree with a documented findings and plan of care. Patient was seen and examined.
--- NOTE | 2018-01-22 14:29 | P.PN ---
Subjective 72-year-old male came in with complaints of dizziness and shortness of breath without any significant orthopnea proximal nocturnal dyspnea, generalized weakness. Patient is well-known to me from his previous 2 hospitalizations. Patient presented with non-ST elevation myocardial infarction in the past with elevated troponin which is actually a downward trend now with 0.16, last troponin was 0.3. Patient underwent the angiogram which did not show any significant stentable atherosclerotic coronary vascular disease is. Patient has severe aortic stenosis which will need wall replacement. Patient is not a good candidate for open heart surgery because of his poor ejection fraction with 20-25%. Patient was referred to [facility] during his last discharge for TAVR. Patient denied any nausea vomiting abdominal pain cough. Patient was admitted for possible pneumonia although clinically patient does not appear to have any pneumonia. Patient does have some pleural effusion on the abdominal x-ray which is secondary to heart failure. IV fluids will be discontinued, antibiotics will be discontinued TSH will be obtained. Will obtain PT and OT consultation social work consultation. 01/22/2018 No overnight events . I'm awaiting recommendations from physical therapy and occupational therapy. Nothing much else can be offered here. Patient has mild worsening of creatinine. No changes in medications are being made. Patient blood pressure is better today patient has mildly elevated TSH and normal T4 this is probably secondary to amiodarone. No changes in medications are being made at this time. We are to reach his public guardian to make an appropriate plan to prevent further hospitalizations and earlier follow-up for evaluation of TAVR. Objective - Vital Signs Vital signs: Vital Signs Temp 97.7 F 01/22/18 11:55 Pulse 78 01/22/18 11:55 Resp 17 01/22/18 11:55 BP 103/63 01/22/18 11:55 Pulse Ox 96 01/22/18 11:55 Intake & Output 01/21/18 01/22/18 01/22/18 18:59 06:59 18:59 Intake Total 750 0 Output Total 800 Balance -50 0 Weight 86.183 kg 94.7 kg Intake: Oral 750 0 Output: Urine 800 Other: Voiding Method Urinal Urinal # Voids 0 - Exam PHYSICAL EXAMINATION: GENERAL: The patient is alert and oriented x3, not in any acute distress. Well developed, well nourished. HEENT: Pupils are round and equally reacting to light. EOMI. No scleral icterus. No conjunctival pallor. Normocephalic, atraumatic. No pharyngeal erythema. No thyromegaly. CARDIOVASCULAR: S1 and S2 present. No murmurs, rubs, or gallops. PULMONARY: Chest is clear to auscultation, no wheezing or crackles. ABDOMEN: Soft, nontender, nondistended, normoactive bowel sounds. No palpable organomegaly. MUSCULOSKELETAL: No joint swelling or deformity. EXTREMITIES: No cyanosis, clubbing, or pedal edema. NEUROLOGICAL: Gross neurological examination did not reveal any focal deficits. SKIN: No rashes. - Labs CBC & Chem 7: 01/22/18 06:07 01/22/18 06:07 Labs: Abnormal Lab Results - Last 24 Hours (Table) 01/21/18 01/21/18 01/21/18 Range/Units 15:17 16:37 16:37 RBC (4.30-5.90) m/uL Hgb (13.0-17.5) gm/dL Hct (39.0-53.0) % APTT 54.8 H (22.0-30.0) sec Carbon Dioxide (22-30) mmol/L Creatinine (0.66-1.25) mg/dL CK-MB (CK-2) 2.9 H (0.0-2.4) ng/mL Troponin I 0.164 H* (0.000-0.034) ng/mL HDL Cholesterol (40-60) mg/dL TSH 6.490 H (0.465-4.680) mIU/L 01/21/18 01/22/18 01/22/18 Range/Units 20:07 06:07 06:07 RBC 3.26 L (4.30-5.90) m/uL Hgb 9.9 L (13.0-17.5) gm/dL Hct 31.7 L (39.0-53.0) % APTT (22.0-30.0) sec Carbon Dioxide 31 H (22-30) mmol/L Creatinine 1.85 H (0.66-1.25) mg/dL CK-MB (CK-2) 2.5 H (0.0-2.4) ng/mL Troponin I 0.145 H* (0.000-0.034) ng/mL HDL Cholesterol 21 L (40-60) mg/dL TSH (0.465-4.680) mIU/L Assessment and Plan Plan: -Generalized fatigue shortness of breath and lightheadedness: most probably from aortic stenosis. chest x-ray showed improvement in his pulmonary edema. Patient will need a more urgent follow-up appointment in [facility] for TAVR evaluation. -Congestive heart failure chronic systolic dysfunction without any acute exacerbation. Patient's ejection fraction is 20-25% -Ruled out pneumonia -Mildly elevated troponins: Patient's troponins and actually trended down from his previous hospitalizations. Part of troponin elevation can be from his chronic kidney disease -Chronic kidney disease unable to stage at this time may have stage III chronic kidney disease.I'll worsening of creatinine -Severe aortic stenosis -Seizure disorder -Atrial fibrillation presently rate controlled, patient is not on any anticoagulation at this time will discuss with cardiology regarding this. -Hypokalemia and hypomagnesemia is will be replaced. further plan as mentioned in the interval history.
[2018-01-22] MEDS: SERTRALINE 100 MG TAB PO SCH (20:32)
[2018-01-23 06:03] LABS: Basophils % (A) 0 %; Eosinophils # (A) 0.1 k/uL (0-0.7); Eosinophils % (A) 1 %; HCT 30.5 % (39.0-53.0); HGB 9.8 gm/dL (13.0-17.5); Lymphocytes # (A) 2.5 k/uL (1.0-4.8); Lymphocytes % (A) 33 %; MCH 31.9 pg (25.0-35.0); MCHC 32.2 g/dL (31.0-37.0); Macrocytosis Slight; Mean Platelet Volume 6.8; Monocytes # (A) 0.5 k/uL (0-1.0); Monocytes % (A) 6 %; Neutrophils # (A) 4.3 k/uL (1.3-7.7); Neutrophils % (A) 58 %; Platelet Count 156 k/uL (150-450); RBC 3.08 m/uL (4.30-5.90); RDW 15.8 % (11.5-15.5); WBC 7.5 k/uL (3.8-10.6)
[2018-01-23 06:26] LABS: Calcium 8.9 mg/dL (8.4-10.2); Potassium 3.7 mmol/L (3.5-5.1)
[2018-01-23] MEDS: METOPROLOL TARTRATE 12.5 MG TAB PO SCH (08:28)
[2018-01-23] MEDS: ASPIRIN 81 MG PO SCH (08:28)
[2018-01-23] MEDS: PHENYTOIN SODIUM EXTENDED 100 MG CAP PO SCH (08:28)
[2018-01-23] MEDS: AMIODARONE 200 MG TAB PO SCH (08:28)
[2018-01-23] MEDS: FUROSEMIDE 40 MG TAB PO SCH (08:28)
[2018-01-23] MEDS: THIAMINE 100 MG TAB PO SCH (08:28)
[2018-01-23] MEDS: MULTIVITAMINS, THERA 1 EACH TAB PO SCH (08:29)
[2018-01-23 08:40] VITALS: BP 130/81; PULSE 83; TEMP 97.7
--- NOTE | 2018-01-23 11:07 | P.DS ---
Providers Date of admission: 01/21/18 10:50 Attending physician: Nimco Renee Consults: 01/21/18 10:50 Consult Physician Urgent Consulting Provider: Shlomo Hyatt Consult Reason/Comments: elevTrop Do you want consulting provider notified?: Yes Primary care physician: Tony Mukherjee MD Hospital Course: 72-year-old male came in with complaints of dizziness and shortness of breath without any significant orthopnea proximal nocturnal dyspnea, generalized weakness. Patient is well-known to me from his previous 2 hospitalizations. Patient presented with non-ST elevation myocardial infarction in the past with elevated troponin which is actually a downward trend now with 0.16, last troponin was 0.3. Patient underwent the angiogram which did not show any significant stentable atherosclerotic coronary vascular disease is. Patient has severe aortic stenosis which will need wall replacement. Patient is not a good candidate for open heart surgery because of his poor ejection fraction with 20-25%. Patient was referred to [facility] during his last discharge for TAVR. Patient denied any nausea vomiting abdominal pain cough. Patient was admitted for possible pneumonia although clinically patient does not appear to have any pneumonia. Patient does have some pleural effusion on the abdominal x-ray which is secondary to heart failure. IV fluids will be discontinued, antibiotics will be discontinued TSH will be obtained. Will obtain PT and OT consultation social work consultation. 01/22/2018 No overnight events . I'm awaiting recommendations from physical therapy and occupational therapy. Nothing much else can be offered here. Patient has mild worsening of creatinine. No changes in medications are being made. Patient blood pressure is better today patient has mildly elevated TSH and normal T4 this is probably secondary to amiodarone. No changes in medications are being made at this time. We are to reach his public guardian to make an appropriate plan to prevent further hospitalizations and earlier follow-up for evaluation of TAVR. 01/23/2018 Patient is still complaining of generalized weakness. Extensively counseled the patient nothing much else can be offered to the patient more than he can do at home. Patient will closely follow up in [facility] and TAVR clinic. Patient does not appear to require any placement to subacute rehabilitation. PHYSICAL EXAMINATION: GENERAL: The patient is alert and oriented x3, not in any acute distress. Well developed, well nourished. HEENT: Pupils are round and equally reacting to light. EOMI. No scleral icterus. No conjunctival pallor. Normocephalic, atraumatic. No pharyngeal erythema. No thyromegaly. CARDIOVASCULAR: S1 and S2 present. No rubs, or gallops. Systolic murmur and aortic area PULMONARY: Chest is clear to auscultation, no wheezing or crackles. ABDOMEN: Soft, nontender, nondistended, normoactive bowel sounds. No palpable organomegaly. MUSCULOSKELETAL: No joint swelling or deformity. EXTREMITIES: No cyanosis, clubbing, or pedal edema. NEUROLOGICAL: Gross neurological examination did not reveal any focal deficits. SKIN: No rashes. Assessment and Plan Plan: -Generalized fatigue shortness of breath and lightheadedness: most probably from aortic stenosis. chest x-ray showed improvement in his pulmonary edema. Patient will need a more urgent follow-up appointment in [facility] clinic for TAVR evaluation. -Congestive heart failure chronic systolic dysfunction without any acute exacerbation. Patient's ejection fraction is 20-25%. Patient is not on any DEO inhibitor because of onset of the creatinine and kidney function patient is euvolemic at this time -Ruled out pneumonia -Mildly elevated troponins: Patient's troponins and actually trended down from his previous hospitalizations. Part of troponin elevation can be from his chronic kidney disease -Chronic kidney disease unable to stage at this time may have stage III chronic kidney disease. Fairly stable creatinine -Severe aortic stenosis -Seizure disorder -Atrial fibrillation presently rate controlled, patient is not on any anticoagulation. -Hypokalemia and hypomagnesemia replaced. Patient Condition at Discharge: Serious Plan - Discharge Summary Discharge Rx Participant: No New Discharge Prescriptions: No Action Sertraline [Zoloft] 100 mg PO HS Potassium Chloride [Klor-Con 8] 8 meq PO DAILY Amiodarone [Cordarone] 200 mg PO BID #60 tab Phenytoin Sodium Extended [Dilantin] 300 mg PO BID #180 cap Sodium Bicarbonate Tab 1,300 mg PO BID #120 tab Aspirin 81 mg PO DAILY #30 chew Furosemide [Lasix] 40 mg PO DAILY #30 tab Metoprolol Tartrate [Lopressor] 12.5 mg PO BID #60 tab Discharge Medication List Sertraline [Zoloft] 100 mg PO HS 08/04/17 [History] Potassium Chloride [Klor-Con 8] 8 meq PO DAILY 12/30/17 [History] Amiodarone [Cordarone] 200 mg PO BID #60 tab 01/06/18 [Rx] Phenytoin Sodium Extended [Dilantin] 300 mg PO BID #180 cap 01/06/18 [Rx] Sodium Bicarbonate Tab 1,300 mg PO BID #120 tab 01/06/18 [Rx] Aspirin 81 mg PO DAILY #30 chew 01/17/18 [Rx] Furosemide [Lasix] 40 mg PO DAILY #30 tab 01/17/18 [Rx] Metoprolol Tartrate [Lopressor] 12.5 mg PO BID #60 tab 01/17/18 [Rx] Follow up Appointment(s)/Referral(s): Tony Mukherjee MD [Primary Care Provider] - 3 Days Discharge Disposition: HOME WITH HOME HEALTH SERVICES
--- NOTE | 2018-01-23 14:11 | PN ---
PROGRESS NOTE Mr. Saini is a 72-year-old male with history of severe aortic stenosis, has been evaluated for transaortic valve replacement at the [facility]. He presented to the hospital not feeling well and getting short of breath. He has continued to be in sinus mechanism. He has no chest pain. Continued to have dyspnea on exertion. No dizziness. No palpitation. No syncope. No PND nor orthopnea. He continues to be at this time on Zoloft, metoprolol tartrate 12.5 mg daily, aspirin, amiodarone 200 mg twice a day, potassium. PHYSICAL EXAMINATION: Blood pressure 130/80 with a heart rate in the 80s. LUNGS: Clear. HEART: Regular rate and rhythm S1, S2. No S3 with systolic murmur heard at the base. Ejection type. No diastolic murmur. No rub. Absent. ABDOMEN: Soft, nontender. EXTREMITIES: No edema. IMPRESSION: 1. Symptoms of progressive dyspnea with severe aortic stenosis. 2. Paroxysmal atrial fibrillation, remains in normal sinus rhythm. RECOMMENDATION: Patient will be discharged home today and he has an appointment next week at [facility] to undergo evaluation for his TAVR. MMODL / IJN: [id number] /
== END 2018-01-23 11:47 | disposition home health service (06) | DRG 307 ==
LOC: EC 07:37 → 3SCARD 10:50
PROVIDERS: ADMIT Hospitalist; ATTEND Hospitalist
DX: I35.0 Nonrheumatic aortic (valve) stenosis (principal); I42.9 Cardiomyopathy, unspecified; I13.0 Hypertensive heart and chronic kidney disease with heart failure and stage 1 through stage 4 chronic kidney disease, or unspecified chronic kidney disease; I50.22 Chronic systolic (congestive) heart failure; N17.9 Acute kidney failure, unspecified; I25.10 Atherosclerotic heart disease of native coronary artery without angina pectoris; Z82.49 Family history of ischemic heart disease and other diseases of the circulatory system; Z82.61 Family history of arthritis; F40.240 Claustrophobia; E83.42 Hypomagnesemia; E86.0 Dehydration; E87.6 Hypokalemia; G40.909 Epilepsy, unspecified, not intractable, without status epilepticus; I25.2 Old myocardial infarction; I27.20 Pulmonary hypertension, unspecified; I48.0 Paroxysmal atrial fibrillation; N18.3 Chronic kidney disease, stage 3 (moderate); T46.2X5A Adverse effect of other antidysrhythmic drugs, initial encounter; Z79.82 Long term (current) use of aspirin; Z86.73 Personal history of transient ischemic attack (TIA), and cerebral infarction without residual deficits; Z88.8 Allergy status to other drugs, medicaments and biological substances; R74.8 Abnormal levels of other serum enzymes
CPT/HCPCS: 36415; 70450; 71046; 74022; 80048; 80053; 80061; 80185; 82550; 82553; 83735; 84100; 84439; 84443; 84484; 85025; 85610; 85730; 93005; 94640; 94760; 96361; 96365; 96366; 96367; 96372; 96375; 99285

== ENCOUNTER 2018-01-27 12:01 | Emergency (ER) | payer MEDICARE, BC ==
[2018-01-27 12:14] VITALS: PULSE 75; RESP 18; TEMP 98.3
[2018-01-27] MEDS ORDERED: ONDANSETRON 4 MG/2 ML VIAL IM STA (12:40)
[2018-01-27] MEDS ORDERED: SODIUM CHLORIDE 0.9% 1,000 ML IV STA (12:40)
[2018-01-27] MEDS ORDERED: MECLIZINE 12.5 MG TAB PO STA (12:41)
--- NOTE | 2018-01-27 12:50 | ED ---
General Adult HPI - General Chief complaint: Weakness Stated complaint: nausea Time Seen by Provider: 01/27/18 12:18 Source: patient, EMS, RN notes reviewed Mode of arrival: EMS Limitations: no limitations - History of Present Illness Initial comments: Patient's a 72-year-old male presented to the emergency room today by EMS, with chief complaint of generalized weakness and nausea over the last 4 weeks. Patient does not that he's been seen here in the emergency room for this. He states that over the last 4 weeks she's been having no appetite. States she's been nauseated. States he has been seen here in the emergency room. States he was admitted recently and did have a recent cardiac cath. He was told that he needed to follow-up with the specialist through [facility]. Patient states that he was discharged a few days ago. Since he still has no appetite at home and was having difficult time getting around has been feeling dizzy lightheaded. He states soon as she stands up and feels like is going to pass out. Patient denies any recent fever, chills, back pain, abdominal pain, nausea or vomiting, numbness or tingling, dysuria or hematuria, constipation or diarrhea, or any other complaints. - Related Data Home Medications Medication Instructions Recorded Confirmed Sertraline [Zoloft] 100 mg PO HS 08/04/17 01/27/18 Previous Rx's Medication Instructions Recorded Amiodarone [Cordarone] 200 mg PO BID #60 tab 01/06/18 Phenytoin Sodium Extended 300 mg PO BID #180 cap 01/06/18 [Dilantin] Sodium Bicarbonate Tab 1,300 mg PO BID #120 tab 01/06/18 Aspirin 81 mg PO DAILY #30 chew 01/17/18 Metoprolol Tartrate [Lopressor] 12.5 mg PO BID #60 tab 01/17/18 Potassium Chloride ER [K-Dur 20] 20 meq PO DAILY #30 tab 01/23/18 Allergies Allergy/AdvReac Type Severity Reaction Status Date / Time loratadine Allergy Unknown Verified 01/27/18 12:51 antihistamines Allergy Unknown Uncoded 01/27/18 12:14 Review of Systems ROS Statement: Those systems with pertinent positive or pertinent negative responses have been documented in the HPI. ROS Other: All systems not noted in ROS Statement are negative. Past Medical History Past Medical History: Atrial Fibrillation, Heart Failure, CVA/TIA, Hypertension , Seizure Disorder Additional Past Medical History / Comment(s): alcohol intoxication, alcohol withdrawal seizures, hypokalemia, hyponatremia, dehyration, metabolic , ntemiencephalopathy, brain AVM diagnosed 30 years ago History of Any Multi-Drug Resistant Organisms: None Reported Past Surgical History: Heart Catheterization Additional Past Surgical History / Comment(s): 11/2017 DAVID-severe aortic stenosis and cardiac cath-mild disease, colonoscopy. Past Anesthesia/Blood Transfusion Reactions: No Reported Reaction Additional Past Anesthesia/Blood Transfusion Reaction / Comment(s): clausterphobia Past Psychological History: Anxiety, Depression Smoking Status: Never smoker Past Alcohol Use History: Rare Past Drug Use History: None Reported - Past Family History Sister(s) Family Medical History: Osteoarthritis (OA) Additional Family Medical History / Comment(s): Sister has arhtritis with bilateral total hip replacements. Father Family Medical History: Dementia Mother Family Medical History: Coronary Artery Disease (CAD), Hypertension General Exam - General Exam Comments Initial Comments: General: The patient is awake and alert, in no distress, and does not appear acutely ill. Eye: Pupils are equal, round and reactive to light. Extra-ocular movements are intact. No nystagmus. There is normal conjunctiva bilaterally. No signs of icterus. Ears, nose, mouth and throat: There are moist mucous membranes and no oral lesions. Neck: The neck is supple, there is no tenderness or JVD. Cardiovascular: There is a regular rate and rhythm. No murmur, rub or gallop is appreciated. Respiratory: Lungs are clear to auscultation, respirations are non-labored, breath sounds are equal. No wheezes, stridor, rales, or rhonchi. Gastrointestinal: Soft, non-distended, non-tender abdomen without masses or organomegaly noted. There is no rebound or guarding present. No CVA tenderness. Musculoskeletal: Normal ROM, no tenderness. Sensation intact. Strength 5/5. Pulses equal bilaterally 2+. Neurological: A&O x 3. CN II-XII intact, There are no obvious motor or sensory deficits. Coordination appears grossly intact. Speech is normal. Skin: Skin is warm and dry and no rashes or lesions are noted. Psychiatric: Cooperative, appropriate mood & affect, normal judgment. Limitations: no limitations Course Vital Signs 01/27/18 12:07 Temperature 98.3 F Pulse Rate 75 Respiratory 18 Rate Blood Pressure 101/72 O2 Sat by Pulse 97 Oximetry Medical Decision Making - Medical Decision Making The patient's labs been reviewed does show mildly elevated kidney function which is similar to previous. Chest x-ray reviewed showing no acute change at this time. Patient admits to generalized weakness feeling dizzy over the last month. States no appetite. Has no one at home to help him. She does admit to recent cardiac cath. Was diagnosed with an aortic stent. Was supposed to follow-up with the [facility] for possible TAVR. Patient will be admitted to the hospital. - Lab Data Result diagrams: 01/27/18 13:23 01/27/18 13:23 Lab Results 01/27/18 01/27/18 01/27/18 Range/Units 13:23 13:23 13:23 WBC 5.3 (3.8-10.6) k/uL RBC 3.39 L (4.30-5.90) m/uL Hgb 10.6 L (13.0-17.5) gm/dL Hct 32.5 L (39.0-53.0) % MCV 96.1 (80.0-100.0) fL MCH 31.4 (25.0-35.0) pg MCHC 32.7 (31.0-37.0) g/dL RDW 15.5 (11.5-15.5) % Plt Count 122 L (150-450) k/uL Neutrophils % 59 % Lymphocytes % 30 % Monocytes % 7 % Eosinophils % 1 % Basophils % 0 % Neutrophils # 3.2 (1.3-7.7) k/uL Lymphocytes # 1.6 (1.0-4.8) k/uL Monocytes # 0.4 (0-1.0) k/uL Eosinophils # 0.0 (0-0.7) k/uL Basophils # 0.0 (0-0.2) k/uL PT (9.0-12.0) sec INR (<1.2) APTT (22.0-30.0) sec Sodium 138 (137-145) mmol/L Potassium 3.8 (3.5-5.1) mmol/L Chloride 100 (98-107) mmol/L Carbon Dioxide 30 (22-30) mmol/L Anion Gap 8 mmol/L BUN 14 (9-20) mg/dL Creatinine 1.67 H (0.66-1.25) mg/dL Est GFR (CKD-EPI)AfAm 47 (>60 ml/min/1.73 sqM) Est GFR (CKD-EPI)NonAf 41 (>60 ml/min/1.73 sqM) Glucose 111 H (74-99) mg/dL Calcium 9.1 (8.4-10.2) mg/dL Total Bilirubin 0.5 (0.2-1.3) mg/dL AST 24 (17-59) U/L ALT 18 L (21-72) U/L Alkaline Phosphatase 69 (38-126) U/L Total Creatine Kinase 43 L (55-170) U/L CK-MB (CK-2) 2.1 (0.0-2.4) ng/mL CK-MB (CK-2) Rel Index 4.9 Troponin I 0.122 H* (0.000-0.034) ng/mL Total Protein 9.7 H (6.3-8.2) g/dL Albumin 3.3 L (3.5-5.0) g/dL Urine Color Urine Appearance (Clear) Urine pH (5.0-8.0) Ur Specific [place] (1.001-1.035) Urine Protein (Negative) Urine Glucose (UA) (Negative) Urine Ketones (Negative) Urine Blood (Negative) Urine Nitrite (Negative) Urine Bilirubin (Negative) Urine Urobilinogen (<2.0) mg/dL Ur Leukocyte Esterase (Negative) Phenytoin 11.4 ug/mL 01/27/18 01/27/18 Range/Units 13:23 14:32 WBC (3.8-10.6) k/uL RBC (4.30-5.90) m/uL Hgb (13.0-17.5) gm/dL Hct (39.0-53.0) % MCV (80.0-100.0) fL MCH (25.0-35.0) pg MCHC (31.0-37.0) g/dL RDW (11.5-15.5) % Plt Count (150-450) k/uL Neutrophils % % Lymphocytes % % Monocytes % % Eosinophils % % Basophils % % Neutrophils # (1.3-7.7) k/uL Lymphocytes # (1.0-4.8) k/uL Monocytes # (0-1.0) k/uL Eosinophils # (0-0.7) k/uL Basophils # (0-0.2) k/uL PT 11.8 (9.0-12.0) sec INR 1.2 H (<1.2) APTT 22.2 (22.0-30.0) sec Sodium (137-145) mmol/L Potassium (3.5-5.1) mmol/L Chloride (98-107) mmol/L Carbon Dioxide (22-30) mmol/L Anion Gap mmol/L BUN (9-20) mg/dL Creatinine (0.66-1.25) mg/dL Est GFR (CKD-EPI)AfAm (>60 ml/min/1.73 sqM) Est GFR (CKD-EPI)NonAf (>60 ml/min/1.73 sqM) Glucose (74-99) mg/dL Calcium (8.4-10.2) mg/dL Total Bilirubin (0.2-1.3) mg/dL AST (17-59) U/L ALT (21-72) U/L Alkaline Phosphatase (38-126) U/L Total Creatine Kinase (55-170) U/L CK-MB (CK-2) (0.0-2.4) ng/mL CK-MB (CK-2) Rel Index Troponin I (0.000-0.034) ng/mL Total Protein (6.3-8.2) g/dL Albumin (3.5-5.0) g/dL Urine Color Light Yellow Urine Appearance Clear (Clear) Urine pH 7.0 (5.0-8.0) Ur Specific [place] 1.005 (1.001-1.035) Urine Protein Negative (Negative) Urine Glucose (UA) Negative (Negative) Urine Ketones Negative (Negative) Urine Blood Negative (Negative) Urine Nitrite Negative (Negative) Urine Bilirubin Negative (Negative) Urine Urobilinogen <2.0 (<2.0) mg/dL Ur Leukocyte Esterase Negative (Negative) Phenytoin ug/mL Disposition Clinical Impression: Nausea, Elevated troponin, Weakness Disposition: ADMITTED IP TO THIS HOSP Condition: Good Is patient prescribed a controlled substance at d/c from ED?: No Referrals: Tony Mukherjee MD [Primary Care Provider] - 1-2 days Time of Disposition: 15:04
[2018-01-27] MEDS ORDERED: MECLIZINE 25 MG TAB PO STA (12:56)
[2018-01-27 14:06] LABS: Basophils % (A) 0 %; Eosinophils % (A) 1 %; HCT 32.5 % (39.0-53.0); HGB 10.6 gm/dL (13.0-17.5); Lymphocytes # (A) 1.6 k/uL (1.0-4.8); Lymphocytes % (A) 30 %; MCH 31.4 pg (25.0-35.0); MCHC 32.7 g/dL (31.0-37.0); MCV 96.1 fL (80.0-100.0); Mean Platelet Volume 6.8; Monocytes # (A) 0.4 k/uL (0-1.0); Monocytes % (A) 7 %; Neutrophils # (A) 3.2 k/uL (1.3-7.7); Neutrophils % (A) 59 %; Platelet Count 122 k/uL (150-450); RBC 3.39 m/uL (4.30-5.90); RDW 15.5 % (11.5-15.5); WBC 5.3 k/uL (3.8-10.6)
[2018-01-27 14:13] LABS: INR 1.2 (<1.2); Partial Thromboplastin Time 22.2 sec (22.0-30.0); Prothrombin Time 11.8 sec (9.0-12.0)
[2018-01-27] MEDS ORDERED: ONDANSETRON 4 MG/2 ML VIAL IVP STA (14:14)
[2018-01-27 14:16] LABS: Albumin 3.3 g/dL (3.5-5.0); Calcium 9.1 mg/dL (8.4-10.2); Phenytoin (Dilantin) 11.4 ug/mL; Potassium 3.8 mmol/L (3.5-5.1); Total Bilirubin 0.5 mg/dL (0.2-1.3); Total Protein 9.7 g/dL (6.3-8.2)
--- NOTE | 2018-01-27 14:37 | XR ---
EXAMINATION TYPE: XR chest 2V DATE OF EXAM: 01/27/2018 COMPARISON: Chest x-ray from 6 days ago. HISTORY: History of CHF with shortness of breath TECHNIQUE: Frontal and lateral views of the chest are obtained. FINDINGS: The cardiac silhouette size is stable and mildly enlarged with persistent left basilar opac ity felt to reflect small to moderate-sized left pleural effusion and associated left basilar atelect asis and/or infiltrate. There is small to tiny right pleural effusion is felt present. Chronic deform ity right humeral head is redemonstrated. IMPRESSION: Overall stable findings, cardiomegaly with small to moderate left and small to tiny righ t pleural effusion with associated left basilar atelectasis and/or infiltrate all redemonstrated.
[2018-01-27 14:44] LABS: Appearance,Urine Clear (Clear); Bilirubin,Urine Negative (Negative); Blood,Urine Negative (Negative); Color,Urine Light Yellow; Glucose,Urine (UA) Negative (Negative); Ketones,Urine Negative (Negative); Leukocyte Esterase,Urine Negative (Negative); Nitrite,Urine Negative (Negative); Protein,Urine Negative (Negative); Specific Gravity,Urine 1.005 (1.001-1.035); Urobilinogen,Urine <2.0 mg/dL (<2.0)
[2018-01-27 14:49] LABS: Creatine Kinase MB 2.1 ng/mL (0.0-2.4); Troponin I 0.122 ng/mL (0.000-0.034)
[2018-01-27] MEDS ORDERED: ASPIRIN 81 MG PO STA (15:04)
[2018-01-27] MEDS ORDERED: SODIUM CHLORIDE 0.9% 1,000 ML IV ONE (15:04)
[2018-01-27] MEDS ORDERED: NITROGLYCERIN SL TABS 0.4 MG TAB SUBLINGUAL PRN (15:04)
[2018-01-27 15:17] VITALS: BP 109/63
[2018-01-28] MEDS ORDERED: ASPIRIN 325 MG TAB PO SCH (09:00)
== END 2018-01-27 16:34 | disposition other institution (70) ==
LOC: EC 12:01 → UNDOADMOB 15:14 → 3SCARD 15:14 → EC 16:34
DX: R53.1 Weakness (principal); R11.0 Nausea; R79.89 Other specified abnormal findings of blood chemistry; R42 Dizziness and giddiness; F41.9 Anxiety disorder, unspecified; F32.9 Major depressive disorder, single episode, unspecified; Z86.73 Personal history of transient ischemic attack (TIA), and cerebral infarction without residual deficits; Z98.890 Other specified postprocedural states
CPT/HCPCS: 36415; 93005; 80053; 82550; 82553; 80185; 84484; 85025; 85610; 85730; 81003; 71046; 99285; 96374; 96361 ×2; J2405

== ENCOUNTER 2018-01-30 13:28 | Inpatient (IN) | payer MEDICARE, BC ==
[2018-01-30] MEDS ORDERED: SODIUM CHLORIDE 0.9% 500 ML 500 ML IV STA (14:00)
--- NOTE | 2018-01-30 14:08 | ED ---
General Adult HPI - General Source: patient, RN notes reviewed, old records reviewed Mode of arrival: EMS Limitations: no limitations <Mihir Vaughan - Last Filed: 01/30/18 15:45> <Cortez Duffy - Last Filed: 01/30/18 16:02> - General Chief complaint: Dizziness Stated complaint: Dizzy Time Seen by Provider: 01/30/18 13:34 - History of Present Illness Initial comments: Patient 72-year-old male presented emergency room today by EMS, with chief complaint of feeling dizzy lightheaded. Patient does admit that over the last month he's had a decreased appetite. He has not that he's been here to the emergency room times for similar complaint. was admitted. He states that he have a cardiac cath obtained. He states he was told that he had to have a valve replaced. He states he did follow up with Dr. Marvin Guillory. He states he is waiting for the test. He states she's been back at home. He states he does live in an apartment with a roommate but he usually helps take care of her. He states the last month she's had decreased appetite. He states he gets very dizzy lightheaded anytime he gets out of bed. Unsteady on his feet. Patient doesn't feeling nauseated. Denies any other complaints. Patient denies any recent fever, chills, shortness of breath, chest pain, back pain, abdominal pain, nausea or vomiting, numbness or tingling, headaches or visual changes, or any other complaints. (Mihir Vaughan) - Related Data Home Medications Medication Instructions Recorded Confirmed Sertraline [Zoloft] 100 mg PO HS 08/04/17 01/30/18 Previous Rx's Medication Instructions Recorded Amiodarone [Cordarone] 200 mg PO BID #60 tab 01/06/18 Phenytoin Sodium Extended 300 mg PO BID #180 cap 01/06/18 [Dilantin] Sodium Bicarbonate Tab 1,300 mg PO BID #120 tab 01/06/18 Aspirin 81 mg PO DAILY #30 chew 01/17/18 Metoprolol Tartrate [Lopressor] 12.5 mg PO BID #60 tab 01/17/18 Potassium Chloride ER [K-Dur 20] 20 meq PO DAILY #30 tab 01/23/18 Allergies Allergy/AdvReac Type Severity Reaction Status Date / Time loratadine Allergy Unknown Verified 01/30/18 13:59 antihistamines Allergy Unknown Uncoded 01/30/18 13:37 Review of Systems ROS Other: All systems not noted in ROS Statement are negative. <Mihir Vaughan - Last Filed: 01/30/18 15:45> ROS Other: All systems not noted in ROS Statement are negative. <Cortez Duffy - Last Filed: 01/30/18 16:02> ROS Statement: Those systems with pertinent positive or pertinent negative responses have been documented in the HPI. Past Medical History Past Medical History: Atrial Fibrillation, Heart Failure, CVA/TIA, Hypertension , Seizure Disorder Additional Past Medical History / Comment(s): alcohol intoxication, alcohol withdrawal seizures, hypokalemia, hyponatremia, dehyration, metabolic , ntemiencephalopathy, brain AVM diagnosed 30 years ago History of Any Multi-Drug Resistant Organisms: None Reported Past Surgical History: Heart Catheterization Additional Past Surgical History / Comment(s): 11/2017 DAVID-severe aortic stenosis and cardiac cath-mild disease, colonoscopy. Past Anesthesia/Blood Transfusion Reactions: No Reported Reaction Additional Past Anesthesia/Blood Transfusion Reaction / Comment(s): clausterphobia Past Psychological History: Anxiety, Depression Smoking Status: Never smoker Past Alcohol Use History: Rare Past Drug Use History: None Reported - Past Family History Sister(s) Family Medical History: Osteoarthritis (OA) Additional Family Medical History / Comment(s): Sister has arhtritis with bilateral total hip replacements. Father Family Medical History: Dementia Mother Family Medical History: Coronary Artery Disease (CAD), Hypertension <Mihir Vaughan - Last Filed: 01/30/18 15:45> General Exam Limitations: no limitations <Mihir Vaughan - Last Filed: 01/30/18 15:45> <Cortez Duffy - Last Filed: 01/30/18 16:02> - General Exam Comments Initial Comments: General: The patient is awake and alert, in no distress, and does not appear acutely ill. Eye: Pupils are equal, round and reactive to light. Extra-ocular movements are intact. No nystagmus. There is normal conjunctiva bilaterally. No signs of icterus. Ears, nose, mouth and throat: There are moist mucous membranes and no oral lesions. Neck: The neck is supple, there is no tenderness or JVD. Cardiovascular: There is a regular rate and rhythm. No murmur, rub or gallop is appreciated. Respiratory: Lungs are clear to auscultation, respirations are non-labored, breath sounds are equal. No wheezes, stridor, rales, or rhonchi. Gastrointestinal: Soft, non-distended, non-tender abdomen without masses or organomegaly noted. There is no rebound or guarding present. Musculoskeletal: Normal ROM, no tenderness. Sensation intact. Strength 5/5. Pulses equal bilaterally 2+. Neurological: A&O x 3. CN II-XII intact, There are no obvious motor or sensory deficits. Coordination appears grossly intact. Speech is normal. Skin: Skin is warm and dry and no rashes or lesions are noted. Psychiatric: Cooperative, appropriate mood & affect, normal judgment. (Mihir Vaughan) Vital Signs 01/30/18 01/30/18 01/30/18 13:35 14:25 15:36 Temperature 98.1 F Pulse Rate 79 72 75 Pulse Rate [ 76 Sitting] Pulse Rate [ 92 Standing] Pulse Rate [ 78 Supine] Respiratory 20 20 20 Rate Blood Pressure 129/80 110/66 120/69 Blood Pressure 123/78 [Sitting] Blood Pressure 110/66 [Standing] Blood Pressure 128/77 [Supine] O2 Sat by Pulse 96 99 98 Oximetry EKG Findings - EKG Comments: EKG Findings:: EKG performed at 1353: Shows normal sinus rhythm at 78 bpm. MT interval 184. QRS 124. QT/QTc 446/508. Compared to previous EKG on 2017 showing no acute change. <Mihir Vaughan - Last Filed: 01/30/18 15:45> Medical Decision Making - Lab Data Result diagrams: 01/30/18 13:30 01/30/18 13:30 <Mihir Vaughan - Last Filed: 01/30/18 15:45> - Lab Data Result diagrams: 01/30/18 13:30 01/30/18 13:30 <Cortez Duffy - Last Filed: 01/30/18 16:02> - Medical Decision Making Patient labs been reviewed and show stable findings compared to previous admission from 3 days ago. Patient chest x-ray shows no acute changes. Patient does admits to dizziness when he stands up. States feels very lightheaded and unsteady. He states he does live at home does have a roommate but he typically is caring for this person. Case discussed with attending physician Dr. Bowman did discuss the case with admitting physician Dr. Mcguire who will admit the patient. Patient is well-known to cardiology and states that his troponin levels have been trending down there is been no EKG changes. Patient does have severe aortic stenosis and is trying to follow up with cardiothoracic surgeon for a TAVR. Patient will be admitted to the hospital today for possible placement as he is having difficulties caring for himself at home. (Mihir Vaughan) 72-year-old male presenting for reevaluation and ongoing symptoms. No chest pain. Patient does have troponin elevation, this is chronic and unchanged. EKG appears stable. Patient is having no chest pain, no dyspnea. His had multiple ER visits over likely need placement in a shelter and is unable to care for himself at this time. Case discussed with admitting physician who will accept. (Cortez Duffy) - Lab Data Lab Results 01/30/18 01/30/18 01/30/18 Range/Units 13:30 13:30 13:30 WBC 6.3 (3.8-10.6) k/uL RBC 3.15 L (4.30-5.90) m/uL Hgb 10.0 L (13.0-17.5) gm/dL Hct 30.2 L (39.0-53.0) % MCV 96.0 (80.0-100.0) fL MCH 31.7 (25.0-35.0) pg MCHC 33.0 (31.0-37.0) g/dL RDW 15.3 (11.5-15.5) % Plt Count 129 L (150-450) k/uL Neutrophils % 60 % Lymphocytes % 29 % Monocytes % 7 % Eosinophils % 1 % Basophils % 0 % Neutrophils # 3.8 (1.3-7.7) k/uL Lymphocytes # 1.9 (1.0-4.8) k/uL Monocytes # 0.5 (0-1.0) k/uL Eosinophils # 0.1 (0-0.7) k/uL Basophils # 0.0 (0-0.2) k/uL PT (9.0-12.0) sec INR (<1.2) APTT (22.0-30.0) sec Sodium 137 (137-145) mmol/L Potassium 4.2 (3.5-5.1) mmol/L Chloride 103 (98-107) mmol/L Carbon Dioxide 25 (22-30) mmol/L Anion Gap 9 mmol/L BUN 13 (9-20) mg/dL Creatinine 1.54 H (0.66-1.25) mg/dL Est GFR (CKD-EPI)AfAm 52 (>60 ml/min/1.73 sqM) Est GFR (CKD-EPI)NonAf 45 (>60 ml/min/1.73 sqM) Glucose 111 H (74-99) mg/dL Calcium 9.0 (8.4-10.2) mg/dL Total Bilirubin 0.7 (0.2-1.3) mg/dL AST 35 (17-59) U/L ALT 20 L (21-72) U/L Alkaline Phosphatase 66 (38-126) U/L Total Creatine Kinase 55 (55-170) U/L CK-MB (CK-2) 2.2 (0.0-2.4) ng/mL CK-MB (CK-2) Rel Index 4.0 Troponin I 0.129 H* (0.000-0.034) ng/mL Total Protein 10.2 H (6.3-8.2) g/dL Albumin 3.6 (3.5-5.0) g/dL Phenytoin 8.6 ug/mL 01/30/18 Range/Units 15:22 WBC (3.8-10.6) k/uL RBC (4.30-5.90) m/uL Hgb (13.0-17.5) gm/dL Hct (39.0-53.0) % MCV (80.0-100.0) fL MCH (25.0-35.0) pg MCHC (31.0-37.0) g/dL RDW (11.5-15.5) % Plt Count (150-450) k/uL Neutrophils % % Lymphocytes % % Monocytes % % Eosinophils % % Basophils % % Neutrophils # (1.3-7.7) k/uL Lymphocytes # (1.0-4.8) k/uL Monocytes # (0-1.0) k/uL Eosinophils # (0-0.7) k/uL Basophils # (0-0.2) k/uL PT 11.6 (9.0-12.0) sec INR 1.2 H (<1.2) APTT 27.5 (22.0-30.0) sec Sodium (137-145) mmol/L Potassium (3.5-5.1) mmol/L Chloride (98-107) mmol/L Carbon Dioxide (22-30) mmol/L Anion Gap mmol/L BUN (9-20) mg/dL Creatinine (0.66-1.25) mg/dL Est GFR (CKD-EPI)AfAm (>60 ml/min/1.73 sqM) Est GFR (CKD-EPI)NonAf (>60 ml/min/1.73 sqM) Glucose (74-99) mg/dL Calcium (8.4-10.2) mg/dL Total Bilirubin (0.2-1.3) mg/dL AST (17-59) U/L ALT (21-72) U/L Alkaline Phosphatase (38-126) U/L Total Creatine Kinase (55-170) U/L CK-MB (CK-2) (0.0-2.4) ng/mL CK-MB (CK-2) Rel Index Troponin I (0.000-0.034) ng/mL Total Protein (6.3-8.2) g/dL Albumin (3.5-5.0) g/dL Phenytoin ug/mL Disposition Is patient prescribed a controlled substance at d/c from ED?: No Time of Disposition: 15:52 <Mihir Vaughan - Last Filed: 01/30/18 15:45> <Cortez Duffy - Last Filed: 01/30/18 16:02> Clinical Impression: Dizziness, Elevated troponin, CHF (congestive heart failure), Anemia Disposition: ADMITTED IP TO THIS HOSP Condition: Stable Referrals: Tony Mukherjee MD [Primary Care Provider] - 1-2 days
[2018-01-30 14:21] LABS: Basophils % (A) 0 %; Eosinophils # (A) 0.1 k/uL (0-0.7); Eosinophils % (A) 1 %; HCT 30.2 % (39.0-53.0); Lymphocytes # (A) 1.9 k/uL (1.0-4.8); Lymphocytes % (A) 29 %; MCH 31.7 pg (25.0-35.0); Mean Platelet Volume 7.6; Monocytes # (A) 0.5 k/uL (0-1.0); Monocytes % (A) 7 %; Neutrophils # (A) 3.8 k/uL (1.3-7.7); Neutrophils % (A) 60 %; Platelet Count 129 k/uL (150-450); RBC 3.15 m/uL (4.30-5.90); RDW 15.3 % (11.5-15.5); WBC 6.3 k/uL (3.8-10.6)
--- NOTE | 2018-01-30 14:24 | XR ---
EXAMINATION TYPE: XR chest 2V DATE OF EXAM: 01/30/2018 COMPARISON: 01/27/2018 HISTORY: Dizziness TECHNIQUE: Frontal and lateral views of the chest are obtained. FINDINGS: Heart appears enlarged. There is no gross heart failure. There is blunting of the costophr enic angles. There is probably infiltrate in both lower lobes and more on the left side. There is sig nificant arthritic change in the right shoulder joint. IMPRESSION: Bilateral pleural effusions. Left lower lobe pneumonia. No overt heart failure. No pearce e compared to last exam.
[2018-01-30 14:55] LABS: Albumin 3.6 g/dL (3.5-5.0); Total Bilirubin 0.7 mg/dL (0.2-1.3); Total Protein 10.2 g/dL (6.3-8.2)
[2018-01-30 14:56] LABS: Creatine Kinase MB 2.2 ng/mL (0.0-2.4); Potassium 4.2 mmol/L (3.5-5.1)
[2018-01-30 14:57] LABS: Phenytoin (Dilantin) 8.6 ug/mL
[2018-01-30 15:01] LABS: Troponin I 0.129 ng/mL (0.000-0.034)
[2018-01-30 15:46] LABS: INR 1.2 (<1.2); Partial Thromboplastin Time 27.5 sec (22.0-30.0); Prothrombin Time 11.6 sec (9.0-12.0)
[2018-01-30] MEDS ORDERED: NALOXONE 0.4 MG/ML 1 ML VIAL IV PRN (15:52)
[2018-01-30] MEDS ORDERED: SODIUM CHLORIDE 0.9% 1,000 ML IV STA ×2 (15:54)
[2018-01-30] MEDS ORDERED: ACETAMINOPHEN TAB 325 MG TAB PO PRN (18:43)
--- NOTE | 2018-01-30 18:55 | P.HPIM ---
History of Present Illness H&P Date: 01/30/18 Chief Complaint: Dizziness 72-year-old male with PMH of atrial fibrillation, heart failure, hypertension and seizure disorder presents to the ED for dizziness. Patient describes the dizziness as lightheadedness. Patient reports experiencing lightheadedness for the past 1 1/2-2 months. He has been seen in the [facility] 5-6 times for this problem. Patient reports his lightheadedness is worse when he goes from a sitting or laying to a standing position. It has gotten so bad that he is unable to ambulate in his house without fearing falling down or passing out. During these episodes of dizziness he experiences nausea and palpitations. 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 His last seizure was 2 months ago and was due to medication noncompliance as per patient. He denies any loss of consciousness. He denies any auras. He denies any headaches, lower extremity edema, nausea, vomiting, fever, cough, chest pain, shortness of breath, changes in urination or bowel habits. Of note, patient reports weight loss of 15-18 pounds over the last 30 days. He attributes this to a very poor appetite. Patient states he lives with his friend that is wheelchair-bound and he has found it more difficult to do his ADLs/IADLs. He is requesting placement in a halfway. In the ED, CBC shows hemoglobin of 10, hematocrit of 30.2, platelet count 129. Coagulation studies show INR of 1.2. CMP shows a creatinine of 1.54 and glucose of 111. Initial troponin is 0.129, EKG shows normal sinus rhythm with T -wave abnormalities. Phenytoin level is a 8.6. Chest x-ray shows bilateral pleural effusions and a left lower lobe pneumonia. Patient is admitted for workup of dizziness and for placement. Review of Systems All systems: negative Past Medical History Past Medical History: Atrial Fibrillation, Heart Failure, CVA/TIA, Hypertension , Seizure Disorder Additional Past Medical History / Comment(s): alcohol intoxication, alcohol withdrawal seizures, hypokalemia, hyponatremia, dehyration, metabolic , ntemiencephalopathy, brain AVM diagnosed 30 years ago History of Any Multi-Drug Resistant Organisms: None Reported Past Surgical History: Heart Catheterization Additional Past Surgical History / Comment(s): 11/2017 DAVID-severe aortic stenosis and cardiac cath-mild disease, colonoscopy. Past Anesthesia/Blood Transfusion Reactions: No Reported Reaction Additional Past Anesthesia/Blood Transfusion Reaction / Comment(s): clausterphobia Past Psychological History: Anxiety, Depression Smoking Status: Never smoker Past Alcohol Use History: Rare Past Drug Use History: None Reported - Past Family History Sister(s) Family Medical History: Osteoarthritis (OA) Additional Family Medical History / Comment(s): Sister has arhtritis with bilateral total hip replacements. Father Family Medical History: Dementia Mother Family Medical History: Coronary Artery Disease (CAD), Hypertension Medications and Allergies Home Medications Medication Instructions Recorded Confirmed Type Sertraline [Zoloft] 100 mg PO HS 08/04/17 01/30/18 History Amiodarone [Cordarone] 200 mg PO BID #60 tab 01/06/18 01/30/18 Rx Phenytoin Sodium Extended 300 mg PO BID #180 cap 01/06/18 01/30/18 Rx [Dilantin] Sodium Bicarbonate Tab 1,300 mg PO BID #120 tab 01/06/18 01/30/18 Rx Aspirin 81 mg PO DAILY #30 chew 01/17/18 01/30/18 Rx Metoprolol Tartrate [Lopressor] 12.5 mg PO BID #60 tab 01/17/18 01/30/18 Rx Potassium Chloride ER [K-Dur 20] 20 meq PO DAILY #30 tab 01/23/18 01/30/18 Rx Allergies Allergy/AdvReac Type Severity Reaction Status Date / Time loratadine Allergy Unknown Verified 01/30/18 13:59 antihistamines Allergy Unknown Uncoded 01/30/18 13:37 Physical Exam Vitals: Vital Signs Temp Pulse Pulse Pulse Pulse Resp BP 01/30/18 17:48 98.1 F 71 18 134/70 01/30/18 15:36 75 20 120/69 01/30/18 14:25 72 76 92 78 20 110/66 01/30/18 13:35 98.1 F 79 20 129/80 BP BP BP Pulse Ox 01/30/18 17:48 97 01/30/18 15:36 98 01/30/18 14:25 123/78 110/66 128/77 99 01/30/18 13:35 96 Intake and Output 01/30/18 01/30/18 01/30/18 06:59 14:59 22:59 Other: Weight 83.915 kg General: [non toxic], [no distress], [appears at stated age] Derm: [warm], [dry] Head: [atraumatic], [normocephalic], [symmetric] Eyes: [EOMI], [no lid lag], [anicteric sclera] Mouth: [no lip lesion], [mucus membranes moist] Cardiovascular: [S1S2 reg], [systolic murmur], [positive DP pulse bilateral] Lungs: [CTA bilateral], [no rhonchi, no rales] , [no accessory muscle use] Abdominal: [soft], [ nontender to palpation], [no guarding], [no appreciable organomegaly] Ext: [no gross muscle atrophy], [no edema], [no contractures] Neuro: [ CN II-XI grossly intact], [no focal neuro deficits] Psych: [Alert], [oriented], [appropriate affect] Results CBC & Chem 7: 01/30/18 13:30 01/30/18 13:30 Labs: Abnormal Lab Results - Last 24 Hours (Table) 01/30/18 01/30/18 01/30/18 Range/Units 13:30 13:30 13:30 RBC 3.15 L (4.30-5.90) m/uL Hgb 10.0 L (13.0-17.5) gm/dL Hct 30.2 L (39.0-53.0) % Plt Count 129 L (150-450) k/uL INR (<1.2) Creatinine 1.54 H (0.66-1.25) mg/dL Glucose 111 H (74-99) mg/dL ALT 20 L (21-72) U/L Troponin I 0.129 H* (0.000-0.034) ng/mL Total Protein 10.2 H (6.3-8.2) g/dL 01/30/18 Range/Units 15:22 RBC (4.30-5.90) m/uL Hgb (13.0-17.5) gm/dL Hct (39.0-53.0) % Plt Count (150-450) k/uL INR 1.2 H (<1.2) Creatinine (0.66-1.25) mg/dL Glucose (74-99) mg/dL ALT (21-72) U/L Troponin I (0.000-0.034) ng/mL Total Protein (6.3-8.2) g/dL Thrombosis Risk Factor Assmnt - Choose All That Apply Any of the Below Risk Factors Present?: No Each Risk Factor Represents 2 Points: Age 61-74 years Thrombosis Risk Factor Assessment Total Risk Factor Score: 2 Thrombosis Risk Factor Assessment Level: Low Risk Assessment and Plan Assessment: Assessment and Plan 1. Lightheadedness: Possibly related to Aortic stenosis or dehydration, plans to rule out ACS. Coronary cath in 12/2017 shows mild disease in the RCA. DAVID in 12/2017 shows EF 25-30% with severe . Previously seen by Dr. Donald, advised to FU for TAVR. Troponin 0.129, with EKG showing NSR with T wave abnormalities. Telemetry monitoring. Continue NS at 75 ml/h. Trend Trop/EKG to r/o ACS. FU Orthostats, PT/OT consult 2. Left Lower Lobe PNA: Seen on CXR. Patient is afebrile with no leukocytosis. Community acquired. Start Azithromycin 500 mg PO QD x 3 days. O2 per NC to maintain O2 sat > 92%. Mucinex 600 mg PO BID. FU BCx and Sputum Cx 3. Troponemia: Likely Trop leak from CHF. Troponin 0.129, EKG showing NSR with T wave abnormalities. Troponin 0.122 on DC 11/. Previously evaluated by Cardiology and cleared. Telemetry monitoring. Trend Trop/EKG to r/o ACS. 4. Elevated Cr: Cr 1.54. Likely due to dehydration. Avoid nephrotoxins. Continue NS at 75 ml/h. Daily BMP 5. Epilepsy: Stable. Continue Dilantin 300 mg PO BID. Seizure and Fall precautions. 6. Atrial fibrillation: Rhythm control with Amiodoarone 200 mg PO BID and rate controlled with Metoprolol 12.5 mg PO BID. No anticoagulation due to high risk. Telemetry monitoring. Keep Mg > 2 and K > 4. 7. Hypertension: BP 134/70. Continue Metoprolol 12.5 mg PO BID. Monitor vitals, adjust medications as necessary. 8. HFrEF: Echocardiogram from 12/2017 shows EF 25-30%. Continue Metoprolol. Continue ASA/-statin. No ACEi due to DANY. Ins and Outs. Daily weights. Telemetry monitoring. 9. DVT/GI Prophylaxis: Lovenox 40 mg SUBCUT QD. Patient requesting placement. Afraid to live alone due to dizziness and possible falls. Will discuss with SW and Case management in the AM. Working up dizziness. Ruling out acute coronary syndrome. Treatment for LLL PNA.
[2018-01-30 19:43] LABS: Creatine Kinase MB 2.2 ng/mL (0.0-2.4)
[2018-01-30 19:45] LABS: Troponin I 0.153 ng/mL (0.000-0.034)
[2018-01-30] MEDS: AMIODARONE 200 MG TAB PO SCH (21:00)
[2018-01-30] MEDS: PHENYTOIN SODIUM EXTENDED 100 MG CAP PO SCH (21:00)
[2018-01-30] MEDS: METOPROLOL TARTRATE 12.5 MG TAB PO SCH (21:01)
[2018-01-30] MEDS: SERTRALINE 100 MG TAB PO SCH (21:01)
[2018-01-30] MEDS: HEPARIN SODIUM,PORCINE 5,000 UNIT/ML 1 ML VIAL SQ SCH (21:02)
[2018-01-31] MEDS: ONDANSETRON 4 MG/2 ML VIAL IVP PRN ×2 (01:49→16:52)
[2018-01-31] MEDS: HYDROcodone/APAP 5-325MG 1 EACH TAB PO PRN ×2 (03:01→20:10)
[2018-01-31 05:56] LABS: Glucose,Whole Blood 83 mg/dL (75-99)
[2018-01-31 06:08] LABS: Potassium 3.4 mmol/L (3.5-5.1)
[2018-01-31 06:09] LABS: Calcium 8.7 mg/dL (8.4-10.2)
[2018-01-31] MEDS ORDERED: AZITHROMYCIN 500 MG TAB PO SCH (09:00)
[2018-01-31] MEDS: ASPIRIN 81 MG PO SCH (09:50)
[2018-01-31] MEDS: METOPROLOL TARTRATE 12.5 MG TAB PO SCH ×2 (09:50→20:10)
[2018-01-31] MEDS: HEPARIN SODIUM,PORCINE 5,000 UNIT/ML 1 ML VIAL SQ SCH ×2 (09:50→20:11)
[2018-01-31] MEDS: AMIODARONE 200 MG TAB PO SCH ×2 (09:50→20:10)
[2018-01-31] MEDS: PHENYTOIN SODIUM EXTENDED 100 MG CAP PO SCH ×2 (09:52→20:10)
[2018-01-31 13:49] VITALS: BMI 25.0
--- NOTE | 2018-01-31 15:18 | P.CRDCN ---
History of Present Illness Consult date: 01/31/18 Requesting physician: Niraj Rios Chief complaint: Lightheadedness History of present illness: This is a 72-year-old gentleman who was recently discharged from the hospital, he has severe aortic stenosis, nonischemic cardiomyopathy, paroxysmal atrial fibrillation. On one of his recent admission she did undergo cardiac catheterization which did not reveal any obstructive coronary artery disease. He presents to the hospital again on this occasion with symptoms of weakness and mild exertional shortness of breath. Patient does have a guardian who makes most of his medical decisions. Since his discharge last time from here he did go for an evaluation at [facility] regarding TAVR but he does not exactly recall what he was told there. He is quite concerned about his transportation there when the surgery is performed and this again has caused him to come to the hospital. Social work and case management are also currently on the case. Blood pressure 146/50, heart rate in the 70s to 80s, respirations 18. Orthostatic heart rate and blood pressure were obtained with no significant change noted. White blood cell count 6.3, hemoglobin 10.0, platelet count 129. Sodium 136, potassium 3.4, BUN 11, creatinine 1.4. Troponin 0.129, 0.153. On review of previous admissions, it is noted that the patient does have abnormality in troponin. His EKG shows normal sinus rhythm with nonspecific Past Medical History Past Medical History: Atrial Fibrillation, Heart Failure, CVA/TIA, Hypertension , Seizure Disorder Additional Past Medical History / Comment(s): alcohol intoxication, alcohol withdrawal seizures, hypokalemia, hyponatremia, dehyration, metabolic , ntemiencephalopathy, brain AVM diagnosed 30 years ago History of Any Multi-Drug Resistant Organisms: None Reported Past Surgical History: Heart Catheterization Additional Past Surgical History / Comment(s): 11/2017 DAVID-severe aortic stenosis and cardiac cath-mild disease, colonoscopy. Past Anesthesia/Blood Transfusion Reactions: No Reported Reaction Additional Past Anesthesia/Blood Transfusion Reaction / Comment(s): clausterphobia Past Psychological History: Anxiety, Depression Smoking Status: Never smoker Past Alcohol Use History: Rare Past Drug Use History: None Reported - Past Family History Sister(s) Family Medical History: Osteoarthritis (OA) Additional Family Medical History / Comment(s): Sister has arhtritis with bilateral total hip replacements. Father Family Medical History: Dementia Mother Family Medical History: Coronary Artery Disease (CAD), Hypertension Medications and Allergies Home Medications Medication Instructions Recorded Confirmed Type Sertraline [Zoloft] 100 mg PO HS 08/04/17 01/30/18 History Amiodarone [Cordarone] 200 mg PO BID #60 tab 01/06/18 01/30/18 Rx Phenytoin Sodium Extended 300 mg PO BID #180 cap 01/06/18 01/30/18 Rx [Dilantin] Sodium Bicarbonate Tab 1,300 mg PO BID #120 tab 01/06/18 01/30/18 Rx Aspirin 81 mg PO DAILY #30 chew 01/17/18 01/30/18 Rx Metoprolol Tartrate [Lopressor] 12.5 mg PO BID #60 tab 01/17/18 01/30/18 Rx Potassium Chloride ER [K-Dur 20] 20 meq PO DAILY #30 tab 01/23/18 01/30/18 Rx Allergies Allergy/AdvReac Type Severity Reaction Status Date / Time loratadine Allergy Unknown Verified 01/30/18 13:59 antihistamines Allergy Unknown Uncoded 01/30/18 13:37 Physical Exam Vitals: Vital Signs Temp Pulse Pulse Pulse Pulse Pulse Resp 01/31/18 12:08 97.6 F 75 76 78 78 16 01/31/18 09:56 97.6 F 79 76 78 78 16 01/31/18 04:00 97.1 F L 70 76 78 78 16 01/31/18 00:00 60 76 78 78 16 01/30/18 20:00 97.4 F L 62 76 78 78 18 01/30/18 17:48 98.1 F 71 18 01/30/18 16:48 97.8 F 78 18 01/30/18 15:36 75 20 BP BP BP BP Pulse Ox 01/31/18 12:08 126/73 95 01/31/18 09:56 105/61 94 L 01/31/18 04:00 137/86 97 01/31/18 00:00 119/76 97 01/30/18 20:00 146/52 98 01/30/18 17:48 134/70 97 01/30/18 16:48 119/74 99 01/30/18 15:36 120/69 98 Intake and Output 01/31/18 01/31/18 01/31/18 06:59 14:59 22:59 Intake Total 118 Output Total 1000 200 Balance -999 Intake: Oral 118 Output: Urine 1000 200 Other: Weight 79.1 kg 79.1 kg PHYSICAL EXAMINATION: GENERAL: 72-year-old gentleman in no acute distress at the time of my examination HEENT: Head is atraumatic, normocephalic. Pupils equal, round. Sclera anicteric. Conjunctiva are clear. Mucous membranes of the mouth are moist. Neck is supple. There is no elevated jugular venous pressure. No carotid bruit is heard. HEART EXAMINATION: Heart S1 S2 1 systolic ejection murmur is heard. CHEST EXAMINATION: Lungs are clear to auscultation and precussion. No chest wall tenderness is noted on palpation or with deep breathing. ABDOMEN: Soft, nontender. Bowel sounds are heard. No organomegaly noted. EXTREMITIES: 2+ peripheral pulses with no evidence of peripheral edema and no calf tenderness noted. NEUROLOGIC patient is awake, alert and oriented 3 . Results 01/30/18 13:30 01/31/18 05:28 Cardiac Enzymes 01/30/18 Range/Units 18:55 CK-MB (CK-2) 2.2 (0.0-2.4) ng/mL Troponin I 0.153 H* (0.000-0.034) ng/mL Coagulation 01/30/18 Range/Units 15:22 PT 11.6 (9.0-12.0) sec APTT 27.5 (22.0-30.0) sec Comprehensive Metabolic Panel 01/31/18 Range/Units 05:28 Sodium 136 L (137-145) mmol/L Potassium 3.4 L (3.5-5.1) mmol/L Chloride 105 (98-107) mmol/L Carbon Dioxide 26 (22-30) mmol/L BUN 11 (9-20) mg/dL Creatinine 1.43 H (0.66-1.25) mg/dL Glucose 86 (74-99) mg/dL Calcium 8.7 (8.4-10.2) mg/dL Current Medications Generic Name Dose Route Start Last Admin Trade Name Freq PRN Reason Stop Dose Admin Acetaminophen 650 mg 01/30/18 18:43 Tylenol Tab PO Q6HR PRN Mild Pain or Fever > 100.5 Hydrocodone Bitart/Acetaminophen 1 each 01/30/18 18:43 01/31/18 03:01 [place] 5-325 PO 1 each Q4HR PRN Administration Moderate Pain Amiodarone HCl 200 mg 01/30/18 21:00 01/31/18 09:50 Cordarone PO 200 mg BID LOYD Administration Aspirin 81 mg 01/31/18 09:00 01/31/18 09:50 Aspirin PO 81 mg DAILY LOYD Administration Azithromycin 500 mg 01/31/18 09:00 01/31/18 09:50 Zithromax PO 500 mg DAILY LOYD Administration Heparin Sodium (Porcine) 5,000 unit 01/30/18 21:00 01/31/18 09:50 Heparin SQ 5,000 unit Q12HR LOYD Administration Metoprolol Tartrate 12.5 mg 01/30/18 21:00 01/31/18 09:50 Lopressor PO 12.5 mg BID LOYD Administration Naloxone HCl 0.2 mg 01/30/18 15:52 Narcan IV Q2M PRN Opioid Reversal Ondansetron HCl 4 mg 01/30/18 15:52 01/31/18 01:49 Zofran IVP 4 mg Q8HR PRN Administration Nausea And Vomiting Phenytoin Sodium 300 mg 01/30/18 21:00 01/31/18 09:52 Dilantin PO 300 mg BID LOYD Administration Sertraline HCl 100 mg 01/30/18 21:00 01/30/18 21:01 Zoloft PO 100 mg HS LOYD Administration Intake and Output 01/31/18 01/31/18 01/31/18 06:59 14:59 22:59 Intake Total 118 Output Total 1000 200 Balance -1000 -82 Intake: Oral 118 Output: Urine 1000 200 Other: Weight 79.1 kg 79.1 kg Patient Weight 02/01/18 06:59 Weight 79.1 kg 01/30/18 13:30 01/31/18 05:28 EKG Interpretations (text) EKG shows normal sinus rhythm with no acute changes. Assessment and Plan Plan: Assessment and plan #1 symptoms of fatigue, and weakness appeared to be chronic, most likely related to cardiomyopathy and severe aortic stenosis, orthostatics negative #2 paroxysmal atrial fibrillation, remaining in normal sinus rhythm #3 acute on chronic renal failure #4 nonischemic cardiomyopathy Plan From cardiology's perspective, the patient's Lasix was discontinued and Lopressor decreased when he went to his appointment at the valve clinic. We will continue current medications. Social work is currently involved for possible extended care facility placement prior to the patient going for his valve surgery. We will also get in touch with the physician he sought regarding his valve to get some more information regarding timing of surgery. DNP note has been reviewed, I agree with a documented findings and plan of care. Patient was seen and examined.
[2018-01-31] MEDS: SERTRALINE 100 MG TAB PO SCH (20:10)
[2018-01-31] MEDS: LACTATED RINGERS 1,000 ML IV SCH (23:45)
[2018-02-01] MEDS: ONDANSETRON 4 MG/2 ML VIAL IVP PRN ×2 (06:27→20:26)
[2018-02-01 06:42] LABS: Calcium 8.7 mg/dL (8.4-10.2)
--- NOTE | 2018-02-01 06:48 | PN ---
PROGRESS NOTE DATE OF SERVICE: 01/31/2018 PRESENTING COMPLAINT: Tired. INTERVAL HISTORY: This patient presented with weakness and tiredness. The patient has an EF of 20% to 25%. Has severe aortic stenosis, atrial fibrillation. Patient is supposed to follow up at [facility] at the TAVR clinic. The patient is tolerating a diet, able to walk to the bathroom. Awaiting further input from PT, OT. Feels he cannot manage at home. Patient's significant other is wheelchair bound. REVIEW OF SYSTEMS: Done for constitutional, cardiovascular, GI, pulmonary; relevant findings as above. CURRENT MEDICATIONS: Current medications are reviewed that include Cordarone, Lopressor, Dilantin, Zoloft. PHYSICAL EXAMINATION: On examination, temperature 97.6, pulse 83, respirations 16, blood pressure 112/69, pulse ox 95% on room air. GENERAL APPEARANCE: Lying in bed, tired appearing. EYES: Pupils equal. Conjunctivae normal. NECK: JVD unable to assess. Mass not palpable. RESPIRATORY: Effort normal. LUNGS: Decreased breath sounds. CARDIOVASCULAR: First and second sounds normal. No edema. ABDOMEN: Soft, nontender. PSYCHIATRY: Awake, answering simple questions. INVESTIGATIONS: Potassium 3.4. BUN 11, creatinine 1.43. ASSESSMENT: 1. Weakness, multifactorial including cardiac cachexia. 2. Coronary artery disease. 3. Chronic kidney disease stage 3 probably nephrosclerosis. 4. Anxiety and depression, not otherwise specified. 5. History of alcohol withdrawal seizures. 6. Has a legal guardian, Mark Akers. 7. Coronary artery disease that is minimal per recent cardiac catheterization. 8. Severe critical aortic stenosis with a gradient of 63 for an outpatient [facility] workup for TAVR. 9. Moderate mitral regurgitation, nonrheumatic. PLAN: Continue current medication and treatment plan. The patient has had no fever, no white count. Will discontinue the Zithromax. drapery worker is involved in discharge planning. MMODL / IJN: [id number] /
[2018-02-01 06:51] LABS: Potassium 4.2 mmol/L (3.5-5.1)
[2018-02-01] MEDS: AMIODARONE 200 MG TAB PO SCH ×2 (08:01→20:18)
[2018-02-01] MEDS: PHENYTOIN SODIUM EXTENDED 100 MG CAP PO SCH ×2 (08:01→20:17)
[2018-02-01] MEDS: HEPARIN SODIUM,PORCINE 5,000 UNIT/ML 1 ML VIAL SQ SCH ×2 (08:01→20:17)
[2018-02-01] MEDS: METOPROLOL TARTRATE 12.5 MG TAB PO SCH ×2 (08:01→20:18)
[2018-02-01] MEDS: ASPIRIN 81 MG PO SCH (08:01)
[2018-02-01 12:01] LABS: Glucose,Whole Blood 126 mg/dL (75-99)
--- NOTE | 2018-02-01 15:19 | CDI ---
Last Revision, February 2017 Documentation Clarification Form Date: 02/01/18 From: Nidhi Rice RN Admit Date: 02/01/2018 10:31:00 AM Patient Name: Liam Saini Visit Number: [id number] ATTENTION: The Clinical Documentation Specialists (CDI) and [facility] Coding Staff appreciate your assistance in clarifying documentation. Please respond to the clarification below the line at the bottom and electronically sign. The CDI & [facility] Coding staff will review the response and follow-up if needed. Please note: Queries are made part of the Legal Health Record. If you have any questions, please contact the author of this message via ITS. Viji Rodrigez MD, Heart Failure is documented in the patients history in your consult on 01/31. Patient admitted with Dizziness, decreased appetite, elevated trops. CHF, anemia History/Risk Factors: A FIB, CHF, HTN, heart cath, anxiety, depression, CKD 3, cardiac Clinical Indicators: VS on admission: T 98.1, p 79, R 20, 129/80, 96% RA BNP: not drawn Echocardiogram Results: Last echo 12/29/17 EF 25-30% Chest X Ray: no heart failure No edema noted H&P states "Echocardiogram from 12/2017 shows EF 25-30%.Continue Metoprolol.Continue ASA/-statin..Ins and Outs.Daily weights". Treatment: Metoprolol Healthy hear diet In your professional opinion, can you please clarify if? CHF ruled in CHF ruled out If ruled in please clarify the acuity and type of CHF if known? Systolic Heart Failure: Acute Chronic Acute on Chronic Systolic & Diastolic Heart Failure: Acute Chronic Acute on Chronic Heart Failure Unable to Determine Other, please specify MTDD
--- NOTE | 2018-02-01 15:43 | CDI ---
Last Revision, February 2017 Documentation Clarification Form Date: 02/01/18 From: Nidhi Rice RN Admit Date: 02/01/2018 10:31:00 AM Patient Name: Liam Saini Visit Number: [id number] ATTENTION: The Clinical Documentation Specialists (CDI) and [facility] Coding Staff appreciate your assistance in clarifying documentation. Please respond to the clarification below the line at the bottom and electronically sign. The CDI & [facility] Coding staff will review the response and follow-up if needed. Please note: Queries are made part of the Legal Health Record. If you have any questions, please contact the author of this message via ITS. Niraj Cronin MD, Can you please render your opinion on the following documentation? In the H&P patient reports a weight loss of 15-18 pounds over the last 30 days. States he has a poor appetite. Patient admitted with Dizziness, decreased appetite, elevated trops., CHF and anemia History/Risk Factors: A FIB, CHF, HTN , seizure disorder, epilepsy, CVA/TIA, ETOH Clinical Indicators: PN 11/12: Cachexia is noted Labs: Albumin 3.6 Total Protein 10.2 Current BMI: 25.2 Insufficient energy intake: Per RD fair Weight Loss: per patient 26lbs over last 3 months with unintended weight loss Treatment: Dietary Consult: RD Supplements: Ensure Compact TID Lab monitoring Daily weights In your professional opinion, can you please clarify if these findings signify one of the following conditions? Mild Protein-Calorie Malnutrition Moderate Protein-Calorie Malnutrition Malnutrition, Unspecified Other condition, please specify Unable to determine mild protien calorie malnutrition MTDD
--- NOTE | 2018-02-01 15:56 | US ---
EXAMINATION TYPE: US kidneys/renal and bladder DATE OF EXAM: 02/01/2018 COMPARISON: CT 01/02/18, US 12/29/17 CLINICAL HISTORY: renal failure. EXAM MEASUREMENTS: Right Kidney: 10.8 x 4.5 x 5.7 cm Left Kidney: 10.2 x 5.8 x 6.1 cm Post Void Residual Volume: Not evaluated on inpatient. mL Right Kidney: 1.4 cm renal calculi without hydronephrosis, upper pole cyst = 1.2 x 1.0 x 1.1 cm Left Kidney: echogenic foci seen within renal pelvis could be vascular. Bladder: 0.6 cm wall Bilateral Jets seen: Yes Normal Post Void Residual: Not evaluated on inpatient. There is no evidence for hydronephrosis at this point in time. Bilateral pleural effusions noted. Cortical medullary differentiation maintained. IMPRESSION: Right-sided calcification at the level of the renal pelvis is again noted. No evident hydronephrosis. Bilateral pleural effusions.
[2018-02-01 16:39] LABS: Glucose,Whole Blood 158 mg/dL (75-99)
[2018-02-01] MEDS: LACTATED RINGERS 1,000 ML IV SCH ×2 (16:51→21:49)
--- NOTE | 2018-02-01 20:04 | PN ---
PROGRESS NOTE DATE OF SERVICE: February 01, 2018. PRESENTING COMPLAINT: Weak and tired. INTERVAL HISTORY: The patient presented with weakness and tiredness, has severe aortic stenosis, atrial fibrillation, pending to follow up at the TAVR clinic. Looking at going to rehab. Weak and tired. REVIEW OF SYSTEMS: Done for constitutional, cardiovascular, GI, pulmonary; relevant findings as above. CURRENT MEDICATIONS: Reviewed. PHYSICAL EXAMINATION: VITAL SIGNS: Temperature 97.7, pulse 77, respiratory rate 16, blood pressure 101/67, pulse ox 96% on room air. GENERAL APPEARANCE: Lying in bed, tired appearing. EYES: Pupils equal. Conjunctivae normal. HEENT: External appearance of nose and ears normal. Oral cavity normal. NECK: JVD unable to assess. Mass not palpable. RESPIRATORY: Effort normal. LUNGS: Decreased breath sounds. CARDIOVASCULAR: 1st and 2nd sounds normal. No edema. ABDOMEN: Soft, nontender. Liver and spleen not palpable. PSYCHIATRY: Awake. Does answer simple questions. INVESTIGATIONS: Potassium 4.2, creatinine 1.44. ASSESSMENT: 1. Weakness, multifactorial including cachexia. 2. Coronary artery disease. 3. Chronic kidney disease stage 3 probably nephrosclerosis. 4. Anxiety, depression not otherwise specified. 5. Has a legal guardian Mark Alvarez. 6. Coronary artery disease, minimal per recent cardiac catheterization. 7. Severe critical aortic stenosis with a gradient of 63 for outpatient [facility] workup for TAVR. 8. Moderate mitral regurgitation, nonrheumatic. 9. Mild protein-calorie malnutrition. PLAN: Spoke to social worker psychiatric. Looking for patient to go to rehab. MMODL / IJN: [id number] /
[2018-02-01] MEDS: SERTRALINE 100 MG TAB PO SCH (20:18)
[2018-02-01 21:04] LABS: Glucose,Whole Blood 108 mg/dL (75-99)
[2018-02-02 05:22] VITALS: RESP 16
[2018-02-02 05:55] LABS: Glucose,Whole Blood 96 mg/dL (75-99)
[2018-02-02] MEDS: LACTATED RINGERS 1,000 ML IV SCH (06:54)
[2018-02-02 07:16] LABS: Calcium 9.2 mg/dL (8.4-10.2); Potassium 4.1 mmol/L (3.5-5.1)
[2018-02-02] MEDS: PHENYTOIN SODIUM EXTENDED 100 MG CAP PO SCH (08:39)
[2018-02-02] MEDS: HEPARIN SODIUM,PORCINE 5,000 UNIT/ML 1 ML VIAL SQ SCH (08:39)
[2018-02-02] MEDS: METOPROLOL TARTRATE 12.5 MG TAB PO SCH (08:39)
[2018-02-02] MEDS: ASPIRIN 81 MG PO SCH (08:39)
[2018-02-02] MEDS: ONDANSETRON 4 MG/2 ML VIAL IVP PRN (08:39)
[2018-02-02] MEDS: AMIODARONE 200 MG TAB PO SCH (08:39)
[2018-02-02 11:15] LABS: Glucose,Whole Blood 121 mg/dL (75-99)
[2018-02-02 12:58] VITALS: BP 105/63; PULSE 76; TEMP 97.5
--- NOTE | 2018-02-02 15:35 | DS ---
DISCHARGE SUMMARY DATE OF ADMISSION: 01/30/2018 DATE OF DISCHARGE: 02/02/2018 FINAL DIAGNOSES: 1. Symptomatic severe critical aortic stenosis with a gradient of 63 for outpatient [facility] workup for TAVR. 2. Moderate mitral regurgitation, nonrheumatic. 3. Medical debility, multifactorial. 4. Chronic kidney disease stage III probably nephrosclerosis. 5. Anxiety, depression not otherwise specified. 6. Patient has a legal guardian Mark Akers. 7. Minimal coronary artery disease per recent cardiac catheterization. 8. Mild protein-calorie malnutrition. HOSPITAL COURSE: Patient presented really weak, tired, run down, felt to be part from his critical aortic stenosis. Patient due to follow up at [facility] for a TAVR workup. Seen by Cardiology. Patient is seen by Physical Therapy. PHYSICAL EXAMINATION: Temperature 97.5, pulse 76, respiration 16, blood pressure 105/63, pulse ox 94% on room air. LUNGS: Decreased breath sounds. CARDIOVASCULAR: First and second sounds are normal. CONSULTATION: Dr. Bailey Ibarra from Cardiology. LABS: Potassium 4.1, creatinine 1.66. DISCHARGE MEDICATIONS: 1. Zoloft 100 mg q.h.s. 2. Dilantin 300 mg p.o. b.i.d. 3. Aspirin 81 mg a day. 4. Lopressor 12.5 p.o. b.i.d. 5. Tylenol 650 mg q.6 p.r.n. 6. Amiodarone 200 mg p.o. daily. 7. Discontinued was sodium bicarbonate and potassium. DISPOSITION: [facility]. FOLLOW UP: Follow up with Dr. Fuentes [facility]. Follow up with from Visiting Physician after DC from the [facility]. Care was discussed with the patient. CODE STATUS is FULL CODE. MMODL / IJN: [id number] /
[2018-02-02 16:42] LABS: Glucose,Whole Blood 121 mg/dL (75-99)
== END 2018-02-02 17:22 | DRG 306 ==
LOC: EC 13:28 → UNDOADMOB 15:59 → 3SCARD 15:59 → INTOOBSV 15:59 → 3SCARD 16:44 → INTOOBSV 01-31 17:50 → OBSVTOIN 01-31 17:50 → 3SCARD 02-01 08:41 → OBSVTOIN 02-01 10:31 → 3SCARD 02-01 10:31
PROVIDERS: ADMIT Hospitalist; ATTEND Hospitalist
DX: I08.0 Rheumatic disorders of both mitral and aortic valves (principal); Q28.2 Arteriovenous malformation of cerebral vessels; I13.0 Hypertensive heart and chronic kidney disease with heart failure and stage 1 through stage 4 chronic kidney disease, or unspecified chronic kidney disease; E44.1 Mild protein-calorie malnutrition; I42.9 Cardiomyopathy, unspecified; I50.20 Unspecified systolic (congestive) heart failure; N17.9 Acute kidney failure, unspecified; N18.3 Chronic kidney disease, stage 3 (moderate); I48.0 Paroxysmal atrial fibrillation; E86.0 Dehydration; F32.9 Major depressive disorder, single episode, unspecified; F41.9 Anxiety disorder, unspecified; G40.909 Epilepsy, unspecified, not intractable, without status epilepticus; I25.10 Atherosclerotic heart disease of native coronary artery without angina pectoris; Z79.82 Long term (current) use of aspirin; Z79.899 Other long term (current) drug therapy; Z82.49 Family history of ischemic heart disease and other diseases of the circulatory system; Z86.73 Personal history of transient ischemic attack (TIA), and cerebral infarction without residual deficits; Z91.14 Patient's other noncompliance with medication regimen; Z99.3 Dependence on wheelchair; D64.9 Anemia, unspecified; Z60.2 Problems related to living alone; Z91.81 History of falling; F40.240 Claustrophobia; F10.11 Alcohol abuse, in remission; R74.8 Abnormal levels of other serum enzymes; Z82.61 Family history of arthritis
CPT/HCPCS: 36415; 71046; 76770; 80048; 80053; 80185; 82550; 82553; 84484; 85025; 85610; 85730; 87040; 87502; 93005; 96360; 96361; 99285

== ENCOUNTER 2018-02-19 15:31 | Inpatient (IN) | payer MEDICARE, BC ==
[2018-02-19] MEDS: NITROGLYCERIN SL TABS 0.4 MG TAB SUBLINGUAL PRN ×2 (15:35→15:40)
[2018-02-19] MEDS ORDERED: IPRATROPIUM-ALBUTEROL 3 ML NEB INHALATION STA (15:46)
[2018-02-19 16:25] LABS: Anisocytosis Slight; Basophils % (A) 0 %; Eosinophils # (A) 0.1 k/uL (0-0.7); Eosinophils % (A) 1 %; HCT 32.8 % (39.0-53.0); HGB 10.4 gm/dL (13.0-17.5); Lymphocytes # (A) 2.8 k/uL (1.0-4.8); Lymphocytes % (A) 26 %; MCH 32.1 pg (25.0-35.0); MCHC 31.8 g/dL (31.0-37.0); Macrocytosis Slight; Mean Platelet Volume 7.9; Monocytes # (A) 0.7 k/uL (0-1.0); Monocytes % (A) 7 %; Neutrophils # (A) 6.9 k/uL (1.3-7.7); Neutrophils % (A) 64 %; Platelet Count 194 k/uL (150-450); RBC 3.25 m/uL (4.30-5.90); RDW 16.1 % (11.5-15.5); WBC 10.8 k/uL (3.8-10.6)
[2018-02-19 16:30] LABS: VBG PH 7.27 (7.31-7.41)
[2018-02-19 16:32] LABS: Albumin 3.9 g/dL (3.5-5.0); Calcium 9.2 mg/dL (8.4-10.2); Magnesium 2.3 mg/dL (1.6-2.3); Total Bilirubin 1.4 mg/dL (0.2-1.3)
[2018-02-19 16:38] LABS: Potassium 5.1 mmol/L (3.5-5.1); Total Protein 10.5 g/dL (6.3-8.2)
[2018-02-19 16:40] LABS: INR 1.2 (<1.2); Prothrombin Time 11.6 sec (9.0-12.0)
[2018-02-19 16:52] LABS: Creatine Kinase MB 3.3 ng/mL (0.0-2.4)
[2018-02-19] MEDS ORDERED: NITROGLYCERIN OINT 1 INCH/GM PACKET TOPICAL STA (17:01)
--- NOTE | 2018-02-19 17:04 | XR ---
EXAMINATION TYPE: XR chest 1V DATE OF EXAM: 02/19/2018 COMPARISON: NONE HISTORY: Difficulty breathing TECHNIQUE: Single frontal view of the chest is obtained. FINDINGS: Moderate-sized bilateral pleural effusions are evident with associated atelectasis. Increa sed interstitial markings are seen throughout the remaining evaluation of the aerated lung. Heart is enlarged. Limited abdomen is upper markable. Severe degenerative type changes are seen of the right s houlder. IMPRESSION: 1. Moderate bilateral pleural effusions. 2. Increased interstitial markings throughout the lungs. This may relate to pulmonary vascular conges tion or underlying infectious etiology.
[2018-02-19 17:15] LABS: Troponin I 0.222 ng/mL (0.000-0.034)
[2018-02-19 17:42] LABS: Appearance,Urine Clear (Clear); Bilirubin,Urine Negative (Negative); Blood,Urine Moderate (Negative); Color,Urine Yellow; Glucose,Urine (UA) Negative (Negative); Hyaline Casts,Urine 26 /lpf (0-2); Ketones,Urine Negative (Negative); Leukocyte Esterase,Urine Trace (Negative); Mucus,Urine Rare /hpf; Nitrite,Urine Negative (Negative); PH, Urine 5.5 (5.0-8.0); Protein,Urine Trace (Negative); RBC,Urine 15 /hpf (0-5); Specific Gravity,Urine 1.008 (1.001-1.035); Urobilinogen,Urine <2.0 mg/dL (<2.0); WBC,Urine 5 /hpf (0-5)
[2018-02-19] MEDS ORDERED: HEPARIN SODIUM,PORCINE 5,000 UNIT/ML 1 ML VIAL IV PRN (18:01)
[2018-02-19] MEDS ORDERED: NALOXONE 0.4 MG/ML 1 ML VIAL IV PRN (18:03)
--- NOTE | 2018-02-19 18:03 | ED ---
General Adult HPI - General Chief complaint: Shortness of Breath Stated complaint: LUZ MARINA Source: patient, EMS Mode of arrival: EMS Limitations: no limitations - History of Present Illness Initial comments: Dictation was produced using [employer] dictation software. please excuse any grammatical, word or spelling errors. Chief Complaint: 72-year-old male with past medical history of A. fib, heart failure, CVA presents with acute dyspnea. History of Present Illness: 9-year-old male past medical history congestive heart failure transfer from [facility] for shortness of breath. Patient has extensive history of congestive heart failure. States she's been acutely short of breath today. Any constitutional symptoms. Patient states he denies any history of COPD. No history of smoking. Denies any chest pain. Patient was recently admitted to [facility] for fall. They did at that time for approximately 3 days. The ROS documented in this emergency department record has been reviewed and confirmed by me. Those systems with pertinent positive or negative responses have been documented in the HPI. All other systems are other negative and/or noncontributory. - Related Data Home Medications Medication Instructions Recorded Confirmed Sertraline [Zoloft] 100 mg PO HS 08/04/17 02/19/18 ALPRAZolam [Xanax] 0.25 mg PO TID PRN 02/19/18 02/19/18 Amoxic-Pot Clav 875-125Mg 1 tab PO Q12HR 02/19/18 02/19/18 [Augmentin 875-125] Bisacodyl [Dulcolax] 10 mg RECTAL DAILY PRN 02/19/18 02/19/18 Lactose-Reduced Food [Ensure Plus] 1 can PO TID 02/19/18 02/19/18 Magnesium Hydroxide [Milk of 7,200 mg PO DAILY PRN 02/19/18 02/19/18 Magnesia Concentrate] Na Phos,M-B/Na Phos,Di-Ba [Fleet 133 ml RECTAL ONCE PRN 02/19/18 02/19/18 Adult] Ondansetron [Zofran] 4 mg PO Q6H PRN 02/19/18 02/19/18 Phenytoin Sodium Extended 300 mg PO DAILY 02/19/18 02/19/18 [Dilantin] Previous Rx's Medication Instructions Recorded Acetaminophen Tab [Tylenol] 650 mg PO Q6HR PRN tab 11/14/18 Allergies Allergy/AdvReac Type Severity Reaction Status Date / Time loratadine Allergy Unknown Verified 02/19/18 17:17 antihistamines Allergy Unknown Uncoded 01/30/18 13:37 Review of Systems ROS Statement: Those systems with pertinent positive or pertinent negative responses have been documented in the HPI. ROS Other: All systems not noted in ROS Statement are negative. Past Medical History Past Medical History: Atrial Fibrillation, Heart Failure, CVA/TIA, Hypertension , Seizure Disorder Additional Past Medical History / Comment(s): alcohol intoxication, alcohol withdrawal seizures, hypokalemia, hyponatremia, dehyration, metabolic , ntemiencephalopathy, brain AVM diagnosed 30 years ago History of Any Multi-Drug Resistant Organisms: None Reported Past Surgical History: Heart Catheterization Additional Past Surgical History / Comment(s): 11/2017 DAVID-severe aortic stenosis and cardiac cath-mild disease, colonoscopy. Past Anesthesia/Blood Transfusion Reactions: No Reported Reaction Additional Past Anesthesia/Blood Transfusion Reaction / Comment(s): clausterphobia Past Psychological History: Anxiety, Depression Smoking Status: Never smoker Past Alcohol Use History: Rare Past Drug Use History: None Reported - Past Family History Sister(s) Family Medical History: Osteoarthritis (OA) Additional Family Medical History / Comment(s): Sister has arhtritis with bilateral total hip replacements. Father Family Medical History: Dementia Mother Family Medical History: Coronary Artery Disease (CAD), Hypertension General Exam - General Exam Comments Initial Comments: PHYSICAL EXAM: General Impression: Alert and oriented x3, acute distress secondary to pain HEENT: Normocephalic atraumatic, extra-ocular movements intact, pupils equal and reactive to light bilaterally, dry mucous membranes Cardiovascular: Tachycardic Chest: Bilateral lung wheezing, intercostal retraction Abdomen: Bowel sounds present, abdomen soft, non-tender, non-distended, no organomegaly Musculoskeletal: Pulses present and equal in all extremities, no peripheral edema Motor: Moves all extremities grossly Neurological: CN II-XII grossly intact, no focal motor or sensory deficits noted Skin: Intact with no visualized rashes Limitations: no limitations Course Vital Signs 02/19/18 02/19/18 02/19/18 15:32 15:36 15:41 Temperature 97.5 F L Pulse Rate 109 H 116 H 142 H Respiratory 36 H 38 H 36 H Rate Blood Pressure 157/98 148/96 146/104 O2 Sat by Pulse 94 L 100 99 Oximetry 02/19/18 02/19/18 02/19/18 15:43 15:46 15:55 Temperature Pulse Rate 112 H 109 H Respiratory 36 H Rate Blood Pressure O2 Sat by Pulse Oximetry 02/19/18 02/19/18 16:36 17:35 Temperature Pulse Rate 99 89 Respiratory 24 22 Rate Blood Pressure 110/74 107/72 O2 Sat by Pulse 98 100 Oximetry Medical Decision Making - Medical Decision Making ED course: An-year-old male with past medical history of congestive heart failure presents for shortness of breath. Patient placed immediately on BiPAP. [id number]-or-[id number] bedside ultrasound was performed promptly showing significant B lines. Clinical presentation consistent with acute compensated heart failure. Vital signs upon arrival shows blood pressure 160s over 100. Heart rate is 109 , with doses of sublingual nitro with improvement of breathing symptoms. Nitro paste was applied. Patient maintained on BiPAP. I return evaluation obtained. Leukocytosis of 10.8, coag panel unremarkable. Blood gas shows pH of 7.27 with a bicarb of 22. Metabolic panel shows lactic acidosis of 4.1. There is mild gap acidosis. Glucose 213. Troponin 0.222. Urinalysis is noxious suggest urinary tract infection. She started on heparin. Patient be admitted with consultation to cardiology. EKG Interpretation: A 12 lead EKG was obtained. It was interpreted by myself and attending physician. There is a P wave before every QRS complex. Rate is 114. Rhythm is sinus tachycardia,. Interval 162, QRS 132, QTC 490. QT is not prolonged. No ST segment depression or elevation. This EKG was compared to a previous EKG that was obtained on murmurs 02/08/2018 and showed no significant change. Overall, this EKG is unremarkable - Lab Data Result diagrams: 02/19/18 15:40 02/19/18 15:40 Lab Results 02/19/18 02/19/18 02/19/18 Range/Units 15:40 15:40 15:40 WBC 10.8 H (3.8-10.6) k/uL RBC 3.25 L (4.30-5.90) m/uL Hgb 10.4 L (13.0-17.5) gm/dL Hct 32.8 L (39.0-53.0) % MCV 101.0 H (80.0-100.0) fL MCH 32.1 (25.0-35.0) pg MCHC 31.8 (31.0-37.0) g/dL RDW 16.1 H (11.5-15.5) % Plt Count 194 (150-450) k/uL Neutrophils % 64 % Lymphocytes % 26 % Monocytes % 7 % Eosinophils % 1 % Basophils % 0 % Neutrophils # 6.9 (1.3-7.7) k/uL Lymphocytes # 2.8 (1.0-4.8) k/uL Monocytes # 0.7 (0-1.0) k/uL Eosinophils # 0.1 (0-0.7) k/uL Basophils # 0.0 (0-0.2) k/uL Anisocytosis Slight Macrocytosis Slight PT (9.0-12.0) sec INR (<1.2) APTT (22.0-30.0) sec VBG pH 7.27 L (7.31-7.41) VBG pCO2 51 (37-51) mmHg VBG HCO3 22 L (24-28) mmol/L Sodium (137-145) mmol/L Potassium (3.5-5.1) mmol/L Chloride (98-107) mmol/L Carbon Dioxide (22-30) mmol/L Anion Gap mmol/L BUN (9-20) mg/dL Creatinine (0.66-1.25) mg/dL Est GFR (CKD-EPI)AfAm (>60 ml/min/1.73 sqM) Est GFR (CKD-EPI)NonAf (>60 ml/min/1.73 sqM) Glucose (74-99) mg/dL Plasma Lactic Acid Rivera (0.7-2.0) mmol/L Calcium (8.4-10.2) mg/dL Magnesium (1.6-2.3) mg/dL Total Bilirubin (0.2-1.3) mg/dL AST (17-59) U/L ALT (21-72) U/L Alkaline Phosphatase (38-126) U/L Total Creatine Kinase 58 (55-170) U/L CK-MB (CK-2) 3.3 H (0.0-2.4) ng/mL CK-MB (CK-2) Rel Index 5.7 Troponin I 0.222 H* (0.000-0.034) ng/mL Total Protein (6.3-8.2) g/dL Albumin (3.5-5.0) g/dL Urine Color Urine Appearance (Clear) Urine pH (5.0-8.0) Ur Specific Hannibal (1.001-1.035) Urine Protein (Negative) Urine Glucose (UA) (Negative) Urine Ketones (Negative) Urine Blood (Negative) Urine Nitrite (Negative) Urine Bilirubin (Negative) Urine Urobilinogen (<2.0) mg/dL Ur Leukocyte Esterase (Negative) Urine RBC (0-5) /hpf Urine WBC (0-5) /hpf Hyaline Casts (0-2) /lpf Urine Mucus (None) /hpf 02/19/18 02/19/18 02/19/18 Range/Units 15:40 15:40 15:40 WBC (3.8-10.6) k/uL RBC (4.30-5.90) m/uL Hgb (13.0-17.5) gm/dL Hct (39.0-53.0) % MCV (80.0-100.0) fL MCH (25.0-35.0) pg MCHC (31.0-37.0) g/dL RDW (11.5-15.5) % Plt Count (150-450) k/uL Neutrophils % % Lymphocytes % % Monocytes % % Eosinophils % % Basophils % % Neutrophils # (1.3-7.7) k/uL Lymphocytes # (1.0-4.8) k/uL Monocytes # (0-1.0) k/uL Eosinophils # (0-0.7) k/uL Basophils # (0-0.2) k/uL Anisocytosis Macrocytosis PT 11.6 (9.0-12.0) sec INR 1.2 H (<1.2) APTT 24.0 (22.0-30.0) sec VBG pH (7.31-7.41) VBG pCO2 (37-51) mmHg VBG HCO3 (24-28) mmol/L Sodium 140 (137-145) mmol/L Potassium 5.1 (3.5-5.1) mmol/L Chloride 104 (98-107) mmol/L Carbon Dioxide 21 L (22-30) mmol/L Anion Gap 15 mmol/L BUN 19 (9-20) mg/dL Creatinine 1.24 (0.66-1.25) mg/dL Est GFR (CKD-EPI)AfAm 68 (>60 ml/min/1.73 sqM) Est GFR (CKD-EPI)NonAf 59 (>60 ml/min/1.73 sqM) Glucose 213 H (74-99) mg/dL Plasma Lactic Acid Rivera 4.1 H* (0.7-2.0) mmol/L Calcium 9.2 (8.4-10.2) mg/dL Magnesium 2.3 (1.6-2.3) mg/dL Total Bilirubin 1.4 H (0.2-1.3) mg/dL AST 143 H (17-59) U/L ALT 115 H (21-72) U/L Alkaline Phosphatase 96 (38-126) U/L Total Creatine Kinase (55-170) U/L CK-MB (CK-2) (0.0-2.4) ng/mL CK-MB (CK-2) Rel Index Troponin I (0.000-0.034) ng/mL Total Protein 10.5 H (6.3-8.2) g/dL Albumin 3.9 (3.5-5.0) g/dL Urine Color Urine Appearance (Clear) Urine pH (5.0-8.0) Ur Specific Hannibal (1.001-1.035) Urine Protein (Negative) Urine Glucose (UA) (Negative) Urine Ketones (Negative) Urine Blood (Negative) Urine Nitrite (Negative) Urine Bilirubin (Negative) Urine Urobilinogen (<2.0) mg/dL Ur Leukocyte Esterase (Negative) Urine RBC (0-5) /hpf Urine WBC (0-5) /hpf Hyaline Casts (0-2) /lpf Urine Mucus (None) /hpf 02/19/18 Range/Units 16:51 WBC (3.8-10.6) k/uL RBC (4.30-5.90) m/uL Hgb (13.0-17.5) gm/dL Hct (39.0-53.0) % MCV (80.0-100.0) fL MCH (25.0-35.0) pg MCHC (31.0-37.0) g/dL RDW (11.5-15.5) % Plt Count (150-450) k/uL Neutrophils % % Lymphocytes % % Monocytes % % Eosinophils % % Basophils % % Neutrophils # (1.3-7.7) k/uL Lymphocytes # (1.0-4.8) k/uL Monocytes # (0-1.0) k/uL Eosinophils # (0-0.7) k/uL Basophils # (0-0.2) k/uL Anisocytosis Macrocytosis PT (9.0-12.0) sec INR (<1.2) APTT (22.0-30.0) sec VBG pH (7.31-7.41) VBG pCO2 (37-51) mmHg VBG HCO3 (24-28) mmol/L Sodium (137-145) mmol/L Potassium (3.5-5.1) mmol/L Chloride (98-107) mmol/L Carbon Dioxide (22-30) mmol/L Anion Gap mmol/L BUN (9-20) mg/dL Creatinine (0.66-1.25) mg/dL Est GFR (CKD-EPI)AfAm (>60 ml/min/1.73 sqM) Est GFR (CKD-EPI)NonAf (>60 ml/min/1.73 sqM) Glucose (74-99) mg/dL Plasma Lactic Acid Rivera (0.7-2.0) mmol/L Calcium (8.4-10.2) mg/dL Magnesium (1.6-2.3) mg/dL Total Bilirubin (0.2-1.3) mg/dL AST (17-59) U/L ALT (21-72) U/L Alkaline Phosphatase (38-126) U/L Total Creatine Kinase (55-170) U/L CK-MB (CK-2) (0.0-2.4) ng/mL CK-MB (CK-2) Rel Index Troponin I (0.000-0.034) ng/mL Total Protein (6.3-8.2) g/dL Albumin (3.5-5.0) g/dL Urine Color Yellow Urine Appearance Clear (Clear) Urine pH 5.5 (5.0-8.0) Ur Specific Hannibal 1.008 (1.001-1.035) Urine Protein Trace H (Negative) Urine Glucose (UA) Negative (Negative) Urine Ketones Negative (Negative) Urine Blood Moderate H (Negative) Urine Nitrite Negative (Negative) Urine Bilirubin Negative (Negative) Urine Urobilinogen <2.0 (<2.0) mg/dL Ur Leukocyte Esterase Trace H (Negative) Urine RBC 15 H (0-5) /hpf Urine WBC 5 (0-5) /hpf Hyaline Casts 26 H (0-2) /lpf Urine Mucus Rare H (None) /hpf Disposition Clinical Impression: CHF exacerbation, NSTEMI (non-ST elevated myocardial infarction) Disposition: ADMITTED IP TO THIS HOSP Condition: Fair Referrals: Tony Mukherjee MD [Primary Care Provider] - 1-2 days Decision Time: 18:03
[2018-02-19] MEDS: HEPARIN SOD,PORK IN 0.45% NACL 25,000 UNIT in 0.45% NACL 1 500ML.BAG IV SCH (19:32)
[2018-02-19] MEDS ORDERED: MAGNESIUM HYDROXIDE 2,400 MG/10 ML CUP PO PRN (22:57)
[2018-02-19] MEDS ORDERED: NA PHOS,M-B/NA PHOS,DI-BA 133 ML ENEMA RECTAL PRN (22:57)
[2018-02-19] MEDS ORDERED: BISACODYL 10 MG SUPP RECTAL PRN (22:57)
[2018-02-19] MEDS ORDERED: ONDANSETRON 4 MG TAB PO PRN (23:00)
[2018-02-19] MEDS: ALPRAZolam 0.25 MG TAB PO PRN (23:58)
[2018-02-19] MEDS: AMOXIC-POT CLAV 875-125MG 1 EACH TAB PO SCH (23:58)
[2018-02-19] MEDS: SERTRALINE 100 MG TAB PO SCH (23:58)
[2018-02-20 07:09] LABS: Anisocytosis Slight; Basophils % (A) 0 %; Eosinophils % (A) 0 %; HCT 24.8 % (39.0-53.0); Lymphocytes # (A) 2.1 k/uL (1.0-4.8); Lymphocytes % (A) 23 %; MCHC 32.3 g/dL (31.0-37.0); Macrocytosis Slight; Mean Platelet Volume 7.3; Monocytes # (A) 0.6 k/uL (0-1.0); Monocytes % (A) 6 %; Neutrophils # (A) 6.3 k/uL (1.3-7.7); Neutrophils % (A) 69 %; Platelet Count 153 k/uL (150-450); RDW 16.6 % (11.5-15.5); WBC 9.2 k/uL (3.8-10.6)
[2018-02-20] MEDS ORDERED: NON-FORMULARY DRUG (Lactose-Reduced Food [Ensure Plus] 1 CAN) PO SCH (09:00)
[2018-02-20] MEDS: HEPARIN SOD,PORK IN 0.45% NACL 25,000 UNIT in 0.45% NACL 1 500ML.BAG IV SCH (09:13)
[2018-02-20] MEDS: PHENYTOIN SODIUM EXTENDED 100 MG CAP PO SCH (09:14)
[2018-02-20] MEDS: ALPRAZolam 0.25 MG TAB PO PRN ×2 (09:14→14:00)
[2018-02-20] MEDS: IPRATROPIUM-ALBUTEROL 3 ML NEB INHALATION PRN ×3 (11:35→19:45)
[2018-02-20] MEDS: AMOXIC-POT CLAV 875-125MG 1 EACH TAB PO SCH ×2 (11:40→23:26)
--- NOTE | 2018-02-20 12:57 | US ---
EXAMINATION TYPE: US chest DATE OF EXAM: 02/20/2018 COMPARISON: Chest x ray CLINICAL HISTORY: ana maría for bilateral pleural effusions. TECHNIQUE: Targeted ultrasound of the posterior lower bilateral hemithoraces EXAM MEASUREMENTS: Right Pleural Effusion pocket size: 5.0 cm Right skin surface to fluid distance: 2.6 cm Left Pleural Effusion pocket size: 4.6 cm, lung noted floating within pocket; posterior internal ech oes noted within pocket too. Left skin surface to fluid distance: 2.7 cm Right side was marked for possible thoracentesis outside the dept. Left side was marked for possible thoracentesis outside the dept. Pulmonologists are able to review the images in the patient?s EMR. IMPRESSIONS: Pleural effusions as noted.
--- NOTE | 2018-02-20 18:12 | P.HPIM ---
History of Present Illness H&P Date: 02/20/18 Chief Complaint: Shortness of breath This is a 72-year-old patient admitted from the [facility]. Being followed by Dr. Fuentes. Patient was discharged from the hospital about 2 weeks ago. Chronic stable medical conditions include protein calorie malnutrition, anxiety depression, chronic kidney disease stage III, medical debility, moderate mitral regurgitation. Patient has known severe critical aortic stenosis with a gradient greater than 60. Supposed to have a further workup done at [facility] for TAVR Patient presents with increasing shortness of breath. Slight cough. No fever or chills. Appetite is fair. No edema. Patient presents to the ER and admitted for the same. Review of systems: GEN.: Tired EYES: [None] HEENT: [None] NECK: [None] RESPIRATORY: [As above] CARDIOVASCULAR: [As above] GASTROINTESTINAL: [None] GENITOURINARY: [None] MUSCULOSKELETAL: [Some pain in the joints] LYMPHATICS: [None] HEMATOLOGICAL: [None] PSYCHIATRY: [Anxious] NEUROLOGICAL: [None] Past history: Severe critical aortic stenosis pending [facility] workup for TAVR, moderate mitral regurgitation, medical debility, chronic kidney disease stage III, anxiety depression, minimal coronary artery disease per recent cardiac cath, mild protein calorie malnutrition, atrial fibrillation seizure disorder Past surgical history: Cardiac catheterization, DAVID, Social history: Lives at [facility] has a legal guardian Brigid Will. Has a walker. 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. Alcohol occasionally. Smoking never Physical examination: VITAL SIGNS: [97.5, 109, 36, 157/98,] GENERAL: [Average built, laying in bed tired]. EYES: [Pupils equal. Conjunctiva nicola]l. HEENT: [External appearance of nose and ears normal, oral cavity grossly normal] . NECK: [JVD raised; masses not palpable]. HEART: [First and second heart sounds are normal; no edema]. LUNGS:[ Respiratory rate increased, decreased breath sounds and crackles]. ABDOMEN: [Soft, nontender, liver spleen not palpable, no masses palpable]. LYMPHATICS: [No lymph nodes palpable in the axilla and neck]. PSYCH: [Alert and oriented x3; mood and affect anxious]l. NEUROLOGICAL: [Cranial nerves grossly intact; no facial asymmetry, power and sensation grossly intact]. Labs: White count 10.8, hemoglobin 10.4, platelets 194, potassium 5.1, BUN 19, creatinine 1.24 Chest x-ray-film personally reviewed by me shows cardiomegaly with pulmonary edema and bilateral pleural effusion EKG-tracing personally reviewed by me shows sinus tachycardia with intraventricular block Assessment: -Acute on chronic congestive heart exacerbation from systolic dysfunction EF 20- 30% from severe aortic stenosis -Severe aortic stenosis with a mean gradient of 63, for possible TAVR at [facility] -Moderate mitral regurgitation, nondramatic -Chronic medical debility -Chronic kidney disease stage III from nephrosclerosis -Anxiety depression otherwise specified -Mild protein calorie malnutrition -Minimal coronary artery disease from recent cardiac catheterization -Normocytic anemia, cause unknown -Lactic acidosis from ischemia, type II not from sepsis -Full code Plan: Patient was consulted by cardiology. Who have having cardiothoracic see the patient for possible transfer. Patient is quite a bit short of breath. Home medications are resumed. Follow up lites closely. Prognosis guarded. Past Medical History Past Medical History: Atrial Fibrillation, Heart Failure, CVA/TIA, Hypertension , Seizure Disorder Additional Past Medical History / Comment(s): alcohol intoxication, alcohol withdrawal seizures, hypokalemia, hyponatremia, dehyration, metabolic , ntemiencephalopathy, brain AVM diagnosed 30 years ago, severe aortic stenosis History of Any Multi-Drug Resistant Organisms: None Reported Past Surgical History: Heart Catheterization Additional Past Surgical History / Comment(s): 11/2017 DAVID, colonoscopy. Past Anesthesia/Blood Transfusion Reactions: No Reported Reaction Additional Past Anesthesia/Blood Transfusion Reaction / Comment(s): clausterphobia Smoking Status: Never smoker - Past Family History Sister(s) Family Medical History: Osteoarthritis (OA) Additional Family Medical History / Comment(s): Sister has arhtritis with bilateral total hip replacements. Father Family Medical History: Dementia Mother Family Medical History: Coronary Artery Disease (CAD), Hypertension Medications and Allergies Home Medications Medication Instructions Recorded Confirmed Type Sertraline [Zoloft] 100 mg PO HS 08/04/17 02/19/18 History Acetaminophen Tab [Tylenol] 650 mg PO Q6HR PRN tab 02/02/18 02/19/18 Rx ALPRAZolam [Xanax] 0.25 mg PO TID PRN 02/19/18 02/19/18 History Amoxic-Pot Clav 875-125Mg 1 tab PO Q12HR 02/19/18 02/19/18 History [Augmentin 875-125] Bisacodyl [Dulcolax] 10 mg RECTAL DAILY PRN 02/19/18 02/19/18 History Lactose-Reduced Food [Ensure Plus] 1 can PO TID 02/19/18 02/19/18 History Magnesium Hydroxide [Milk of 7,200 mg PO DAILY PRN 02/19/18 02/19/18 History Magnesia Concentrate] Na Phos,M-B/Na Phos,Di-Ba [Fleet 133 ml RECTAL ONCE PRN 02/19/18 02/19/18 History Adult] Ondansetron [Zofran] 4 mg PO Q6H PRN 02/19/18 02/19/18 History Phenytoin Sodium Extended 300 mg PO DAILY 02/19/18 02/19/18 History [Dilantin] Allergies Allergy/AdvReac Type Severity Reaction Status Date / Time loratadine Allergy Unknown Verified 02/19/18 17:17 antihistamines Allergy Unknown Uncoded 01/30/18 13:37 Physical Exam Vitals: Vital Signs Temp Pulse Pulse Resp BP BP Pulse Ox 02/20/18 15:55 88 02/20/18 15:45 98.1 F 93 18 109/65 100 02/20/18 15:40 88 02/20/18 11:47 92 02/20/18 11:35 88 02/20/18 11:30 97.5 F L 92 23 114/70 100 02/20/18 08:45 98.5 F 89 23 99/65 100 02/20/18 04:00 97.8 F 94 21 110/68 99 02/20/18 00:15 95 20 02/20/18 00:00 97.9 F 92 21 99/61 99 02/19/18 20:09 96 02/19/18 20:05 90 20 02/19/18 19:50 98.1 F 90 20 96/63 94 L 02/19/18 19:35 98.2 F 93 20 98/69 100 02/19/18 18:30 91 22 102/66 100 Intake and Output 02/20/18 02/20/18 02/20/18 06:59 14:59 22:59 Intake Total 245.731 5199.75 Output Total 400 Balance -64.747 1261.75 Intake: IV 100 0.9 100 Intake, IV Titration 115.253 181.75 Amount Heparin Sod,Pork in 0.45% 115.253 181.75 NaCl 25,000 unit In 0.45 % NaCl 1 500ml.bag @ 12 UNITS/KG/HR 19.05 mls/hr IV .Q24H LOYD Rx#: [id number] Oral 120 1080 Output: Urine 400 Other: Voiding Method Urinal Weight 85.5 kg Results CBC & Chem 7: 02/20/18 05:54 02/19/18 15:40 Labs: Abnormal Lab Results - Last 24 Hours (Table) 02/19/18 02/20/18 02/20/18 Range/Units 20:34 00:19 05:54 RBC 2.50 L (4.30-5.90) m/uL Hgb 8.0 L D (13.0-17.5) gm/dL Hct 24.8 L (39.0-53.0) % RDW 16.6 H (11.5-15.5) % APTT 33.4 H (22.0-30.0) sec Plasma Lactic Acid Rivera 4.3 H* (0.7-2.0) mmol/L 02/20/18 02/20/18 Range/Units 05:54 13:14 RBC (4.30-5.90) m/uL Hgb (13.0-17.5) gm/dL Hct (39.0-53.0) % RDW (11.5-15.5) % APTT 34.9 H 97.9 H (22.0-30.0) sec Plasma Lactic Acid Rivera (0.7-2.0) mmol/L Thrombosis Risk Factor Assmnt - Choose All That Apply Any of the Below Risk Factors Present?: Yes Each Factor Represents 1 point: Swollen legs (current) Other Risk Factors: Yes Each Risk Factor Represents 2 Points: Age 61-74 years Thrombosis Risk Factor Assessment Total Risk Factor Score: 3 Thrombosis Risk Factor Assessment Level: Moderate Risk
[2018-02-20] MEDS: FUROSEMIDE 250 MG in SODIUM CHLORIDE 0.9% 225 ML IVP SCH (20:59)
[2018-02-20] MEDS ORDERED: LORazepam 2 MG/ML INJ IV PRN (21:23)
[2018-02-20] MEDS: SERTRALINE 100 MG TAB PO SCH (23:26)
[2018-02-21] MEDS: PHENYTOIN SODIUM EXTENDED 100 MG CAP PO SCH (08:13)
[2018-02-21] MEDS: ALPRAZolam 0.25 MG TAB PO PRN ×2 (08:13→16:05)
[2018-02-21 09:53] LABS: Basophils % (A) 0 %; Eosinophils % (A) 1 %; HCT 24.4 % (39.0-53.0); HGB 8.2 gm/dL (13.0-17.5); Lymphocytes # (A) 1.5 k/uL (1.0-4.8); Lymphocytes % (A) 21 %; MCH 33.2 pg (25.0-35.0); MCHC 33.6 g/dL (31.0-37.0); MCV 98.6 fL (80.0-100.0); Macrocytosis Slight; Mean Platelet Volume 7.1; Monocytes # (A) 0.4 k/uL (0-1.0); Monocytes % (A) 6 %; Neutrophils % (A) 70 %; Platelet Count 119 k/uL (150-450); RBC 2.47 m/uL (4.30-5.90); RDW 15.9 % (11.5-15.5); WBC 7.1 k/uL (3.8-10.6)
[2018-02-21 10:19] LABS: Calcium 8.2 mg/dL (8.4-10.2); Potassium 3.7 mmol/L (3.5-5.1)
[2018-02-21] MEDS: HEPARIN SOD,PORK IN 0.45% NACL 25,000 UNIT in 0.45% NACL 1 500ML.BAG IV SCH (10:27)
[2018-02-21] MEDS: AMOXIC-POT CLAV 875-125MG 1 EACH TAB PO SCH ×2 (11:57→19:50)
--- NOTE | 2018-02-21 14:42 | P.PN ---
Subjective Progress Note Date: 02/21/18 This is a 72-year-old gentleman who was recently discharged from the hospital, he has severe aortic stenosis, nonischemic cardiomyopathy, paroxysmal atrial fibrillation. On one of his recent admission she did undergo cardiac catheterization which did not reveal any obstructive coronary artery disease. He presents to the hospital again on this occasion with symptoms of progressively worsening shortness of breath. After this last admission patient was sent to an extended care facility. He was admitted to the hospital on this occasion with symptoms of shortness of breath and was found to be in congestive cardiac failure. Patient was supposed to be evaluated at [facility] for possible TAVR procedure. Patient is known to have severe aortic stenosis and cardiomyopathy. He does not have any significant coronary artery disease as mentioned previously. He is currently in normal sinus rhythm. Diuresing well on IV Lasix. Percent of the chest was performed which revealed a 5 cm right pleural effusion and a 4.6 cm left pleural effusion. He has been marked for possible thoracentesis. Blood pressure 96/60 with a heart rate in the 90s, respirations 18. White blood cell count 7.1, hemoglobin 8.2, platelet count 119. Sodium 140, potassium 3.7, BUN 14, creatinine 1.1. Plasma lactic acid level on admission 4.3, troponin 0.222 Objective - Vital Signs Vital signs: Vital Signs Temp 98.7 F 02/21/18 08:00 Pulse 91 02/21/18 08:00 Resp 18 02/21/18 08:00 BP 96/62 02/21/18 08:00 Pulse Ox 98 02/21/18 08:00 Intake & Output 02/20/18 02/21/18 02/21/18 18:59 06:59 18:59 Intake Total 639.408 89.547 Output Total 1800 2400 Balance 1992.43 -1160.592 -2310.453 Weight 81.5 kg Intake: Intake, IV Titration 433.43 159.408 89.547 Amount Heparin Sod,Pork in 0.45% 433.43 159.408 89.547 NaCl 25,000 unit In 0.45 % NaCl 1 500ml.bag @ 12 UNITS/KG/HR 19.05 mls/hr IV .Q24H LOYD Rx#: [id number] Oral 1560 480 Output: Urine 1800 2400 Other: Voiding Method Urinal # Voids 1 - Exam PHYSICAL EXAMINATION: GENERAL: 72-year-old gentleman in no acute distress at the time of my examination HEENT: Head is atraumatic, normocephalic. Pupils equal, round. Sclera anicteric. Conjunctiva are clear. Mucous membranes of the mouth are moist. Neck is supple. There is elevated jugular venous pressure. No carotid bruit is heard. HEART EXAMINATION: Heart S1-S2 there is a grade 3/6 ejection systolic murmur heard CHEST EXAMINATION: Lungs reveal bilateral bronchial breath sounds with diminished air entry bilaterally. ABDOMEN: Soft, nontender. Bowel sounds are heard. No organomegaly noted. EXTREMITIES: 2+ peripheral pulses with evidence of peripheral edema and no calf tenderness noted. NEUROLOGIC patient is awake, alert and oriented 2. . - Labs CBC & Chem 7: 02/21/18 08:50 02/21/18 08:50 Labs: Abnormal Lab Results - Last 24 Hours (Table) 02/21/18 02/21/18 02/21/18 Range/Units 00:08 08:50 08:50 RBC 2.47 L (4.30-5.90) m/uL Hgb 8.2 L (13.0-17.5) gm/dL Hct 24.4 L (39.0-53.0) % RDW 15.9 H (11.5-15.5) % Plt Count 119 L (150-450) k/uL APTT >200.0 H* (22.0-30.0) sec Glucose 105 H (74-99) mg/dL Calcium 8.2 L (8.4-10.2) mg/dL 02/21/18 Range/Units 08:50 RBC (4.30-5.90) m/uL Hgb (13.0-17.5) gm/dL Hct (39.0-53.0) % RDW (11.5-15.5) % Plt Count (150-450) k/uL APTT 149.8 H* (22.0-30.0) sec Glucose (74-99) mg/dL Calcium (8.4-10.2) mg/dL Assessment and Plan Plan: Assessment and plan #1 systolic congestive heart failure acute on chronic #2 severe aortic stenosis #3 paroxysmal atrial fibrillation, remaining in normal sinus rhythm #4 acute on chronic renal failure #5 anemia #6 nonischemic cardiomyopathy #7 bilateral pleural effusions Plan We will continue current dose of IV Lasix. Patient may also require thoracentesis, pulmonary is following at this time. DNP note has been reviewed, I agree with a documented findings and plan of care. Patient was seen and examined.
--- NOTE | 2018-02-21 15:07 | US ---
EXAMINATION TYPE: US carotid duplex BILAT DATE OF EXAM: 02/21/2018 COMPARISON: US 2013 CLINICAL HISTORY: preop aortic valve replacement. Pre op aortic valve replacement, exam done portable . EXAM MEASUREMENTS: RIGHT: Peak Systolic Velocity (PSV) cm/sec ----- Right CCA: 50.1 ----- Right ICA: 151.2 ----- Right ECA: 154.8 ICA/CCA ratio: 3.0 RIGHT: End Diastole cm/sec ----- Right CCA: 18.1 ----- Right ICA: 80.7 ----- Right ECA: 7.7 LEFT: Peak Systolic Velocity (PSV) cm/sec ----- Left CCA: 63.7 ----- Left ICA: 88.9 ----- Left ECA: 76.3 ICA/CCA ratio: 1.4 LEFT: End Diastole cm/sec ----- Left CCA: 28.0 ----- Left ICA: 34.3 ----- Left ECA: 0.0 VERTEBRALS (direction of flow): Right Vertebral: Antegrade Left Vertebral: Antegrade Rhythm: Normal Bilateral intimal thickening, plaque bilateral bulb, greater on right, elevated velocities: right pro ximal ICA and right proximal ECA, right ICA/CCA ratio 3.0 50 to 69% stenosis. IMPRESSION: 1. 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 2. Mild grayscale atheromatous plaquing within the left internal carotid artery and common carotid ar bear without hemodynamically significant stenosis on the left. Criteria for Assigning % of Stenosis / Diameter reduction (Estimation based on the indirect measurements of the internal carotid artery velocities (ICA PSV). 1. Normal (no stenosis)=ICA PSV < 125 cm/s: ratio < 2.0: ICA EDV<40 cm/s. 2. Less than 50% stenosis=ICA PSV < 125 cm/s: ratio < 2.0: ICA EDV<40 cm/s. 3. 50 to 69% stenosis=ICA PSV of 125 to 230 cm/s: ration 2.0 ? 4.0: ICA EDV 40-100 cm/s. 4. Greater than 70% stenosis to near occlusion= ICA PSV > 230 cm/s: ratio > 4.0: ICA EDV > 100 cm/s. 5. Near occlusion= ICA PSV velocities may be low or undetectable: variable ratio and ICA EDV. 6. Total occlusion=unable to detect flow.
--- NOTE | 2018-02-21 15:34 | P.GSCN ---
History of Present Illness Consult date: 02/21/18 Reason for Consult: TAVR referral, request for transfer to [facility] Requesting physician: Viji Ibarra History of present illness: This is a 72-year-old gentleman known to our service as we consulted on him a little over a month ago. He follows with Dr. Tony Mukherjee on an outpatient basis and has a previous medical history of recent non-STEMI, paroxysmal atrial fibrillation, chronic systolic heart failure, severe aortic stenosis with mild aortic insufficiency, moderate mitral regurgitation, CKD, CVA, hypertension, seizure disorder, brain AVM, anxiety/depression, and family history of coronary artery disease. We were consulted in December 2017 for consideration for TAVR due to severe aortic stenosis with high risk for surgical replacement. The patient's diagnostic testing was sent to [facility] and the patient was supposed to follow up in our TAVR clinic today with plans for potential TAVR on March 01, however he has been in and out of the hospital over the last month, including recent three-day admission at [facility] [place] for [place]. Of note this patient has a legal guardian who makes decisions for him, and who has been in contact with our TAVR coordinator. He presented to [facility] emergency room 2 nights ago from [facility] nursing and rehab for complaints of increasing shortness of breath. He denied any other symptoms or complaints. He was placed on BiPAP, he demonstrated lactic acidosis with a lactic acid of 4.1, and his troponins were mildly elevated at 0.222 but his EKG was unremarkable. He was started on a heparin drip. Mr. Saini was admitted to the cardiac stepdown floor for CHF exacerbation with consultation request for cardiology. Cardiology placed a consultation to Dr. Donald for transfer to [facility] to continue with TAVR evaluation. Review of Systems Review of systems was completed and was negative except as noted. - Respiratory Reports as per HPI, Reports dyspnea Past Medical History Past Medical History: Atrial Fibrillation, Heart Failure, CVA/TIA, Hypertension , Seizure Disorder Additional Past Medical History / Comment(s): alcohol intoxication, alcohol withdrawal seizures, hypokalemia, hyponatremia, dehyration, metabolic , ntemiencephalopathy, brain AVM diagnosed 30 years ago, severe aortic stenosis History of Any Multi-Drug Resistant Organisms: None Reported Past Surgical History: Heart Catheterization Additional Past Surgical History / Comment(s): 11/2017 DAVID, colonoscopy. Past Anesthesia/Blood Transfusion Reactions: No Reported Reaction Additional Past Anesthesia/Blood Transfusion Reaction / Comm: clausterphobia Smoking Status: Never smoker - Past Family History Sister(s) Family Medical History: Osteoarthritis (OA) Additional Family Medical History / Comment(s): Sister has arhtritis with bilateral total hip replacements. Father Family Medical History: Dementia Mother Family Medical History: Coronary Artery Disease (CAD), Hypertension Medications and Allergies Home Medications Medication Instructions Recorded Confirmed Type Sertraline [Zoloft] 100 mg PO HS 08/04/17 02/19/18 History Acetaminophen Tab [Tylenol] 650 mg PO Q6HR PRN tab 02/02/18 02/19/18 Rx ALPRAZolam [Xanax] 0.25 mg PO TID PRN 02/19/18 02/19/18 History Amoxic-Pot Clav 875-125Mg 1 tab PO Q12HR 02/19/18 02/19/18 History [Augmentin 875-125] Bisacodyl [Dulcolax] 10 mg RECTAL DAILY PRN 02/19/18 02/19/18 History Lactose-Reduced Food [Ensure Plus] 1 can PO TID 02/19/18 02/19/18 History Magnesium Hydroxide [Milk of 7,200 mg PO DAILY PRN 02/19/18 02/19/18 History Magnesia Concentrate] Na Phos,M-B/Na Phos,Di-Ba [Fleet 133 ml RECTAL ONCE PRN 02/19/18 02/19/18 History Adult] Ondansetron [Zofran] 4 mg PO Q6H PRN 02/19/18 02/19/18 History Phenytoin Sodium Extended 300 mg PO DAILY 02/19/18 02/19/18 History [Dilantin] Allergies Allergy/AdvReac Type Severity Reaction Status Date / Time loratadine Allergy Unknown Verified 02/19/18 17:17 antihistamines Allergy Unknown Uncoded 01/30/18 13:37 Surgical - Exam Vital Signs Temp Pulse Resp BP Pulse Ox 97.5 F L 109 H 36 H 157/98 94 L 02/19/18 15:32 02/19/18 15:32 02/19/18 15:32 02/19/18 15:32 12/01/18 15:32 - General well developed, well nourished, no distress, no pain, chronically ill - Eyes PERRL, normal ocular movement - ENT no hearing loss, poor halfway - Neck no masses, no bruits, trachea midline - Respiratory Lungs sounds diminished bilaterally with coarse breath sounds in the bases. Respirations even, nonlabored. Currently on 3 L with oxygen saturation 98%. - Cardiovascular S1, S2 present, positive systolic murmur. Regular rate and rhythm, sinus rhythm on telemetry. Palpable peripheral pulses bilaterally. No edema present. No calf pain or tenderness. - Abdomen Abdomen: soft, non tender, bowel sounds - Genitourinary Deferred - Rectum Deferred - Integumentary no rash, no growths, no abnormal pigmentation - Neurologic normal coordination, normal sensation - Psychiatric oriented to time, oriented to person, oriented to place, speech is normal Results - Labs 02/21/18 08:50 02/21/18 08:50 Abnormal Lab Results - Last 24 Hours (Table) 02/20/18 02/21/18 02/21/18 Range/Units 13:14 00:08 08:50 RBC 2.47 L (4.30-5.90) m/uL Hgb 8.2 L (13.0-17.5) gm/dL Hct 24.4 L (39.0-53.0) % RDW 15.9 H (11.5-15.5) % Plt Count 119 L (150-450) k/uL APTT 97.9 H >200.0 H* (22.0-30.0) sec Glucose (74-99) mg/dL Calcium (8.4-10.2) mg/dL 02/21/18 02/21/18 Range/Units 08:50 08:50 RBC (4.30-5.90) m/uL Hgb (13.0-17.5) gm/dL Hct (39.0-53.0) % RDW (11.5-15.5) % Plt Count (150-450) k/uL APTT 149.8 H* (22.0-30.0) sec Glucose 105 H (74-99) mg/dL Calcium 8.2 L (8.4-10.2) mg/dL Diabetes panel 02/21/18 Range/Units 08:50 Sodium 140 (137-145) mmol/L Potassium 3.7 (3.5-5.1) mmol/L Chloride 103 (98-107) mmol/L Carbon Dioxide 26 (22-30) mmol/L BUN 14 (9-20) mg/dL Creatinine 1.10 (0.66-1.25) mg/dL Glucose 105 H (74-99) mg/dL Calcium 8.2 L (8.4-10.2) mg/dL Calcium panel 02/21/18 Range/Units 08:50 Calcium 8.2 L (8.4-10.2) mg/dL Pituitary panel 02/21/18 Range/Units 08:50 Sodium 140 (137-145) mmol/L Potassium 3.7 (3.5-5.1) mmol/L Chloride 103 (98-107) mmol/L Carbon Dioxide 26 (22-30) mmol/L BUN 14 (9-20) mg/dL Creatinine 1.10 (0.66-1.25) mg/dL Glucose 105 H (74-99) mg/dL Calcium 8.2 L (8.4-10.2) mg/dL Adrenal panel 02/21/18 Range/Units 08:50 Sodium 140 (137-145) mmol/L Potassium 3.7 (3.5-5.1) mmol/L Chloride 103 (98-107) mmol/L Carbon Dioxide 26 (22-30) mmol/L BUN 14 (9-20) mg/dL Creatinine 1.10 (0.66-1.25) mg/dL Glucose 105 H (74-99) mg/dL Calcium 8.2 L (8.4-10.2) mg/dL - Imaging Chest x-ray: report reviewed, image reviewed EKG: image reviewed Assessment and Plan (1) CHF exacerbation Current Visit: Yes Status: Acute Code(s): I50.9 - HEART FAILURE, UNSPECIFIED SNOMED Code(s): 15154508 (2) Elevated troponin Current Visit: Yes Status: Acute Code(s): R74.8 - ABNORMAL LEVELS OF OTHER SERUM ENZYMES SNOMED Code(s): 053170266 (3) CKD (chronic kidney disease) Current Visit: Yes Status: Chronic Code(s): N18.9 - CHRONIC KIDNEY DISEASE, UNSPECIFIED SNOMED Code(s): 735451105 (4) Hypertension Current Visit: Yes Status: Chronic Code(s): I10 - ESSENTIAL (PRIMARY) HYPERTENSION SNOMED Code(s): 74963764 (5) Severe aortic stenosis Current Visit: Yes Status: Chronic Code(s): I35.0 - NONRHEUMATIC AORTIC ( VALVE) STENOSIS SNOMED Code(s): 86853969 Plan: The patient was seen and examined at the bedside. Chart/diagnostics were reviewed in detail with Dr. Donald. At this time patient's current medical issues need to be resolved. Upon admission patient had leukocytosis with lactic acidosis currently on antibiotics. He would be at high risk for infection of the replaced valve. Acute infectious issues and acute heart failure should be managed prior to consideration for valve replacement. Will hold off transfer at this time, however we can get some of his outstanding testing done such as carotid dopplers and dental clearance. Medical therapy per primary care service. Heart failure management per cardiology. More recommendations to follow. Thank you Dr. Ibarra for this consult. We will continue to follow with you. Time with Patient: Greater than 30
[2018-02-21] MEDS: IPRATROPIUM-ALBUTEROL 3 ML NEB INHALATION PRN ×2 (16:47→21:13)
--- NOTE | 2018-02-21 18:08 | CT ---
EXAMINATION TYPE: CT facial bones wo con DATE OF EXAM: 02/21/2018 COMPARISON: None HISTORY: Preop valve surgery. CT DLP: 501.1 mGycm Automated exposure control for dose reduction was used. TECHNIQUE: CT scan of the sinuses is performed without contrast, axial images are obtained, coronal r eformatted images are also reviewed. FINDINGS: The mandibular ring is intact. Temporomandibular joints appear intact. I see no focal bone destruction. The maxilla is intact. There are no erosions. Zygomatic arches appear normal. Nasal bone is intact. Orbital margins are intact. There is no evidence of retro-orbital mass. There is fairly n ormal aeration of the paranasal sinuses. IMPRESSION: Negative CT scan of the facial bones.
[2018-02-21] MEDS: FUROSEMIDE 250 MG in SODIUM CHLORIDE 0.9% 225 ML IVP SCH (18:45)
[2018-02-21] MEDS: SERTRALINE 100 MG TAB PO SCH (19:50)
--- NOTE | 2018-02-21 23:46 | PN ---
PROGRESS NOTE DATE OF SERVICE: 02/21/2018. PRESENTING COMPLAINT: Short of breath. INTERVAL HISTORY: This patient with severe aortic stenosis presented with bilateral pleural effusion, CHF exacerbation. Started on IV Lasix. The patient has been over 2 L in negative fluid balance since yesterday evening. Still short of breath sitting up, being followed by Cardiology. Did eat some food. REVIEW OF SYSTEMS: Done for constitutional, cardiovascular, GI, pulmonary; relevant findings as above. CURRENT MEDICATIONS: Reviewed that include IV Lasix drip. PHYSICAL EXAMINATION: Temperature 98.7, pulse 91, respiratory rate 18, blood pressure 96/62, pulse 98% on 3 L. GENERAL APPEARANCE: Lying in bed, tired, short of breath. EYES: Pupils equal. Conjunctivae normal. NECK: JVD raised. Mass not palpable. LUNGS: Decreased breath sounds. CARDIOVASCULAR: 1st and 2nd sounds normal. No edema. ABDOMEN: Soft, nontender. Liver and spleen not palpable. PSYCHIATRY: Alert and oriented x3. Mood and affect slightly anxious-appearing. INVESTIGATIONS: White count 7.1, hemoglobin 8.2, potassium 3.7. BUN and creatinine normal. ASSESSMENT: 1. Acute on chronic congestive heart exacerbation from systolic dysfunction, ejection fraction 20% to 30%, from severe aortic stenosis, slow to respond. 2. Severe aortic stenosis with mean gradient of 63, for possible transcatheter aortic valve replacement (TAVR) at [facility] down the road. 3. Moderate mitral regurgitation, nonrheumatic. 4. Chronic medical debility. 5. Chronic kidney disease stage 3 from nephrosclerosis. 6. Anxiety and depression, not otherwise specified. 7. Mild protein-calorie malnutrition. 8. Minimal coronary artery disease from recent cardiac catheterization. 9. Normocytic anemia cause unknown. 10.Lactic acidosis from ischemia type 2 not from sepsis. PLAN: Continue with IV Lasix drip. Other medication and treatment per plan. When the acute episode has settled down the patient needs further evaluation by [facility] for TAVR. The patient today is not stable for transfer and there will not be any urgent surgical intervention. Follow electrolytes closely. MMODL / IJN: [id number] /
[2018-02-22 04:14] VITALS: RESP 16
[2018-02-22] MEDS: HEPARIN SOD,PORK IN 0.45% NACL 25,000 UNIT in 0.45% NACL 1 500ML.BAG IV SCH (04:28)
[2018-02-22 06:21] LABS: Basophils % (A) 0 %; Eosinophils # (A) 0.1 k/uL (0-0.7); Eosinophils % (A) 1 %; HGB 8.9 gm/dL (13.0-17.5); Lymphocytes # (A) 2.1 k/uL (1.0-4.8); Lymphocytes % (A) 24 %; MCH 32.5 pg (25.0-35.0); MCHC 32.8 g/dL (31.0-37.0); MCV 99.1 fL (80.0-100.0); Macrocytosis Slight; Mean Platelet Volume 6.9; Monocytes # (A) 0.6 k/uL (0-1.0); Monocytes % (A) 7 %; Neutrophils # (A) 5.7 k/uL (1.3-7.7); Neutrophils % (A) 66 %; Platelet Count 137 k/uL (150-450); RBC 2.73 m/uL (4.30-5.90); RDW 15.8 % (11.5-15.5); WBC 8.6 k/uL (3.8-10.6)
[2018-02-22 06:40] LABS: Calcium 8.4 mg/dL (8.4-10.2); Potassium 3.5 mmol/L (3.5-5.1)
[2018-02-22] MEDS: IPRATROPIUM-ALBUTEROL 3 ML NEB INHALATION PRN ×2 (08:22→16:26)
[2018-02-22] MEDS: PHENYTOIN SODIUM EXTENDED 100 MG CAP PO SCH (08:58)
[2018-02-22] MEDS: AMOXIC-POT CLAV 875-125MG 1 EACH TAB PO SCH (11:59)
[2018-02-22 12:02] VITALS: BMI 25.0
--- NOTE | 2018-02-22 12:41 | P.PN ---
Subjective Progress Note Date: 02/22/18 Principal diagnosis: Severe aortic stenosis. Previous medical history of non-STEMI, paroxysmal atrial fibrillation, chronic systolic heart failure, mild aortic insufficiency, moderate mitral regurgitation, CKD, CVA, hypertension, seizure disorder, brain AVM, anxiety/depression, and family history of coronary artery disease. Right internal carotid artery stenosis 50-69%. The patient was seen and examined this morning sitting up in the chair in no acute distress. Denies pain or shortness of breath. States he feels much better than when he came in. Carotid Dopplers were completed yesterday as well as Panorex, dental consult placed for clearance. Objective - Vital Signs Vital signs: Vital Signs Temp 98.1 F 02/22/18 11:56 Pulse 83 02/22/18 11:56 Resp 16 02/22/18 11:56 BP 100/59 02/22/18 11:56 Pulse Ox 100 02/22/18 11:56 Intake & Output 02/21/18 02/22/18 02/22/18 18:59 06:59 18:59 Intake Total 734.914 229.370 107.542 Output Total 3000 2200 Balance -2265.086 -1970.630 107.542 Weight 81.5 kg Intake: IV 288 0.9 90 Furosemide 250 mg In 90 Sodium Chloride 0.9% 225 ml @ 10 MG/HR 10 mls/hr IVP .Q24H [facility] Rx#: [id number] Heparin Sod,Pork in 0.45% 108 NaCl 25,000 unit In 0.45 % NaCl 1 500ml.bag @ 12 UNITS/KG/HR 19.05 mls/hr IV .Q24H [facility] Rx#: [id number] Intake, IV Titration 446.914 229.370 107.542 Amount Furosemide 250 mg In 217.667 Sodium Chloride 0.9% 225 ml @ 10 MG/HR 10 mls/hr IVP .Q24H [facility] Rx#: [id number] Heparin Sod,Pork in 0.45% 229.247 229.370 107.542 NaCl 25,000 unit In 0.45 % NaCl 1 500ml.bag @ 12 UNITS/KG/HR 19.05 mls/hr IV .Q24H [facility] Rx#: [id number] Output: Urine 3000 1200 Stool 1000 Other: Voiding Method Incontinent # Voids 1 # Bowel Movements 2 - Constitutional General appearance: Present: cooperative, no acute distress - Respiratory Details: Lungs sounds diminished bilaterally. Respirations even, nonlabored. Currently on 2 L nasal cannula with oxygen saturation 98%. - Cardiovascular Details: S1, S2 present. Systolic murmur present. Regular rate and rhythm, sinus rhythm on telemetry. Palpable peripheral pulses bilaterally. No edema present. No calf pain or tenderness noted. - Gastrointestinal Gastrointestinal Comment(s): Abdomen soft, nontender, nondistended. Active bowel sounds present 4 quadrants. Tolerating diet. - Genitourinary Genitourinary Comment(s): Continues to void clear, yellow urine. Excellent diuresis with IV Lasix. - Integumentary Integumentary Comment(s): Skin is warm and dry with evidence of good perfusion. - Neurologic Neurologic: Present: CNII-XII intact - Musculoskeletal Musculoskeletal: Present: gait normal, strength equal bilaterally - Psychiatric Psychiatric: Present: A&O x's 3, appropriate affect - Allied health notes Allied health notes reviewed: nursing - Labs CBC & Chem 7: 02/22/18 05:45 02/22/18 05:45 Labs: Abnormal Lab Results - Last 24 Hours (Table) 02/21/18 02/22/18 02/22/18 Range/Units 17:14 00:59 05:45 RBC 2.73 L (4.30-5.90) m/uL Hgb 8.9 L (13.0-17.5) gm/dL Hct 27.0 L (39.0-53.0) % RDW 15.8 H (11.5-15.5) % Plt Count 137 L (150-450) k/uL APTT 35.2 H 44.2 H (22.0-30.0) sec Glucose (74-99) mg/dL 02/22/18 02/22/18 Range/Units 05:45 05:45 RBC (4.30-5.90) m/uL Hgb (13.0-17.5) gm/dL Hct (39.0-53.0) % RDW (11.5-15.5) % Plt Count (150-450) k/uL APTT 42.3 H (22.0-30.0) sec Glucose 104 H (74-99) mg/dL - Imaging and Cardiology Carotid Dopplers reviewed. Assessment and Plan (1) CHF exacerbation Current Visit: Yes Status: Acute Code(s): I50.9 - HEART FAILURE, UNSPECIFIED SNOMED Code(s): 95287122 (2) Elevated troponin Current Visit: Yes Status: Acute Code(s): R74.8 - ABNORMAL LEVELS OF OTHER SERUM ENZYMES SNOMED Code(s): 345324704 (3) CKD (chronic kidney disease) Current Visit: Yes Status: Chronic Code(s): N18.9 - CHRONIC KIDNEY DISEASE, UNSPECIFIED SNOMED Code(s): 778883143 (4) Hypertension Current Visit: Yes Status: Chronic Code(s): I10 - ESSENTIAL (PRIMARY) HYPERTENSION SNOMED Code(s): 90436249 (5) Severe aortic stenosis Current Visit: Yes Status: Chronic Code(s): I35.0 - NONRHEUMATIC AORTIC ( VALVE) STENOSIS SNOMED Code(s): 07824260 Plan: 1. Carotid Doppler results will be forwarded to [facility] TAVR clinic as well as dental clearance when it is completed. 2. The rest of TAVR workup as well as surgery scheduling will be completed once patient has been discharged. TAVR is an elective procedure which can be completed once current acute issues are resolved. 3. Continued medical management per primary. 4. Continued heart failure management per cardiology. 5. Will discuss with patient's guardian. 6. Will continue to see as needed. Time with Patient: Greater than 30
--- NOTE | 2018-02-22 15:24 | P.PN ---
Subjective Progress Note Date: 02/22/18 This is a 72-year-old gentleman who was recently discharged from the hospital, he has severe aortic stenosis, nonischemic cardiomyopathy, paroxysmal atrial fibrillation. On one of his recent admission she did undergo cardiac catheterization which did not reveal any obstructive coronary artery disease. He presents to the hospital again on this occasion with symptoms of progressively worsening shortness of breath. After this last admission patient was sent to an extended care facility. He was admitted to the hospital on this occasion with symptoms of shortness of breath and was found to be in congestive cardiac failure. Patient was supposed to be evaluated at [facility] for possible TAVR procedure. Patient is known to have severe aortic stenosis and cardiomyopathy. He does not have any significant coronary artery disease as mentioned previously. He is currently in normal sinus rhythm. Diuresing well on IV Lasix. Percent of the chest was performed which revealed a 5 cm right pleural effusion and a 4.6 cm left pleural effusion. He has been marked for possible thoracentesis. Blood pressure 96/60 with a heart rate in the 90s, respirations 18. White blood cell count 7.1, hemoglobin 8.2, platelet count 119. Sodium 140, potassium 3.7, BUN 14, creatinine 1.1. Plasma lactic acid level on admission 4.3, troponin 0.222. 02/22/2018 Patient seen and examined today, was doing well earlier now complaining of some mild nausea. Overall improving. Ultrasound of the chest did show a right- sided pleural effusion 5 cm and a left-sided 4.0 cm. Chin used to diuresing well on the IV Lasix drip. Potassium 3.5, BUN 15, creatinine 1.1. Objective - Vital Signs Vital signs: Vital Signs Temp 98.1 F 02/22/18 11:56 Pulse 83 02/22/18 11:56 Resp 16 02/22/18 11:56 BP 100/59 02/22/18 11:56 Pulse Ox 100 02/22/18 11:56 Intake & Output 02/21/18 02/22/18 02/22/18 18:59 06:59 18:59 Intake Total 734.914 229.370 347.542 Output Total 3000 2200 Balance -2265.086 -1970.630 347.542 Weight 81.5 kg Intake: IV 288 0.9 90 Furosemide 250 mg In 90 Sodium Chloride 0.9% 225 ml @ 10 MG/HR 10 mls/hr IVP .Q24H [facility] Rx#: [id number] Heparin Sod,Pork in 0.45% 108 NaCl 25,000 unit In 0.45 % NaCl 1 500ml.bag @ 12 UNITS/KG/HR 19.05 mls/hr IV .Q24H [facility] Rx#: [id number] Intake, IV Titration 446.914 229.370 107.542 Amount Furosemide 250 mg In 217.667 Sodium Chloride 0.9% 225 ml @ 10 MG/HR 10 mls/hr IVP .Q24H [facility] Rx#: [id number] Heparin Sod,Pork in 0.45% 229.247 229.370 107.542 NaCl 25,000 unit In 0.45 % NaCl 1 500ml.bag @ 12 UNITS/KG/HR 19.05 mls/hr IV .Q24H [facility] Rx#: [id number] Oral 240 Output: Urine 3000 1200 Stool 1000 Other: Voiding Method Incontinent # Voids 1 # Bowel Movements 2 - Exam PHYSICAL EXAMINATION: GENERAL: 72-year-old gentleman in no acute distress at the time of my examination HEENT: Head is atraumatic, normocephalic. Pupils equal, round. Sclera anicteric. Conjunctiva are clear. Mucous membranes of the mouth are moist. Neck is supple. There is elevated jugular venous pressure. No carotid bruit is heard. HEART EXAMINATION: Heart S1-S2 there is a grade 3/6 ejection systolic murmur heard CHEST EXAMINATION: Lungs reveal bilateral bronchial breath sounds with diminished air entry bilaterally. ABDOMEN: Soft, nontender. Bowel sounds are heard. No organomegaly noted. EXTREMITIES: 2+ peripheral pulses with evidence of peripheral edema and no calf tenderness noted. NEUROLOGIC patient is awake, alert and oriented 2. . - Labs CBC & Chem 7: 02/22/18 05:45 02/22/18 05:45 Labs: Abnormal Lab Results - Last 24 Hours (Table) 02/21/18 02/22/18 02/22/18 Range/Units 17:14 00:59 05:45 RBC 2.73 L (4.30-5.90) m/uL Hgb 8.9 L (13.0-17.5) gm/dL Hct 27.0 L (39.0-53.0) % RDW 15.8 H (11.5-15.5) % Plt Count 137 L (150-450) k/uL APTT 35.2 H 44.2 H (22.0-30.0) sec Glucose (74-99) mg/dL 02/22/18 02/22/18 Range/Units 05:45 05:45 RBC (4.30-5.90) m/uL Hgb (13.0-17.5) gm/dL Hct (39.0-53.0) % RDW (11.5-15.5) % Plt Count (150-450) k/uL APTT 42.3 H (22.0-30.0) sec Glucose 104 H (74-99) mg/dL Assessment and Plan Plan: Assessment and plan #1 systolic congestive heart failure acute on chronic #2 severe aortic stenosis #3 paroxysmal atrial fibrillation, remaining in normal sinus rhythm #4 acute on chronic renal failure #5 anemia #6 nonischemic cardiomyopathy #7 bilateral pleural effusions Plan We will continue current dose of IV Lasix. We'll also give the patient something for nausea. Continue to monitor intake and output along with daily weights and daily lytes BUN and creatinine. DNP note has been reviewed, I agree with a documented findings and plan of care. Patient was seen and examined.
[2018-02-22 18:01] VITALS: BP 104/60; PULSE 93; TEMP 98
[2018-02-22] MEDS: FUROSEMIDE 250 MG in SODIUM CHLORIDE 0.9% 225 ML IVP SCH (18:02)
[2018-02-22] MEDS ORDERED: AMIODARONE 50 MG/ML 3 ML VIAL IV ONE ×2 (19:42)
[2018-02-22] MEDS ORDERED: MAGNESIUM SULFATE SYG 4.06 MEQ/ML SYRINGE ONE (19:42)
[2018-02-22] MEDS ORDERED: SODIUM BICARB 8.4% 50 ML SYR (1 MEQ/ML) ONE (19:42)
[2018-02-22] MEDS ORDERED: EPINEPHrine 10 ML SYRINGE (0.1 MG/ML) ONE (19:42)
[2018-02-22 19:48] LABS: Glucose,Whole Blood 89 mg/dL (75-99)
--- NOTE | 2018-02-22 20:56 | ED ---
Medical Decision Making - Medical Decision Making Called to see patient for CODE BLUE on the floor. Arrived patient was in V. fib undergoing CPR. Patient was intubated by anesthesiology. Patient did have multiple rounds of defibrillation as well as epinephrine. In addition patient was given amiodarone and magnesium. Patient underwent greater than 20 minutes of CPR without return of circulation. Patient upon reevaluation had no heartbeat. No lung sounds. No spontaneous pulse. No response to pain. Pupils fixed and dilated. Monitor with asystole. Time of is 8:[address] Rios was notified. - Lab Data Result diagrams: 02/22/18 05:45 02/22/18 05:45 Lab Results 02/19/18 02/19/18 02/19/18 Range/Units 15:40 15:40 15:40 WBC 10.8 H (3.8-10.6) k/uL RBC 3.25 L (4.30-5.90) m/uL Hgb 10.4 L (13.0-17.5) gm/dL Hct 32.8 L (39.0-53.0) % MCV 101.0 H (80.0-100.0) fL MCH 32.1 (25.0-35.0) pg MCHC 31.8 (31.0-37.0) g/dL RDW 16.1 H (11.5-15.5) % Plt Count 194 (150-450) k/uL Neutrophils % 64 % Lymphocytes % 26 % Monocytes % 7 % Eosinophils % 1 % Basophils % 0 % Neutrophils # 6.9 (1.3-7.7) k/uL Lymphocytes # 2.8 (1.0-4.8) k/uL Monocytes # 0.7 (0-1.0) k/uL Eosinophils # 0.1 (0-0.7) k/uL Basophils # 0.0 (0-0.2) k/uL Anisocytosis Slight Macrocytosis Slight PT (9.0-12.0) sec INR (<1.2) APTT (22.0-30.0) sec VBG pH 7.27 L (7.31-7.41) VBG pCO2 51 (37-51) mmHg VBG HCO3 22 L (24-28) mmol/L Sodium (137-145) mmol/L Potassium (3.5-5.1) mmol/L Chloride (98-107) mmol/L Carbon Dioxide (22-30) mmol/L Anion Gap mmol/L BUN (9-20) mg/dL Creatinine (0.66-1.25) mg/dL Est GFR (CKD-EPI)AfAm (>60 ml/min/1.73 sqM) Est GFR (CKD-EPI)NonAf (>60 ml/min/1.73 sqM) Glucose (74-99) mg/dL Lactic Ac Sepsis Rflx Plasma Lactic Acid Rivera (0.7-2.0) mmol/L Calcium (8.4-10.2) mg/dL Magnesium (1.6-2.3) mg/dL Total Bilirubin (0.2-1.3) mg/dL AST (17-59) U/L ALT (21-72) U/L Alkaline Phosphatase (38-126) U/L Total Creatine Kinase 58 (55-170) U/L CK-MB (CK-2) 3.3 H (0.0-2.4) ng/mL CK-MB (CK-2) Rel Index 5.7 Troponin I 0.222 H* (0.000-0.034) ng/mL Total Protein (6.3-8.2) g/dL Albumin (3.5-5.0) g/dL Urine Color Urine Appearance (Clear) Urine pH (5.0-8.0) Ur Specific Parkman (1.001-1.035) Urine Protein (Negative) Urine Glucose (UA) (Negative) Urine Ketones (Negative) Urine Blood (Negative) Urine Nitrite (Negative) Urine Bilirubin (Negative) Urine Urobilinogen (<2.0) mg/dL Ur Leukocyte Esterase (Negative) Urine RBC (0-5) /hpf Urine WBC (0-5) /hpf Hyaline Casts (0-2) /lpf Urine Mucus (None) /hpf 02/19/18 02/19/18 02/19/18 Range/Units 15:40 15:40 15:40 WBC (3.8-10.6) k/uL RBC (4.30-5.90) m/uL Hgb (13.0-17.5) gm/dL Hct (39.0-53.0) % MCV (80.0-100.0) fL MCH (25.0-35.0) pg MCHC (31.0-37.0) g/dL RDW (11.5-15.5) % Plt Count (150-450) k/uL Neutrophils % % Lymphocytes % % Monocytes % % Eosinophils % % Basophils % % Neutrophils # (1.3-7.7) k/uL Lymphocytes # (1.0-4.8) k/uL Monocytes # (0-1.0) k/uL Eosinophils # (0-0.7) k/uL Basophils # (0-0.2) k/uL Anisocytosis Macrocytosis PT 11.6 (9.0-12.0) sec INR 1.2 H (<1.2) APTT 24.0 (22.0-30.0) sec VBG pH (7.31-7.41) VBG pCO2 (37-51) mmHg VBG HCO3 (24-28) mmol/L Sodium 140 (137-145) mmol/L Potassium 5.1 (3.5-5.1) mmol/L Chloride 104 (98-107) mmol/L Carbon Dioxide 21 L (22-30) mmol/L Anion Gap 15 mmol/L BUN 19 (9-20) mg/dL Creatinine 1.24 (0.66-1.25) mg/dL Est GFR (CKD-EPI)AfAm 68 (>60 ml/min/1.73 sqM) Est GFR (CKD-EPI)NonAf 59 (>60 ml/min/1.73 sqM) Glucose 213 H (74-99) mg/dL Lactic Ac Sepsis Rflx Plasma Lactic Acid Rivera 4.1 H* (0.7-2.0) mmol/L Calcium 9.2 (8.4-10.2) mg/dL Magnesium 2.3 (1.6-2.3) mg/dL Total Bilirubin 1.4 H (0.2-1.3) mg/dL AST 143 H (17-59) U/L ALT 115 H (21-72) U/L Alkaline Phosphatase 96 (38-126) U/L Total Creatine Kinase (55-170) U/L CK-MB (CK-2) (0.0-2.4) ng/mL CK-MB (CK-2) Rel Index Troponin I (0.000-0.034) ng/mL Total Protein 10.5 H (6.3-8.2) g/dL Albumin 3.9 (3.5-5.0) g/dL Urine Color Urine Appearance (Clear) Urine pH (5.0-8.0) Ur Specific Parkman (1.001-1.035) Urine Protein (Negative) Urine Glucose (UA) (Negative) Urine Ketones (Negative) Urine Blood (Negative) Urine Nitrite (Negative) Urine Bilirubin (Negative) Urine Urobilinogen (<2.0) mg/dL Ur Leukocyte Esterase (Negative) Urine RBC (0-5) /hpf Urine WBC (0-5) /hpf Hyaline Casts (0-2) /lpf Urine Mucus (None) /hpf 02/19/18 02/19/18 Range/Units 16:51 17:14 WBC (3.8-10.6) k/uL RBC (4.30-5.90) m/uL Hgb (13.0-17.5) gm/dL Hct (39.0-53.0) % MCV (80.0-100.0) fL MCH (25.0-35.0) pg MCHC (31.0-37.0) g/dL RDW (11.5-15.5) % Plt Count (150-450) k/uL Neutrophils % % Lymphocytes % % Monocytes % % Eosinophils % % Basophils % % Neutrophils # (1.3-7.7) k/uL Lymphocytes # (1.0-4.8) k/uL Monocytes # (0-1.0) k/uL Eosinophils # (0-0.7) k/uL Basophils # (0-0.2) k/uL Anisocytosis Macrocytosis PT (9.0-12.0) sec INR (<1.2) APTT (22.0-30.0) sec VBG pH (7.31-7.41) VBG pCO2 (37-51) mmHg VBG HCO3 (24-28) mmol/L Sodium (137-145) mmol/L Potassium (3.5-5.1) mmol/L Chloride (98-107) mmol/L Carbon Dioxide (22-30) mmol/L Anion Gap mmol/L BUN (9-20) mg/dL Creatinine (0.66-1.25) mg/dL Est GFR (CKD-EPI)AfAm (>60 ml/min/1.73 sqM) Est GFR (CKD-EPI)NonAf (>60 ml/min/1.73 sqM) Glucose (74-99) mg/dL Lactic Ac Sepsis Rflx Y Plasma Lactic Acid Rivera (0.7-2.0) mmol/L Calcium (8.4-10.2) mg/dL Magnesium (1.6-2.3) mg/dL Total Bilirubin (0.2-1.3) mg/dL AST (17-59) U/L ALT (21-72) U/L Alkaline Phosphatase (38-126) U/L Total Creatine Kinase (55-170) U/L CK-MB (CK-2) (0.0-2.4) ng/mL CK-MB (CK-2) Rel Index Troponin I (0.000-0.034) ng/mL Total Protein (6.3-8.2) g/dL Albumin (3.5-5.0) g/dL Urine Color Yellow Urine Appearance Clear (Clear) Urine pH 5.5 (5.0-8.0) Ur Specific Parkman 1.008 (1.001-1.035) Urine Protein Trace H (Negative) Urine Glucose (UA) Negative (Negative) Urine Ketones Negative (Negative) Urine Blood Moderate H (Negative) Urine Nitrite Negative (Negative) Urine Bilirubin Negative (Negative) Urine Urobilinogen <2.0 (<2.0) mg/dL Ur Leukocyte Esterase Trace H (Negative) Urine RBC 15 H (0-5) /hpf Urine WBC 5 (0-5) /hpf Hyaline Casts 26 H (0-2) /lpf Urine Mucus Rare H (None) /hpf Disposition Clinical Impression: CHF exacerbation, NSTEMI (non-ST elevated myocardial infarction), Cardiac arrest Disposition: Condition: Fair Is patient prescribed a controlled substance at d/c from ED?: No Preliminary Cause of : Cardiac arrest
--- NOTE | 2018-02-23 01:14 | PN ---
PROGRESS NOTE DATE OF SERVICE: 02/22/2018. PRESENTING COMPLAINT: Short of breath. INTERVAL HISTORY: This patient has severe aortic stenosis, presents with bilateral pleural effusion, has been on IV Lasix drip, making good urine output. The patient was seen by me earlier today. The patient has put out more than 4 L of fluid. Breathing somewhat better. Did tolerate some diet. Lying in bed. REVIEW OF SYSTEMS: Done for constitutaional, cardiovascular, GI, pulmonary, relevant findings as above. CURRENT MEDICATIONS: Reviewed that include IV Lasix drip. PHYSICAL EXAMINATION: VITAL SIGNS: Temperature 98, pulse 93, respiratory rate 16 blood pressure 104/60. Pulse 99% on 2. GENERAL APPEARANCE: Sitting up, looking a bit better, less short of breath. EYES: Pupils equal. Conjunctivae normal. NECK: JVD raised. Mass not palpable. RESPIRATORY: Effort increased. LUNGS: Decreased breath sounds. CARDIOVASCULAR: 1st and 2nd sounds normal. No edema. ABDOMEN: Soft, nontender. Liver and spleen not palpable. PSYCHIATRY: Alert and oriented x3. Mood and affect normal. INVESTIGATIONS: White count 8.6, hemoglobin 8.9, potassium 3.5, BUN and creatinine is normal. ASSESSMENT: 1. Acute on chronic congestive heart failure exacerbation from systolic dysfunction, ejection fraction 20-30 percent from severe aortic stenosis, slow to respond. 2. Severe aortic stenosis with mean gradient of 63 for possible transcatheter aortic valve replacement at [facility] down the road. The patient is more stable. 3. Moderate mitral regurgitation, nonrheumatic. 4. Chronic medical debility. 5. Chronic kidney disease stage 3 from nephrosclerosis. 6. Anxiety, depression not otherwise specified. 7. Mild protein-calorie malnutrition. 8. Minimal coronary artery from recent cardiac catheterization. 9. Normocytic anemia cause unknown. 10.Lactic acidosis type 2. PLAN: Continue current medication and treatment plan. Patient is being followed with Cardiology and Cardiothoracic. Did discuss the care with the patient. The patient has started to respond. MMODL / IJN: [id number] /
--- NOTE | 2018-02-23 09:03 | DS ---
DISCHARGE SUMMARY DATE OF ADMISSION: 02/19/2018. DATE PATIENT : 02/22/2018. CAUSE OF : 1. Severe aortic stenosis. 2. Acute on chronic congestive heart failure exacerbation from systolic dysfunction, ejection fraction 20%-30% from severe aortic stenosis. 3. Moderate mitral regurgitation, nonrheumatic. 4. Chronic medical debility. 5. Chronic kidney disease stage III from nephrosclerosis. 6. Anxiety, depression not otherwise specified. 7. Mild protein-calorie malnutrition. 8. Minimal coronary artery from recent cardiac catheterization. 9. Normocytic anemia, cause unknown. 10.Lactic acidosis from ischemia type 2. CONSULTATION: 1. Dr. Donald from Cardiothoracic Surgery. 2. Dr. Keene from Cardiology. HOSPITAL COURSE: This patient with known severe aortic stenosis presented with CHF exacerbation pleural effusion, was put on Lasix drip and started to diuresis. Patient then suddenly collapsed and went into VFib, V. tachy. CODE T was called and patient succumbed to the underlying problem. MMAIDENL / IJN: [id number] /
--- NOTE | 2018-02-25 11:13 | CDI ---
Documentation Clarification Form Date: 02/25/2018 10:42:38 AM From: Sandy NORMAN,RN,CCDS Email: [email or web address] Admit Date: 02/19/2018 6:03:00 PM Patient Name: Liam Saini Visit Number: [id number] Discharge Date: 02/22/2018 9:40:00 PM ATTENTION: The Clinical Documentation Specialists (CDI) and [facility] Coding Staff appreciate your assistance in clarifying documentation. Please respond to the clarification below the line at the bottom and electronically sign. The CDI & [facility] Coding staff will review the response and follow-up if needed. Please note: Queries are made part of the Legal Health Record. If you have any questions, please contact the author of this message via ITS. Dr. Niraj Rios The patient presented with the following respiratory symptoms LUZ MARINA, SOB , tachypnea to 36, retractions,Dx with NSTEMI, Acute systolic CHF exacerbation History/Risk Factors:afib, CHF, CVA presenting with acute dyspnea, Severe aortic stenosis, recent NSTEMI,HTN, CKD3 Tobacco use: none & Home oxygen:none noted Clinical Indicators: retractions, acutely dyspneic, PN 12/3 notes short of breath and slightly anxious appearing. Chest X-ray: moderate pleural effusions. PVC or underlying infectious process Vital signs:RR to 38 in ED ,HR 109 BP 160s/100 Pulse oximetry:EMS notes SPO2 before O2 admin of 78% Lung/Breathing assessment: bilateral wheezing intercostal retractions, rales, diminished VBG: pH7.27 pCO2 51 VBG HCO3 22 Lactic acid 4.1 2nd to ischemia Treatment: SVN,BIPAP,Lasix gtt, NTG Breathing tx [facility] EMS and Douneb Q 2hrs prn Continuous Pulse ox O2/ to 10 L 12/1 BiPAP applied in ED with FiO2 50% 2-3 flow rate and used intermittently during stay.Pt intubated during code blue In your professional opinion, can you please clarify if these findings signify one of the following conditions? Acuity Acute Chronic Acute on Chronic Specificity Respiratory Failure (further specify (if known)): With hypercapnia? (pCO2 >50 and pH <7.35) With hypoxia? (pO2 <60 mm Hg or SpO2 <91% on room air) Respiratory Distress Respiratory Insufficiency Other Diagnosis, please specify Unable to determine (Last Revision: June 2017) acute hypoxic respiratory failure from CHF acute exacerbation secondary to severe aortic stenosis MTDD
--- NOTE | 2018-03-01 17:04 | DS ---
DISCHARGE SUMMARY CLARIFICATION ON DISCHARGE SUMMARY: DATE OF ADMISSION: 02/19/2018. DATE PATIENT : 02/22/2018. CAUSE OF : Severe aortic stenosis, non-rheumatic. MMAIDENL / IJN: [id number] /
== END 2018-02-22 21:40 | disposition expired ==
LOC: EC 15:31 → 3SCARD 18:03
PROVIDERS: ADMIT Hospitalist; ATTEND Hospitalist
PROC: 5A09457 Assistance with Respiratory Ventilation, 24-96 Consecutive Hours, Continuous Positive Airway Pressure (ICD-10-PCS; principal; 2018-02-19)
PROC: 5A12012 Performance of Cardiac Output, Single, Manual (ICD-10-PCS; 2018-02-22)
DX: I13.0 Hypertensive heart and chronic kidney disease with heart failure and stage 1 through stage 4 chronic kidney disease, or unspecified chronic kidney disease (principal); I50.23 Acute on chronic systolic (congestive) heart failure; I21.A1 Myocardial infarction type 2; J96.01 Acute respiratory failure with hypoxia; E87.2 Acidosis; E44.1 Mild protein-calorie malnutrition; I49.01 Ventricular fibrillation; I46.2 Cardiac arrest due to underlying cardiac condition; I65.21 Occlusion and stenosis of right carotid artery; I48.0 Paroxysmal atrial fibrillation; I42.9 Cardiomyopathy, unspecified; G40.909 Epilepsy, unspecified, not intractable, without status epilepticus; D64.9 Anemia, unspecified; I35.2 Nonrheumatic aortic (valve) stenosis with insufficiency; I34.0 Nonrheumatic mitral (valve) insufficiency; N18.3 Chronic kidney disease, stage 3 (moderate); F41.8 Other specified anxiety disorders; Z79.899 Other long term (current) drug therapy; Z86.73 Personal history of transient ischemic attack (TIA), and cerebral infarction without residual deficits; Z88.8 Allergy status to other drugs, medicaments and biological substances; Z86.79 Personal history of other diseases of the circulatory system; Z82.61 Family history of arthritis; Z81.8 Family history of other mental and behavioral disorders; Z82.49 Family history of ischemic heart disease and other diseases of the circulatory system; Z68.25 Body mass index [BMI] 25.0-25.9, adult; I25.2 Old myocardial infarction
CPT/HCPCS: 36415; 51701; 70486; 71045; 76604; 80048; 80053; 81001; 82550; 82553; 82803; 83605; 83735; 84484; 85025; 85610; 85730; 93005; 93880; 94640; 94660; 94760; 99285